=== PATIENT | female | born 1955 | race Caucasian/White ===

== ENCOUNTER 2020-02-22 10:28 | Outpatient (REF) | payer MEDICARE, SELFPAY ==
[2020-02-22 11:30] LABS: MANUAL DIFF FLAG NO
[2020-02-22 11:42] LABS: Basophils Absolute Auto 0.1 X10*3/uL (0.0-0.2); Basophils Percent Auto 1.4 % (0-2); Eosinophils Absolute Auto 0.2 X10*3/uL (0.0-0.4); Eosinophils Percent Auto 2.7 % (0-4); Hematocrit 40.8 % (37-47); Imm Gran Abs Auto 0.02 X10*3/uL (0.00-0.03); Imm Gran Pct Auto 0.3 % (0.0-0.4); Lymphocytes Absolute Auto 1.8 X10*3/uL (1.2-4.9); Lymphocytes Percent Auto 27.4 % (20-40); Mean Corpuscular HGB Conc 31.9 g/dl (31.0-35.0); Mean Corpuscular Volume 84.8 fL (80-98); Mean Platelet Volume 10.8 fL (9.4-12.3); Monocytes Absolute Auto 0.5 X10*3/uL (0.1-1.2); Monocytes Percent Auto 7.2 % (2-11); Neutrophils Absolute Auto 3.9 X10*3/uL (2.0-8.3); Platelet Count 275 X10*3/uL (160-400); Red Blood Count 4.81 X10*6/uL (4.20-5.50); Red Cell Distribution Width 15.2 % (11.0-16.0); Reticulocytes Absolute 0.047 X10*6/uL (0.026-0.095); White Blood Count 6.4 X10*3/uL (4.8-10.8)
[2020-02-22 14:46] LABS: Iron 73 mcg/dL (30-160); Percent Iron Saturation 25 % (15-50); Total Iron Binding Capacity 292 mcg/dL (228-428); Unsaturated Iron Binding 219 ug/dL
[2020-02-22 14:57] LABS: Ferritin 27 ng/mL (10-250)
[2020-02-22 16:17] LABS: Folate 16.3 ng/mL (> or = 4.0); Vitamin B12 773 pg/mL (200-900)
== END 2020-02-22 10:29 | disposition home or self-care (01) ==
LOC: HO.HMGCLDS 10:28
PROVIDERS: PCP Internal Medicine; Visit Provider Internal Medicine
DX: D64.9 Anemia, unspecified (principal); Z85.3 Personal history of malignant neoplasm of breast; F41.9 Anxiety disorder, unspecified; Z98.84 Bariatric surgery status; M85.80 Other specified disorders of bone density and structure, unspecified site
CPT/HCPCS: 36415; 82607; 82728; 82746; 83540; 85025; 85045

== ENCOUNTER → 2020-05-15 09:52 | Outpatient (BNVA) | payer MEDICARE, SELFPAY | PROVIDERS: PCP Internal Medicine; Visit Provider Surgery | DX: Z85.3 Personal history of malignant neoplasm of breast (principal) | CPT/HCPCS: 99212 ==

== ENCOUNTER → 2020-05-19 08:19 | Outpatient (BNVA) | payer MEDICARE, SELFPAY | PROVIDERS: PCP Internal Medicine; Visit Provider Physician Assistant | DX: E66.3 Overweight (principal); K91.2 Postsurgical malabsorption, not elsewhere classified; Z90.3 Acquired absence of stomach [part of]; Z98.84 Bariatric surgery status | CPT/HCPCS: Q3014 ==

== ENCOUNTER 2020-06-02 08:44 | Day surgery (SDC) | payer MEDICARE, SELFPAY ==
[2020-05-26 16:48] VITALS: BMI 27.3
--- NOTE | 2020-05-30 08:36 | P.CONAN_ITS ---
Documented by User: Rochelle Kelley 05/30/20 08:37 HPI - Anesthesia Eval Consult details Narrative: 64yo F for Colonoscopy PMFSH Past Medical History Medical History (Updated 05/19/20 @ 14:31 by Chula Alejandra PA-C) History of right breast cancer Intestinal malabsorption following gastrectomy Morbid obesity Overweight (BMI 25.0-29.9) Spinal stenosis Family History Family History Mother History of colon cancer Surgical History Surgical History (Updated 05/19/20 @ 14:31 by Chula Alejandra PA-C) History of back surgery History of lumpectomy of right breast (~06/2010) Hx laparoscopic cholecystectomy (~09/10/15) Hx of bilateral cataract extraction Hx of section Hx of dilation and curettage Hx of gastric bypass (~11/19/15) Social History Social History (Updated 05/26/20 @ 16:48 by Marylu Hall) Alcohol intake: never Smoking Status: Never smoker Use of substances other than those prescribed or required for medical reasons: No Advance Directives: No Advance Directives Information Provided: No Advance Directives on File: No Meds Allergies Allergy/AdvReac Type Severity Reaction Status Date / Time Lisinopril, SAÚL inhibitors Allergy Unknown cough Uncoded 06/02/20 08:58 Home Medications Medication Instructions Recorded Confirmed Type cholecalciferol (vitamin D3) 25 25 mcg PO DAILY 05/15/20 05/26/20 History mcg (1,000 unit) capsule cyanocobalamin (vitamin B-12) 1,000 mcg IM QMONTH 05/15/20 05/26/20 History 1,000 mcg/mL injection solution multivitamin 1 tab PO DAILY 05/15/20 05/26/20 History tamoxifen 20 mg tablet 20 mg PO DAILY 05/15/20 05/26/20 History vitamin A 10,000 unit capsule 1 cap PO DAILY 05/15/20 05/26/20 History Exam Exam Date and Time: May 30, 2020 0836 Height,Weight and Vital Signs: Height 5 ft 3 in Weight 69.853 kg Assessment and Plan Assessment Anesthesia Assessment: Chart Reviewed Documented by User: Alena Yang 06/02/20 09:42 [facility] Past Medical History Medical History (Updated 05/19/20 @ 14:31 by Chula Alejandra PA-C) History of right breast cancer Intestinal malabsorption following gastrectomy Morbid obesity Overweight (BMI 25.0-29.9) Spinal stenosis Family History Family History Mother History of colon cancer Surgical History Surgical History (Updated 05/19/20 @ 14:31 by Chula Alejandra PA-C) History of back surgery History of lumpectomy of right breast (~06/2010) Hx laparoscopic cholecystectomy (~09/10/15) Hx of bilateral cataract extraction Hx of section Hx of dilation and curettage Hx of gastric bypass (~11/19/15) Social History Social History (Updated 05/26/20 @ 16:48 by Marylu Hall) Alcohol intake: never Smoking Status: Never smoker Use of substances other than those prescribed or required for medical reasons: No Advance Directives: No Advance Directives Information Provided: No Advance Directives on File: No Meds Allergies Allergy/AdvReac Type Severity Reaction Status Date / Time Lisinopril, SAÚL inhibitors Allergy Unknown cough Uncoded 06/02/20 08:58 Home Medications Medication Instructions Recorded Confirmed Type cholecalciferol (vitamin D3) 25 25 mcg PO DAILY 05/15/20 05/26/20 History mcg (1,000 unit) capsule cyanocobalamin (vitamin B-12) 1,000 mcg IM QMONTH 05/15/20 05/26/20 History 1,000 mcg/mL injection solution multivitamin 1 tab PO DAILY 05/15/20 05/26/20 History tamoxifen 20 mg tablet 20 mg PO DAILY 05/15/20 05/26/20 History vitamin A 10,000 unit capsule 1 cap PO DAILY 05/15/20 05/26/20 History Exam Airway Mallampati Class: II TM Dist: >3cm Neck ROM: Full Heart: RRR Lungs: CtA BL Assessment and Plan Assessment Anesthesia Assessment: Anesthesia Plan Discussed and Chart Reviewed Final Anesthetic Review NPO: Yes ASA Class: II Final Preanesthetic Review: Meds/Chuckgs Chart Reviewed and Consent Obtained/Reviewed Patient Risk: Intermediate Procedure Risk: Intermediate Anesthetic Plan Anesthetic Plan: MAC: Disposition: Standard PACU
[2020-06-02 09:06] VITALS: BP 155/65; PULSE 72; RESP 18; TEMP 36.9; O2SAT 97
[2020-06-02] MEDS: Lactated Ringers 1,000 ML 100 ML IVCONT (09:21)
[2020-06-02 10:44] VITALS: BP 118/57; PULSE 61; RESP 16; TEMP 36.6; O2SAT 98
--- NOTE | 2020-06-02 10:47 | PM.OP ---
Brief Operative Note Date of Service: 06/02/20 Pre-op diagnosis: Screening Post-op diagnosis: other (Diverticulosis, Internal hemorrhoids) Procedure: Colonoscopy to the cecum and TI Surgeon: Joseph Jaquez Anesthesia: MAC Estimated blood loss (mL): 0 Pathology: none sent Condition: stable Disposition: PACU
[2020-06-02 11:00] VITALS: BP 141/61; PULSE 62; RESP 16; TEMP 36.6; O2SAT 99
--- NOTE | 2020-06-02 11:24 | OP_ITS ---
SURGEON: Joseph Jaquez MD INDICATIONS: The patient presents for evaluation of colorectal cancer screening and personal history of tubular adenoma of the colon. Full consent has been obtained from her for this, including risks of bleeding and perforation. PREOPERATIVE DIAGNOSIS: Colorectal cancer screening and personal history of tubular adenoma of the colon. POSTOPERATIVE DIAGNOSIS: Colorectal cancer screening and personal history of tubular adenoma of the colon, diverticulosis and internal hemorrhoids. PROCEDURE PERFORMED: Colonoscopy to cecum and terminal ileum. ESTIMATED BLOOD LOSS: COMPLICATIONS: ANESTHESIA: Monitored anesthesia care. ASSISTANTS: SPECIMENS: DESCRIPTION OF PROCEDURE: The patient was placed in the left lateral decubitus position. The digital rectal exam revealed no abnormalities. The Olympus video pediatric colonoscope was entered into the rectum and advanced easily to the cecum. Once in the cecum, I did identify normal-appearing cecal pouch with appendiceal orifice and a normal-appearing ileocecal valve. The terminal ileum was cannulated and appeared normal. The scope was withdrawn back in the colon. The entire cecum and ileocecal valve appeared normal. Scope was then slowly withdrawn assessing all mucosal surfaces carefully. Preparation was excellent. I did not visualize any sign of polyps, colitis, nor angiodysplasia. There was a mild amount of sigmoid diverticulosis. In the rectum, scope was retroflexed visualizing internal hemorrhoids, but no other pathology. The rectal mucosa appeared normal. The scope was straightened out and withdrawn from the patient. She tolerated the procedure well and was returned to recovery area in stable condition. IMPRESSION: 1. Sigmoid diverticulosis. 2. Internal hemorrhoids. PLAN: Given her previous history of a tubular adenoma, I would recommend a followup colonoscopy in 5 years for further screening. She will otherwise see me on a p.r.n. basis. MD JERED Johnson/XIOMARA / [id number]
--- NOTE | 2020-06-02 11:34 | HO.POSTANES ---
Post Anesthesia Evaluation Post Anesthesia Evaluation Vital Signs: Vital Signs Temp Pulse Resp BP Pulse Ox 06/02/20 11:00 97.8 F 62 16 141/61 H 99 06/02/20 10:44 97.8 F 61 16 118/57 L 98 06/02/20 09:06 98.5 F 72 18 155/65 H 97 Anesthesia: Monitored Mental Status: Awake Pain Control: Satisfactory Nausea/Vomiting: None Hydration: Adequate Anesthesia-Related Issues: No Anes. Related Issues
== END 2020-06-02 11:39 | disposition home or self-care (01) ==
PROVIDERS: PCP Internal Medicine; Visit Provider Internal Medicine
PROC: 0DJD8ZZ Inspection of Lower Intestinal Tract, Via Natural or Artificial Opening Endoscopic (ICD-10-PCS; CPT 45378; principal; 2020-06-02 10:00)
DX: Z12.11 Encounter for screening for malignant neoplasm of colon (principal); Z80.0 Family history of malignant neoplasm of digestive organs; Z86.010 Personal history of colon polyps; K57.30 Diverticulosis of large intestine without perforation or abscess without bleeding; K64.8 Other hemorrhoids; C50.911 Malignant neoplasm of unspecified site of right female breast; Z79.810 Long term (current) use of selective estrogen receptor modulators (SERMs); Z92.3 Personal history of irradiation; I10 Essential (primary) hypertension; Z79.899 Other long term (current) drug therapy; E66.3 Overweight; Z68.28 Body mass index [BMI] 28.0-28.9, adult; Z98.84 Bariatric surgery status
CPT/HCPCS: G0105

== ENCOUNTER 2020-07-21 08:10 | Outpatient (REF) | payer MEDICARE, OTHER, SELFPAY ==
--- NOTE | ~2020-07-21 | MM_ITS ---
EXAMINATION: MM SCREENING DIGITAL BREAST TOMOSYNTHESIS, BILATERAL CLINICAL INFORMATION: Screening. Asymptomatic. Right lumpectomy for breast cancer 2010. Due for yearly. COMPARISON: Mammography: 07/19/2019, 07/13/2018, 07/11/2017 TECHNIQUE: Digital breast tomosynthesis is performed in both the craniocaudal and mediolateral oblique views along with computer-aided detection (CAD). Synthesized 2D images are generated from the tomosynthesis. FINDINGS: There are scattered areas of fibroglandular density (ACR BI-RADS breast composition Category b). There are no significant masses, abnormal calcifications, or other abnormalities. There is old scarring upper right breast similar to prior studies. There is benign dystrophic calcification in region of the scar. Other scattered benign coarse calcifications are present in the bilateral medial breasts. Neither breast shows interval mass or architectural abnormality. No developing density. No significant changes. MM/MM tomosynthesis screening BI IMPRESSION: No mammographic evidence of malignancy. ASSESSMENT: BI-RADS 2: Benign RECOMMENDATION: Routine annual mammography screening. This patient's information was entered into a reminder system with a target due date for their next mammogram.
== END 2020-07-21 08:11 | disposition home or self-care (01) ==
LOC: HO.MAMMO 08:10
PROVIDERS: Visit Provider Internal Medicine
DX: Z12.31 Encounter for screening mammogram for malignant neoplasm of breast (principal)
CPT/HCPCS: 77063; 77067

== ENCOUNTER 2020-09-24 10:09 | Outpatient (REF) | payer MEDICARE, OTHER, SELFPAY ==
--- NOTE | ~2020-09-24 | XR_ITS ---
EXAMINATION: BILATERAL HAND X-RAY CLINICAL INFORMATION: Pain COMPARISON: None TECHNIQUE: 3 views each hand FINDINGS: Right: The bones may be osteopenic. Bone alignment is normal. No fracture or dislocation is seen. There is mild arthritis at the DIP joint with small osteophytes. Joint spaces are otherwise normal. Soft tissues are normal. Left: The bones may be osteopenic. Bone alignment is normal. No fracture or dislocation is seen. There is arthritis at the first LONG TERM joint with joint space narrowing and osteophyte formation. Joint spaces are otherwise normal. Soft tissues are normal. XR/XR hand RT min 3V IMPRESSION: Right hand: Mild osteoarthritis at the DIP joints. Left hand: Mild osteoarthritis at the first LONG TERM joint.
--- NOTE | ~2020-09-24 | XR_ITS ---
EXAMINATION: BILATERAL HAND X-RAY CLINICAL INFORMATION: Pain COMPARISON: None TECHNIQUE: 3 views each hand FINDINGS: Right: The bones may be osteopenic. Bone alignment is normal. No fracture or dislocation is seen. There is mild arthritis at the DIP joint with small osteophytes. Joint spaces are otherwise normal. Soft tissues are normal. Left: The bones may be osteopenic. Bone alignment is normal. No fracture or dislocation is seen. There is arthritis at the first RETIREMENT joint with joint space narrowing and osteophyte formation. Joint spaces are otherwise normal. Soft tissues are normal. XR/XR hand LT min 3V IMPRESSION: Right hand: Mild osteoarthritis at the DIP joints. Left hand: Mild osteoarthritis at the first RETIREMENT joint.
[2020-09-24 11:40] LABS: MANUAL DIFF FLAG NO
[2020-09-24 11:45] LABS: Basophils Absolute Auto 0.1 X10*3/uL (0.0-0.2); Basophils Percent Auto 1.6 % (0-2); Eosinophils Absolute Auto 0.1 X10*3/uL (0.0-0.4); Eosinophils Percent Auto 2.5 % (0-4); Hematocrit 39.9 % (37-47); Hemoglobin 12.9 g/dl (12.0-16.0); Imm Gran Abs Auto 0.01 X10*3/uL (0.00-0.03); Imm Gran Pct Auto 0.2 % (0.0-0.4); Lymphocytes Absolute Auto 1.2 X10*3/uL (1.2-4.9); Lymphocytes Percent Auto 27.6 % (20-40); Mean Corpuscular HGB Conc 32.3 g/dl (31.0-35.0); Mean Corpuscular Hemoglobin 28.5 pg (27.0-33.0); Mean Corpuscular Volume 88.3 fL (80-98); Mean Platelet Volume 10.7 fL (9.4-12.3); Monocytes Absolute Auto 0.4 X10*3/uL (0.1-1.2); Monocytes Percent Auto 8.4 % (2-11); Neutrophils Absolute Auto 2.6 X10*3/uL (2.0-8.3); Neutrophils Percent Auto 59.7 % (45-73); Platelet Count 250 X10*3/uL (160-400); Red Blood Count 4.52 X10*6/uL (4.20-5.50); Red Cell Distribution Width 13.9 % (11.0-16.0); White Blood Count 4.4 X10*3/uL (4.8-10.8)
[2020-09-24 12:13] LABS: Alanine Aminotransferase 9 U/L (0-31); Alkaline Phosphatase 43 U/L (39-117); Anion Gap 10 (12-20); Aspartate Amino Transferase 27 U/L (5-31); Bilirubin Total 0.3 mg/dL (0.0-1.0); Blood Urea Nitrogen 14 mg/dL (9-16); C Reactive Protein 0.14 mg/dL (< or = 0.50); Calcium 9.1 mg/dL (8.4-10.2); Carbon Dioxide 29 mmol/L (22-29); Chloride 109 mmol/L (96-108); Estimated Glomerular Filt Rate > 60; Glucose Random 98 mg/dL (60-115); Potassium 4.2 mmol/L (3.3-5.1); Rheumatoid Factor < 15.0 IU/mL (<15.0); Sodium 144 mmol/L (135-145); Total Protein 6.2 g/dL (6.5-8.0)
[2020-09-24 12:54] LABS: Erythrocyte Sedimentation Rate 7 MM/HR (0-20)
[2020-09-25 05:42] LABS: Lyme Abs Screen <0.90 index
[2020-09-25 17:26] LABS: Cyclic Citrullinated Peptide <16 UNITS
== END 2020-09-24 10:10 | disposition home or self-care (01) ==
LOC: HO.XRAY 10:09
PROVIDERS: PCP Internal Medicine; Visit Provider Student in an Organized Health Care Education/Training Program
DX: M25.50 Pain in unspecified joint (principal); Z79.899 Other long term (current) drug therapy
CPT/HCPCS: 36415; 73130; 80053; 85025; 85652; 86140; 86200; 86431; 86617; 86618; 99202

== ENCOUNTER 2020-10-14 06:53 | Outpatient (REF) | payer MEDICARE, OTHER, SELFPAY ==
[2020-10-14 07:32] LABS: MANUAL DIFF FLAG NO
[2020-10-14 07:40] LABS: Basophils Absolute Auto 0.1 X10*3/uL (0.0-0.2); Basophils Percent Auto 1.2 % (0-2); Eosinophils Absolute Auto 0.1 X10*3/uL (0.0-0.4); Eosinophils Percent Auto 2.4 % (0-4); Hemoglobin 13.3 g/dl (12.0-16.0); Imm Gran Abs Auto 0.01 X10*3/uL (0.00-0.03); Imm Gran Pct Auto 0.2 % (0.0-0.4); Lymphocytes Absolute Auto 1.6 X10*3/uL (1.2-4.9); Lymphocytes Percent Auto 27.1 % (20-40); Mean Corpuscular HGB Conc 32.4 g/dl (31.0-35.0); Mean Corpuscular Hemoglobin 28.5 pg (27.0-33.0); Mean Corpuscular Volume 87.8 fL (80-98); Mean Platelet Volume 10.3 fL (9.4-12.3); Monocytes Absolute Auto 0.5 X10*3/uL (0.1-1.2); Monocytes Percent Auto 7.7 % (2-11); Neutrophils Absolute Auto 3.6 X10*3/uL (2.0-8.3); Neutrophils Percent Auto 61.4 % (45-73); Platelet Count 264 X10*3/uL (160-400); Red Blood Count 4.67 X10*6/uL (4.20-5.50); Red Cell Distribution Width 13.8 % (11.0-16.0); White Blood Count 5.8 X10*3/uL (4.8-10.8)
[2020-10-14 07:54] LABS: Estimated Average Glucose 105 mg/dL; Hemoglobin A1c % 5.3 %
[2020-10-14 08:27] LABS: Alanine Aminotransferase 10 U/L (0-31); Albumin Level 4.1 g/dL (3.5-5.0); Alkaline Phosphatase 52 U/L (39-117); Anion Gap 11 (12-20); Aspartate Amino Transferase 28 U/L (5-31); Bilirubin Total 0.7 mg/dL (0.0-1.0); Blood Urea Nitrogen 16 mg/dL (9-16); C Reactive Protein 0.11 mg/dL (< or = 0.50); Calcium 9.1 mg/dL (8.4-10.2); Carbon Dioxide 28 mmol/L (22-29); Chloride 108 mmol/L (96-108); Cholesterol 179 mg/dL; Estimated Glomerular Filt Rate > 60; Glucose Fasting 99 mg/dL (60-99); HDL Cholesterol 46 mg/dL; Iron 92 mcg/dL (30-160); LDL Cholesterol Calculated 107 mg/dl; Percent Iron Saturation 35 % (15-50); Potassium 4.2 mmol/L (3.3-5.1); Sodium 143 mmol/L (135-145); Total Iron Binding Capacity 264 mcg/dL (228-428); Total Protein 6.3 g/dL (6.5-8.0); Triglycerides 134 mg/dL; Unsaturated Iron Binding 172 ug/dL
[2020-10-14 08:32] LABS: Ferritin 46 ng/mL (10-250); Vitamin D 25-OH Total 31.3 ng/mL (>30)
[2020-10-14 09:24] LABS: Folate 14.4 ng/mL (> or = 4.0); Vitamin B12 1568 pg/mL (200-900)
[2020-10-15 22:26] LABS: Insulin Level Total 7.4 uIU/mL
[2020-10-16 17:31] LABS: Calcium (PTHI) 9.3 mg/dL (8.6-10.4); PTHI 118 pg/mL (14-64)
[2020-10-17 00:22] LABS: Zinc 71 mcg/dL (60-130)
[2020-10-18 01:31] LABS: Vitamin A 32 mcg/dL (38-98)
[2020-10-19 12:36] LABS: Vitamin B1 16 nmol/L (8-30)
== END 2020-10-14 06:54 | disposition home or self-care (01) ==
LOC: HO.LAB 06:53
PROVIDERS: Absent Provider Internal Medicine Medical Oncology; PCP Internal Medicine; Visit Provider Physician Assistant
DX: E66.01 Morbid (severe) obesity due to excess calories (principal); K91.2 Postsurgical malabsorption, not elsewhere classified; Z90.3 Acquired absence of stomach [part of]
CPT/HCPCS: 36415; 80053; 80061; 82306; 82607; 82728; 82746; 83036; 83525; 83540; 83970; 84425; 84443; 84590; 84630; 85025; 86140

== ENCOUNTER 2020-12-06 01:59 | Emergency (ER) | payer MEDICARE, OTHER, SELFPAY ==
[2020-12-06 02:24] VITALS: BP 134/80; BP 147/51; PULSE 66; PULSE 70; RESP 17; TEMP 36.7; O2SAT 94; O2SAT 96; BMI 28.3
--- NOTE | 2020-12-06 02:39 | ECG_ITS ---
Test Reason : CHEST PAIN Blood Pressure : / mmHG Vent. Rate : 066 BPM Atrial Rate : 066 BPM P-R Int : 152 ms QRS Dur : 078 ms QT Int : 460 ms P-R-T Axes : 058 010 032 degrees QTc Int : 482 ms Normal sinus rhythm Normal ECG When compared to the previous EKG of No significant changes seen Referred By: Jazzy Urban Electronically Signed By:Chris Min
--- NOTE | 2020-12-06 02:46 | ED_ITS ---
HPI - Chest Pain General Chief Complaint: Chest Pain Stated Complaint: shoulder pain Time Seen by Provider: 12/06/20 02:38 Source: patient Mode of arrival: EMS Limitations: no limitations History of Present Illness HPI narrative: Patient comes to the emergency room complaining of left-sided chest pain. Patient states she started having left-sided chest pain radiating down towards her left arm while she was sleeping. Patient states she has no cardiac history, EMS gave the patient a full-dose aspirin prior to arrival, no nitroglycerin. At this time, patient states that she feels normal, very minimal left arm pain, no chest pain, no shortness of breath. Denies abdominal pain Related Data Home Medications Medication Instructions Recorded Confirmed cholecalciferol (vitamin D3) 25 25 mcg PO DAILY 05/15/20 10/15/20 mcg (1,000 unit) capsule multivitamin 1 tab PO DAILY 05/15/20 10/15/20 vitamin A 10,000 unit capsule 1 cap PO DAILY 05/15/20 10/15/20 acetaminophen 500 mg tablet 500 mg PO QID PRN 09/24/20 10/15/20 (Tylenol Extra Strength) diclofenac sodium 1 % topical gel 2 g TOPICAL QID PRN 09/24/20 10/15/20 (Voltaren) Previous Rx's Medication Instructions Recorded citalopram 20 mg tablet 20 mg PO DAILY #90 tab 04/02/20 iron,carbonyl 65 mg-vitamin C 125 1 tab PO DAILY #30 tab 05/19/20 mg tablet,delayed release gabapentin 300 mg capsule 300 mg PO DAILY #90 cap 05/27/20 calcium carbonate 600 mg calcium 600 mg PO DAILY #90 tab 07/15/20 (1,500 mg) tablet (Calcium) cyanocobalamin (vitamin B-12) 1,000 mcg IM .monthly #3 ml 07/21/20 1,000 mcg/mL injection solution vitamin A palmitate 10,000 unit See Rx Instructions PO DAILY #14 11/24/20 tablet tab Allergies Allergy/AdvReac Type Severity Reaction Status Date / Time Lisinopril, SAÚL inhibitors Allergy Intermediate cough Uncoded 09/24/20 10:15 Review of Systems Review of Systems: Constitutional : No Weight loss, No Fever, No Chills, No Night Sweats, No Fatigue, No Malaise ENT/Mouth : No Hearing loss, No Ear Pain, No Nasal Congestion, No Sinus Pain, No Hoarseness, No sore throat, No Rhinorrhea, No Swallowing Difficulty Eyes: No Eye Pain, No Swelling, No Redness, No Foreign Body, No Discharge, No Vision Changes Cardiovascular : Left-sided chest pain radiating towards the left arm,No SOB, No Dyspnea on Exertion, No Orthopnea, No Edema, No Palpitations Respiratory : No Cough, No Sputum, No Wheezing, No Smoke Exposure, No Dyspnea Gastrointestinal : No Nausea, No Vomiting, No Diarrhea, No Constipation, No abdominal Pain, No Hematochezia, No Melena Genitourinary : no irregular bleeding, No Dysuria, No Urinary Frequency, No Hematuria, No Urinary Incontinence, No Urgency, No Flank Pain, No Urinary Flow Changes, No Hesitancy Musculoskeletal : No joint pain, No Myalgias, No Joint Swelling Skin : No Skin Lesions, No rash Neuro : No Weakness, No Numbness, No Paresthesias, No Loss of Consciousness, No Dizziness, No Headache Psych : No Anxiety/Panic, No Depression, No SI/HI/AH/VH, No Social Issues, Heme/Lymph: No Bruising, No Bleeding,No Lymphadenopathy Endocrine : No Polyuria, No Polydipsia, No Temperature Intolerance PMFSH Past Medical History Medical History Anxiety and depression Closed fibular fracture History of right breast cancer Hyperparathyroidism Hypertension Intestinal malabsorption following gastrectomy Metatarsal stress fracture of right foot with routine healing Morbid obesity Obstructive sleep apnea Osteoarthritis Overweight (BMI 25.0-29.9) Spinal stenosis Vitamin A deficiency Surgical History History of back surgery History of lumpectomy of right breast (~06/2010) Hx laparoscopic cholecystectomy (~09/10/15) Hx of bilateral cataract extraction Hx of section Hx of dilation and curettage Hx of gastric bypass (~11/19/15) Family History Family History Mother History of colon cancer Social History Social History Housing: House Alcohol intake: never Patient Tobacco Use Status: Never used Tobacco e-Cigarette/Vaping Use: Never Used Second Hand Smoke Exposure: No Use of substances other than those prescribed or required for medical reasons: No Advance Directives: No Current occupational status: disabled Physical Exam Vital Signs: Vital Signs: Last Vital Signs Temp 98.1 F 12/06/20 02:24 Pulse 66 12/06/20 04:00 Resp 14 12/06/20 04:00 BP 147/51 H 12/06/20 04:00 Pulse Ox 94 12/06/20 04:00 Body Mass Index 28.3 Const: Other: Appearance: Alert. Oriented X3. No acute distress. Eyes: Pupils equal, round and reactive to light. ENT: Pharynx normal. Neck: Normal inspection. Neck supple. No lymph nodes noted. No crepitus CVS: Normal heart rate and rhythm. Pulses normal. Normal S1 and S2, reproducible chest pain on palpation on the left side of the chest Respiratory: No respiratory distress. Breath sounds normal. No Wheezing. No rales Abdomen: Soft and nontender. No rigidity. No distention. good BS x4 Skin: Skin warm and dry. Normal skin color. Normal skin turgor. Extremities: No lower extremity edema. No lower extremity edema. No Lacerations. No Rash Neuro: Oriented X 3. No motor deficit. No sensory deficit. Moving all extermities. No slurred speech. Course Course Course Narrative: Patient's troponin x2 is negative, patient is symptomatic. Patient's pain likely musculoskeletal. EKG within normal limits MDM - Chest Pain Lab Data Result diagrams: 12/06/20 02:56 12/06/20 02:57 Labs: Lab Results 12/06/20 12/06/20 12/06/20 Range/Units 02:56 02:56 02:57 WBC 9.0 (4.8-10.8) X10*3/uL RBC 4.40 (4.20-5.50) X10*6/uL Hgb 12.7 (12.0-16.0) g/dl Hct 37.9 (37-47) % MCV 86.1 (80-98) fL MCH 28.9 (27.0-33.0) pg MCHC 33.5 (31.0-35.0) g/dl RDW 13.4 (11.0-16.0) % Plt Count 254 (160-400) X10*3/uL MPV 9.9 (9.4-12.3) fL Immature Gran % (Auto) 0.3 (0.0-0.4) % Neut % (Auto) 65.9 (45-73) % Lymph % (Auto) 21.0 (20-40) % Owsley % (Auto) 9.6 (2-11) % Eos % (Auto) 2.4 (0-4) % Baso % (Auto) 0.8 (0-2) % Lymph # (Auto) 1.9 (1.2-4.9) X10*3/uL Owsley # (Auto) 0.9 (0.1-1.2) X10*3/uL Eos # (Auto) 0.2 (0.0-0.4) X10*3/uL Baso # (Auto) 0.1 (0.0-0.2) X10*3/uL Abs Immat Gran (auto) 0.03 (0.00-0.03) X10*3/uL Absolute Neuts (auto) 5.9 (2.0-8.3) X10*3/uL Absolute Nucleated RBC 0.000 (0.0-0.012) X10*3/uL Nucleated RBC % (auto) 0.0 (0.0-0.2) /100WBC Sodium 142 (135-145) mmol/L Potassium 4.1 (3.3-5.1) mmol/L Chloride 107 (96-108) mmol/L Carbon Dioxide 27 (22-29) mmol/L Anion Gap 12 (12-20) BUN 16 (9-16) mg/dL Creatinine 0.67 (0.5-1.4) mg/dL Estim Creat Clear Calc 78.8 Estimated GFR > 60 Random Glucose 104 (60-115) mg/dL Calcium 8.8 (8.4-10.2) mg/dL Troponin I High Sens < 3.5 (<3.5-17.0) ng/L 12/06/20 Range/Units 05:06 WBC (4.8-10.8) X10*3/uL RBC (4.20-5.50) X10*6/uL Hgb (12.0-16.0) g/dl Hct (37-47) % MCV (80-98) fL MCH (27.0-33.0) pg MCHC (31.0-35.0) g/dl RDW (11.0-16.0) % Plt Count (160-400) X10*3/uL MPV (9.4-12.3) fL Immature Gran % (Auto) (0.0-0.4) % Neut % (Auto) (45-73) % Lymph % (Auto) (20-40) % Owsley % (Auto) (2-11) % Eos % (Auto) (0-4) % Baso % (Auto) (0-2) % Lymph # (Auto) (1.2-4.9) X10*3/uL Owsley # (Auto) (0.1-1.2) X10*3/uL Eos # (Auto) (0.0-0.4) X10*3/uL Baso # (Auto) (0.0-0.2) X10*3/uL Abs Immat Gran (auto) (0.00-0.03) X10*3/uL Absolute Neuts (auto) (2.0-8.3) X10*3/uL Absolute Nucleated RBC (0.0-0.012) X10*3/uL Nucleated RBC % (auto) (0.0-0.2) /100WBC Sodium (135-145) mmol/L Potassium (3.3-5.1) mmol/L Chloride (96-108) mmol/L Carbon Dioxide (22-29) mmol/L Anion Gap (12-20) BUN (9-16) mg/dL Creatinine (0.5-1.4) mg/dL Estim Creat Clear Calc Estimated GFR Random Glucose (60-115) mg/dL Calcium (8.4-10.2) mg/dL Troponin I High Sens < 3.5 (<3.5-17.0) ng/L ECG Data ECG #1: Attestation: I personally reviewed and interpreted this ECG as follows: (Normal sinus rhythm, heart rate 66, no ST segment depression or elevation, no T-wave inversion, QTC 482) Discharge Plan Discharge Clinical Impression: Atypical chest pain Patient Disposition: Home, Self-Care Instructions: Chest Pain (ED) Additional Instructions: Please follow-up with your primary care physician tomorrow. If you have any wo rsening or new symptoms, please return to the emergency room or call 911 Prescriptions: No Action citalopram 20 mg tablet 20 mg PO DAILY Qty: 90 RF: 2 iron,carbonyl-vitamin C 65 mg iron- 125 mg tablet,delayed release (DR/EC) 1 tab PO DAILY Qty: 30 RF: 11 gabapentin 300 mg capsule 300 mg PO DAILY Qty: 90 RF: 1 cyanocobalamin (vitamin B-12) 1,000 mcg/mL solution 1,000 mcg IM .monthly Qty: 3 RF: 6 vitamin A palmitate 10,000 unit tablet See Rx Instructions PO DAILY Qty: 14 RF: 0 calcium carbonate [Calcium 600] 600 mg calcium (1,500 mg) tablet 600 mg PO DAILY Qty: 90 RF: 2 vitamin A 10,000 unit capsule 1 cap PO DAILY RF: 0 cholecalciferol (vitamin D3) 25 mcg (1,000 unit) capsule 25 mcg PO DAILY RF: 0 multivitamin Tablet 1 tab PO DAILY RF: 0 acetaminophen [Tylenol Extra Strength] 500 mg tablet 500 mg PO QID PRNRF: 0 diclofenac sodium [Voltaren] 1 % gel 2 g topical QID PRNRF: 0 Interventions: ED Discharge Assessment Last Done: 12/06/20 06:03
[2020-12-06 03:01] LABS: MANUAL DIFF FLAG NO
[2020-12-06 03:02] LABS: Basophils Absolute Auto 0.1 X10*3/uL (0.0-0.2); Basophils Percent Auto 0.8 % (0-2); Eosinophils Absolute Auto 0.2 X10*3/uL (0.0-0.4); Eosinophils Percent Auto 2.4 % (0-4); Hematocrit 37.9 % (37-47); Hemoglobin 12.7 g/dl (12.0-16.0); Imm Gran Abs Auto 0.03 X10*3/uL (0.00-0.03); Imm Gran Pct Auto 0.3 % (0.0-0.4); Lymphocytes Absolute Auto 1.9 X10*3/uL (1.2-4.9); Mean Corpuscular HGB Conc 33.5 g/dl (31.0-35.0); Mean Corpuscular Hemoglobin 28.9 pg (27.0-33.0); Mean Corpuscular Volume 86.1 fL (80-98); Mean Platelet Volume 9.9 fL (9.4-12.3); Monocytes Absolute Auto 0.9 X10*3/uL (0.1-1.2); Monocytes Percent Auto 9.6 % (2-11); Neutrophils Absolute Auto 5.9 X10*3/uL (2.0-8.3); Neutrophils Percent Auto 65.9 % (45-73); Platelet Count 254 X10*3/uL (160-400); Red Cell Distribution Width 13.4 % (11.0-16.0)
[2020-12-06 03:25] LABS: Troponin-I High Sensitivity < 3.5 ng/L (<3.5-17.0)
[2020-12-06 03:27] LABS: Anion Gap 12 (12-20); Blood Urea Nitrogen 16 mg/dL (9-16); Calcium 8.8 mg/dL (8.4-10.2); Carbon Dioxide 27 mmol/L (22-29); Chloride 107 mmol/L (96-108); Creatinine Clr Calc Pharmacy 78.8; Estimated Glomerular Filt Rate > 60; Glucose Random 104 mg/dL (60-115); Potassium 4.1 mmol/L (3.3-5.1); Sodium 142 mmol/L (135-145)
[2020-12-06 04:00] VITALS: BP 147/51; PULSE 66; RESP 14; O2SAT 94
[2020-12-06 05:35] LABS: Troponin-I High Sensitivity < 3.5 ng/L (<3.5-17.0)
[2020-12-06 06:00] VITALS: BP 119/57; PULSE 64; RESP 15; O2SAT 94
== END 2020-12-06 06:56 | disposition home or self-care (01) ==
PROVIDERS: Emergency Provider Emergency Medicine; PCP Internal Medicine
DX: R07.89 Other chest pain (principal); I10 Essential (primary) hypertension; F41.9 Anxiety disorder, unspecified; Z79.899 Other long term (current) drug therapy
CPT/HCPCS: 36415; 80048; 84484; 85025; 93005; 99284; 99285

== ENCOUNTER 2020-12-29 07:31 | Outpatient (REF) | payer MEDICARE, OTHER, SELFPAY ==
[2021-01-02 00:36] LABS: Vitamin A 33 mcg/dL (38-98)
== END 2020-12-29 07:32 | disposition home or self-care (01) ==
LOC: HO.LAB 07:31
PROVIDERS: PCP Internal Medicine; Visit Provider Physician Assistant
DX: E50.9 Vitamin A deficiency, unspecified (principal); K91.2 Postsurgical malabsorption, not elsewhere classified; Z90.3 Acquired absence of stomach [part of]
CPT/HCPCS: 36415; 84590

== ENCOUNTER → 2021-02-17 08:14 | Outpatient (BNVA) | payer MEDICARE, OTHER, SELFPAY | PROVIDERS: PCP Internal Medicine; Referring Provider Internal Medicine; Visit Provider Physician Assistant Surgical | DX: E66.3 Overweight (principal); E50.9 Vitamin A deficiency, unspecified; Z98.84 Bariatric surgery status; Z68.29 Body mass index [BMI] 29.0-29.9, adult | CPT/HCPCS: 99212 ==

== ENCOUNTER 2021-03-09 07:25 | Outpatient (REF) | payer MEDICARE, OTHER, SELFPAY ==
[2021-03-09 08:15] LABS: Iron 71 mcg/dL (30-160); Percent Iron Saturation 26 % (15-50); Total Iron Binding Capacity 272 mcg/dL (228-428); Unsaturated Iron Binding 201 ug/dL
[2021-03-09 08:35] LABS: Ferritin 56 ng/mL (10-250); Vitamin D 25-OH Total 45.1 ng/mL (>30)
[2021-03-09 10:17] LABS: Folate 17.8 ng/mL (> or = 4.0); Vitamin B12 980 pg/mL (200-900)
[2021-03-10 16:21] LABS: Calcium (PTHI) 9.6 mg/dL (8.6-10.4); PTHI 108 pg/mL (14-64)
[2021-03-11 21:21] LABS: Zinc 88 mcg/dL (60-130)
[2021-03-13 01:27] LABS: Vitamin A 30 mcg/dL (38-98)
[2021-03-14 13:01] LABS: Vitamin B1 16 nmol/L (8-30)
== END 2021-03-09 07:26 | disposition home or self-care (01) ==
LOC: HO.LAB 07:25
PROVIDERS: PCP Internal Medicine; Visit Provider Physician Assistant Surgical
DX: E66.3 Overweight (principal); Z98.84 Bariatric surgery status
CPT/HCPCS: 36415; 82306; 82607; 82728; 82746; 83540; 83970; 84425; 84590; 84630

== ENCOUNTER 2021-03-17 08:54 | Outpatient (REF) | payer MEDICARE, OTHER, SELFPAY ==
--- NOTE | ~2021-03-17 | XR_ITS ---
EXAMINATION: XR HAND, RIGHT CLINICAL INFORMATION: M79.641 - Pain in right hand COMPARISON: Radiographs right hand 09/24/2020, bone densitometry 07/19/2019. TECHNIQUE: Right hand is imaged in 4 views. FINDINGS: There is generalized mild osteopenia similar to prior exam. No fracture or dislocation or destructive process. The ulnar variance is neutral. The carpus shows no focal joint narrowing or erosive change or chondrocalcinosis. The MCP joints are normal. The PIP joints show no significant narrowing and no erosive change. There are mild osteoarthritic changes involving the DIP joints, greatest fifth finger. No erosive changes. XR/XR hand RT min 3V IMPRESSION: Degenerative changes DIP joints. Generalized osteopenia.
== END 2021-03-17 08:55 | disposition home or self-care (01) ==
LOC: HO.HOSX 08:54
PROVIDERS: Visit Provider Orthopaedic Surgery
DX: S63.632A Sprain of interphalangeal joint of right middle finger, initial encounter (principal); S63.634A Sprain of interphalangeal joint of right ring finger, initial encounter
CPT/HCPCS: 73130; 99202

== ENCOUNTER → 2021-03-30 08:23 | Outpatient (BNVA) | payer MEDICARE, OTHER, SELFPAY | PROVIDERS: PCP Internal Medicine; Visit Provider Physician Assistant Surgical | DX: Z98.84 Bariatric surgery status (principal); E66.3 Overweight | CPT/HCPCS: Q3014 ==

== ENCOUNTER 2021-05-11 09:09 | Outpatient (REF) | payer MEDICARE, SELFPAY ==
[2021-05-14 01:45] LABS: HPV mRNA E6/E7 Not Detected (Not Detected)
== END 2021-05-11 09:10 | disposition home or self-care (01) ==
LOC: HO.LAB 09:09
PROVIDERS: Visit Provider Obstetrics & Gynecology
DX: Z01.419 Encounter for gynecological examination (general) (routine) without abnormal findings (principal); Z78.0 Asymptomatic menopausal state
CPT/HCPCS: 87624; 88142

== ENCOUNTER → 2021-07-06 09:39 | Outpatient (BNVA) | payer MEDICARE, SELFPAY | PROVIDERS: PCP Internal Medicine; Visit Provider Internal Medicine | DX: E21.3 Hyperparathyroidism, unspecified (principal); E55.9 Vitamin D deficiency, unspecified | CPT/HCPCS: 99202 ==

== ENCOUNTER 2021-07-23 09:05 | Outpatient (REF) | payer MEDICARE, SELFPAY ==
--- NOTE | ~2021-07-23 | MM_ITS ---
EXAMINATION: BONE DENSITOMETRY CLINICAL INDICATION: Hyperparathyroidism. COMPARISON: Previous BD dated 07/19/2019 and baseline BD dated 03/11/2009. TECHNIQUE: Using a [employer] DXA System (software version: 13.1) manufactured by [employer], dual-energy x-ray absorptiometry was performed of the lumbar spine, left hip, and left forearm radius 33%. The images are of good technical quality. Summary results are attached. FINDINGS: AP SPINE L1-L4: Current: BMD 1.229 g/cm2, Z-score 1.6, T-score 0.4, normal, 4.1% decrease from previous, 4.0% decrease from baseline (<5% change is not significant). Prior: BMD 1.281 g/cm2. Baseline: BMD 1.280 g/cm2. LEFT FEMUR, NECK: Current: BMD 0.569 g/cm2, Z-score -2.1, T-score -3.4, osteoporosis. Prior: BMD 0.703 g/cm2. Baseline: BMD 1.031 g/cm2. LEFT FEMUR, TOTAL: Current: BMD 0.617 g/cm2, Z-score -2.1, T-score -3.1, osteoporosis, 18.1% decrease from previous, 46.2% decrease from baseline (<5% change is not significant). Prior: BMD 0.753 g/cm2. Baseline: BMD 1.146 g/cm2. LEFT FOREARM RADIUS 33%: BMD 0.684 g/cm2, Z-score -0.7, T-score -2.2, osteopenia. Prior: Not previously measured. IDENTIFIED RISK FACTORS: Menopause, history of fracture (adult), hyperparathyroid, low calcium intake, anticonvulsant, secondary osteoporosis. HISTORY OF FRACTURE: Spine, ankle. MEDICATIONS: Multivitamin, vitamin D, ERT/SERMS. MM/XR DEXA appendicular skeleton IMPRESSION: 1. DIAGNOSIS: Osteoporosis based on the lowest T-score value of -3.4 in the femoral neck applying World Health Organization criteria. 2. 10-YEAR FRACTURE RISK PREDICTION, FRAX: According to the guidelines, FRAX calculation should only be performed on patients in the osteopenia bone density category. Therefore, FRAX was not performed on this patient. 3. Treatment Recommendations: NOF guidelines recommend consideration for treatment in postmenopausal women and men age 50 and older presenting with the following: -A hip or vertebral (clinical or morphometric) fracture. -T-score less than or equal to -2.5 at the femoral neck or spine after appropriate evaluation to exclude secondary causes. -Low bone mass at the hip or spine and a 10-year fracture probability by FRAX of greater than or equal to 3% for hip fracture or greater than or equal to 20% for major osteoporotic fracture based on the [place] adapted WHO algorithm. 4. Other Recommendations: All treatment decisions require clinical judgment and consideration of individual patient factors, including patient preferences, comorbidities, previous drug use, risk factors not captured in the FRAX model (e.g. frailty, falls, vitamin D deficiency, increased bone turnover, interval significant decline in bone density) and possible under or overestimation of fracture risk by FRAX. Additional medical evaluation for secondary cause of low bone mineral density may be appropriate. FUTURE SCAN RECOMMENDATION: People with diagnosed cases of osteoporosis or at high risk for fracture should have regular bone mineral density tests. For patients eligible for Medicare, routine testing is allowed once every 2 years. The testing frequency can be increased to one year for patients who have rapidly progressing disease, those who are receiving or discontinuing medical therapy to restore bone mass, or have additional risk factors.
--- NOTE | ~2021-07-23 | MM_ITS ---
EXAMINATION: MM SCREENING DIGITAL BREAST TOMOSYNTHESIS, BILATERAL CLINICAL INFORMATION: Screening. Asymptomatic. History right lumpectomy. COMPARISON: Mammography: 07/21/2020 and studies dating back to 06/26/2013. TECHNIQUE: Digital breast tomosynthesis is performed in both the craniocaudal and mediolateral oblique views along with computer-aided detection (CAD). Synthesized 2D images are generated from the tomosynthesis. FINDINGS: There are scattered areas of fibroglandular density (ACR BI-RADS breast composition Category b). Postsurgical changes seen within the right breast from previous lumpectomy. There is noted to be a new grouping of microcalcifications in a linear pattern about the deep lateral aspect with the tissue not being included on prior studies. Spot magnification view is recommended. I only see the calcifications on craniocaudal view. There is a stable parenchymal pattern of the left breast. MM/MM tomosynthesis screening BI IMPRESSION: Grouping of calcifications about the deep lateral aspect of the right breast for which spot magnification view in craniocaudal and exaggerated craniocaudal views are recommended. ASSESSMENT: BI-RADS 0: Incomplete - Need Additional Imaging Evaluation RECOMMENDATION: Additional views of the right breast. Radiology department staff will contact the patient for additional imaging. This patient's information was entered into a reminder system with a target due date for their next mammogram.
== END 2021-07-23 09:06 | disposition home or self-care (01) ==
LOC: HO.MAMMO 09:05
PROVIDERS: PCP Internal Medicine; Visit Provider Obstetrics & Gynecology
DX: Z12.31 Encounter for screening mammogram for malignant neoplasm of breast (principal); Z13.820 Encounter for screening for osteoporosis; Z78.0 Asymptomatic menopausal state; M81.0 Age-related osteoporosis without current pathological fracture; E21.3 Hyperparathyroidism, unspecified; E55.9 Vitamin D deficiency, unspecified; Z79.899 Other long term (current) drug therapy
CPT/HCPCS: 77063; 77067; 77081

== ENCOUNTER 2021-07-27 06:52 | Outpatient (REF) | payer MEDICARE, SELFPAY ==
[2021-07-27 08:01] LABS: Alanine Aminotransferase 14 U/L (0-31); Albumin Level 4.2 g/dL (3.5-5.0); Alkaline Phosphatase 64 U/L (39-117); Anion Gap 11 (12-20); Aspartate Amino Transferase 31 U/L (5-31); Bilirubin Total 0.7 mg/dL (0.0-1.0); Blood Urea Nitrogen 23 mg/dL (9-16); Calcium 9.5 mg/dL (8.4-10.2); Carbon Dioxide 28 mmol/L (22-29); Chloride 107 mmol/L (96-108); Estimated Glomerular Filt Rate > 60; Glucose Random 103 mg/dL (60-115); Potassium 3.9 mmol/L (3.3-5.1); Sodium 142 mmol/L (135-145); Total Protein 6.7 g/dL (6.5-8.0)
[2021-07-27 08:14] LABS: Thyroid Stimulating Hormone 1.27 uIU/mL (0.32-4.0); Vitamin D 25-OH Total 39.2 ng/mL (>30)
[2021-07-28 11:56] LABS: Calcium (PTHI) 9.3 mg/dL (8.6-10.4); PTHI 126 pg/mL (16-77)
[2021-07-30 00:16] LABS: Prot Elec - Albumin 4.2 g/dL (3.8-4.8); Prot Elec - Alpha1 0.2 g/dL (0.2-0.3); Prot Elec - Alpha2 0.8 g/dL (0.5-0.9); Prot Elec - Beta 1 0.4 g/dL (0.4-0.6); Prot Elec - Beta 2 0.3 g/dL (0.2-0.5); Prot Elec - Gamma 0.7 g/dL (0.8-1.7); Prot Elec - Total Protein 6.6 g/dL (6.1-8.1)
[2021-07-30 14:16] LABS: Alkaline Phosphatase Bone 10.7 mcg/L (5.6-29.0)
[2021-07-30 18:22] LABS: N-Telopeptide 81 (see note); NTXCreaRU 94 mg/dL (20-275)
== END 2021-07-27 06:53 | disposition home or self-care (01) ==
LOC: HO.LAB 06:52
PROVIDERS: Absent Provider Internal Medicine; PCP Internal Medicine; Visit Provider Nurse Practitioner Acute Care
DX: E21.3 Hyperparathyroidism, unspecified (principal); E55.9 Vitamin D deficiency, unspecified
CPT/HCPCS: 36415; 80053; 82306; 82523; 83970; 84075; 84100; 84165; 84439; 84443

== ENCOUNTER 2021-07-29 09:56 | Outpatient (REF) | payer MEDICARE, SELFPAY ==
[2021-07-29 10:43] LABS: Total Volume 24 Hour Urine 2650 mL
[2021-07-29 11:23] LABS: Creatinine, 24Hr Urine 1.1 G/Day (1.0-2.0); Creatinine, mg/dL 40.07
[2021-07-31 15:40] LABS: Calcium, 24 Hr Urine 133 mg/24 h; Calcium/Creatinine Ratio 122 mg/g creat (30-275); Creatinine 24Hr Urine 1.09 g/24 h (0.50-2.15)
== END 2021-07-29 09:57 | disposition home or self-care (01) ==
LOC: HO.LNP 09:56
PROVIDERS: Visit Provider Internal Medicine
DX: E21.3 Hyperparathyroidism, unspecified (principal)
CPT/HCPCS: 82340; 82570

== ENCOUNTER 2021-07-31 10:14 | Outpatient (REF) | payer MEDICARE, SELFPAY ==
--- NOTE | ~2021-07-31 | US_ITS ---
EXAMINATION: US THYROID CLINICAL INFORMATION: Hyperparathyroidism, unspecified. COMPARISON: None TECHNIQUE: Linear transducer grayscale and color Doppler examination with attention to the region of the thyroid. FINDINGS: SIZE: Measurements of the thyroid lobes and nodules are given in sagittal, anteroposterior and transverse dimensions respectively. Right Thyroid Lobe: 5.30 x 1.37 x 1.60 cm, volume 6.08 mL. Parenchyma: The gland echotexture is homogeneous. Thyroid vascularity is increased. Left Thyroid Lobe: 5.69 x 1.44 x 1.85 cm, volume 7.96 mL. Parenchyma: The gland echotexture is homogeneous. Thyroid vascularity is increased. Isthmus: 0.58 cm in maximum AP dimension. Estimated total number of nodules greater than or equal to 1 cm: 0. Content Writer nodules are described as follows: 1. Location: Left mid. Size: 0.74 x 0.70 x 0.73 cm, volume 0.20 mL. Nodule characteristics: Composition: Solid (2). Echogenicity: Isoechoic (1). Shape: Not taller than wide (0). Margins: Smooth (0). Echogenic Foci: None (0). ACR TI-RADS total points: 3 ACR TI-RADS category: 3 2. Location: Left inferior. Size: 0.34 x 0.23 x 0.40 cm, volume 0.02 mL. Nodule characteristics: Composition: Spongiform (0). Echogenicity: Anechoic (0). Shape: Not taller than wide (0). Margins: Smooth (0). Echogenic Foci: None (0). ACR TI-RADS total points: 0 ACR TI-RADS category: 1 3.: Small 1 mm calcification in the upper pole. NODES: No lymphadenopathy is seen in the tissue surrounding the thyroid gland. US/US thyroid IMPRESSION: Small left thyroid nodules that do not meet TI RADS ultrasound criteria for ultrasound follow-up or FNA. No parathyroid adenoma seen. ACR TI-RADS RECOMMENDATION REFERENCE: Ultrasound-guided fine-needle aspiration, followup ultrasound, no further follow up. * TR1 (0 point) and TR 2 (2 points): No FNA or follow up * TR3 (3 points): FNA if more than or equal to 2.5 cm in maximum dimension, followup ultrasound in 1, 3 and 5 years if 1.5 to 2.4 cm in maximum dimension. * TR4 (4-6 points): FNA if more than or equal to 1.5 cm in maximum dimension, followup ultrasound in 1, 2, 3 and 5 years if 1 to 1.4 cm in maximum dimension. * TR5 (more than or equal to 7 points): FNA if more than or equal to 1 cm in maximum dimension, followup ultrasound every year for 5 years if 0.5 to 0.9 cm in maximum dimension. * TR3, TR4 or TR5 nodules that are below the size threshold for follow up receive no follow up.
== END 2021-07-31 10:15 | disposition home or self-care (01) ==
LOC: HO.HMGCX 10:14
PROVIDERS: Visit Provider Internal Medicine
DX: E21.3 Hyperparathyroidism, unspecified (principal)
CPT/HCPCS: 76536

== ENCOUNTER 2021-08-04 08:49 | Outpatient (REF) | payer MEDICARE, SELFPAY ==
--- NOTE | ~2021-08-04 | MM_ITS ---
EXAMINATION: MM DIAGNOSTIC DIGITAL MAMMOGRAPHY, RIGHT CLINICAL INFORMATION: Recall from screening for tightly grouped round calcifications posterior outer right breast only visible on CC projection. Prior history right breast cancer with lumpectomy, 2010. COMPARISON: Mammography: 07/23/2021, 07/21/2020, 07/19/2019, 07/13/2018 TECHNIQUE: Digital mammography is performed in the following views: Magnification CC x2, magnification exaggerated CC, magnification ML; CC with fenestrated paddle and change and ML view. FINDINGS: There are scattered areas of fibroglandular density (ACR BI-RADS breast composition Category b). The punctate round calcifications posterior outer left breast are again demonstrated on CC views. There are some fine dermal versus vascular calcifications superior right breast on magnification ML view. Additional change in projection with BB confirmed benign dermal versus vascular etiology. Results are discussed with the patient at time of visit. MM/MM added views RT IMPRESSION: The calcifications posterior outer right breast seen on recent screening corresponding to benign dermal versus benign dermal vascular calcification. ASSESSMENT: BI-RADS 2: Benign RECOMMENDATION: Routine annual mammography screening. This patient's information was entered into a reminder system with a target due date for their next mammogram.
== END 2021-08-04 08:50 | disposition home or self-care (01) ==
LOC: HO.MAMMO 08:49
PROVIDERS: Visit Provider Obstetrics & Gynecology
DX: R92.1 Mammographic calcification found on diagnostic imaging of breast (principal)
CPT/HCPCS: 77065

== ENCOUNTER → 2021-10-14 10:23 | Outpatient (BNVA) | payer MEDICARE, SELFPAY | PROVIDERS: PCP Internal Medicine; Visit Provider Internal Medicine | DX: E21.3 Hyperparathyroidism, unspecified (principal); M81.0 Age-related osteoporosis without current pathological fracture; E55.9 Vitamin D deficiency, unspecified | CPT/HCPCS: Q3014 ==

== ENCOUNTER 2021-10-14 13:04 | Outpatient (REF) | payer MEDICARE, SELFPAY ==
[2021-10-14 14:26] LABS: Alanine Aminotransferase 10 U/L (0-31); Albumin Level 4.2 g/dL (3.5-5.0); Alkaline Phosphatase 57 U/L (39-117); Anion Gap 12 (12-20); Aspartate Amino Transferase 32 U/L (5-31); Bilirubin Total 0.5 mg/dL (0.0-1.0); Blood Urea Nitrogen 19 mg/dL (9-16); Calcium 9.6 mg/dL (8.4-10.2); Carbon Dioxide 29 mmol/L (22-29); Chloride 105 mmol/L (96-108); Estimated Glomerular Filt Rate > 60; Glucose Random 93 mg/dL (60-115); Phosphorus 4.1 mg/dL (2.7-4.5); Sodium 142 mmol/L (135-145); Total Protein 6.7 g/dL (6.5-8.0)
[2021-10-14 14:54] LABS: Vitamin D 25-OH Total 32.1 ng/mL (>30)
[2021-10-15 15:36] LABS: Calcium (PTHI) 9.8 mg/dL (8.6-10.4); PTHI 131 pg/mL (16-77)
[2021-10-16 18:07] LABS: Prot Elec - Alpha1 0.3 g/dL (0.2-0.3); Prot Elec - Alpha2 0.7 g/dL (0.5-0.9); Prot Elec - Beta 1 0.4 g/dL (0.4-0.6); Prot Elec - Beta 2 0.3 g/dL (0.2-0.5); Prot Elec - Gamma 0.8 g/dL (0.8-1.7); Prot Elec - Total Protein 6.6 g/dL (6.1-8.1)
[2021-10-19 15:01] LABS: Alkaline Phosphatase Bone 11.2 mcg/L (5.6-29.0)
== END 2021-10-14 13:05 | disposition home or self-care (01) ==
LOC: HO.HMGCLDS 13:04
PROVIDERS: Visit Provider Internal Medicine
DX: M81.0 Age-related osteoporosis without current pathological fracture (principal); E66.01 Morbid (severe) obesity due to excess calories; E55.9 Vitamin D deficiency, unspecified; K91.2 Postsurgical malabsorption, not elsewhere classified; Z90.3 Acquired absence of stomach [part of]
CPT/HCPCS: 36415; 80053; 82306; 83970; 84075; 84100; 84165

== ENCOUNTER 2021-10-16 09:37 | Outpatient (REF) | payer MEDICARE, SELFPAY ==
[2021-10-16 12:37] LABS: Total Volume 24 Hour Urine 1975 mL
[2021-10-16 12:55] LABS: Creatinine, 24Hr Urine 0.9 G/Day (1.0-2.0); Creatinine, mg/dL 44.42
[2021-10-17 17:57] LABS: Calcium, 24 Hr Urine 150 mg/24 h; Calcium/Creatinine Ratio 169 mg/g creat (30-275); Creatinine 24Hr Urine 0.89 g/24 h (0.50-2.15)
[2021-10-20 21:02] LABS: N-Telopeptide 69 (see note); NTXCreaRU 56 mg/dL (20-275)
== END 2021-10-16 09:38 | disposition home or self-care (01) ==
LOC: HO.HMGCLNP 09:37
PROVIDERS: Visit Provider Internal Medicine
DX: M81.0 Age-related osteoporosis without current pathological fracture (principal)
CPT/HCPCS: 82340; 82523; 82570

== ENCOUNTER 2021-11-20 06:41 | Outpatient (REF) | payer MEDICARE, SELFPAY ==
[2021-11-20 06:56] LABS: MANUAL DIFF FLAG NO
[2021-11-20 07:52] LABS: Basophils Absolute Auto 0.1 X10*3/uL (0.0-0.2); Basophils Percent Auto 1.2 % (0-2); Eosinophils Absolute Auto 0.3 X10*3/uL (0.0-0.4); Eosinophils Percent Auto 4.2 % (0-4); Hematocrit 38.3 % (37.0-47.0); Hemoglobin 12.4 g/dl (12.0-16.0); Imm Gran Abs Auto 0.02 X10*3/uL (0.00-0.03); Imm Gran Pct Auto 0.3 % (0.0-0.4); Lymphocytes Absolute Auto 1.9 X10*3/uL (1.2-4.9); Lymphocytes Percent Auto 28.5 % (20-40); Mean Corpuscular HGB Conc 32.4 g/dl (31.0-35.0); Mean Corpuscular Hemoglobin 27.4 pg (27.0-33.0); Mean Corpuscular Volume 84.5 fL (80.0-98.0); Mean Platelet Volume 10.3 fL (9.4-12.3); Monocytes Absolute Auto 0.5 X10*3/uL (0.1-1.2); Monocytes Percent Auto 7.7 % (2-11); Neutrophils Absolute Auto 3.8 x10*3/uL (2.0-8.3); Neutrophils Percent Auto 58.1 % (45-73); Platelet Count 277 X10*3/uL (160-400); Red Blood Count 4.53 X10*6/uL (4.20-5.50); Red Cell Distribution Width 13.8 % (11.0-16.0); White Blood Count 6.6 X10*3/uL (4.8-10.8)
[2021-11-20 08:25] LABS: Alanine Aminotransferase 7 U/L (0-31); Alkaline Phosphatase 68 U/L (39-117); Anion Gap 11 (12-20); Aspartate Amino Transferase 29 U/L (5-31); Bilirubin Total 0.5 mg/dL (0.0-1.0); Blood Urea Nitrogen 18 mg/dL (9-16); Calcium 8.9 mg/dL (8.4-10.2); Carbon Dioxide 27 mmol/L (22-29); Chloride 107 mmol/L (96-108); Cholesterol 190 mg/dL; Estimated Glomerular Filt Rate > 60; Glucose Fasting 92 mg/dL (60-99); HDL Cholesterol 42 mg/dL; LDL Cholesterol Calculated 132 mg/dl; Potassium 4.1 mmol/L (3.3-5.1); Sodium 141 mmol/L (135-145); Total Protein 6.5 g/dL (6.5-8.0); Triglycerides 81 mg/dL
[2021-11-20 08:43] LABS: Estimated Average Glucose 105 mg/dL; Hemoglobin A1C 113.7304 umol/L; Hemoglobin A1c % 5.3 %
[2021-11-20 11:04] LABS: Folate 9.2 ng/mL (> or = 4.0); Vitamin B12 461 pg/mL (200-900)
[2021-11-26 09:02] LABS: Vitamin D 25-OH, D2 <4 ng/mL; Vitamin D 25-OH, D3 33 ng/mL; Vitamin D 25-OH, Total 33 ng/mL (30-100)
== END 2021-11-20 06:42 | disposition home or self-care (01) ==
LOC: HO.LAB 06:41
PROVIDERS: PCP Internal Medicine; Visit Provider Nurse Practitioner Acute Care
DX: Z00.00 Encounter for general adult medical examination without abnormal findings (principal); I10 Essential (primary) hypertension
CPT/HCPCS: 36415; 80053; 80061; 82306; 82607; 82746; 83036; 85025

== ENCOUNTER 2021-11-27 08:11 | Outpatient (REF) | payer MEDICARE, SELFPAY ==
[2021-11-27 09:18] LABS: Estimated Average Glucose 103 mg/dL; Hemoglobin A1c % 5.2 %
[2021-11-27 09:27] LABS: C Reactive Protein 1.29 mg/dL (< or = 0.50); Iron 47 mcg/dL (30-160); Percent Iron Saturation 18 % (15-50); Total Iron Binding Capacity 266 mcg/dL (228-428); Unsaturated Iron Binding 219 ug/dL
[2021-11-27 09:53] LABS: Ferritin 57 ng/mL (10-250); TSH reflex Free T4 0.97 uIU/mL (0.32-4.0)
[2021-11-27 10:06] LABS: Folate 11.7 ng/mL (> or = 4.0); Vitamin B12 687 pg/mL (200-900)
[2021-11-27 10:30] LABS: Insulin 6 uU/mL (2-29)
[2021-11-29 13:06] LABS: PTHI 119 pg/mL (16-77)
[2021-12-01 18:41] LABS: Vitamin A 24 mcg/dL (38-98)
[2021-12-02 13:36] LABS: Zinc 66 mcg/dL (60-130)
[2021-12-03 17:16] LABS: Vitamin B1 13 nmol/L (8-30)
== END 2021-11-27 08:12 | disposition home or self-care (01) ==
LOC: HO.LAB 08:11
PROVIDERS: PCP Internal Medicine; Visit Provider Physician Assistant Surgical
DX: K91.2 Postsurgical malabsorption, not elsewhere classified (principal); Z98.84 Bariatric surgery status
CPT/HCPCS: 36415; 82607; 82728; 82746; 83036; 83525; 83540; 83970; 84425; 84443; 84590; 84630; 86140

== ENCOUNTER → 2021-11-30 09:52 | Outpatient (BNVA) | payer MEDICARE, SELFPAY | PROVIDERS: PCP Internal Medicine; Visit Provider Internal Medicine | DX: M81.0 Age-related osteoporosis without current pathological fracture (principal); E21.3 Hyperparathyroidism, unspecified; E55.9 Vitamin D deficiency, unspecified | CPT/HCPCS: Q3014 ==

== ENCOUNTER 2022-07-26 09:15 | Outpatient (REF) | payer MEDICARE, SELFPAY ==
--- NOTE | ~2022-07-26 | MM_ITS ---
EXAMINATION: MM SCREENING DIGITAL BREAST TOMOSYNTHESIS, BILATERAL CLINICAL INFORMATION: Due for yearly. History right breast cancer status post lumpectomy, 2010. COMPARISON: Mammography: 08/04/2021, 07/23/2021, 07/21/2020, 07/19/2019, 07/13/2018 TECHNIQUE: Digital breast tomosynthesis is performed in both the craniocaudal and mediolateral oblique views along with computer-aided detection (CAD). Synthesized 2D images are generated from the tomosynthesis. FINDINGS: There are scattered areas of fibroglandular density (ACR BI-RADS breast composition Category b). Breast tissue composition borders on predominantly fatty. Background stromal and fibroglandular densities are similar to prior studies and there is no significant mass or architectural abnormality or developing density. No abnormal calcifications. Post therapy changes right breast are similar to prior studies. There is mild reduced breast size and stable scarring with benign coarse calcification within the scar. The axilla are unremarkable. No significant changes from prior exams. MM/MM tomosynthesis screening BI IMPRESSION: -No mammographic evidence of malignancy. -Post therapy changes right breast, stable. ASSESSMENT: BI-RADS 2: Benign RECOMMENDATION: Routine annual mammography screening. This patient's information was entered into a reminder system with a target due date for their next mammogram.
== END 2022-07-26 09:16 | disposition home or self-care (01) ==
LOC: HO.MAMMO 09:15
PROVIDERS: PCP Internal Medicine; Visit Provider Internal Medicine
DX: Z12.31 Encounter for screening mammogram for malignant neoplasm of breast (principal)
CPT/HCPCS: 77063; 77067

== ENCOUNTER 2022-08-09 09:00 | Outpatient (REF) | payer MEDICARE, SELFPAY ==
[2022-08-09 12:01] LABS: Alanine Aminotransferase 8 U/L (0-31); Albumin Level 4.1 g/dL (3.5-5.0); Alkaline Phosphatase 73 U/L (39-117); Anion Gap 13 (12-20); Aspartate Amino Transferase 34 U/L (5-31); Bilirubin Total 0.9 mg/dL (0.0-1.0); Blood Urea Nitrogen 14 mg/dL (9-16); Calcium 9.2 mg/dL (8.4-10.2); Carbon Dioxide 26 mmol/L (22-29); Chloride 108 mmol/L (96-108); Estimated Glomerular Filt Rate > 60; Glucose Random 99 mg/dL (60-115); Phosphorus 3.7 mg/dL (2.7-4.5); Potassium 4.2 mmol/L (3.3-5.1); Sodium 143 mmol/L (135-145); Total Protein 6.3 g/dL (6.5-8.0); Vitamin D 25-OH Total 41.3 ng/mL (>30)
[2022-08-11 13:49] LABS: Calcium (PTHI) 9.2 mg/dL (8.6-10.4); PTHI 152 pg/mL (16-77)
== END 2022-08-09 09:01 | disposition home or self-care (01) ==
LOC: HO.HMGCLDS 09:00
PROVIDERS: PCP Internal Medicine; Visit Provider Internal Medicine
DX: M81.0 Age-related osteoporosis without current pathological fracture (principal); E55.9 Vitamin D deficiency, unspecified
CPT/HCPCS: 36415; 80053; 82306; 83970; 84100

== ENCOUNTER 2022-08-11 10:10 | Outpatient (REF) | payer MEDICARE, SELFPAY ==
[2022-08-17 07:09] LABS: N-Telopeptide 70 (see note); NTXCreaRU 40 mg/dL (20-275)
== END 2022-08-11 10:11 | disposition home or self-care (01) ==
LOC: HO.HMGCLNP 10:10
PROVIDERS: PCP Internal Medicine; Visit Provider Internal Medicine
DX: M81.0 Age-related osteoporosis without current pathological fracture (principal)
CPT/HCPCS: 82523

== ENCOUNTER 2022-08-13 09:17 | Outpatient (REF) | payer MEDICARE, SELFPAY ==
[2022-08-13 13:35] LABS: Creatinine, mg/dL 85.17
[2022-08-13 15:15] LABS: Creatinine, 24Hr Urine 1.3 G/Day (1.0-2.0); Total Volume 24 Hour Urine 1525 mL
[2022-08-16 18:34] LABS: Calcium, 24 Hr Urine 172 mg/24 h; Calcium/Creatinine Ratio 145 mg/g creat (30-275); Creatinine 24Hr Urine 1.19 g/24 h (0.50-2.15)
== END 2022-08-13 09:18 | disposition home or self-care (01) ==
LOC: HO.HMGCLNP 09:17
PROVIDERS: PCP Internal Medicine; Visit Provider Internal Medicine
DX: M81.0 Age-related osteoporosis without current pathological fracture (principal)
CPT/HCPCS: 82340; 82570

== ENCOUNTER → 2022-08-24 13:17 | Outpatient (REF) | payer MEDICARE, SELFPAY ==
--- NOTE | 2022-08-24 13:19 | HM_ITS ---
* Total monitoring time about 3 days. * Underlying rhythm is sinus. Average ventricular rate 73/Min. Range 52 to 129/Min. * Occasional supraventricular ectopy. Estell[place] of 0.9%. Brief runs noted. * Occasional ventricular ectopy. Estell[place] of 1.1%. Rare couplets. * No significant pauses or AV blocks. * No patient markers or events in diary. MTDD
== END ==
LOC: HO.CARD 13:17
PROVIDERS: Visit Provider Internal Medicine
DX: R00.2 Palpitations (principal)
CPT/HCPCS: 93242

== ENCOUNTER 2022-09-09 12:38 | Outpatient (REF) | payer MEDICARE, SELFPAY ==
[2022-09-09 14:20] LABS: Albumin Level 4.2 g/dL (3.5-5.0)
== END 2022-09-09 12:39 | disposition home or self-care (01) ==
LOC: HO.HMGCLDS 12:38
PROVIDERS: PCP Internal Medicine; Visit Provider Internal Medicine
DX: M81.0 Age-related osteoporosis without current pathological fracture (principal)
CPT/HCPCS: 36415; 82040

== ENCOUNTER 2022-09-21 07:24 | Outpatient (REF) | payer MEDICARE, SELFPAY ==
[2022-09-21 07:39] LABS: MANUAL DIFF FLAG NO
[2022-09-21 08:29] LABS: Basophils Absolute Auto 0.1 X10*3/uL (0.0-0.2); Basophils Percent Auto 1.5 % (0-2); Eosinophils Absolute Auto 0.2 X10*3/uL (0.0-0.4); Eosinophils Percent Auto 3.3 % (0-4); Hematocrit 39.5 % (37.0-47.0); Hemoglobin 12.6 g/dl (12.0-16.0); Imm Gran Abs Auto 0.01 X10*3/uL (0.00-0.03); Imm Gran Pct Auto 0.2 % (0.0-0.4); Lymphocytes Absolute Auto 1.3 X10*3/uL (1.2-4.9); Lymphocytes Percent Auto 23.8 % (20-40); Mean Corpuscular HGB Conc 31.9 g/dl (31.0-35.0); Mean Corpuscular Hemoglobin 26.6 pg (27.0-33.0); Mean Corpuscular Volume 83.3 fL (80.0-98.0); Mean Platelet Volume 10.4 fL (9.4-12.3); Monocytes Absolute Auto 0.5 X10*3/uL (0.1-1.2); Monocytes Percent Auto 8.5 % (2-11); Neutrophils Absolute Auto 3.5 x10*3/uL (2.0-8.3); Neutrophils Percent Auto 62.7 % (45-73); Platelet Count 301 X10*3/uL (160-400); Red Blood Count 4.74 X10*6/uL (4.20-5.50); Red Cell Distribution Width 14.4 % (11.0-16.0); White Blood Count 5.5 X10*3/uL (4.8-10.8)
[2022-09-21 09:04] LABS: Alanine Aminotransferase 9 U/L (0-31); Alkaline Phosphatase 69 U/L (39-117); Anion Gap 10 (12-20); Aspartate Amino Transferase 32 U/L (5-31); Bilirubin Total 0.6 mg/dL (0.0-1.0); Blood Urea Nitrogen 12 mg/dL (9-16); Calcium 9.2 mg/dL (8.4-10.2); Carbon Dioxide 29 mmol/L (22-29); Chloride 108 mmol/L (96-108); Cholesterol 198 mg/dL; Estimated Glomerular Filt Rate > 60; Glucose Random 74 mg/dL (60-115); HDL Cholesterol 37 mg/dL; LDL Cholesterol Calculated 134 mg/dl; Magnesium 2.2 mg/dL (1.6-2.6); Phosphorus 2.2 mg/dL (2.7-4.5); Potassium 3.8 mmol/L (3.3-5.1); Sodium 143 mmol/L (135-145); Total Protein 6.5 g/dL (6.5-8.0); Triglycerides 135 mg/dL
[2022-09-21 09:37] LABS: Folate 11.7 ng/mL (> or = 4.0); Free T4 (Free Thyroxine) 1.14 ng/dL (0.71-1.85); Vitamin B12 1686 pg/mL (200-900); Vitamin D 25-OH Total 42.2 ng/mL (>30)
[2022-09-22 14:08] LABS: Calcium (PTHI) 9.3 mg/dL (8.6-10.4); PTHI 131 pg/mL (16-77)
== END 2022-09-21 07:25 | disposition home or self-care (01) ==
LOC: HO.LAB 07:24
PROVIDERS: PCP Internal Medicine; Visit Provider Internal Medicine
DX: R00.2 Palpitations (principal); E78.00 Pure hypercholesterolemia, unspecified; M81.0 Age-related osteoporosis without current pathological fracture; Z98.84 Bariatric surgery status
CPT/HCPCS: 36415; 80053; 80061; 82306; 82607; 82746; 83735; 83970; 84100; 84439; 84443; 85025

== ENCOUNTER → 2022-10-04 09:50 | Outpatient (BNVA) | payer MEDICARE, SELFPAY | PROVIDERS: PCP Internal Medicine; Visit Provider Internal Medicine | DX: M81.0 Age-related osteoporosis without current pathological fracture (principal); E21.3 Hyperparathyroidism, unspecified; E55.9 Vitamin D deficiency, unspecified | CPT/HCPCS: 99212 ==

== ENCOUNTER → 2022-10-13 11:04 | Outpatient (BNVA) | payer MEDICARE, SELFPAY | PROVIDERS: PCP Internal Medicine; Visit Provider Obstetrics & Gynecology ==

== ENCOUNTER 2022-11-16 08:34 | Outpatient (AMB) | payer MEDICARE, SELFPAY ==
--- NOTE | 2022-11-16 08:44 | MHC.PC.OV ---
Vital Signs 11/16/22 08:45 Height 5 ft 3 in Weight 173 lb BMI 30.6 BP 140/82 H Blood Pressure Location Lt brachial Position Sitting Pulse 76 Pulse Source Pulse Oximeter Pulse Oximetry (%) 97 Oxygen Delivery Method Room Air Intake Visit Reasons: Palpitations Allergies Lisinopril, SAÚL inhibitors Allergy (Intermediate, Uncoded 11/16/22 08:46) cough Medication List - Last Reconciled 11/16/22 by Henrry Madden MD calcium citrate-vitamin D3 315 mg-6.25 mcg (250 unit) 2 tabs PO BID 30 days [CBD 1 ea PO] citalopram 20 mg PO BID diclofenac sodium 1% 2 grams topical QID PRN gabapentin 300 mg PO BEDTIME 90 days multivitamin 1 tab PO DAILY vitamin A 1 cap PO DAILY vitamin B complex (B Complex-Vitamin B12 tablet) 1 tab PO DAILY Tobacco use date assessed: 08/17/22 Fall risk assessment: No Falls in past year Last assessed Fall Risk: 11/16/22 Dental Screening Dental Screen Date: 11/16/22 Did you have a dental visit in the last 12 months?: No Did you have a dental problem in the last 6 months where you did not have access to dental care?: No Was dental information given to patient?: No HPI Palpitations HPI Details 86-year-old obese female with a history of gastric bypass 2016 history of breast cancer right lumpectomy and radiation 2010 hyperparathyroidism palpitations last seen in July 2022 patient was advised blood work as well as Holter monitor. Patient is here for follow-up. Colonoscopy is up-to-date mammograms up-to-date bone density is up-to-date. For the hyperparathyroidism has seen endocrinology secondary hyperparathyroidism elevated PTH, low calcium and normal vitamin-D patient has been advised to increase calcium supplement to 2 tablets twice a day. bilateral feet numbness - deny fall or trauma patient also patient does not complain of any low back pain. Will do some nerve test. As for the palpitations still occurs but seldom. [facility] Medical History Anxiety and depression Closed fibular fracture Fall Finger pain, right History of right breast cancer Hyperparathyroidism Intestinal malabsorption following gastrectomy Joint pain Menopause Metatarsal stress fracture of right foot with routine healing Morbid obesity Obstructive sleep apnea Osteoarthritis Osteopenia Overweight (BMI 25.0-29.9) Spinal stenosis Sprain of interphalangeal joint of right middle finger Sprain of interphalangeal joint of right ring finger Stiffness of finger joint of right hand Vitamin A deficiency Vitamin D deficiency Well woman exam Surgical History History of back surgery History of colonoscopy History of lumpectomy of right breast (~06/2010) Hx laparoscopic cholecystectomy (~09/10/15) Hx of bilateral cataract extraction Hx of section Hx of dilation and curettage Hx of gastric bypass (~11/19/15) Hx of tubal ligation Family History Mother History of colon cancer Other Mental health disorder Social History Housing: House Alcohol intake: never Patient Tobacco Use Status: Never used Tobacco e-Cigarette/Vaping Use: Never Used Second Hand Smoke Exposure: No Current occupational status: disabled Cognitive needs: No Hearing needs: No Vision needs: No Female Reproductive History Menstrual Age of Menarche: 12 Questionnaire PHQ-9 Over the last 2 weeks, how often have you been bothered by any of the following problems? 1. Little interest or pleasure in doing things: several days 2. Feeling down, depressed, or hopeless: not at all 3. Trouble falling or staying asleep, or sleeping too much: not at all 4. Feeling tired or having little energy: more than half the days 5. Poor appetite or overeating: several days 6. Feeling bad about yourself - or that you are a failure or have let yourself or your family down: not at all 7. Trouble concentrating on things, such as reading the newspaper or watching television: several days 8. Moving or speaking so slowly that other people could have noticed. Or the opposite - being so fidgety or restless that you have been moving around a lot more than usual: not at all 9. Thoughts that you would be better off or of hurting yourself in some way: not at all Total score: 5 Depression Screening Interpretation: Negative 34436 - PHQ-9 Billing: Yes Source: Developed by Drs. Joseph Arana, Марина Roper, Torrey Celeste and colleagues, with an educational zoey from [employer]. Thrive Questionnaire Date Thrive assessed: 08/17/22 AUDIT C Alcohol Use Questionnaire (AUDIT-C) 1. How often do you have a drink containing alcohol?: Never Total Score: 0 ROMINA-7 AMB Questionnaire ROMINA-7 Date ROMINA - 7 assessed: 08/17/22 Source: Developed by Drs. Joseph Arana, Марина Roper, Torrey Celeste and colleagues, with an educational zoey from [employer]. Physical exam (Primary Care) Vital Signs: Last Vital Signs Pulse 76 11/16/22 08:45 BP 140/82 H 11/16/22 08:45 Pulse Ox 97 11/16/22 08:45 Oxygen Delivery Method Room Air 11/16/22 08:45 BMI result Body Mass Index 30.6 Tobacco/Smoking Status: Tobacco use Status Tobacco use date assessed 08/17/22 11/16/22 08:50 Patient Tobacco Use Status Never used Tobacco 11/16/22 08:50 e-Cigarette/Vaping Use Never Used 11/16/22 08:50 PHQ-9: PHQ-9 Score PHQ-9: Total score 5 11/16/22 08:50 Depression Screening Interpretation: Negative Thrive Assessment: Date of Thrive Assessment Date Thrive assessed 08/17/22 11/16/22 08:50 Const General: alert; No acute distress Eyes Conjunctivae: conjunctivae normal Resp Auscultation: clear to auscultation bilaterally Cardio Rate: regular rate Rhythm: regular rhythm GI Inspection: Yes normal to inspection Extrem General: Yes normal to inspection and No edema Assessment and Plan Assessment & Plan (1) Hx of gastric bypass: Onset Date: ~11/19/15 Comment: Dr. Lai and diaphragmatic hernia repair Code(s): Z98.84 - Bariatric surgery status Plan: Continue to follow-up with bariatric surgeon (2) History of right breast cancer: Comment: June 2010 lumpectomy negative lymph nodes, right side lymphedema status post radiation Code(s): Z85.3 - Personal history of malignant neoplasm of breast Plan: Mammogram is up-to-date (3) Hyperparathyroidism: Comment: Secondary hyperparathyroidism, endocrinology Code(s): E21.3 - Hyperparathyroidism, unspecified Plan: Continue to follow-up with Endocrinology. Secondary hyperparathyroidism secondary to low calcium intake. This has been increased and will continue to monitor (4) Obesity (BMI 30.0-34.9): Code(s): E66.9 - Obesity, unspecified Plan: Continue with diet and exercise (5) Palpitations: Code(s): R00.2 - Palpitations Plan: Holter done revealed negative results PATIENT WILL CALL IF IT IS GETTING WORSE (6) Generalized anxiety disorder: Comment: Decline any counseling referral Code(s): F41.1 - Generalized anxiety disorder Plan: Continue with present medication (7) Numbness and tingling of both feet: Code(s): R20.0 - Anesthesia of skin; R20.2 - Paresthesia of skin Plan: NERVE CONDUCTION TEST REQUESTED Orders: Orders NE electromyogram (EMG) Today R20.0 - Anesthesia of skin, R20.2 - Paresthesia of skin NE nerve conduction velocity Today R20.0 - Anesthesia of skin, R20.2 - Paresthesia of skin Coding Level of Care Code Est Pt Level 4 (66561) Diagnoses Hx of gastric bypass Z98.84 History of right breast cancer Z85.3 Hyperparathyroidism E21.3 Obesity (BMI 30.0-34.9) E66.9 Palpitations R00.2 Generalized anxiety disorder F41.1 Numbness and tingling of both feet R20.0; R20.2
[2022-11-16 08:45] VITALS: BP 140/82; PULSE 76; O2SAT 97; BMI 30.6
== END 2022-11-16 09:25 | disposition home or self-care (01) ==
PROVIDERS: Visit Provider Internal Medicine
DX: E21.3 Hyperparathyroidism, unspecified (principal); Z98.84 Bariatric surgery status; Z85.3 Personal history of malignant neoplasm of breast; Z68.30 Body mass index [BMI] 30.0-30.9, adult; E66.9 Obesity, unspecified; R00.2 Palpitations; F41.1 Generalized anxiety disorder; R20.0 Anesthesia of skin; R20.2 Paresthesia of skin
CPT/HCPCS: 99214

== ENCOUNTER 2022-12-29 13:35 | Outpatient (REF) | payer MEDICARE, SELFPAY ==
[2023-01-02 11:32] LABS: Vitamin A 37 mcg/dL (38-98)
[2023-01-03 15:23] LABS: Vitamin B1 17 nmol/L (8-30)
== END 2022-12-29 13:36 | disposition home or self-care (01) ==
LOC: HO.LAB 13:35
PROVIDERS: PCP Internal Medicine; Visit Provider Physician Assistant Surgical
DX: E66.3 Overweight (principal); E50.9 Vitamin A deficiency, unspecified; K91.2 Postsurgical malabsorption, not elsewhere classified; Z90.3 Acquired absence of stomach [part of]
CPT/HCPCS: 36415; 84425; 84590; 99212

== ENCOUNTER 2022-12-29 13:35 | Outpatient (AMB) | payer MEDICARE, SELFPAY ==
--- NOTE | 2022-12-29 13:41 | A.OFFVIS_ITS ---
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 Allergies Lisinopril, SAÚL inhibitors Allergy (Intermediate, Uncoded 12/29/22 13:46) cough Medication List - Last Reconciled 12/29/22 by ROZINA Villarreal calcium citrate-vitamin D3 315 mg-6.25 mcg (250 unit) 2 tabs PO DAILY [CBD 1 ea PO] citalopram 20 mg PO BID diclofenac sodium 1% 2 grams topical QID PRN gabapentin 300 mg PO BEDTIME 90 days melatonin 3 mg PO BEDTIME PRN multivitamin 1 tab PO DAILY vitamin A 1 cap PO DAILY vitamin B complex (B Complex-Vitamin B12 tablet) 1 tab PO .qod HPI HPI Comments History of Present Illness Details This?a?67?yo female who is s/p GBP on?11/26/[address] Lai. Presents for 7 year 1 month post op visit. Weight today is 168 pounds, with a BMI of 29.8.? No complaints of nausea, emesis, abdominal pain or reflux with normal daily bowel movements.? She has had weight gain and is frustrated by that. No meal plan States her goal is to return to a comfortable weight of 130-140 pounds. Is willing to start [employer] elevation shakes and celebrate bars for the moment until f/u with RD Present meal plan includes: BF:? 2 eggs, toast,? or cereal L:? sandwich or salad w tuna D:? chicken and vegetables, baked potatoe, or air fried turkmen fries, or pasta 80 oz water daily ? Exercise routine includes: none, has rowing machine at home. Could join [employer] for free. Any post op complications: none SUNIL: resolved DM: never HTN: resolved Hyperlipidemia: never GERD:?0-5 scale ??0 = no symptoms ??1 = symptoms noticeable but not bothersome 2 =symptoms bothersome but not daily ? 3 = symptoms bothersome and daily 4 = symptoms affect daily activities 5 = symptoms are incapacitating, unable to do daily activities ? How bad is the heartburn: 0 ? Heartburn while lying down: 0 ? Heartburn when standing up: 0 ? Heartburn after meals: 0 ? Does heartburn change your diet: 0 ? Does heartburn wake you up from sleep: 0 ? Do you have difficulty swallowin ? Do you have pain with swallowin ? If you take medicine for your reflux, does this affect your daily life: 0 Satisfaction with present condition - satisfied or not satisfied: dissatisfied [facility] Medical History Anxiety and depression Closed fibular fracture Fall Finger pain, right History of right breast cancer Hyperparathyroidism Intestinal malabsorption following gastrectomy Joint pain Menopause Metatarsal stress fracture of right foot with routine healing Morbid obesity Obstructive sleep apnea Osteoarthritis Osteopenia Overweight (BMI 25.0-29.9) Spinal stenosis Sprain of interphalangeal joint of right middle finger Sprain of interphalangeal joint of right ring finger Stiffness of finger joint of right hand Vitamin A deficiency Vitamin D deficiency Well woman exam Surgical History History of back surgery History of colonoscopy History of lumpectomy of right breast (~06/2010) Hx laparoscopic cholecystectomy (~09/10/15) Hx of bilateral cataract extraction Hx of section Hx of dilation and curettage Hx of gastric bypass (~11/19/15) Hx of tubal ligation Family History Mother History of colon cancer Other Mental health disorder Social History Housing: House Alcohol intake: never Patient Tobacco Use Status: Never used Tobacco e-Cigarette/Vaping Use: Never Used Second Hand Smoke Exposure: No Current occupational status: disabled Cognitive needs: No Hearing needs: No Vision needs: No Female Reproductive History Menstrual Age of Menarche: 12 Physical Exam Vital Signs: Last Vital Signs Temp 96.0 F L 12/29/22 13:49 Pulse 86 12/29/22 13:49 BP 148/70 H 12/29/22 13:49 Pulse Ox 94 12/29/22 13:49 Oxygen Delivery Method Room Air 12/29/22 13:49 BMI result Body Mass Index 29.8 Assessment & Plan Assessment & Plan (1) Overweight (BMI 25.0-29.9): Code(s): E66.3 - Overweight Plan: Has [employer] Elevation shakes and celebrate bars 7-9 am shake 1 scoop 11-1 pm shake 1 scoop 2-4 pm bar 6 pm meal 3 oz meat, 3 oz veg 8 pm fruit berries Will join [employer], f/u rd 3-4 weeks Orders: Orders Vitamin A Today E50.9 - Vitamin A deficiency, unspecified, E66.3 - Overweight, K91.2 - Postsurgical malabsorption, not elsewhere classified, Z90.3 - Acquired absence of stomach [part of] Vitamin B1 Today E50.9 - Vitamin A deficiency, unspecified, E66.3 - Overweight, K91.2 - Postsurgical malabsorption, not elsewhere classified, Z90.3 - Acquired absence of stomach [part of] Coding Level of Care Code Est Pt Level 4 (34502) Diagnoses Overweight (BMI 25.0-29.9) E66.3 Time Spent (min) 40
[2022-12-29 13:49] VITALS: BP 148/70; PULSE 86; TEMP 35.6; O2SAT 94; BMI 29.8
== END 2022-12-29 14:25 | disposition home or self-care (01) ==
PROVIDERS: PCP Internal Medicine; Visit Provider Physician Assistant Surgical
DX: E66.3 Overweight (principal)
CPT/HCPCS: 99214

== ENCOUNTER 2023-01-24 08:14 | Outpatient (AMB) | payer MEDICARE, SELFPAY ==
--- NOTE | 2023-01-24 08:27 | MHC.AMNUTRGE ---
Intake Intake Visit Reasons: (OV) PO GBP 11/26/15 Allergies Lisinopril, SAÚL inhibitors Allergy (Intermediate, Uncoded 12/29/22 13:46) cough HPI Nutrition Presentation Details GBP on?11/26/[address] Lai Highest weight before surgery: 238 Lowest weight after surgery per patient: 130 Patient's goal weight 130 - but we discussed my concern this may be too low for her. I suggested a goal weight 150# Diet Assmnt Details pt is about 7 years post op GBP. She reports her lowest was 130 lb and her goal is to get back down to this number. She shares the reason she experienced weight regain was because she did not know how to transition bars/shakes to eating whole food again. Elevation powder almond unsweetened and - 1 scoop - 30 g another shake 1 bar - celebrate 3oz chicken or fish +3 oz vegetable usually salad or cooked vegetable Is taking celebrate bariatric multivitamin Exercise: Goes to the [facility], which is free, she does cardio machines and some strength training machines Dietary counseling reduction Diagnosis Nutrition problem #1 food nutri know defi As related to (etiology) #1 unsure how to apply info As evidenced by (sign/symptom) #1 prior fail - chg behavior Monitoring/Goals Nutrition problem monitoring total energy intake, level of knowledge/skill, total PRO intake, total CHO intake and weight Outcome progress progressing Learning/Education Readiness to learn excellent Stages of change action Educational materials provided Yes Most Recent Diabetes Results: Cholesterol 198 mg/dL 09/21/22 HDL Cholesterol 37 mg/dL 09/21/22 Triglycerides 135 mg/dL 09/21/22 Creatinine 0.69 mg/dL (0.5-1.4) 09/21/22 Blood Urea Nitrogen 12 mg/dL (9-16) 09/21/22 Sodium 143 mmol/L (135-145) 09/21/22 Potassium 3.8 mmol/L (3.3-5.1) 09/21/22 Chloride 108 mmol/L (96-108) 09/21/22 Carbon Dioxide 29 mmol/L (22-29) 09/21/22 Calcium 9.2 mg/dL (8.4-10.2) 09/21/22 AST 32 U/L (5-31) H 09/21/22 ALT 9 U/L (0-31) 09/21/22 Total Protein 6.5 g/dL (6.5-8.0) 09/21/22 Albumin 4.0 g/dL (3.5-5.0) 09/21/22 ON LICENSE OF [facility] Medical History Anxiety and depression Closed fibular fracture Fall Finger pain, right History of right breast cancer Hyperparathyroidism Intestinal malabsorption following gastrectomy Joint pain Menopause Metatarsal stress fracture of right foot with routine healing Morbid obesity Obstructive sleep apnea Osteoarthritis Osteopenia Overweight (BMI 25.0-29.9) Spinal stenosis Sprain of interphalangeal joint of right middle finger Sprain of interphalangeal joint of right ring finger Stiffness of finger joint of right hand Vitamin A deficiency Vitamin D deficiency Well woman exam Surgical History History of back surgery History of colonoscopy History of lumpectomy of right breast (~06/2010) Hx laparoscopic cholecystectomy (~09/10/15) Hx of bilateral cataract extraction Hx of section Hx of dilation and curettage Hx of gastric bypass (~11/19/15) Hx of tubal ligation Family History Mother History of colon cancer Other Mental health disorder Social History Housing: House Alcohol intake: never Patient Tobacco Use Status: Never used Tobacco e-Cigarette/Vaping Use: Never Used Second Hand Smoke Exposure: No Current occupational status: disabled Cognitive needs: No Hearing needs: No Vision needs: No Female Reproductive History Menstrual Age of Menarche: 12 Assessment & Plan Assessment & Plan (1) Hx of gastric bypass: Onset Date: ~11/19/15 Comment: Dr. Lai and diaphragmatic hernia repair Code(s): Z98.84 - Bariatric surgery status Patient Instructions: Patient continue with to shakes meal she is very happy with this at the. She verbalizes the need for more guidance when she is ready to transition to eating food. She is aware of all support services we provide. Will be seen again 05/20 at 08:30 in office and was encouraged to communicate as needed in the meantime Coding Level of Care Code Nutr Indiv Subseq (69403) Diagnoses Hx of gastric bypass Z98.84 Time Spent (min) 30
== END 2023-01-24 08:48 | disposition home or self-care (01) ==
PROVIDERS: PCP Internal Medicine; Visit Provider Dietitian, Registered
DX: Z98.84 Bariatric surgery status (principal)

== ENCOUNTER → 2023-01-24 08:14 | Outpatient (BNVA) | payer MEDICARE, SELFPAY | PROVIDERS: PCP Internal Medicine; Visit Provider Dietitian, Registered | DX: Z98.84 Bariatric surgery status (principal) | CPT/HCPCS: 97803 ==

== ENCOUNTER 2023-03-29 08:34 | Outpatient (REF) | payer MEDICARE, SELFPAY ==
[2023-03-29 12:04] LABS: Alanine Aminotransferase 8 U/L (0-31); Alkaline Phosphatase 50 U/L (39-117); Anion Gap 10 (12-20); Aspartate Amino Transferase 29 U/L (5-31); Bilirubin Total 0.6 mg/dL (0.0-1.0); Blood Urea Nitrogen 20 mg/dL (9-16); Calcium 9.4 mg/dL (8.4-10.2); Carbon Dioxide 31 mmol/L (22-29); Chloride 104 mmol/L (96-108); Estimated Glomerular Filt Rate > 60; Glucose Random 100 mg/dL (60-115); Phosphorus 3.5 mg/dL (2.7-4.5); Potassium 3.8 mmol/L (3.3-5.1); Sodium 141 mmol/L (135-145); Total Protein 6.8 g/dL (6.5-8.0); Vitamin D 25-OH Total 67.3 ng/mL (>30)
[2023-04-02 21:39] LABS: N-Telopeptide 48 (see note); NTXCreaRU 87 mg/dL (20-275)
== END 2023-03-29 08:35 | disposition home or self-care (01) ==
LOC: HO.HMGCLDS 08:34
PROVIDERS: PCP Internal Medicine; Visit Provider Internal Medicine
DX: M81.0 Age-related osteoporosis without current pathological fracture (principal); E55.9 Vitamin D deficiency, unspecified
CPT/HCPCS: 36415; 80053; 82306; 82523; 84100

== ENCOUNTER 2023-03-31 06:00 | Outpatient (REF) | payer MEDICARE, SELFPAY ==
[2023-03-31 11:23] LABS: Total Volume 24 Hour Urine 2000 mL
[2023-03-31 12:50] LABS: Creatinine, mg/dL 48.84
[2023-04-01 17:38] LABS: Calcium, 24 Hr Urine 188 mg/24 h; Calcium/Creatinine Ratio 181 mg/g creat (30-275); Creatinine 24Hr Urine 1.04 g/24 h (0.50-2.15)
== END 2023-03-31 06:01 | disposition home or self-care (01) ==
LOC: HO.HMGCLNP 06:00
PROVIDERS: PCP Internal Medicine; Visit Provider Internal Medicine
DX: M81.0 Age-related osteoporosis without current pathological fracture (principal)
CPT/HCPCS: 82340; 82570

== ENCOUNTER 2023-04-12 08:18 | Outpatient (REF) | payer MEDICARE, SELFPAY ==
[2023-04-12 12:14] LABS: Parathyroid Hormone Intact 108.1 pg/mL (8.7-77.1)
== END 2023-04-12 08:19 | disposition home or self-care (01) ==
LOC: HO.HMGCLDS 08:18
PROVIDERS: PCP Internal Medicine; Visit Provider Internal Medicine Endocrinology, Diabetes & Metabolism
DX: M81.0 Age-related osteoporosis without current pathological fracture (principal)
CPT/HCPCS: 36415; 83970

== ENCOUNTER 2023-04-14 08:40 | Outpatient (AMB) | payer MEDICARE, SELFPAY ==
--- NOTE | 2023-04-14 08:44 | A.OFFVIS_ITS ---
Intake Vital Signs 04/14/23 08:45 Height 5 ft 2.99 in Weight 150 lb 12.739 oz BMI 26.7 BP 132/72 Blood Pressure Location Lt brachial Position Sitting Pulse 72 Pulse Source Pulse Oximeter Intake Visit Reasons: F/U Osteoporosis-CONFIRMED Intake Note: Patient present today for Osteoporosis follow up visit. 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: No Accompanied by: Self / Same As Patient Allergies Lisinopril, SAÚL inhibitors Allergy (Intermediate, Uncoded 04/14/23 08:47) cough Medication List - Last Reconciled 04/14/23 by Joseph Mir MD calcium citrate-vitamin D3 315 mg-6.25 mcg (250 unit) 2 tabs PO DAILY [CBD 1 ea PO] citalopram 20 mg PO BID diclofenac sodium 1% 2 grams topical QID PRN gabapentin 300 mg PO BEDTIME 90 days melatonin 3 mg PO BEDTIME PRN multivitamin 1 tab PO DAILY vitamin A 1 cap PO DAILY vitamin B complex (B Complex-Vitamin B12 tablet) 1 tab PO .qod HPI HPI Comments History of Present Illness Details 67 YO Female with PMHx Obesity s/p Suhas En Y gastric bypass in 2015, a history of breast cancer of the R breast S/P lumpectomy and radiation therapy in 2010 as well as Osteopenia who is seen in F/U for hyperparathyroidism.. The patient last saw Dr. Porter on 10/05/2019 She had labs assessed 03/09/2021 with Calcium 9.6, PTH 108, Vitamin D 45.1, but no albumin was assessed. After her initial visit with me we completed a full biochemical evaluation which revealed evidence of suspected secondary hyperparathyroidism with elevated PTH, calcium low normal and Vitamin D WNL. She had a repeat DXA which revealed significant decline in her BMD in the hip into the osteoporotic range. This was thought to likely represent osteomalacia vs osteoporosis. She was asked to increase her dietary calcium, but instead decreased this of her own accord and is currently not having any dietary calcium at all. She has a history of breast cancer in 2010 and completed 10 years of tamoxifen therapy. She had routine labs completed by her bariatric team which revealed an elevated PTH level in the low 100's. She has never been treated for her Osteopenia. No history of pathologic fracture or ONJ. Currently not having any dietary calcium at all. Takes Calcium citrate 325 mg 2 tabs PO daily. Takes 1000 IU of Vitamin D daily. Has used a short course of PPI in the past, max of 2 months. Denies ever using anticoagulant, antiepileptic or glucocorticoid medication. Does no weight bearing exercise. Fracture history: Fracture of the R ankle twice, 2014 and 2016. 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 Menses were always regular. . She did not breastfeed. Menopause was age 49. She does not use HRT. Denies history of Kidney stones. Denies family history of Osteoporosis or hip fracture. Her Daughter does have recurrent nephrolithiasis. UTD on dental cleanings and sees dentist every 6 months. No planned upcoming dental work or extractions. DXA: 07/23/21 FINDINGS: AP SPINE L1-L4: Current: BMD 1.229 g/cm2, Z-score 1.6, T-score 0.4, normal, 4.1% decrease from previous, 4.0% decrease from baseline (<5% change is not significant). Prior: BMD 1.281 g/cm2. Baseline: BMD 1.280 g/cm2. LEFT FEMUR, NECK: Current: BMD 0.569 g/cm2, Z-score -2.1, T-score -3.4, osteoporosis. Prior: BMD 0.703 g/cm2. Baseline: BMD 1.031 g/cm2. LEFT FEMUR, TOTAL: Current: BMD 0.617 g/cm2, Z-score -2.1, T-score -3.1, osteoporosis, 18.1% decrease from previous, 46.2% decr ease from baseline (<5% change is not significant). Prior: BMD 0.753 g/cm2. Baseline: BMD 1.146 g/cm2. LEFT FOREARM RADIUS 33%: BMD 0.684 g/cm2, Z-score -0.7, T-score -2.2, osteopenia. Prior:? Not previously measured. Thyroid US: 07/31/2021 Right Thyroid Lobe: 5.30 x 1.37 x 1.60 cm, volume 6.08 mL. Parenchyma: The gland echotexture is homogeneous. Thyroid vascularity is increased. Left Thyroid Lobe: 5.69 x 1.44 x 1.85 cm, volume 7.96 mL. Parenchyma: The gland echotexture is homogeneous. Thyroid vascularity is increased. Isthmus: 0.58 cm in maximum AP dimension. Estimated total number of nodules greater than or equal to 1 cm: 0. Rough Rib Grader nodules are described as follows: 1. Location: Left mid. ?? ? Size: 0.74 x 0.70 x 0.73 cm, volume 0.20 mL. ?? ? Nodule characteristics: ?? ? Composition: Solid (2). ?? ? Echogenicity: Isoechoic (1). ?? ? Shape: Not taller than wide (0). ?? ? Margins: Smooth (0). ?? ? Echogenic Foci: None (0). ?? ? ACR TI-RADS total points: 3 ?? ? ACR TI-RADS category: 3 2. Location: Left inferior. ?? ? Size: 0.34 x 0.23 x 0.40 cm, volume 0.02 mL. ?? ? Nodule characteristics: ?? ? Composition: Spongiform (0). ?? ? Echogenicity: Anechoic (0). ?? ? Shape: Not taller than wide (0). ?? ? Margins: Smooth (0). ?? ? Echogenic Foci: None (0). ?? ? ACR TI-RADS total points: 0 ?? ? ACR TI-RADS category: 1 3.: Small 1 mm calcification in the uppe r pole. NODES: No lymphadenopathy is seen in the tissue surrounding the thyroid gland. Labs: Laboratory Tests 08/11/22 08/13/22 08/13/22 07:45 08:00 08:00 Creatinine Estimated GFR Albumin N-Telopeptide X-li nked 70 25-OH Vitamin D To marixa TSH Free T4 PTH Intact Calcium (PTH Intac t) Ur 24 Hour Volume 1525 Ur Creatinine 24 H our 1.19 Ur Calcium 24 Hr 172 09/21/22 09/21/22 07:36 07:36 Creatinine 0.69 Estimated GFR > 60 Albumin 4.0 N-Telopeptide X-li nked 25-OH Vitamin D To marixa 42.2 TSH 1.10 Free T4 1.14 PTH Intact 131 H Calcium (PTH Intac t) 9.3 Ur 24 Hour Volume Ur Creatinine 24 H our Ur Calcium 24 Hr PFS Medical History Anxiety and depression Closed fibular fracture Fall Finger pain, right History of right breast cancer Hyperparathyroidism Intestinal malabsorption following gastrectomy Joint pain Menopause Metatarsal stress fracture of right foot with routine healing Morbid obesity Obstructive sleep apnea Osteoarthritis Osteopenia Overweight (BMI 25.0-29.9) Spinal stenosis Sprain of interphalangeal joint of right middle finger Sprain of interphalangeal joint of right ring finger Stiffness of finger joint of right hand Vitamin A deficiency Vitamin D deficiency Well woman exam Surgical History Hx of tubal ligation History of colonoscopy Hx of bilateral cataract extraction Hx of dilation and curettage Hx of gastric bypass (~11/19/15) Hx laparoscopic cholecystectomy (~09/10/15) History of lumpectomy of right breast (~06/2010) History of back surgery Hx of section Family History Mother History of colon cancer Other Mental health disorder Social History Housing: House Alcohol intake: never Patient Tobacco Use Status: Never used Tobacco e-Cigarette/Vaping Use: Never Used Second Hand Smoke Exposure: No Current occupational status: disabled Cognitive needs: No Hearing needs: No Vision needs: No Female Reproductive History Menstrual Age of Menarche: 12 Physical Exam Vital Signs: Last Vital Signs Pulse 72 04/14/23 08:45 BP 132/72 04/14/23 08:45 BMI result Body Mass Index 26.7 Assessment & Plan Assessment & Plan (1) Hyperparathyroidism: Comment: Secondary hyperparathyroidism, endocrinology Code(s): E21.3 - Hyperparathyroidism, unspecified Plan: This is a 67-year-old white female status post gastric bypass surgery elevated PTH suggestive secondary hyperparathyroidism due to calcium malabsorption. Patient has increased calcium supplementation as vitamin-D replete with persistent PTH increase. Differential includes normocalcemic primary hyperparathyroidism. 24 hour urine for calcium is mid normal range. The plan is to repeat PTH, calcium, albumin, 25 hydroxy vitamin-D, 24 hour urine for calcium and creatinine at [facility] in about 3-4 months time. If patient remains vitamin-D replete as normal 24 hour urine for calcium with persistent PTH or PTH is trending in the wrong direction, could consider sending patient for parathyroid exploration. It is interesting looking back in the records that the PTH was persistently elevated even prior to the bariatric surgery suggesting the presence of longstanding normocalcemic primary hyperparathyroidism Orders: Orders Calcium 3 Months E21.3 - Hyperparathyroidism, unspecified Albumin Level 3 Months E21.3 - Hyperparathyroidism, unspecified Parathyroid Hormone Intact 3 Months E21.3 - Hyperparathyroidism, unspecified Vitamin D 25-OH Total Today E21.3 - Hyperparathyroidism, unspecified Creatinine, 24 Hr Group 3 Months E21.3 - Hyperparathyroidism, unspecified Calcium, 24 Hr Ur 3 Months E21.3 - Hyperparathyroidism, unspecified Coding Level of Care Code Est Pt Level 3 (62702) Diagnoses Hyperparathyroidism E21.3
[2023-04-14 08:45] VITALS: BP 132/72; PULSE 72; BMI 26.7
== END 2023-04-14 09:43 | disposition home or self-care (01) ==
PROVIDERS: PCP Internal Medicine; Visit Provider Internal Medicine Endocrinology, Diabetes & Metabolism
DX: E21.3 Hyperparathyroidism, unspecified (principal)
CPT/HCPCS: 99213

== ENCOUNTER → 2023-04-14 08:40 | Outpatient (BNVA) | payer MEDICARE, SELFPAY | PROVIDERS: PCP Internal Medicine; Visit Provider Internal Medicine Endocrinology, Diabetes & Metabolism | DX: E21.3 Hyperparathyroidism, unspecified (principal) | CPT/HCPCS: 99212 ==

== ENCOUNTER 2023-05-20 08:13 | Outpatient (AMB) | payer OTHER, SELFPAY ==
[2023-05-20 08:29] VITALS: BP 142/98; PULSE 74; O2SAT 98; BMI 26.9
--- NOTE | 2023-05-20 08:29 | A.OFFPC_ITS ---
Vital Signs 05/20/23 08:29 Height 5 ft 3 in Weight 152 lb BMI 26.9 BP 142/98 H Blood Pressure Location Lt brachial Position Sitting Pulse 74 Pulse Source Pulse Oximeter Pulse Oximetry (%) 98 Oxygen Delivery Method Room Air Intake Visit Reasons: peripheral neuropathy Allergies Lisinopril, SAÚL inhibitors Allergy (Intermediate, Uncoded 05/20/23 08:30) cough Tobacco use date assessed: 05/20/23 Fall risk assessment: No Falls in past year Last assessed Fall Risk: 05/20/23 Dental Screening Dental Screen Date: 05/20/23 Did you have a dental visit in the last 12 months?: Yes Did you have a dental problem in the last 6 months where you did not have access to dental care?: No Was dental information given to patient?: Patient has dentist HPI peripheral neuropathy HPI Details 67-year-old female with a history of gas tric bypass(October 2015) right breast cancer(right 2010 ) hyperparathyroidism generalized anxiety disorder last seen in October 2022. Patient's colonoscopy is up-to-date May 2020 5 years, Pap smear mammogram and bone density. Patient is here for follow-up. Review of the notes has met with endocrinology regarding osteoporosis and presently being investigated for primary hyperparathyroidism.neuropathy not a problem and decline testing. [facility] Medical History (Updated 05/20/23 @ 08:50 by Henrry Madden MD) Obesity (BMI 30.0-34.9) Vitamin D deficiency Menopause Well woman exam Stiffness of finger joint of right hand Sprain of interphalangeal joint of right middle finger Sprain of interphalangeal joint of right ring finger Finger pain, right Fall Vitamin A deficiency Joint pain Osteopenia Metatarsal stress fracture of right foot with routine healing Obstructive sleep apnea Osteoarthritis Hyperparathyroidism Anxiety and depression Closed fibular fracture Intestinal malabsorption following gastrectomy Overweight (BMI 25.0-29.9) Morbid obesity Spinal stenosis History of right breast cancer Surgical History Hx of tubal ligation History of colonoscopy Hx of bilateral cataract extraction Hx of dilation and curettage Hx of gastric bypass (~11/19/15) Hx laparoscopic cholecystectomy (~09/10/15) History of lumpectomy of right breast (~06/2010) History of back surgery Hx of section Family History Mother History of colon cancer Other Mental health disorder Social History Housing: House Alcohol intake: never Patient Tobacco Use Status: Never used Tobacco e-Cigarette/Vaping Use: Never Used Second Hand Smoke Exposure: No Current occupational status: disabled Cognitive needs: No Hearing needs: No Vision needs: Yes Female Reproductive History Menstrual Age of Menarche: 12 Questionnaire PHQ-9 Over the last 2 weeks, how often have you been bothered by any of the following problems? 1. Little interest or pleasure in doing things: several days 2. Feeling down, depressed, or hopeless: not at all 3. Trouble falling or staying asleep, or sleeping too much: not at all 4. Feeling tired or having little energy: more than half the days 5. Poor appetite or overeating: several days 6. Feeling bad about yourself - or that you are a failure or have let yourself or your family down: not at all 7. Trouble concentrating on things, such as reading the newspaper or watching television: several days 8. Moving or speaking so slowly that other people could have noticed. Or the opposite - being so fidgety or restless that you have been moving around a lot more than usual: not at all 9. Thoughts that you would be better off or of hurting yourself in some way: not at all Total score: 5 Depression Screening Interpretation: Negative Depression Screening Done: Yes 85901 - PHQ-9 Billing: Yes Source: Developed by Drs. Joseph Arana, Марина Roper, Torrey Celeste and colleagues, with an educational zoey from [employer]. Thrive Questionnaire Date Thrive assessed: 05/20/23 I am a: Patient What is your living situation today?: I have a steady place to live Within the past 12 months, did the food you bought not last and you didn't have the money to get more?: Never true Within the past 12 months, did you worry whether your food would run out before you got money to buy more?: Never true Do you have trouble paying for medicines?: No Do you have trouble getting transportation to medical appointments?: No Do you have trouble paying your heating and electricity bill?: No Do you have trouble taking care of your child, family member or friend?: No Do you have trouble with day-to-day activities such as bathing, preparing meals, shopping, managing finances, etc.?: No Are you currently unemployed and looking for a job?: No Are you interested in more education?: No Currently or been in a relationship where the following occur: no concerns reported THRIVE Score: 0 AUDIT C Alcohol Use Questionnaire (AUDIT-C) 1. How often do you have a drink containing alcohol?: Never Total Score: 0 ROMINA-7 AMB Questionnaire ROMINA-7 Date ROMINA - 7 assessed: 05/20/23 Feeling nervous, anxious, or on edge: 0 = Not at all Not being able to stop or control worryin = Not at all Worrying too much about different things: 0 = Not at all Trouble relaxin = Not at all Being so restless that it is hard to sit still: 0 = Not at all Becoming easily annoyed or irritable: 0 = Not at all Feeling afraid as if something awful might happen: 0 = Not at all Total ROMINA-7 score (0-4 normal; 5-9 mild; 10-14 moderate; 15-21 severe): 0 Source: Developed by Drs. Joseph Arana, Марина Roper, Torrey Celeste and colleagues, with an educational zoey from [employer]. Physical exam (Primary Care) Vital Signs: Last Vital Signs Pulse 74 05/20/23 08:29 BP 142/98 H 05/20/23 08:29 Pulse Ox 98 05/20/23 08:29 Oxygen Delivery Method Room Air 05/20/23 08:29 BMI result Body Mass Index 26.9 Tobacco/Smoking Status: Tobacco use Status Tobacco use date assessed 05/20/23 05/20/23 08:36 Patient Tobacco Use Status Never used Tobacco 05/20/23 08:36 e-Cigarette/Vaping Use Never Used 05/20/23 08:36 PHQ-9: PHQ-9 Score PHQ-9: Total score 5 05/20/23 08:36 Depression Screening Interpretation: Negative Thrive Assessment: Date of Thrive Assessment Date Thrive assessed 05/20/23 05/20/23 08:36 Currently or been in a relationship where the following occur: no concerns reported Const General: alert; No acute distress Eyes Conjunctivae: conjunctivae normal Resp Auscultation: clear to auscultation bilaterally Cardio Rate: regular rate Rhythm: regular rhythm GI Inspection: Yes normal to inspection Extrem General: Yes normal to inspection and No edema Assessment and Plan Assessment & Plan (1) Osteoporosis: Comment: June 2021 Code(s): M81.0 - Age-related osteoporosis without current pathological fracture Plan: Patient presently is following up with endocrinology and being worked up for hyperparathyroidism (2) Hx of gastric bypass: Onset Date: ~11/19/15 Comment: Dr. Lai and diaphragmatic hernia repair Code(s): Z98.84 - Bariatric surgery status Plan: Continue to follow-up with weight management (3) History of right breast cancer: Comment: Right, June 2010 lumpectomy negative lymph nodes, right side lymphedema status post radiation June 2022 Code(s): Z85.3 - Personal history of malignant neoplasm of breast Plan: Up-to-date with mammogram (4) Hyperparathyroidism: Comment: Secondary hyperparathyroidism, endocrinology Code(s): E21.3 - Hyperparathyroidism, unspecified Plan: Patient is being evaluated by Endocrinology (5) Generalized anxiety disorder: Comment: Decline any counseling referral Code(s): F41.1 - Generalized anxiety disorder Plan: Continue with present medication (6) Hypercholesterolemia: Code(s): E78.00 - Pure hypercholesterolemia, unspecified Plan: Avoid fried foods, chicken skin, eggs, butter margarine, pastries and meat. Be it pork or beef they have a lot of cholesterol LDL goal of less than 130 and triglyceride of less than 150 requested retesting (7) Blood pressure elevated without history of HTN: Code(s): R03.0 - Elevated blood-pressure reading, without diagnosis of hypertension Plan: monitor blood pressure at home and record. Discussed concerns about the blood pressure Orders: Orders Thyroid Stimulating Hormone 5 Months E78.00 - Pure hypercholesterolemia, unspec ified Vitamin D 25-OH Total 5 Months E78.00 - Pure hypercholesterolemia, unspecified Lipid Panel 5 Months E78.00 - Pure hypercholesterolemia, unspecified Complete Blood Count Auto Diff 5 Months E78.00 - Pure hypercholesterolemia, unspecified Comprehensive Met. Panel 5 Months E78.00 - Pure hypercholesterolemia, unspecified Free T4 (Free Thyroxine) 5 Months E78.00 - Pure hypercholesterolemia, unspecified Vitamin B12 and Folate 5 Months E78.00 - Pure hypercholesterolemia, unspecified Coding Level of Care Code Est Pt Level 4 (09357) Diagnoses Osteoporosis M81.0 Hx of gastric bypass Z98.84 History of right breast cancer Z85.3 Hyperparathyroidism E21.3 Generalized anxiety disorder F41.1 Hypercholesterolemia E78.00 Blood pressure elevated without history of HTN R03.0
== END 2023-05-20 09:01 | disposition home or self-care (01) ==
PROVIDERS: PCP Internal Medicine; Visit Provider Internal Medicine
DX: M81.0 Age-related osteoporosis without current pathological fracture (principal); Z98.84 Bariatric surgery status; Z85.3 Personal history of malignant neoplasm of breast; E21.3 Hyperparathyroidism, unspecified; F41.1 Generalized anxiety disorder; E78.00 Pure hypercholesterolemia, unspecified; R03.0 Elevated blood-pressure reading, without diagnosis of hypertension
CPT/HCPCS: 99214

== ENCOUNTER 2023-08-01 08:54 | Outpatient (REF) | payer OTHER, SELFPAY ==
--- NOTE | ~2023-08-01 | MM_ITS ---
EXAMINATION: MM SCREENING DIGITAL BREAST TOMOSYNTHESIS, BILATERAL CLINICAL INFORMATION: Screening. Asymptomatic. The patient has a history of right breast cancer status breast conservation surgery. COMPARISON: Mammography: This study is compared with prior exams dating back to 2018. TECHNIQUE: Digital breast tomosynthesis is performed in both the craniocaudal and mediolateral oblique views along with computer-aided detection (CAD). Synthesized 2D images are generated from the tomosynthesis. FINDINGS: There are scattered areas of fibroglandular density (ACR BI-RADS breast composition Category b). There are no significant masses, abnormal calcifications, or other abnormalities. There are bilateral, coarse benign. There are postsurgical changes in the upper outer quadrant of the right breast. MM/MM tomosynthesis screening BI IMPRESSION: No mammographic evidence of malignancy. ASSESSMENT: BI-RADS BI-RADS 2 - Benign Findings RECOMMENDATION: Routine annual mammography screening. 1 year F/U This examination should not preclude the clinical evaluation of a suspicious palpable abnormality. This patient's information was entered into a reminder system with a target due date for their next mammogram.
== END 2023-08-01 08:55 | disposition home or self-care (01) ==
LOC: HO.MAMMO 08:54
PROVIDERS: PCP Internal Medicine; Visit Provider Internal Medicine
DX: Z12.31 Encounter for screening mammogram for malignant neoplasm of breast (principal)
CPT/HCPCS: 77063; 77067

== ENCOUNTER → 2023-08-01 09:15 | Outpatient (BNV) | payer OTHER, SELFPAY | PROVIDERS: PCP Internal Medicine; Visit Provider Radiology Diagnostic Radiology | DX: Z12.31 Encounter for screening mammogram for malignant neoplasm of breast (principal) | CPT/HCPCS: 77063; 77067 ==

== ENCOUNTER 2023-08-10 08:53 | Outpatient (REF) | payer OTHER, SELFPAY ==
[2023-08-10 10:52] LABS: Albumin Level 4.1 g/dL (3.5-5.0); Calcium 9.3 mg/dL (8.4-10.2)
[2023-08-10 11:19] LABS: Parathyroid Hormone Intact 108.9 pg/mL (8.7-77.1)
== END 2023-08-10 08:54 | disposition home or self-care (01) ==
LOC: HO.HMGCLDS 08:53
PROVIDERS: PCP Internal Medicine; Visit Provider Internal Medicine Endocrinology, Diabetes & Metabolism
DX: E21.3 Hyperparathyroidism, unspecified (principal)
CPT/HCPCS: 36415; 82040; 82310; 83970

== ENCOUNTER 2023-08-23 08:44 | Outpatient (AMB) | payer OTHER, SELFPAY ==
[2023-08-23 09:03] VITALS: BP 142/88; PULSE 73; O2SAT 96; BMI 28.5
--- NOTE | 2023-08-23 09:03 | MHC.PC.OV ---
Vital Signs 08/23/23 09:03 Height 5 ft 3 in Weight 161 lb BMI 28.5 BP 142/88 H Blood Pressure Location Lt brachial Position Sitting Pulse 73 Pulse Source Pulse Oximeter Pulse Oximetry (%) 96 Oxygen Delivery Method Room Air Intake Visit Reasons: Annual Exam Allergies Lisinopril, SAÚL inhibitors Allergy (Intermediate, Uncoded 08/23/23 09:04) cough Medication List - Last Reconciled 08/23/23 by Henrry Madden MD calcium citrate-vitamin D3 315 mg-6.25 mcg (250 unit) 2 tabs PO DAILY cholecalciferol (vitamin D3) 50 mcg PO DAILY citalopram 20 mg PO BID diclofenac sodium 1% 2 grams topical QID PRN gabapentin 300 mg PO BEDTIME 90 days garlic 5 mg PO DAILY melatonin 3 mg PO BEDTIME PRN multivitamin 1 tab PO DAILY vitamin A 1 cap PO DAILY vitamin B complex (B Complex-Vitamin B12 tablet) 1 tab PO .qod Tobacco use date assessed: 08/23/23 Fall risk assessment: No Falls in past year Last assessed Fall Risk: 08/23/23 Dental Screening Dental Screen Date: 08/23/23 Did you have a dental visit in the last 12 months?: Yes Did you have a dental problem in the last 6 months where you did not have access to dental care?: No Was dental information given to patient?: Patient has dentist HPI Annual Exam HPI Details 67-year-old overweight female with a history of osteoporosis(last bone density June 2021) history of gastric bypass history of right breast cancer hyperparathyroidism generalized anxiety disorder hypercholesterolemia last seen in May 2023. Noted to have an elevated blood pressure at that time. Patient is here for physical exam. BP list most normal , a few high - will continue to monitor. feeling dizzy, PFSH Medical History (Updated 08/23/23 @ 09:37 by Henrry Madden MD) Obesity (BMI 30.0-34.9) Vitamin D deficiency Menopause Well woman exam Stiffness of finger joint of right hand Sprain of interphalangeal joint of right middle finger Sprain of interphalangeal joint of right ring finger Finger pain, right Fall Vitamin A deficiency Joint pain Osteopenia Metatarsal stress fracture of right foot with routine healing Obstructive sleep apnea Osteoarthritis Hyperparathyroidism Anxiety and depression Closed fibular fracture Intestinal malabsorption following gastrectomy Overweight (BMI 25.0-29.9) Morbid obesity Spinal stenosis History of right breast cancer Surgical History Hx of tubal ligation History of colonoscopy Hx of bilateral cataract extraction Hx of dilation and curettage Hx of gastric bypass (~11/19/15) Hx laparoscopic cholecystectomy (~09/10/15) History of lumpectomy of right breast (~06/2010) History of back surgery Hx of section Family History Mother History of colon cancer Other Mental health disorder Social History Housing: House Alcohol intake: never Patient Tobacco Use Status: Never used Tobacco e-Cigarette/Vaping Use: Never Used Second Hand Smoke Exposure: No Current occupational status: disabled Cognitive needs: No Hearing needs: No Vision needs: Yes Female Reproductive History Menstrual Age of Menarche: 12 Questionnaire PHQ-9 Over the last 2 weeks, how often have you been bothered by any of the following problems? 1. Little interest or pleasure in doing things: several days 2. Feeling down, depressed, or hopeless: not at all 3. Trouble falling or staying asleep, or sleeping too much: not at all 4. Feeling tired or having little energy: more than half the days 5. Poor appetite or overeating: several days 6. Feeling bad about yourself - or that you are a failure or have let yourself or your family down: not at all 7. Trouble concentrating on things, such as reading the newspaper or watching television: several days 8. Moving or speaking so slowly that other people could have noticed. Or the opposite - being so fidgety or restless that you have been moving around a lot more than usual: not at all 9. Thoughts that you would be better off or of hurting yourself in some way: not at all Total score: 5 Depression Screening Interpretation: Negative Depression Screening Done: Yes 01008 - PHQ-9 Billing: Yes Source: Developed by Drs. Joseph Arana, Марина Roper, Torrey Celeste and colleagues, with an educational zoey from [employer]. Thrive Questionnaire Date Thrive assessed: 08/23/23 I am a: Patient What is your living situation today?: I have a steady place to live Within the past 12 months, did the food you bought not last and you didn't have the money to get more?: Never true Within the past 12 months, did you worry whether your food would run out before you got money to buy more?: Never true Do you have trouble paying for medicines?: No Do you have trouble getting transportation to medical appointments?: No Do you have trouble paying your heating and electricity bill?: No Do you have trouble taking care of your child, family member or friend?: No Do you have trouble with day-to-day activities such as bathing, preparing meals, shopping, managing finances, etc.?: No Are you currently unemployed and looking for a job?: No Are you interested in more education?: No Currently or been in a relationship where the following occur: no concerns reported THRIVE Score: 0 AUDIT C Alcohol Use Questionnaire (AUDIT-C) 1. How often do you have a drink containing alcohol?: Never Total Score: 0 ROMINA-7 AMB Questionnaire ROMINA-7 Date ROMINA - 7 assessed: 08/23/23 Feeling nervous, anxious, or on edge: 0 = Not at all Not being able to stop or control worryin = Not at all Worrying too much about different things: 0 = Not at all Trouble relaxin = Not at all Being so restless that it is hard to sit still: 0 = Not at all Becoming easily annoyed or irritable: 0 = Not at all Feeling afraid as if something awful might happen: 0 = Not at all Total ROMINA-7 score (0-4 normal; 5-9 mild; 10-14 moderate; 15-21 severe): 0 Source: Developed by Drs. Joseph Arana, Марина Roper, Torrey Celeste and colleagues, with an educational zoey from [employer]. Review of Systems Const Denies poor appetite and Denies weakness Eyes Denies no additional complaints ENT Reports Normal hearing present, Denies dizziness, Denies nasal congestion, Denies tinnitus and Denies sore throat Card Denies chest pain, Denies syncope, Denies rapid heart rate and Denies dyspnea Resp Denies cough and Denies dyspnea GI Denies change in stool character, Reports constipation, Denies diarrhea, Denies nausea and Denies vomiting Denies urinary frequency, Denies difficulty voiding and Denies dysuria Neuro Reports Normal hearing present, Denies confusion, Denies dizziness, Denies syncope and Denies weakness Psych Denies confusion Physical exam (Primary Care) Vital Signs: Last Vital Signs Pulse 73 08/23/23 09:03 BP 142/88 H 08/23/23 09:03 Pulse Ox 96 08/23/23 09:03 Oxygen Delivery Method Room Air 08/23/23 09:03 BMI result Body Mass Index 28.5 Tobacco/Smoking Status: Tobacco use Status Tobacco use date assessed 08/23/23 08/23/23 09:09 Patient Tobacco Use Status Never used Tobacco 08/23/23 09:09 e-Cigarette/Vaping Use Never Used 08/23/23 09:09 PHQ-9: PHQ-9 Score PHQ-9: Total score 5 08/23/23 09:09 Depression Screening Interpretation: Negative Thrive Assessment: Date of Thrive Assessment Date Thrive assessed 08/23/23 08/23/23 09:09 Currently or been in a relationship where the following occur: no concerns reported Const General: No confusion Orientation/consciousness: No confusion HENMT Head: Yes normocephalic Ears: external ears normal and TM's normal bilaterally Face and sinus: Yes normal facial exam Mouth: moist mucous membranes Throat: Yes tonsils normal Eyes Conjunctivae: conjunctivae normal Pupils: Equal, round and reactive pupils present and Pupil accommodation reflex normal Direct Ophthalmoscopy: normal light reflex Neck Neck: No lymphadenopathy Thyroid: Thyroid normal Chest Chest palpation & inspection: normal inspection of the chest Resp Effort & Inspection: normal respiratory effort and no audible wheezes Auscultation: clear to auscultation bilaterally, no crackles, no wheezes and lung sounds not diminished Cardio Rate: regular rate Rhythm: regular rhythm Peripheral pulses: radial pulses present and dorsalis pedis present GI Palpation (GI): no masses Auscultation: normal bowel sounds and normoactive bowel sounds Rectal Exam - Female: deferred Skin General skin exam: no rashes or lesions noted Rashes: no rashes Neuro General: No confusion Cranial nerves: Yes Equal, round and reactive pupils present and Yes Normal hearing present Cognition (Neuro): normal cognition Gait exam (Neuro): Normal gait present Motor exam (neuro): 5/5 motor strength present throughout Deep tendon reflexes (DTR's): Right brachioradialis reflex intensity grade: 2+, Left brachioradialis reflex intensity grade: 2+, Right patellar reflex intensity grade: 2+ and Left patellar reflex intensity grade: 2+ Extrem General: No edema Assessment and Plan Assessment & Plan (1) Annual physical exam: Code(s): Z00.00 - Encounter for general adult medical examination without abnormal findings (2) Hx of gastric bypass: Onset Date: ~11/19/15 Comment: Dr. Lai and diaphragmatic hernia repair Code(s): Z98.84 - Bariatric surgery status Plan: Continue to follow-up with bariatric (3) Overweight (BMI 25.0-29.9): Code(s): E66.3 - Overweight Plan: Continue with diet and exercise (4) History of right breast cancer: Comment: Right, June 2010 lumpectomy negative lymph nodes, right side lymphedema status post radiation June 2022 Code(s): Z85.3 - Personal history of malignant neoplasm of breast Plan: Patient is up-to-date with mammogram (5) Hyperparathyroidism: Comment: Secondary hyperparathyroidism, endocrinology Code(s): E21.3 - Hyperparathyroidism, unspecified Plan: Continue to follow-up with endocrinology (6) Generalized anxiety disorder: Comment: Decline any counseling referral Code(s): F41.1 - Generalized anxiety disorder Plan: Presently on citalopram gabapentin (7) Osteoporosis: Comment: June 2021 Code(s): M81.0 - Age-related osteoporosis without current pathological fracture Plan: Discussed about calcium vitamin-D and repeat bone density. (8) Hypercholesterolemia: Code(s): E78.00 - Pure hypercholesterolemia, unspecified Plan: Avoid fried foods, chicken skin, eggs, butter margarine, pastries and meat. Be it pork or beef they have a lot of cholesterol LDL goal of less than 130 and triglyceride of less than 150. August 2022 last blood work (9) Blood pressure elevated without history of HTN: Code(s): R03.0 - Elevated blood-pressure reading, without diagnosis of hypertension Plan: Monitor blood pressure and record. Low-salt diet (10) Chest pain: Code(s): R07.9 - Chest pain, unspecified Orders: Orders CA stress test Today R07.9 - Chest pain, unspecified ECG 12 lead EKG Today R07.9 - Chest pain, unspecified XR DEXA axial skeleton Today M81.0 - Age-related osteoporosis without current pathological fracture Medications: Changed From citalopram 20 mg PO BID 180 tabs 2RF F41.1 - Generalized anxiety disorder To citalopram 40 mg PO .QD 90 tabs 2RF F41.1 - Generalized anxiety disorder Coding Level of Care Code Est Pt Prev Care >65y(31353) Diagnoses Annual physical exam Z00.00 Hx of gastric bypass Z98.84 Overweight (BMI 25.0-29.9) E66.3 History of right breast cancer Z85.3 Hyperparathyroidism E21.3 Generalized anxiety disorder F41.1 Osteoporosis M81.0 Hypercholesterolemia E78.00 Blood pressure elevated without history of HTN R03.0 Chest pain R07.9
== END 2023-08-23 09:48 | disposition home or self-care (01) ==
PROVIDERS: PCP Internal Medicine; Visit Provider Internal Medicine
DX: Z00.00 Encounter for general adult medical examination without abnormal findings (principal); Z85.3 Personal history of malignant neoplasm of breast; M81.0 Age-related osteoporosis without current pathological fracture; E21.3 Hyperparathyroidism, unspecified; F41.1 Generalized anxiety disorder; E78.00 Pure hypercholesterolemia, unspecified; R03.0 Elevated blood-pressure reading, without diagnosis of hypertension; R07.9 Chest pain, unspecified
CPT/HCPCS: 99397

== ENCOUNTER → 2023-09-01 08:43 | Outpatient (REF) | payer OTHER, SELFPAY ==
--- NOTE | 2023-09-01 08:48 | CA_ITS ---
Acquisition Time: 2023-09-01 08:51:20 Total Exercise Time: 00:06:30 Test Indications: Chest Pain Medications: SEE H Protocol: MAYRA Max HR: 131 BPM 86% of Pred: 152 BPM Max BP: 158/068 mmHG Max Work Load: 7.6 METS Exercise stress test exrcise 6 min 30 sec of Mayra protocol achieving 86% MPHR, with mild to moderate SOB, no chest discomfort, with isolated PACs, with resting HTN, with normotenisve response to exercise, without EKG changes. Breathing returned to normal with rest. Equivcol - shortness of breath, no chest pain. Test reviewed with Dr. Ellis. Referred By: Henrry Madden Overread By: Farzana Hopper
--- NOTE | 2023-09-01 08:48 | ECG_ITS ---
Test Reason : R07.9 Blood Pressure : / mmHG Vent. Rate : 074 BPM Atrial Rate : 074 BPM P-R Int : 130 ms QRS Dur : 076 ms QT Int : 438 ms P-R-T Axes : 032 016 028 degrees QTc Int : 486 ms Sinus rhythm with Premature atrial complexes Otherwise normal ECG When compared with ECG of 06-DEC-2020 02:39, Premature atrial complexes are now Present Referred By: Henrry Madden Electronically Signed By:QUEENIE CASTILLO
== END ==
LOC: HO.CARD 08:43
PROVIDERS: PCP Internal Medicine; Visit Provider Internal Medicine
DX: R07.9 Chest pain, unspecified (principal)
CPT/HCPCS: 93005; 93017

== ENCOUNTER → 2023-09-01 08:48 | Outpatient (BNV) | payer OTHER, SELFPAY | PROVIDERS: PCP Internal Medicine; Visit Provider Internal Medicine | DX: R07.9 Chest pain, unspecified (principal); R06.02 Shortness of breath; I10 Essential (primary) hypertension; I49.1 Atrial premature depolarization | CPT/HCPCS: 93010; 93016; 93018 ==

== ENCOUNTER 2023-09-08 08:31 | Outpatient (REF) | payer OTHER, SELFPAY ==
--- NOTE | ~2023-09-08 | MM_ITS ---
EXAMINATION: BONE DENSITOMETRY CLINICAL INDICATION: Age-related osteoporosis without pathological fracture. Hyperparathyroidism. COMPARISON: Previous BD dated 07/23/2021 and baseline BD dated 03/11/2009. TECHNIQUE: Using a [employer] DXA System (software version: 13.1) manufactured by [employer], dual-energy x-ray absorptiometry was performed of the lumbar spine, left hip, left forearm radius 33%. The images are of good technical quality. Summary results are attached. FINDINGS: LEFT FEMUR, NECK: Current: BMD 0.417 g/cm2, Z-score -3.0, T-score -4.5, osteoporosis. Prior: BMD 0.569 g/cm2. Baseline: BMD 1.031 g/cm2. LEFT FEMUR, TOTAL: Current: BMD 0.497 g/cm2, Z-score -2.9, T-score -4.0, osteoporosis, 19.4% decrease from previous, 56.6% decrease from baseline (<5% change is not significant). Prior: BMD 0.617 g/cm2. Baseline: BMD 1.146 g/cm2. AP SPINE L1-L4: Current: BMD 1.228 g/cm2, Z-score 1.7, T-score 0.4, normal, 0.1% decrease from previous, 4.1% decrease from baseline (<5% change is not significant). Prior: BMD 1.229 g/cm2. Baseline: BMD 1.280 g/cm2. LEFT FOREARM RADIUS 33%: BMD 0.648 g/cm2, Z-score -0.9, T-score -2.6, osteoporosis, 5.3% decrease from baseline (<5% change is not significant). Baseline: BMD 0.684 g/cm2. IDENTIFIED RISK FACTORS: Menopause, hyperparathyroidism, history of fracture (adult), osteoporosis, secondary osteoporosis (partial gastrectomy). HISTORY OF FRACTURE: Other. MEDICATIONS: Calcium, vitamin D. MM/XR DEXA appendicular skeleton IMPRESSION: 1. DIAGNOSIS: Osteoporosis based on the lowest T-score value of -4.5 in the femoral neck applying World Health Organization criteria. 2. 10-YEAR FRACTURE RISK PREDICTION, FRAX: According to the guidelines, FRAX calculation should only be performed on patients in the osteopenia bone density category. Therefore, FRAX was not performed on this patient. 3. Treatment Recommendations: NOF guidelines recommend consideration for treatment in postmenopausal women and men age 50 and older presenting with the following: -A hip or vertebral (clinical or morphometric) fracture. -T-score less than or equal to -2.5 at the femoral neck or spine after appropriate evaluation to exclude secondary causes. -Low bone mass at the hip or spine and a 10-year fracture probability by FRAX of greater than or equal to 3% for hip fracture or greater than or equal to 20% for major osteoporotic fracture based on the [place] adapted WHO algorithm. 4. Other Recommendations: All treatment decisions require clinical judgment and consideration of individual patient factors, including patient preferences, comorbidities, previous drug use, risk factors not captured in the FRAX model (e.g. frailty, falls, vitamin D deficiency, increased bone turnover, interval significant decline in bone density) and possible under or overestimation of fracture risk by FRAX. Additional medical evaluation for secondary cause of low bone mineral density may be appropriate. FUTURE SCAN RECOMMENDATION: People with diagnosed cases of osteoporosis or at high risk for fracture should have regular bone mineral density tests. For patients eligible for Medicare, routine testing is allowed once every 2 years. The testing frequency can be increased to one year for patients who have rapidly progressing disease, those who are receiving or discontinuing medical therapy to restore bone mass, or have additional risk factors.
== END 2023-09-08 08:32 | disposition home or self-care (01) ==
LOC: HO.MAMMO 08:31
PROVIDERS: PCP Internal Medicine; Visit Provider Internal Medicine
DX: M81.0 Age-related osteoporosis without current pathological fracture (principal)
CPT/HCPCS: 77081

== ENCOUNTER 2023-10-31 09:10 | Outpatient (REF) | payer OTHER, SELFPAY ==
[2023-10-31 09:31] LABS: MANUAL DIFF FLAG NO
[2023-10-31 10:31] LABS: Basophils Absolute Auto 0.1 X10*3/uL (0.0-0.2); Basophils Percent Auto 1.5 % (0-2); Eosinophils Absolute Auto 0.1 X10*3/uL (0.0-0.4); Eosinophils Percent Auto 2.1 % (0-4); Hematocrit 39.1 % (37.0-47.0); Hemoglobin 12.6 g/dl (12.0-16.0); Imm Gran Abs Auto 0.02 X10*3/uL (0.00-0.03); Imm Gran Pct Auto 0.3 % (0.0-0.4); Lymphocytes Absolute Auto 1.7 X10*3/uL (1.2-4.9); Lymphocytes Percent Auto 27.9 % (20-40); Mean Corpuscular HGB Conc 32.2 g/dl (31.0-35.0); Mean Corpuscular Hemoglobin 26.6 pg (27.0-33.0); Mean Corpuscular Volume 82.5 fL (80.0-98.0); Mean Platelet Volume 10.5 fL (9.4-12.3); Monocytes Absolute Auto 0.6 X10*3/uL (0.1-1.2); Monocytes Percent Auto 9.1 % (2-11); Neutrophils Absolute Auto 3.6 x10*3/uL (2.0-8.3); Neutrophils Percent Auto 59.1 % (45-73); Platelet Count 292 X10*3/uL (160-400); Red Blood Count 4.74 X10*6/uL (4.20-5.50); White Blood Count 6.1 X10*3/uL (4.8-10.8)
[2023-10-31 11:00] LABS: Alanine Aminotransferase 8 U/L (0-31); Albumin Level 4.2 g/dL (3.5-5.0); Alkaline Phosphatase 64 U/L (39-117); Anion Gap 12 (12-20); Aspartate Amino Transferase 31 U/L (5-31); Bilirubin Total 0.6 mg/dL (0.0-1.0); Blood Urea Nitrogen 14 mg/dL (9-16); Calcium 9.8 mg/dL (8.4-10.2); Carbon Dioxide 32 mmol/L (22-29); Chloride 104 mmol/L (96-108); Cholesterol 195 mg/dL (<200); Estimated Glomerular Filt Rate > 60; Glucose Random 91 mg/dL (60-115); HDL Cholesterol 41 mg/dL (>40); LDL Cholesterol Calculated 130 mg/dL (<100); Potassium 3.9 mmol/L (3.3-5.1); Sodium 144 mmol/L (135-145); Total Protein 7.1 g/dL (6.5-8.0); Triglycerides 120 mg/dL (<150)
[2023-10-31 11:20] LABS: Free T4 (Free Thyroxine) 0.99 ng/dL (0.71-1.85); Thyroid Stimulating Hormone 1.21 uIU/mL (0.32-4.0)
[2023-10-31 11:59] LABS: Folate 10.6 ng/mL (> or = 4.0); Vitamin B12 1066 pg/mL (200-900)
== END 2023-10-31 09:11 | disposition home or self-care (01) ==
LOC: HO.LAB 09:10
PROVIDERS: Absent Provider Internal Medicine Endocrinology, Diabetes & Metabolism; PCP Internal Medicine; Visit Provider Internal Medicine
DX: E78.00 Pure hypercholesterolemia, unspecified (principal)
CPT/HCPCS: 36415; 80053; 80061; 82607; 82746; 84439; 84443; 85025

== ENCOUNTER 2023-11-07 07:43 | Outpatient (REF) | payer OTHER, SELFPAY ==
[2023-11-07 10:25] LABS: Total Volume 24 Hour Urine 2025 mL
[2023-11-07 12:24] LABS: Creatinine, 24Hr Urine 0.9 G/Day (1.0-2.0); Creatinine, mg/dL 43.21
[2023-11-08 16:04] LABS: Calcium, 24 Hr Urine 209 mg/24 h; Calcium/Creatinine Ratio 229 mg/g creat (30-275); Creatinine 24Hr Urine 0.91 g/24 h (0.50-2.15)
== END 2023-11-07 07:44 | disposition home or self-care (01) ==
LOC: HO.HMGCLNP 07:43
PROVIDERS: PCP Internal Medicine; Visit Provider Internal Medicine Endocrinology, Diabetes & Metabolism
DX: E21.3 Hyperparathyroidism, unspecified (principal)
CPT/HCPCS: 82340; 82570

== ENCOUNTER 2023-11-15 08:43 | Outpatient (AMB) | payer OTHER, SELFPAY ==
[2023-11-15 08:45] VITALS: BP 150/88; PULSE 70; BMI 29.7
--- NOTE | 2023-11-15 08:45 | MHC.OFFVIS ---
Vital Signs 11/15/23 08:45 Height 5 ft 3 in Weight 167 lb 8.821 oz BMI 29.7 BP 150/88 H Blood Pressure Location Lt brachial Position Sitting Pulse 70 Pulse Source Pulse Oximeter Intake Visit Reasons: f/u osteoporosis Intake Note: Patient present today for Osteoporosis follow up visit. Pin Inserter Required: No Accompanied by: Self / Same As Patient Allergies Lisinopril, SAÚL inhibitors Allergy (Intermediate, Uncoded 11/15/23 08:49) cough Medication List - Last Reconciled 11/15/23 by Joseph Mir MD calcium citrate-vitamin D3 315 mg-6.25 mcg (250 unit) 2 tabs PO DAILY cholecalciferol (vitamin D3) 50 mcg PO DAILY citalopram 40 mg PO .QD diclofenac sodium 1% 2 grams topical QID PRN gabapentin 300 mg PO BEDTIME 90 days garlic 5 mg PO DAILY melatonin 3 mg PO BEDTIME PRN multivitamin 1 tab PO DAILY vitamin A 1 cap PO DAILY vitamin B complex (B Complex-Vitamin B12 tablet) 1 tab PO .qod HPI Comments Details: 67 YO Female with PMHx Obesity s/p Suhas En Y gastric bypass in 2015, a history of breast cancer of the R breast S/P lumpectomy and radiation therapy in 2010 as well as Osteopenia who is seen in F/U for hyperparathyroidism.. The patient last saw Dr. Porter on 10/05/2019 She had labs assessed 03/09/2021 with Calcium 9.6, PTH 108, Vitamin D 45.1, but no albumin was assessed. After her initial visit with me we completed a full biochemical evaluation which revealed evidence of suspected secondary hyperparathyroidism with elevated PTH, calcium low normal and Vitamin D WNL. She had a repeat DXA which revealed significant decline in her BMD in the hip into the osteoporotic range. This was thought to likely represent osteomalacia vs osteoporosis. She was asked to increase her dietary calcium, but instead decreased this of her own accord and is currently not having any dietary calcium at all. She has a history of breast cancer in 2010 and completed 10 years of tamoxifen therapy. She had routine labs completed by her bariatric team which revealed an elevated PTH level in the low 100's. She has never been treated for her Osteopenia. No history of pathologic fracture or ONJ. Currently not having any dietary calcium at all. Takes Calcium citrate 325 mg 2 tabs PO daily. Takes 1000 IU of Vitamin D daily. Has used a short course of PPI in the past, max of 2 months. Denies ever using anticoagulant, antiepileptic or glucocorticoid medication. Does no weight bearing exercise. Fracture history: Fracture of the R ankle twice, 2014 and 2017. 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 Menses were always regular. . She did not breastfeed. Menopause was age 49. She does not use HRT. Denies history of Kidney stones. Denies family history of Osteoporosis or hip fracture. Her Daughter does have recurrent nephrolithiasis. UTD on dental cleanings and sees dentist every 6 months. No planned upcoming dental work or extractions. DXA: 07/23/21 FINDINGS: AP SPINE L1-L4: Current: BMD 1.229 g/cm2, Z-score 1.6, T-score 0.4, normal, 4.1% decrease from previous, 4.0% decrease from baseline (<5% change is not significant). Prior: BMD 1.281 g/cm2. Baseline: BMD 1.280 g/cm2. LEFT FEMUR, NECK: Current: BMD 0.569 g/cm2, Z-score -2.1, T-score -3.4, osteoporosis. Prior: BMD 0.703 g/cm2. Baseline: BMD 1.031 g/cm2. LEFT FEMUR, TOTAL: Current: BMD 0.617 g/cm2, Z-score -2.1, T-score -3.1, osteoporosis, 18.1% decrease from previous, 46.2% decrease from baseline (<5% change is not significant). Prior: BMD 0.753 g/cm2. Baseline: BMD 1.146 g/cm2. LEFT FOREARM RADIUS 33%: BMD 0.684 g/cm2, Z-score -0.7, T-score -2.2, osteopenia. Prior:? Not previously measured. Thyroid US: 07/31/2021 Right Thyroid Lobe: 5.30 x 1.37 x 1.60 cm, volume 6.08 mL. Parenchyma: The gland echotexture is homogeneous. Thyroid vascularity is increased. Left Thyroid Lobe: 5.69 x 1.44 x 1.85 cm, volume 7.96 mL. Parenchyma: The gland echotexture is homogeneous. Thyroid vascularity is increased. Isthmus: 0.58 cm in maximum AP dimension. Estimated total number of nodules greater than or equal to 1 cm: 0. Gear Nicker nodules are described as follows: 1. Location: Left mid. ?? ? Size: 0.74 x 0.70 x 0.73 cm, volume 0.20 mL. ?? ? Nodule characteristics: ?? ? Composition: Solid (2). ?? ? Echogenicity: Isoechoic (1). ?? ? Shape: Not taller than wide (0). ?? ? Margins: Smooth (0). ?? ? Echogenic Foci: None (0). ?? ? ACR TI-RADS total points: 3 ?? ? ACR TI-RADS category: 3 2. Location: Left inferior. ?? ? Size: 0.34 x 0.23 x 0.40 cm, volume 0.02 mL. ?? ? Nodule characteristics: ?? ? Composition: Spongiform (0). ?? ? Echogenicity: Anechoic (0). ?? ? Shape: Not taller than wide (0). ?? ? Margins: Smooth (0). ?? ? Echogenic Foci: None (0). ?? ? ACR TI-RADS total points: 0 ?? ? ACR TI-RADS category: 1 3.: Small 1 mm calcification in the upper pole. NODES: No lymphadenopathy is seen in the tissue surrounding the thyroid gland. Labs: Laboratory Tests 08/11/22 08/13/22 08/13/22 07:45 08:00 08:00 Creatinine Estimated GFR Albumin N-Telopeptide X-linked 70 25-OH Vitamin D Total TSH Free T4 PTH Intact Calcium (PTH Intact) Ur 24 Hour Volume 1525 Ur Creatinine 24 Hour 1.19 Ur Calcium 24 Hr 172 09/21/22 09/21/22 07:36 07:36 Creatinine 0.69 Estimated GFR > 60 Albumin 4.0 N-Telopeptide X-linked 25-OH Vitamin D Total 42.2 TSH 1.10 Free T4 1.14 PTH Intact 131 H Calcium (PTH Intact) 9.3 Ur 24 Hour Volume Ur Creatinine 24 Hour Ur Calcium 24 Hr [facility] Medical History (Updated 08/23/23 @ 09:37 by Henrry Madden MD) Obesity (BMI 30.0-34.9) Vitamin D deficiency Menopause Well woman exam Stiffness of finger joint of right hand Sprain of interphalangeal joint of right middle finger Sprain of interphalangeal joint of right ring finger Finger pain, right Fall Vitamin A deficiency Joint pain Osteopenia Metatarsal stress fracture of right foot with routine healing Obstructive sleep apnea Osteoarthritis Hyperparathyroidism Anxiety and depression Closed fibular fracture Intestinal malabsorption following gastrectomy Overweight (BMI 25.0-29.9) Morbid obesity Spinal stenosis History of right breast cancer Surgical History Hx of tubal ligation History of colonoscopy Hx of bilateral cataract extraction Hx of dilation and curettage Hx of gastric bypass (~11/19/15) Hx laparoscopic cholecystectomy (~09/10/15) History of lumpectomy of right breast (~06/2010) History of back surgery Hx of section Family History Mother History of colon cancer Other Mental health disorder Social History Housing: House Alcohol intake: never Patient Tobacco Use Status: Never used Tobacco e-Cigarette/Vaping Use: Never Used Second Hand Smoke Exposure: No Current occupational status: disabled Cognitive needs: No Hearing needs: No Vision needs: Yes Female Reproductive History Menstrual Age of Menarche: 12 Assessment & Plan Assessment & Plan (1) Hyperparathyroidism: Comment: Secondary hyperparathyroidism, endocrinology Code(s): E21.3 - Hyperparathyroidism, unspecified Category: Medical Plan: This is a 67-year-old white female status post gastric bypass surgery elevated PTH suggestive secondary hyperparathyroidism due to calcium malabsorption. Patient has increased calcium supplementation as vitamin-D replete with persistent PTH increase. Differential includes normocalcemic primary hyperparathyroidism. 24 hour urine for calcium is mid normal range. The plan is to repeat calcium, albumin, PTH, 25 hydroxy vitamin-D at lab [facility] ([facility]). If PTH is trending in the wrong direction, might consider sending for parathyroid exploration. If PTH is normalizing or is normalized, could consider treatment with Prolia in the setting of very low bone density in the cortical regions Coding Level of Care Code Est Pt Level 3 (51639) Diagnoses Hyperparathyroidism E21.3
== END 2023-11-15 09:07 | disposition home or self-care (01) ==
PROVIDERS: PCP Internal Medicine; Visit Provider Internal Medicine Endocrinology, Diabetes & Metabolism
DX: E21.3 Hyperparathyroidism, unspecified (principal)
CPT/HCPCS: 99213

== ENCOUNTER → 2023-11-15 08:43 | Outpatient (BNVA) | payer OTHER, SELFPAY | PROVIDERS: PCP Internal Medicine; Visit Provider Internal Medicine Endocrinology, Diabetes & Metabolism | DX: E21.3 Hyperparathyroidism, unspecified (principal) | CPT/HCPCS: 99212 ==

== ENCOUNTER 2023-11-16 10:05 | Outpatient (AMB) | payer OTHER, SELFPAY ==
--- OUTSIDE RECORDS SUMMARY | 2023-11-16 10:06 | XMS_ITS | Patient Health Record ---
Author Organization [facility] Juan Daniel darby [place] Address [address] [place] [address] Care Team Providers Care Cardiology Technician Name Role Phone Henrry Madden Primary Care Provider Unavailvinnie e Yesi Ortega Unavailable [phone] ALLERGIES Allergen (clinical drug ingredient) Drug/Non Drug Allergy documented on EMR Reaction Allergy Type Onset Date Status lisinopril Lisinopril Unknown Drug Allergy Activ e REASON FOR REFERRAL No Information MEDICATIONS Medication SIG (Take, Route, Frequency, Duration) Notes Start Date End Date Status Calcium Citrate + D3 315-5 MG-MCG 1 tablet Orally Once a day Active Vitamin A 3 MG (16742 UT) 1 capsule Orally Once a day Active Gabapentin 300mg three times a day orally daily Active CBD [place] Active Citalopram & Diet Manage Prod 20mg 2x daily Active Multivitamin Active Vitamin B12 Active SOCIAL HISTORY Tobacco Use: Social History Observation Description Date Details (start date - stop date) Never Smoker NA - NA Sex Assigned At : Social History Observation Description Sex Assigned At Unknown Tobacco Use/Smoking Question Answer Notes Are you a: nonsmoker Additional Findings: Tobacco Non-User Current no n-smoker Alcohol Screen Question Answer Notes Did you have a drink containing alcohol in the p ast year? No Points 0 Interpretation Negative Tobacco use other than smoking: Question Answer Notes Are you an other tobacco user? No PROBLEMS Problem Type ICD Code Onset Dates Problem Status W/U Status Risk SNOMED Code Notes Problem Plantar wart (B07.0) Active confirmed Plantar wart (86081208) Encounters Encounter Location Date Provider [facility] [address] [place] [address] 12/28/2022 Yesi Ortega [facility] [place] [address] [place] [address] 01/31/2023 Yesi Jordan PLAN OF TREATMENT Pending Test Test Name Order Date , 05-1510/25/2022 Insurance Providers Payer Name Payer Address Payer Phone Subscriber Number Group Number Insured Name Patient Relationship to Insured Coverage Start Date Coverage End Date AARP Medicare Complete [address] [address] [place] [address] [phone] [id number] Jenn Hidalgo Self - patient is the insured MEDICAL (GENERAL) HISTORY Medical History History ICD Code Anxiety Back,Hip,and Knee pain Broken bones Cancer Cataracts covid-19 Depression High blood pressure Osteoporosis Reflux thyroid Measles Chicken pox Surgical History Surgery Date(Month/Year) back surgery 11/1990 gastric bypass 2016 09/07/83 12/07/85
--- OUTSIDE RECORDS SUMMARY | 2023-11-16 10:06 | XMS_ITS | Patient Health Record ---
Author Organization [facility] Address [address] [place] [address] Care Team Providers Care Assistant Food Service Manager Name Role Phone Po Henrry BOONE Primary Care Provider Joseph Plummer [phone] ALLERGIES Allergen (clinical drug ingredient) Drug/Non Drug Allergy documented on EMR Reaction Allergy Type Onset Date Status angiotensin-converting enzyme inhibitor (FN) Russ Inhibitors (uncoded) Unknown Allergy Active REASON FOR REFERRAL No Information MEDICATIONS Medication SIG (Take, Route, Frequency, Duration) Notes Start Date End Date Status Cyanocobalamin 1000 MCG/ML INJECT 1 ML O NCE A MONTH DIRECTED Injection for 90 Active Vitron-C 65-125 MG TK 1 T PO QD Oral for 90 Active Vitamin D3 25 MCG (1000 UT) TAKE 1 CAPSU LE BY MOUTH EVERY DAY Oral for 30 Active Vitamin A 3 MG (19916 UT) TK 1 C PO QD Oral for 30 Active Gabapentin 300 MG TK 1 C PO QD Oral for 90 Active Tamoxifen Citrate 20 MG TK 1 T PO QD Oral for 90 Active Citalopram Hydrobromide 20 MG 1 tablet Orally Once a day Active VESIcare 5 MG 1 tablet Orally Once a day Active IMMUNIZATIONS Vaccine Route Administration Date Status Comme nts Influenza Unknown 01/31/2020 Administered SOCIAL HISTORY Sex Assigned At : Social History Observation Description Sex Assigned At Unknown PROBLEMS Problem Type ICD Code Onset Dates Problem Status W/U Status Risk SNOMED Code Notes Problem Encounter for screening for malignant neoplasm of colon (Z12.11) Active confirmed Screening for malignant neoplasm of colon (947555763) Problem History of adenomatous polyp of colon (Z86.010) Active confirmed History of adenomatous polyp of colon (819132109) Problem Preprocedural examination (Z01.818) Active confirmed Preprocedural examination (402770760375102 ) Problem Family history of colon cancer (Z80.0) Active confirmed Family History of Cancer of Colon (Situation) (173163873) PLAN OF TREATMENT Future Test Test Name Order Date COLONOSCOPY 10/24/2014 COLONOSCOPY 05/08/2020 Insurance Providers Payer Name Payer Address Payer Phone Subscriber Number Group Number Insured Name Patient Relationship to Insured Coverage Start Date Coverage End Date A[employer] Medicare Advantage Plan [address] [address] [place] [address] [phone] [id number] GUY SINGH Self - patient is the insured MEDICAL (GENERAL) HISTORY Medical History History ICD Code Screening Colonoscopies 1996 and 2003 were negative; in 2009 a small tubular adenoma was removed--also noted to have moderate sigmoid diverticulosis and internal hemorrhoids; neg. colonoscopy in 01/2015 Right breast cancer 06/2010--lumpectomy a nd XRT-sees Dr. Lilly HTN Depression Denies NH,DM,CVA,Lung disease,renal dise ase Spinal stenosis Surgical History Surgery Date(Month/Year) Back surgery-lower back C-sections x 2 Right breast surgery for cancer as above ---neg. lymph node 2010 Cholecystectomy 08/2015 Gastric bypass lost > 100#--Dr. Coleman los 10/2015
[2023-11-16 10:45] VITALS: BP 122/70; BMI 29.7
--- NOTE | 2023-11-16 10:45 | MHC.OFFVIS ---
Vital Signs 11/16/23 10:45 Height 5 ft 3 in Weight 167 lb 8.821 oz BMI 29.7 BP 122/70 Intake Visit Reasons: annual exam/DO NOT RS Intake Note: no concerns Aircraft Electrical Systems Specialist Required: No Information Interpreted: non-clinical & clinical Educational Assistant: Educational Assistant Present (Pretty VALDIVIA) Accompanied by: Self / Same As Patient Allergies Lisinopril, SAÚL inhibitors Allergy (Intermediate, Uncoded 11/16/23 10:49) cough Post menopausal: Yes HPI Comments Details: Presenting for annual exam. No complaints. Last Pap/HPV was negative in 2021 Last Mammogram was BI-RADS 2 in 08/23 Last Colonoscopy was negative in 06/22, the recommendation was to repeat in 5 years Last DEXA scan was recently done T-score at the femur level was minus 4.5 and a decrease in 56.6% from baseline , the patient has hyperparathyroidism and is under the care of endocrinology and she was started on bisphosphonates recently [facility] Medical History Obesity (BMI 30.0-34.9) Vitamin D deficiency Menopause Well woman exam Stiffness of finger joint of right hand Sprain of interphalangeal joint of right middle finger Sprain of interphalangeal joint of right ring finger Finger pain, right Fall Vitamin A deficiency Joint pain Osteopenia Metatarsal stress fracture of right foot with routine healing Obstructive sleep apnea Osteoarthritis Hyperparathyroidism Anxiety and depression Closed fibular fracture Intestinal malabsorption following gastrectomy Overweight (BMI 25.0-29.9) Morbid obesity Spinal stenosis History of right breast cancer Surgical History Hx of tubal ligation History of colonoscopy Hx of bilateral cataract extraction Hx of dilation and curettage Hx of gastric bypass (~11/19/15) Hx laparoscopic cholecystectomy (~09/10/15) History of lumpectomy of right breast (~06/2010) History of back surgery Hx of section Family History Mother History of colon cancer Other Mental health disorder Social History Housing: House Alcohol intake: never Patient Tobacco Use Status: Never used Tobacco e-Cigarette/Vaping Use: Never Used Second Hand Smoke Exposure: No Current occupational status: disabled Cognitive needs: No Hearing needs: No Vision needs: Yes Female Reproductive History Menstrual Age of Menarche: 12 control method: permanent sterilization Menopause type: natural Date of Mammogram: 08/01/23 Date of last Bone Density Screenin09/08/23 Review of Systems Const All systems reviewed & are unremarkable except as noted in HPI and below Card Reports as per HPI Resp Reports as per HPI GI Reports as per HPI and Reports no additional complaints Reports as per HPI Physical Exam Vital Signs: Last Vital Signs BP 122/70 11/16/23 10:45 BMI result Body Mass Index 29.7 Const General: cooperative, healthy appearing and comfortable Chest Chest palpation & inspection: normal inspection of the chest and normal palpation of entire chest wall Breast/axilla inspection: normal inspection of the breasts and normal inspection of the axillae Breast/axilla palpation: normal palpation of the breasts, normal palpation of the axillae and no axillary lymphadenopathy Resp Effort & Inspection: normal respiratory effort Auscultation: clear to auscultation bilaterally Percussion: percussion normal Cardio Palpation: normal PMI Rate: regular rate Rhythm: regular rhythm Heart sounds: no murmurs and no rubs Peripheral pulses: Peripheral pulses 2+ throughout GI Inspection: Yes normal to inspection Palpation (GI): Soft to palpation, nontender, no guarding, not rigid and No hepatosplenomegaly present Percussion: Yes normal to percussion Auscultation: normal bowel sounds Rectal Exam - Female: deferred General: Yes bladder normal to palpation External Female Exam: No lesion Speculum Exam - Vagina: normal appearance of the vagina, normal palpation, normal vaginal discharge and not erythematous Speculum Exam - Cervix: normal appearance of the cervix and normal palpation Bimanual exam- vagina & uterus: normal bimanual exam, normal palpation, uterine size normal, bladder normal to palpation, consistency normal and normal palpation Bimanual Exam- Adnexa, other: normal adnexae, no masses and no tenderness Assessment & Plan Assessment & Plan (1) Well woman exam: Code(s): Z01.419 - Encounter for gynecological examination (general) (routine) without abnormal findings Category: Medical Plan: Co testing not indicated since the patient 's age is above 65 with no history of abnormal Pap smears last 25 years. Counseled the patient about the recommended dietary allowance of 1200 mg of Calcium & 800 IU of vitamin D. Instructions given the patient to schedule next screening Mammogram in 08/24. The patient was instructed to perform monthly self-breast exams and to schedule an appointment and an annual exam in a year; All questions answered and the patient verbalized understanding. Coding Level of Care Code Est Pt Prev Care >65y(17983) Diagnoses Well woman exam Z01.419
== END 2023-11-16 11:12 | disposition home or self-care (01) ==
LOC: HO.HWS 10:05
PROVIDERS: PCP Internal Medicine; Visit Provider Obstetrics & Gynecology
DX: Z01.419 Encounter for gynecological examination (general) (routine) without abnormal findings (principal)
CPT/HCPCS: 99397

== ENCOUNTER → 2023-11-16 10:05 | Outpatient (BNVA) | payer OTHER, SELFPAY | PROVIDERS: PCP Internal Medicine; Visit Provider Obstetrics & Gynecology ==

== ENCOUNTER 2023-11-24 08:47 | Outpatient (AMB) | payer OTHER, SELFPAY ==
--- NOTE | 2023-11-24 08:50 | MHC.OFFVIS ---
Intake Visit Reasons: Prolia #1 Allergies Lisinopril, SAÚL inhibitors Allergy (Intermediate, Uncoded 11/16/23 10:49) cough PFSH Medical History Obesity (BMI 30.0-34.9) Vitamin D deficiency Menopause Well woman exam Stiffness of finger joint of right hand Sprain of interphalangeal joint of right middle finger Sprain of interphalangeal joint of right ring finger Finger pain, right Fall Vitamin A deficiency Joint pain Osteopenia Metatarsal stress fracture of right foot with routine healing Obstructive sleep apnea Osteoarthritis Hyperparathyroidism Anxiety and depression Closed fibular fracture Intestinal malabsorption following gastrectomy Overweight (BMI 25.0-29.9) Morbid obesity Spinal stenosis History of right breast cancer Surgical History Hx of tubal ligation History of colonoscopy Hx of bilateral cataract extraction Hx of dilation and curettage Hx of gastric bypass (~11/19/15) Hx laparoscopic cholecystectomy (~09/10/15) History of lumpectomy of right breast (~06/2010) History of back surgery Hx of section Family History Mother History of colon cancer Other Mental health disorder Social History Housing: House Alcohol intake: never Patient Tobacco Use Status: Never used Tobacco e-Cigarette/Vaping Use: Never Used Second Hand Smoke Exposure: No Current occupational status: disabled Cognitive needs: No Hearing needs: No Vision needs: Yes Female Reproductive History Menstrual Age of Menarche: 12 Office Meds Prolia 60 mg/mL subcutaneous syringe Performing Provider: Joseph Mir MD Performing Location: [facility] [place] [place] Endocrinology Administered by: Jovita Chirinos LPN on 11/24/23 09:16 Dose Route Admin Location Dispensed Lot Number Expiration Date ND Wagon Drill Operator 60 mg subcut Left upper arm 1 mL [id number] 10/29/25 [facility] Assessment & Plan Assessment & Plan Orders: Orders AMB Denosumab Injection Practice Supplied Today M81.0 - Age-related osteoporosis without current pathological fracture Coding
== END 2023-11-24 09:19 | disposition home or self-care (01) ==
PROVIDERS: PCP Internal Medicine; Visit Provider Internal Medicine Endocrinology, Diabetes & Metabolism
DX: M81.0 Age-related osteoporosis without current pathological fracture (principal)

== ENCOUNTER → 2023-11-24 08:47 | Outpatient (BNVA) | payer OTHER, SELFPAY | PROVIDERS: PCP Internal Medicine; Visit Provider Internal Medicine Endocrinology, Diabetes & Metabolism | DX: M81.0 Age-related osteoporosis without current pathological fracture (principal) | CPT/HCPCS: 96372; J0897 ==

== ENCOUNTER → 2023-11-25 10:14 | Outpatient (BNV) | payer OTHER, SELFPAY ==
--- NOTE | 2023-11-25 10:14 | AM.OFFVISNUR ---
Intake Visit Reasons: Amb Documentation Allergies Lisinopril, SAÚL inhibitors Allergy (Intermediate, Uncoded 11/16/23 10:49) cough Office Meds Prolia 60 mg/mL subcutaneous syringe Performing Provider: Joseph Mir MD Performing Location: [facility] [place]ocr[place]ology Administered by: Jovita Chirinos LPN on 11/24/23 09:00 Dose Route Admin Location Dispensed Lot Number Expiration Date NDC Draw Bench Operator Helper 60 mg subcut left upper arm 1 mL [id number] 12/30/25 [facility] Assessment & Plan Assessment & Plan Orders: Orders AMB Denosumab Injection Patient Supplied Today M81.0 - Age-related osteoporosis without current pathological fracture Medications: New Prolia (denosumab) 60 mg subcut ONCE 1 mL 0RF NS M81.0 - Age-related osteoporosis without current pathological fracture
== END ==
PROVIDERS: PCP Internal Medicine
DX: M81.0 Age-related osteoporosis without current pathological fracture (principal)
CPT/HCPCS: J0897

== ENCOUNTER → 2024-01-05 13:48 | Outpatient (RCR) | payer MEDICARE, OTHER, SELFPAY ==
[2020-09-18 08:08] VITALS: BP 146/65; PULSE 70; RESP 12; TEMP 37; O2SAT 94; BMI 28.3
[2020-09-18 08:23] LABS: MANUAL DIFF FLAG NO
--- NOTE | 2020-09-18 08:28 | P.PNHO_ITS ---
Medical Summary - Medical Summary Date of Service: 09/18/20 Chief complaint: Follow-up for: Right breast cancer. Medical Summary: DIAGNOSIS: Carcinoma of the right breast, 0.6 cm well-differentiated infiltrating ductal carcinoma, focus of atypical hyperplasia. ER positive 90%, AR positive 90%, HER-2/greg negative. Five sentinel nodes negative, stage [id number] negative. CURRENT THERAPY: Tamoxifen started July 13, 2010, completed 5 years in July 2015. Completed 9 years of therapy. To continue for a total of 10 Years. Interval History Interval history: This is a pleasant 64 year-old lady, here for a follow-up visit. She has been doing very well. She tells me she has completed the vaccine course back in June. She denies easy fatigability. She denies any headache nor dizziness. Energy level is good. She denies any breast related complaints. No chest pain nor shortness of breath. Denies abdominal pain nausea or making heartburn indigestion. Her bowels are working without any gross blood in it. She enjoys a good appetite. She has gained weight. She has had gastric bypass. However lately it has been tough to resist. She does have a follow-up appointment with Dr. Lai in September. She does not exercise however she walks with her dog daily. She is in good spirits. Rest of the review of systems is unremarkable. She had a colonoscopy in June which was negative. She goes back every 5 years on account of her family history of colon cancer. Previous history: She tells me she goes out for grocery but other than that she is pretty much home. Her is ill. He has CHF, so she is the one caring for him. Her son in law works at the [employer]. He and his both had COVID infection. They are well now. Luckily she did not get exposed. Review of Systems - Constitutional Reports no additional constitutional complaints - Eyes Reports no additional eye complaints - ENT Reports no additional ear, nose, mouth, and throat complaints - Cardiovascular Reports no additional cardiovascular complaints - Respiratory Reports no additional respiratory complaints - Gastrointestinal Reports no additional gastrointestinal complaints - Genitourinary Reports no additional female genitourinary complaints - Musculoskeletal Reports no additional musculoskeletal complaints - Integumentary/Breasts Skin/Breast: Reports no additional skin complaints - Neurologic Reports no additional neurologic complaints - Psychiatric Reports no additional psychiatric complaints - Endocrine Reports no additional endocrine complaints - Hematologic/Lymphatic Reports no additional hematologic/lymphatic complaints - Allergic/Immunologic Reports no additional allergic/immunologic complaints [facility] Medical History: Medical History (Last Reviewed 09/18/20 @ 08:12 by Anisa Zuniga) Anxiety and depression Closed fibular fracture History of right breast cancer Hyperparathyroidism Hypertension Intestinal malabsorption following gastrectomy Metatarsal stress fracture of right foot with routine healing Morbid obesity Obstructive sleep apnea Osteoarthritis Overweight (BMI 25.0-29.9) Spinal stenosis Functional capacity: independent ambulation Patient : No Family History: Family History (Last Reviewed 09/18/20 @ 08:12 by Anisa Zuniga) Mother History of colon cancer Surgical History: Surgical History (Last Reviewed 09/18/20 @ 08:12 by Anisa Zuniga) History of back surgery History of lumpectomy of right breast Onset Date: ~06/2010 Hx laparoscopic cholecystectomy Onset Date: ~09/10/15 Hx of bilateral cataract extraction Hx of section Hx of dilation and curettage Hx of gastric bypass Onset Date: ~11/19/15 Social History: Social History (Last Reviewed 09/18/20 @ 08:12 by Anisa Zuniga) Alcohol History: Alcohol intake: never Tobacco History: Smoking Status: Never smoker Nutrition Assessment: Patient : No Smoking status: Never smoker Oncology Screenings - ECOG Performance Status ECOG Performance Status: 0 Home Medications and Allergies Home Medications Medication Instructions Recorded Confirmed Type cholecalciferol (vitamin D3) 25 25 mcg PO DAILY 05/15/20 09/18/20 History mcg (1,000 unit) capsule multivitamin 1 tab PO DAILY 05/15/20 09/18/20 History tamoxifen 20 mg tablet 20 mg PO DAILY 05/15/20 09/18/20 History vitamin A 10,000 unit capsule 1 cap PO DAILY 05/15/20 09/18/20 History Allergies Allergy/AdvReac Type Severity Reaction Status Date / Time Lisinopril, SAÚL inhibitors Allergy Unknown cough Uncoded 06/02/20 08:58 Exam Vital signs: Vital Signs Temp 98.6 F 09/18/20 08:08 Pulse 70 09/18/20 08:08 Resp 12 09/18/20 08:08 BP 146/65 H 09/18/20 08:08 Pulse Ox 94 09/18/20 08:08 Intake & Output 05/09/18/20 09/18/20 18:59 06:59 18:59 Other: Weight 72.4 kg Weight in Grams 31689 Weight 72.4 kg Body Mass Index 28.3 - Constitutional Present: no acute distress - Routine HEENT Exam Head: Present: normal inspection Eye: Present: normal appearance ENT: Present: mucous membranes moist - Routine Neck Exam Present: full ROM - Routine Respiratory Exam Present: CTAB - Routine Cardiovascular Exam Cardiovascular: Present: RRR, S1, S2 - Routine Abdominal Exam Present: soft, nontender - Routine Rectal Exam Patient deferred: digital exam - Routine Extremities Exam Present: nontender - Routine Back/Spine/Pelvis Exam Back/Spine: Present: full ROM - Routine Skin Exam Present: intact - Routine Neurological Exam Present: alert, oriented X3 - Routine Psychiatric Exam Present: normal affect Data - Labs CBC & Chem 7: 09/18/20 08:20 09/18/20 08:20 Progress Note: A/P (1) History of right breast cancer Problem details: Right, June 2010 lumpectomy negative lymph nodes, right side lymphedema status post radiation Status: Acute Assessment and plan: 64 year-old lady, with history of Breast Carcinoma. She is clinically doing well. She has completed 10 years on Tamoxifen. Her mom of colon cancer. She had breast cancer in her 60s and a maternal cousin had bilateral breast cancer at 41. Her BRCA1 and BRCA2 test. It came back negative. Recent mammogram from June was negative. He just had a colonoscopy in June by Dr. Jaquez. Her last colonoscopy was back in January 2015, and was negative. PLAN: She will discontinue the tamoxifen since she has completed a total of 10 years. She was encouraged to exercise, take calcium and vitamin D supplements. She will return in a year for a followup. She will be following up at [facility] [employer]. Martin Lilly MD cc: MD Dr. Luis Eduardo Medina - Time Spent With Patient Total time spent is greater than 50% in coordination of care (as documented) at patient's floor/unit and/or counseling patient: 25 - 35 minutes
[2020-09-18 08:31] LABS: Basophils Absolute Auto 0.1 X10*3/uL (0.0-0.2); Basophils Percent Auto 1.3 % (0-2); Eosinophils Absolute Auto 0.1 X10*3/uL (0.0-0.4); Eosinophils Percent Auto 2.8 % (0-4); Hematocrit 39.4 % (37-47); Hemoglobin 12.9 g/dl (12.0-16.0); Imm Gran Abs Auto 0.01 X10*3/uL (0.00-0.03); Imm Gran Pct Auto 0.2 % (0.0-0.4); Lymphocytes Absolute Auto 1.3 X10*3/uL (1.2-4.9); Lymphocytes Percent Auto 28.2 % (20-40); Mean Corpuscular HGB Conc 32.7 g/dl (31.0-35.0); Mean Corpuscular Hemoglobin 28.4 pg (27.0-33.0); Mean Corpuscular Volume 86.6 fL (80-98); Mean Platelet Volume 10.2 fL (9.4-12.3); Monocytes Absolute Auto 0.5 X10*3/uL (0.1-1.2); Monocytes Percent Auto 9.8 % (2-11); Neutrophils Absolute Auto 2.7 X10*3/uL (2.0-8.3); Neutrophils Percent Auto 57.7 % (45-73); Platelet Count 239 X10*3/uL (160-400); Red Blood Count 4.55 X10*6/uL (4.20-5.50); Red Cell Distribution Width 13.4 % (11.0-16.0); White Blood Count 4.7 X10*3/uL (4.8-10.8)
[2020-09-18 09:03] LABS: Alanine Aminotransferase 12 U/L (0-31); Alkaline Phosphatase 45 U/L (39-117); Anion Gap 11 (12-20); Aspartate Amino Transferase 30 U/L (5-31); Bilirubin Total 0.6 mg/dL (0.0-1.0); Blood Urea Nitrogen 17 mg/dL (9-16); Calcium 8.8 mg/dL (8.4-10.2); Carbon Dioxide 27 mmol/L (22-29); Chloride 107 mmol/L (96-108); Creatinine Clr Calc Pharmacy 86.2; Estimated Glomerular Filt Rate > 60; Glucose Random 93 mg/dL (60-115); Potassium 4.1 mmol/L (3.3-5.1); Sodium 141 mmol/L (135-145); Total Protein 6.2 g/dL (6.5-8.0)
[2020-09-18 09:25] LABS: Vitamin D 25-OH Total 35.3 ng/mL (>30)
--- NOTE | 2020-09-18 11:38 | MHC.HEMONCMA ---
Pt presents to f/u on breast cancer. History reviewed, labs drawn and pt to return in a yr.
[2020-09-20 11:36] LABS: CA 27.29 <8 U/mL (<38)
== END | disposition home or self-care (01) ==
LOC: HO.ONC 09-18 07:50
PROVIDERS: PCP Internal Medicine; Visit Provider Internal Medicine Medical Oncology
DX: Z85.3 Personal history of malignant neoplasm of breast (principal); Z92.3 Personal history of irradiation; Z80.0 Family history of malignant neoplasm of digestive organs
CPT/HCPCS: 36415; 80053; 82306; 85025; 86300; 99214

== ENCOUNTER 2024-01-10 08:11 | Outpatient (AMB) | payer OTHER, SELFPAY ==
[2024-01-10 08:12] VITALS: BP 152/92; PULSE 75; O2SAT 98; BMI 29.9
--- NOTE | 2024-01-10 08:12 | A.OFFPC_ITS ---
Vital Signs 01/10/24 08:12 01/10/24 08:51 Height 5 ft 3 in Weight 169 lb BMI 29.9 BP 152/92 H 160/92 H Blood Pressure Location Lt brachial Lt brachial Position Sitting Sitting Pulse 75 Pulse Source Pulse Oximeter Pulse Oximetry (%) 98 Oxygen Delivery Method Room Air Intake Visit Reasons: chest pain Allergies Lisinopril, SAÚL inhibitors Allergy (Intermediate, Uncoded 01/10/24 08:13) cough Tobacco use date assessed: 08/23/23 Fall risk assessment: No Falls in past year Last assessed Fall Risk: 01/10/24 Dental Screening Dental Screen Date: 08/23/23 HPI chest pain HPI Details 68-year-old overweight female with a his tory of gastric bypass right breast cancer hyperparathyroidism generalized anxiety disorder osteoporosis and hypercholesterolemia last seen in July patient had some blood pressure elevation and advised to follow-up this time. Patient's colonoscopy is up-to-date 05/21/2020 mammogram is 07/20/2023. Bone density was just done this year patient is on Prolia and was just given in November 25 2023.. 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 Concerns about parathyroid exploration. Patient also had a stress test done in August without EKG changes. R shoulder pain 2 months [facility] Medical History Obesity (BMI 30.0-34.9) Vitamin D deficiency Menopause Well woman exam Stiffness of finger joint of right hand Sprain of interphalangeal joint of right middle finger Sprain of interphalangeal joint of right ring finger Finger pain, right Fall Vitamin A deficiency Joint pain Osteopenia Metatarsal stress fracture of right foot with routine healing Obstructive sleep apnea Osteoarthritis Hyperparathyroidism Anxiety and depression Closed fibular fracture Intestinal malabsorption following gastrectomy Overweight (BMI 25.0-29.9) Morbid obesity Spinal stenosis History of right breast cancer Surgical History Hx of tubal ligation History of colonoscopy Hx of bilateral cataract extraction Hx of dilation and curettage Hx of gastric bypass (~11/19/15) Hx laparoscopic cholecystectomy (~09/10/15) History of lumpectomy of right breast (~06/2010) History of back surgery Hx of section Family History Mother History of colon cancer Other Mental health disorder Social History Housing: House Alcohol intake: never Patient Tobacco Use Status: Never used Tobacco Tobacco use type: Cigarette e-Cigarette/Vaping Use: Never Used Second Hand Smoke Exposure: No Current occupational status: disabled Cognitive needs: No Hearing needs: No Vision needs: Yes Female Reproductive History Menstrual Age of Menarche: 12 Questionnaire PHQ-9 Over the last 2 weeks, how often have you been bothered by any of the following problems? 1. Little interest or pleasure in doing things: several days 2. Feeling down, depressed, or hopeless: not at all 3. Trouble falling or staying asleep, or sleeping too much: not at all 4. Feeling tired or having little energy: more than half the days 5. Poor appetite or overeating: several days 6. Feeling bad about yourself - or that you are a failure or have let yourself or your family down: not at all 7. Trouble concentrating on things, such as reading the newspaper or watching television: several days 8. Moving or speaking so slowly that other people could have noticed. Or the opposite - being so fidgety or restless that you have been moving around a lot more than usual: not at all 9. Thoughts that you would be better off or of hurting yourself in some way: not at all Total score: 5 Depression Screening Interpretation: Negative Depression Screening Done: Yes [id number] - PHQ-9 Billing: Yes Source: Developed by Drs. Joseph Arana, Марина Roper, Torrey Celeste and colleagues, with an educational zoey from [employer]. Thrive Questionnaire Date Thrive assessed: 08/23/23 AUDIT C Alcohol Use Questionnaire (AUDIT-C) 1. How often do you have a drink containing alcohol?: Never Total Score: 0 ROMINA-7 AMB Questionnaire ROMINA-7 Date ROMINA - 7 assessed: 08/23/23 Source: Developed by Drs. Joseph Arana, Torrey Grady and colleagues, with an educational zoey from [employer]. Physical exam (Primary Care) Vital Signs: Last Vital Signs Pulse 75 01/10/24 08:12 BP 152/92 H 01/10/24 08:12 Pulse Ox 98 01/10/24 08:12 Oxygen Delivery Method Room Air 01/10/24 08:12 BMI result Body Mass Index 29.9 Tobacco/Smoking Status: Tobacco use Status Tobacco use date assessed 08/23/23 01/10/24 08:19 Patient Tobacco Use Status Never used Tobacco 01/10/24 08:19 Tobacco use type Cigarette 01/10/24 08:19 e-Cigarette/Vaping Use Never Used 01/10/24 08:19 PHQ-9: PHQ-9 Score PHQ-9: Total score 5 01/10/24 08:19 Depression Screening Interpretation: Negative Thrive Assessment: Date of Thrive Assessment Date Thrive assessed 08/23/23 01/10/24 08:19 Const General: alert; No acute distress Eyes Conjunctivae: conjunctivae normal Resp Auscultation: clear to auscultation bilaterally Cardio Rate: regular rate Rhythm: regular rhythm GI Inspection: Yes normal to inspection Extrem General: Yes normal to inspection and No edema Assessment and Plan Assessment & Plan (1) History of right breast cancer: Comment: Right, June 2010 lumpectomy negative lymph nodes, right side lymphedema status post radiation June 2022 Code(s): Z85.3 - Personal history of malignant neoplasm of breast Plan: Patient is up-to-date with mammogram (2) Overweight (BMI 25.0-29.9): Code(s): E66.3 - Overweight Plan: Continue with diet and exercise, continue follow-up with bariatric surgeon (3) Hx of gastric bypass: Onset Date: ~11/19/15 Comment: Dr. Lai and diaphragmatic hernia repair Code(s): Z98.84 - Bariatric surgery status Plan: Continue follow-up with bariatric surgeon (4) Hyperparathyroidism: Comment: Secondary hyperparathyroidism, endocrinology Code(s): E21.3 - Hyperparathyroidism, unspecified Plan: Concern about calcium malabsorption patient is being followed up by Endocrinology (5) Generalized anxiety disorder: Comment: Decline any counseling referral Code(s): F41.1 - Generalized anxiety disorder Plan: Continue with present medication on citalopram (6) Osteoporosis: Comment: June 2021 Code(s): M81.0 - Age-related osteoporosis without current pathological fracture Plan: Patient is being followed up by Endocrinology on Prolia (7) Hypercholesterolemia: Code(s): E78.00 - Pure hypercholesterolemia, unspecified Plan: Avoid fried foods, chicken skin, eggs, butter margarine, pastries and meat. Be it pork or beef they have a lot of cholesterol LDL goal of less than 130 and triglyceride of less than 150 (8) Hypertension: Code(s): I10 - Essential (primary) hypertension (9) Bicipital tendinitis of right shoulder: Code(s): M75.21 - Bicipital tendinitis, right shoulder Plan: decline referral , heat, exercises, NSAID Medications: New losartan 25 mg PO DAILY 30 tabs 3RF I10 - Essential (primary) hypertension Coding Level of Care Code Est Pt Level 4 (97696) Diagnoses History of right breast cancer Z85.3 Overweight (BMI 25.0-29.9) E66.3 Hx of gastric bypass Z98.84 Hyperparathyroidism E21.3 Generalized anxiety disorder F41.1 Osteoporosis M81.0 Hypercholesterolemia E78.00 Hypertension I10 Bicipital tendinitis of right shoulder M75.21
[2024-01-10 08:51] VITALS: BP 160/92
== END 2024-01-10 08:55 | disposition home or self-care (01) ==
PROVIDERS: PCP Internal Medicine; Visit Provider Internal Medicine
DX: Z85.3 Personal history of malignant neoplasm of breast (principal); E66.3 Overweight; Z98.84 Bariatric surgery status; E21.3 Hyperparathyroidism, unspecified; F41.1 Generalized anxiety disorder; M81.0 Age-related osteoporosis without current pathological fracture; E78.00 Pure hypercholesterolemia, unspecified; I10 Essential (primary) hypertension; M75.21 Bicipital tendinitis, right shoulder
CPT/HCPCS: 99214

== ENCOUNTER 2024-01-16 10:40 | Outpatient (AMB) | payer OTHER, SELFPAY ==
--- NOTE | 2024-01-16 10:42 | MHC.OFFVIS ---
Vital Signs 01/16/24 10:49 Height 5 ft 3.11 in Weight 174 lb 6.17 oz BMI 30.8 BP 116/58 L Blood Pressure Location Lt brachial Position Sitting Pulse 78 Pulse Source Pulse Oximeter Intake Visit Reasons: f/u osteoporosis-confirmed Intake Note: Patient present today to follow up on Osteoporosis follow up. Rail Loader Required: No Accompanied by: Self / Same As Patient Allergies Lisinopril, SAÚL inhibitors Allergy (Intermediate, Uncoded 01/16/24 10:49) cough HPI Comments Details: 68 YO Female with PMHx Obesity s/p Suhas En Y gastric bypass in 2015, a history of breast cancer of the R breast S/P lumpectomy and radiation therapy in 2010 as well as Osteopenia who is seen in F/U for hyperparathyroidism.. She had labs assessed 03/09/2021 with Calcium 9.6, PTH 108, Vitamin D 45.1, but no albumin was assessed. After her initial visit with me we completed a full biochemical evaluation which revealed evidence of suspected secondary hyperparathyroidism with elevated PTH, calcium low normal and Vitamin D WNL. She had a repeat DXA which revealed significant decline in her BMD in the hip into the osteoporotic range. This was thought to likely represent osteomalacia vs osteoporosis. She was asked to increase her dietary calcium, but instead decreased this of her own accord and is currently not having any dietary calcium at all. She has a history of breast cancer in 2010 and completed 10 years of tamoxifen therapy. She had routine labs completed by her bariatric team which revealed an elevated PTH level in the low 100's. She has never been treated for her Osteopenia. No history of pathologic fracture or ONJ. Currently not having any dietary calcium at all. Takes Calcium citrate 325 mg 2 tabs PO daily. Takes 1000 IU of Vitamin D daily. Has used a short course of PPI in the past, max of 2 months. Denies ever using anticoagulant, antiepileptic or glucocorticoid medication. Does no weight bearing exercise. Fracture history: Fracture of the R ankle twice, 2014 and 2017. 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 Menses were always regular. . She did not breastfeed. Menopause was age 49. She does not use HRT. Denies history of Kidney stones. Denies family history of Osteoporosis or hip fracture. Her Daughter does have recurrent nephrolithiasis. UTD on dental cleanings and sees dentist every 6 months. No planned upcoming dental work or extractions. DXA: 07/23/21 FINDINGS: AP SPINE L1-L4: Current: BMD 1.229 g/cm2, Z-score 1.6, T-score 0.4, normal, 4.1% decrease from previous, 4.0% decrease from baseline (<5% change is not significant). Prior: BMD 1.281 g/cm2. Baseline: BMD 1.280 g/cm2. LEFT FEMUR, NECK: Current: BMD 0.569 g/cm2, Z-score -2.1, T-score -3.4, osteoporosis. Prior: BMD 0.703 g/cm2. Baseline: BMD 1.031 g/cm2. LEFT FEMUR, TOTAL: Current: BMD 0.617 g/cm2, Z-score -2.1, T-score -3.1, osteoporosis, 18.1% decrease from previous, 46.2% decrease from baseline (<5% change is not significant). Prior: BMD 0.753 g/cm2. Baseline: BMD 1.146 g/cm2. LEFT FOREARM RADIUS 33%: BMD 0.684 g/cm2, Z-score -0.7, T-score -2.2, osteopenia. Prior:? Not previously measured. Thyroid US: 07/31/2021 Right Thyroid Lobe: 5.30 x 1.37 x 1.60 cm, volume 6.08 mL. Parenchyma: The gland echotexture is homogeneous. Thyroid vascularity is increased. Left Thyroid Lobe: 5.69 x 1.44 x 1.85 cm, volume 7.96 mL. Parenchyma: The gland echotexture is homogeneous. Thyroid vascularity is increased. Isthmus: 0.58 cm in maximum AP dimension. Estimated total number of nodules greater than or equal to 1 cm: 0. Information Services Assistant nodules are described as follows: 1. Location: Left mid. ?? ? Size: 0.74 x 0.70 x 0.73 cm, volume 0.20 mL. ?? ? Nodule characteristics: ?? ? Composition: Solid (2). ?? ? Echogenicity: Isoechoic (1). ?? ? Shape: Not taller than wide (0). ?? ? Margins: Smooth (0). ?? ? Echogenic Foci: None (0). ?? ? ACR TI-RADS total points: 3 ?? ? ACR TI-RADS category: 3 2. Location: Left inferior. ?? ? Size: 0.34 x 0.23 x 0.40 cm, volume 0.02 mL. ?? ? Nodule characteristics: ?? ? Composition: Spongiform (0). ?? ? Echogenicity: Anechoic (0). ?? ? Shape: Not taller than wide (0). ?? ? Margins: Smooth (0). ?? ? Echogenic Foci: None (0). ?? ? ACR TI-RADS total points: 0 ?? ? ACR TI-RADS category: 1 3.: Small 1 mm calcification in the upper pole. NODES: No lymphadenopathy is seen in the tissue surrounding the thyroid gland. Labs: Laboratory Tests 08/11/22 08/13/22 08/13/22 07:45 08:00 08:00 Creatinine Estimated GFR Albumin N-Telopeptide X-linked 70 25-OH Vitamin D Total TSH Free T4 PTH Intact Calcium (PTH Intact) Ur 24 Hour Volume 1525 Ur Creatinine 24 Hour 1.19 Ur Calcium 24 Hr 172 09/21/22 09/21/22 07:36 07:36 Creatinine 0.69 Estimated GFR > 60 Albumin 4.0 N-Telopeptide X-linked 25-OH Vitamin D Total 42.2 TSH 1.10 Free T4 1.14 PTH Intact 131 H Calcium (PTH Intact) 9.3 Ur 24 Hour Volume Ur Creatinine 24 Hour Ur Calcium 24 Hr Currently on Prolia 60 mg q.6 months . No fx since last visit . [facility] Medical History Obesity (BMI 30.0-34.9) Vitamin D deficiency Menopause Well woman exam Stiffness of finger joint of right hand Sprain of interphalangeal joint of right middle finger Sprain of interphalangeal joint of right ring finger Finger pain, right Fall Vitamin A deficiency Joint pain Osteopenia Metatarsal stress fracture of right foot with routine healing Obstructive sleep apnea Osteoarthritis Hyperparathyroidism Anxiety and depression Closed fibular fracture Intestinal malabsorption following gastrectomy Overweight (BMI 25.0-29.9) Morbid obesity Spinal stenosis History of right breast cancer Surgical History Hx of tubal ligation History of colonoscopy Hx of bilateral cataract extraction Hx of dilation and curettage Hx of gastric bypass (~07/20/16) Hx laparoscopic cholecystectomy (~09/10/15) History of lumpectomy of right breast (~06/2010) History of back surgery Hx of section Family History Mother History of colon cancer Other Mental health disorder Social History Housing: House Alcohol intake: never Patient Tobacco Use Status: Never used Tobacco Tobacco use type: Cigarette e-Cigarette/Vaping Use: Never Used Second Hand Smoke Exposure: No Current occupational status: disabled Cognitive needs: No Hearing needs: No Vision needs: Yes Female Reproductive History Menstrual Age of Menarche: 12 Assessment & Plan Assessment & Plan (1) Hyperparathyroidism: Comment: Secondary hyperparathyroidism, endocrinology Code(s): E21.3 - Hyperparathyroidism, unspecified Category: Medical Plan: This is a 67-year-old white female status post gastric bypass surgery elevated PTH suggestive secondary hyperparathyroidism due to calcium malabsorption. [facility] labs [facility] at [facility] were normal The plan is to continue the Prolia injection Coding Level of Care Code Est Pt Level 3 (40951) Diagnoses Hyperparathyroidism E21.3
[2024-01-16 10:49] VITALS: BP 116/58; PULSE 78; BMI 30.8
== END 2024-01-16 10:58 | disposition home or self-care (01) ==
PROVIDERS: PCP Internal Medicine; Visit Provider Internal Medicine Endocrinology, Diabetes & Metabolism
DX: E21.3 Hyperparathyroidism, unspecified (principal)
CPT/HCPCS: 99213

== ENCOUNTER → 2024-01-16 10:40 | Outpatient (BNVA) | payer OTHER, SELFPAY | PROVIDERS: PCP Internal Medicine; Visit Provider Internal Medicine Endocrinology, Diabetes & Metabolism | DX: E21.3 Hyperparathyroidism, unspecified (principal) | CPT/HCPCS: 99212 ==

== ENCOUNTER 2024-04-24 08:29 | Outpatient (AMB) | payer OTHER, SELFPAY ==
--- OUTSIDE RECORDS SUMMARY | 2024-04-24 08:31 | XMS_ITS ---
Author Organization [facility] Address [address] [place] [address] Care Team Providers Care Electrician Machine Shop Name Role Phone Henrry Madden Primary Care Provider Unavailabl e Yesi Ortega Unavailable [phone] REASON FOR VISIT Buy OTS Encounters Encounter Location Date Provider Diagnosis [facility] [address] [place] [address] 10/25/2022 Yesi Ortega Plan Of Treatment No Information Progress Notes * Randa HIDALGOJenniferOB: (66 yo F)Acc No.[id number]:10/25/2022 Patient:?Jenn Hidalgo :1955???Age:66 Y???Sex:Female Address:[facility] [place] [address] * true * Date:? Generated for Printi ng/Falarag/eTransmitting on:?04/24/2024 08:31 AM EST
--- OUTSIDE RECORDS SUMMARY | 2024-04-24 08:31 | XMS_ITS ---
Author Organization [facility] Address [address] [place] [address] Care Team Providers Care Litigation Assistant Name Role Phone Henrry Madden Primary Care Provider Unavailabl e Black, Yesi Unavailable [phone] REASON FOR VISIT cx 01/31 Encounters Encounter Location Date Provider Diagnosis [facility] [address] [place] [address] 12/28/2022 Yesi Ortega Plan Of Treatment No Information Progress Notes * Randa HIDALGOeDOB: 5 (67 yo F)Acc No.[id number]:12/28/2022 Patient:?Jenn Hidalgo :1955???Age:67 Y???Sex:Female Address:[address] [place], [place] [address] [address] * true * Date:? Generated for Printi flo/Lilo/eTransmitting on:?04/24/2024 08:31 AM EST
--- OUTSIDE RECORDS SUMMARY | 2024-04-24 08:31 | XMS_ITS | Patient Health Record ---
Author Organization [facility] mehnaz Mccomb Address [address] [facility] [place] [address] Care Team Providers Care Mold Capper Helper Name Role Phone Henrry Madden Primary Care Provider Unavailabl e Yesi Ortega Unavailable [phone] Allergies Allergen (clinical drug ingredient) Drug/Non Drug Allergy documented on EMR Reaction Allergy Type Onset Date Status lisinopril Lisinopril Unknown Drug Allergy Activ e Reason For Referral No Information Medications Medication SIG (Take, Route, Frequency, Duration) Notes Start Date End Date Status Calcium Citrate + D3 315-5 MG-MCG 1 tablet Orally Once a day Active Vitamin A 3 MG (82816 UT) 1 capsule Orally Once a day Active Gabapentin 300mg three times a day orally daily Active CBD [place] Active Citalopram & Diet Manage Prod 20mg 2x daily Active Multivitamin Active Vitamin B12 Active Social History Tobacco Use: Social History Observation Description Date Details (start date - stop date) Never Smoker NA - NA Tobacco Use/Smoking Question Answer Notes Are you a: nonsmoker Additional Findings: Tobacco Non-User Current no n-smoker Alcohol Screen Question Answer Notes Did you have a drink containing alcohol in the p ast year? No Points 0 Interpretation Negative Tobacco use other than smoking: Question Answer Notes Are you an other tobacco user? No Problems Problem Type SNOMED Code ICD Code Onset Dates Problem Status W/U Status Risk Notes Problem Plantar wart (74670943) Plantar wart (B07.0) Active confirmed Plan Of Treatment Pending Test Test Name Order Date 75600-Wgjt Destruction, 1-14 10/25/2022 Insurance Providers Payer Name Payer Address Payer Phone Subscriber Number Group Number Insured Name Patient Relationship to Insured Coverage Start Date Coverage End Date AARP Medicare Complete [address] [address] [place] [address] [id number] Jenn Hidalgo Self - patient is the insured Medical (General) History Medical History History ICD Code Anxiety Back,Hip,and Knee pain Broken bones Cancer Cataracts covid-19 Depression High blood pressure Osteoporosis Reflux thyroid Measles Chicken pox Surgical History Surgery Date(Month/Year) back surgery 11/1990 gastric bypass 2016 09/07/83 12/07/85
--- OUTSIDE RECORDS SUMMARY | 2024-04-24 08:32 | XMS_ITS | Patient Health Record ---
Author Organization [facility] Address [address] [place] [address] Care Team Providers Care Child Care Counselor Name Role Phone Po Henrry BOONE Primary Care Provider Joseph Plummer [phone] ALLERGIES Allergen (clinical drug ingredient) Drug/Non Drug [...] for 30 Active Vitamin A 3 MG (57183 UT) TK 1 C PO QD Oral [...] confirmed Screening for malignant neoplasm of colon (053375470) Problem History of adenomatous polyp of colon (Z86.010) Active confirmed History of adenomatous polyp of colon (539735326) Problem Preprocedural examination (Z01.818) Active confirmed Preprocedural examination (607344652722203 ) Problem Family history of colon cancer (Z80.0) Active confirmed Family History of Cancer of Colon (Situation) (010770987) PLAN OF TREATMENT Future Test Test Name Order Date COLONOSCOPY 10/24/2014 COLONOSCOPY 05/08/2020 Insurance Providers Payer Name Payer Address Payer Phone Subscriber Number Group Number Insured Name Patient Relationship to Insured Coverage Start Date Coverage End Date AARP Medicare Advantage Plan [address] [address] [place] [address] [phone] [id number] GUY SINGH Self - patient is the insured MEDICAL (GENERAL) HISTORY Medical History History ICD Code Screening Colonoscopies 1996 and 2003 were negative; in 2009 a small tubular adenoma was removed--also noted to have moderate sigmoid diverticulosis and internal hemorrhoids; neg. colonoscopy in 01/2015 Right breast cancer 06/2010--lumpectomy a nd XRT-sees Dr. Lilly HTN Depression Denies IN,DM,CVA,Lung disease,renal dise ase Spinal stenosis Surgical History Surgery Date(Month/Year) Back surgery-lower back C-sections x 2 Right breast surgery for cancer as above ---neg. lymph node 2010 Cholecystectomy 08/2015 Gastric bypass lost > 100#--Dr. Coleman los 10/2015
--- NOTE | 2024-04-24 08:34 | A.OFFPC_ITS ---
Vital Signs 04/24/24 08:35 Height 5 ft 3 in BMI Reason not done Patient refused/unable BP 140/88 H Blood Pressure Location Lt brachial Position Sitting Pulse 74 Pulse Source Pulse Oximeter Pulse Oximetry (%) 95 Oxygen Delivery Method Room Air Intake Visit Reasons: Hypertension Allergies Lisinopril, SAÚL inhibitors Allergy (Intermediate, Uncoded 04/24/24 08:37) cough Medication List - Last Reconciled 04/24/24 by Henrry Madden MD alendronate 70 mg PO QWEEK calcium citrate-vitamin D3 315 mg-6.25 mcg (250 unit) 2 tabs PO DAILY cholecalciferol (vitamin D3) 50 mcg PO DAILY citalopram 40 mg PO .QD diclofenac sodium 1% 2 grams topical QID PRN gabapentin 300 mg PO BEDTIME 90 days garlic 5 mg PO DAILY losartan 25 mg PO DAILY melatonin 3 mg PO BEDTIME PRN multivitamin 1 tab PO DAILY ry-vm-jy2-nmg-xro-arrg-lut-kathy 250 mg (90 mg-160 mg) (Ocuvite Adult 50 Plus) 1 cap PO DAILY nystatin 1 appl topical BID vitamin A 1 cap PO DAILY vitamin B complex (B Complex-Vitamin B12 tablet) 1 tab PO .qod Tobacco use date assessed: 04/24/24 Dental Screening Dental Screen Date: 04/24/24 Did you have a dental visit in the last 12 months?: Yes Did you have a dental problem in the last 6 months where you did not have access to dental care?: No Was dental information given to patient?: Patient has dentist HPI Hypertension HPI Details The patient is a 68-year-old female presenting with follow-up for chronic medical conditions management. Hyperparathyroidism was previously noted with elevated parathyroid hormone levels, likely due to calcium malabsorption. On repeat bloodwork, calcium levels normalized. In October, lipid panel results revealed hypercholesterolemia with LDL levels rising to 144 from a prior level of 130. The patient has not been regularly monitoring blood pressure at home; however, noted values have been somewhat elevated. Last checked blood pressure at the clinic was elevated. The patient received a Prolia injection in November but discontinued due to insurance issues, transitioning to alendronate therapy, which is pending initiation. She reported anticipated dental evaluation due to potential alendronate therapy affecting bone healing. The patient's prior bone density assessment was conducted in August 2023. She has been informed of the high co-pay amounts impacting medication adherence. Additionally, she reported the onset of macular degeneration confirmed during an eye examination but is uncertain about the specific ocular treatment regimen. The patient also mentioned personal stressors, including family health issues, but denied current engagement with counseling services. She is current on vaccinations, including influenza, COVID-19, tetanus, pneumonia, and shingles. She also mentioned having multiple dermatological issues attributed to moisture, causing rashes and itching. [facility] Medical History (Updated 04/24/24 @ 09:11 by Henrry Madden MD) Chest pain Blood pressure elevated without history of HTN Obesity (BMI 30.0-34.9) Vitamin D deficiency Menopause Well woman exam Stiffness of finger joint of right hand Sprain of interphalangeal joint of right middle finger Sprain of interphalangeal joint of right ring finger Finger pain, right Fall Vitamin A deficiency Joint pain Osteopenia Metatarsal stress fracture of right foot with routine healing Obstructive sleep apnea Osteoarthritis Hyperparathyroidism Anxiety and depression Closed fibular fracture Intestinal malabsorption following gastrectomy Overweight (BMI 25.0-29.9) Morbid obesity Spinal stenosis History of right breast cancer Surgical History Hx of tubal ligation History of colonoscopy Hx of bilateral cataract extraction Hx of dilation and curettage Hx of gastric bypass (~11/19/15) Hx laparoscopic cholecystectomy (~09/10/15) History of lumpectomy of right breast (~06/2010) History of back surgery Hx of section Family History Mother History of colon cancer Other Mental health disorder Social History Housing: House Alcohol intake: never Patient Tobacco Use Status: Never used Tobacco Tobacco use type: Cigarette e-Cigarette/Vaping Use: Never Used Second Hand Smoke Exposure: No Current occupational status: disabled Cognitive needs: No Hearing needs: No Vision needs: Yes Female Reproductive History Menstrual Age of Menarche: 12 Questionnaire PHQ-9 Over the last 2 weeks, how often have you been bothered by any of the following problems? 1. Little interest or pleasure in doing things: several days 2. Feeling down, depressed, or hopeless: not at all 3. Trouble falling or staying asleep, or sleeping too much: not at all 4. Feeling tired or having little energy: more than half the days 5. Poor appetite or overeating: several days 6. Feeling bad about yourself - or that you are a failure or have let yourself or your family down: not at all 7. Trouble concentrating on things, such as reading the newspaper or watching television: several days 8. Moving or speaking so slowly that other people could have noticed. Or the opposite - being so fidgety or restless that you have been moving around a lot more than usual: not at all 9. Thoughts that you would be better off or of hurting yourself in some way: not at all Total score: 5 Depression Screening Interpretation: Negative Depression Screening Done: Yes 78487 - PHQ-9 Billing: Yes Source: Developed by Drs. Joseph Arana, Марина Roper, Torrey Celeste and colleagues, with an educational zoey from [employer]. Thrive Questionnaire Date Thrive assessed: 04/24/24 I am a: Patient What is your living situation today?: I have a steady place to live Within the past 12 months, did the food you bought not last and you didn't have the money to get more?: Never true Within the past 12 months, did you worry whether your food would run out before you got money to buy more?: Never true Do you have trouble paying for medicines?: No Do you have trouble getting transportation to medical appointments?: No Do you have trouble paying your heating and electricity bill?: No Do you have trouble taking care of your child, family member or friend?: No Do you have trouble with day-to-day activities such as bathing, preparing meals, shopping, managing finances, etc.?: No Are you currently unemployed and looking for a job?: No Are you interested in more education?: No THRIVE Score: 0 AUDIT C Alcohol Use Questionnaire (AUDIT-C) 1. How often do you have a drink containing alcohol?: Never 3. How often do you have six or more drinks on one occasion?: Never Total Score: 0 ROMINA-7 AMB Questionnaire ROMINA-7 Date ROMINA - 7 assessed: 08/23/23 Feeling nervous, anxious, or on edge: 0 = Not at all Not being able to stop or control worryin = Not at all Worrying too much about different things: 0 = Not at all Trouble relaxin = Not at all Being so restless that it is hard to sit still: 0 = Not at all Becoming easily annoyed or irritable: 0 = Not at all Feeling afraid as if something awful might happen: 0 = Not at all Total ROMINA-7 score (0-4 normal; 5-9 mild; 10-14 moderate; 15-21 severe): 0 Source: Developed by Drs. Joseph Arana, Марина Roper, Torrey Celeste and colleagues, with an educational zoey from [employer]. Physical exam (Primary Care) Vital Signs: Last Vital Signs Pulse 74 04/24/24 08:35 BP 140/88 H 04/24/24 08:35 Pulse Ox 95 04/24/24 08:35 Oxygen Delivery Method Room Air 04/24/24 08:35 Tobacco/Smoking Status: Tobacco use Status Tobacco use date assessed 04/24/24 04/24/24 08:39 Patient Tobacco Use Status Never used Tobacco 04/24/24 08:39 Tobacco use type Cigarette 04/24/24 08:39 e-Cigarette/Vaping Use Never Used 04/24/24 08:39 PHQ-9: PHQ-9 Score PHQ-9: Total score 5 04/24/24 08:39 Depression Screening Interpretation: Negative Thrive Assessment: Date of Thrive Assessment Date Thrive assessed 04/24/24 04/24/24 08:39 Const General: alert; No acute distress Eyes Conjunctivae: conjunctivae normal Resp Auscultation: clear to auscultation bilaterally Cardio Rate: regular rate Rhythm: regular rhythm GI Inspection: Yes normal to inspection Extrem General: Yes normal to inspection and No edema Coding Level of Care Code Est Pt Level 4 (35497) Diagnoses Hypertension I10 Hypercholesterolemia E78.00 Osteoporosis M81.0 Hx of gastric bypass Z98.84 Overweight (BMI 25.0-29.9) E66.3 History of right breast cancer Z85.3 Hyperparathyroidism E21.3 Tinea corporis B35.4 Additional Codes PHQ-9 - 77464 - PHQ-9 Billing: Yes ([id number]) Assessment & Plan Assessment & Plan (1) Hypertension: Code(s): I10 - Essential (primary) hypertension Category: Medical (2) Hypercholesterolemia: Code(s): E78.00 - Pure hypercholesterolemia, unspecified Category: Medical (3) Osteoporosis: Comment: June 2021, August 2023 Code(s): M81.0 - Age-related osteoporosis without current pathological fracture Category: Medical Plan: cannot get prolia due to financial reasons. placed on alendronate (4) Hx of gastric bypass: Onset Date: ~11/19/15 Comment: Dr. Lai and diaphragmatic hernia repair Code(s): Z98.84 - Bariatric surgery status Category: Surgical (5) Overweight (BMI 25.0-29.9): Code(s): E66.3 - Overweight Category: Medical (6) History of right breast cancer: Comment: Right, June 2010 lumpectomy negative lymph nodes, right side lymphedema status post radiation June 2022 Code(s): Z85.3 - Personal history of malignant neoplasm of breast Category: Medical (7) Hyperparathyroidism: Comment: Secondary hyperparathyroidism, endocrinology Code(s): E21.3 - Hyperparathyroidism, unspecified Category: Medical (8) Tinea corporis: Code(s): B35.4 - Tinea corporis Category: Medical Plan - Re-evaluate hyperparathyroidism with appropriate lab tests if indicated in future visits. - Continue to monitor lipid profile and consider lipid-lowering therapies for hypercholesterolemia. - Advise regular home blood pressure monitoring to ensure control of hypertension and adjust antihypertensive medications accordingly. - Initiate alendronate therapy for osteopenia after dental evaluation is completed. - Follow ocular health and plan appropriate interventions for macular degeneration upon confirmation of specific treatment regimen. - Recommend stress management techniques due to personal/family stressors and encourage consideration of counseling sessions if needed. - Ensure ongoing compliance with vaccination schedule as discussed. - Manage dermatologic issues with topical therapies aimed at moisture control. Medications: New nystatin 1 appl topical BID 60 grams 0RF B35.4 - Tinea corporis
[2024-04-24 08:35] VITALS: BP 140/88; PULSE 74; O2SAT 95
== END 2024-04-24 09:16 | disposition home or self-care (01) ==
PROVIDERS: PCP Internal Medicine; Visit Provider Internal Medicine
DX: I10 Essential (primary) hypertension (principal); E21.3 Hyperparathyroidism, unspecified; E78.00 Pure hypercholesterolemia, unspecified; M81.0 Age-related osteoporosis without current pathological fracture; Z98.84 Bariatric surgery status; E66.3 Overweight; Z85.3 Personal history of malignant neoplasm of breast; B35.4 Tinea corporis

== ENCOUNTER → 2024-04-24 08:29 | Outpatient (BNVA) | payer OTHER, SELFPAY | PROVIDERS: PCP Internal Medicine; Visit Provider Internal Medicine | DX: I10 Essential (primary) hypertension (principal); E21.3 Hyperparathyroidism, unspecified; E78.00 Pure hypercholesterolemia, unspecified; M81.0 Age-related osteoporosis without current pathological fracture; E66.3 Overweight; B35.4 Tinea corporis; Z85.3 Personal history of malignant neoplasm of breast; Z98.84 Bariatric surgery status | CPT/HCPCS: 96127; 99212 ==

== ENCOUNTER 2024-08-02 08:28 | Outpatient (AMB) | payer MEDICARE, SELFPAY ==
[2024-08-02 08:31] VITALS: BP 128/80; PULSE 117; O2SAT 97; BMI 31.7
--- NOTE | 2024-08-02 08:31 | A.OFFPC_ITS ---
Vital Signs 08/02/24 08:31 Height 5 ft 3 in Weight 179 lb BMI 31.7 BP 128/80 Blood Pressure Location Lt brachial Position Sitting Pulse 117 H Pulse Source Pulse Oximeter Pulse Oximetry (%) 97 Oxygen Delivery Method Room Air Intake Visit Reasons: BP Allergies Lisinopril, SAÚL inhibitors Allergy (Intermediate, Uncoded 08/02/24 10:08) cough Medication List - Last Reconciled 08/02/24 by Henrry Madden MD alendronate 70 mg PO QWEEK calcium citrate-vitamin D3 315 mg-6.25 mcg (250 unit) 2 tabs PO DAILY cholecalciferol (vitamin D3) 50 mcg PO DAILY citalopram 40 mg PO .QD diclofenac sodium 1% 2 grams topical QID PRN gabapentin 300 mg PO BEDTIME 90 days garlic 5 mg PO DAILY losartan 25 mg PO DAILY melatonin 3 mg PO BEDTIME PRN multivitamin 1 tab PO DAILY sx-wt-cn7-grj-tzf-sthf-lut-kathy 250 mg (90 mg-160 mg) (Ocuvite Adult 50 Plus) 1 cap PO DAILY nystatin 1 appl topical BID vitamin A 1 cap PO DAILY vitamin B complex (B Complex-Vitamin B12 tablet) 1 tab PO .qod Tobacco use date assessed: 08/02/24 Fall risk assessment: No Falls in past year Last assessed Fall Risk: 08/02/24 Dental Screening Dental Screen Date: 08/02/24 Did you have a dental visit in the last 12 months?: Yes Did you have a dental problem in the last 6 months where you did not have access to dental care?: No Was dental information given to patient?: Patient has dentist HPI BP HPI Details BP at home is good. noted arrythmia and will do EKG [facility] Medical History Obesity (BMI 30.0-34.9) Cervical cancer screening Numbness and tingling of both feet Chest pain Blood pressure elevated without history of HTN Vitamin D deficiency Menopause Well woman exam Stiffness of finger joint of right hand Sprain of interphalangeal joint of right middle finger Sprain of interphalangeal joint of right ring finger Finger pain, right Fall Vitamin A deficiency Joint pain Osteopenia Metatarsal stress fracture of right foot with routine healing Obstructive sleep apnea Osteoarthritis Hyperparathyroidism Anxiety and depression Closed fibular fracture Intestinal malabsorption following gastrectomy Overweight (BMI 25.0-29.9) Morbid obesity Spinal stenosis History of right breast cancer Surgical History Hx of tubal ligation History of colonoscopy Hx of bilateral cataract extraction Hx of dilation and curettage Hx of gastric bypass (~11/19/15) Hx laparoscopic cholecystectomy (~09/10/15) History of lumpectomy of right breast (~06/2010) History of back surgery Hx of section Family History Mother History of colon cancer Other Mental health disorder Social History Housing: House Alcohol intake: never Patient Tobacco Use Status: Never used Tobacco Tobacco use type: Cigarette e-Cigarette/Vaping Use: Never Used Second Hand Smoke Exposure: No Advance Directives: Yes Advance Directives on File: Yes Advance Directives Date on File: 02/15/22 Do you have a plan to hurt others: No Plan Current occupational status: disabled Cognitive needs: No Hearing needs: No Vision needs: Yes Female Reproductive History Menstrual Age of Menarche: 12 Questionnaire PHQ-9 Over the last 2 weeks, how often have you been bothered by any of the following problems? 1. Little interest or pleasure in doing things: several days 2. Feeling down, depressed, or hopeless: not at all 3. Trouble falling or staying asleep, or sleeping too much: not at all 4. Feeling tired or having little energy: more than half the days 5. Poor appetite or overeating: several days 6. Feeling bad about yourself - or that you are a failure or have let yourself or your family down: not at all 7. Trouble concentrating on things, such as reading the newspaper or watching television: several days 8. Moving or speaking so slowly that other people could have noticed. Or the opposite - being so fidgety or restless that you have been moving around a lot more than usual: not at all 9. Thoughts that you would be better off or of hurting yourself in some way: not at all Total score: 5 Depression Screening Interpretation: Negative Depression Screening Done: Yes 89609 - PHQ-9 Billing: Yes Source: Developed by Drs. Joseph Arnaa, Марина Roper, Torrey Celeste and colleagues, with an educational zoey from [employer]. Thrive Questionnaire Date Thrive assessed: 08/02/24 I am a: Patient What is your living situation today?: I have a steady place to live Within the past 12 months, did the food you bought not last and you didn't have the money to get more?: Never true Within the past 12 months, did you worry whether your food would run out before you got money to buy more?: Never true Do you have trouble paying for medicines?: No Do you have trouble getting transportation to medical appointments?: No Do you have trouble paying your heating and electricity bill?: No Do you have trouble taking care of your child, family member or friend?: No Do you have trouble with day-to-day activities such as bathing, preparing meals, shopping, managing finances, etc.?: No Are you currently unemployed and looking for a job?: No Are you interested in more education?: No Currently or been in a relationship where the following occur: No concerns reported THRIVE Score: 0 AUDIT C Alcohol Use Questionnaire (AUDIT-C) 1. How often do you have a drink containing alcohol?: Never 3. How often do you have six or more drinks on one occasion?: Never Total Score: 0 ROMINA-7 AMB Questionnaire ROMINA-7 Date ROMINA - 7 assessed: 08/02/24 Feeling nervous, anxious, or on edge: 0 = Not at all Not being able to stop or control worryin = Not at all Worrying too much about different things: 0 = Not at all Trouble relaxin = Not at all Being so restless that it is hard to sit still: 0 = Not at all Becoming easily annoyed or irritable: 0 = Not at all Feeling afraid as if something awful might happen: 0 = Not at all Total ROMINA-7 score (0-4 normal; 5-9 mild; 10-14 moderate; 15-21 severe): 0 Source: Developed by Drs. Joseph Arana, Марина Roper, Torrey Celeste and colleagues, with an educational zoey from [employer]. ROMINA-7 Assessment Billing ROMINA-7 Assessment Tool: ROMINA-7 Assessment 58029 Physical exam (Primary Care) Vital Signs: Last Vital Signs Pulse 117 H 08/02/24 08:31 BP 128/80 08/02/24 08:31 Pulse Ox 97 08/02/24 08:31 Oxygen Delivery Method Room Air 08/02/24 08:31 BMI result Body Mass Index 31.7 Tobacco/Smoking Status: Tobacco use Status Tobacco use date assessed 08/02/24 08/02/24 08:38 Patient Tobacco Use Status Never used Tobacco 08/02/24 08:38 Tobacco use type Cigarette 08/02/24 08:38 e-Cigarette/Vaping Use Never Used 08/02/24 08:38 PHQ-9: PHQ-9 Score PHQ-9: Total score 5 08/02/24 08:47 Depression Screening Interpretation: Negative Thrive Assessment: Date of Thrive Assessment Date Thrive assessed 08/02/24 08/02/24 08:38 Currently or been in a relationship where the following occur: No concerns reported Const General: alert; No acute distress Eyes Conjunctivae: conjunctivae normal Resp Auscultation: clear to auscultation bilaterally Cardio Other: Irregularly irregular rhythm GI Inspection: Yes normal to inspection Extrem General: Yes normal to inspection and No edema Coding Level of Care Code Est Pt Level 4 (46221) Complex EM visit Add On G2211 Diagnoses Osteoporosis M81.0 Hypertension I10 Hypercholesterolemia E78.00 Hx of gastric bypass Z98.84 History of right breast cancer Z85.3 Obesity (BMI 30.0-34.9) E66.9 Arrhythmia I49.9 Atrial fibrillation with rapid ventricular response I48.91 Additional Codes ROMINA-7 Assessment Billing - ROMINA-7 Assessment Tool: ROMINA-7 Assessment 34376 ([id number]) PHQ-9 - 18122 - PHQ-9 Billing: Yes ([id number]) Assessment & Plan Assessment & Plan (1) Osteoporosis: Comment: June 2021, August 2023 Code(s): M81.0 - Age-related osteoporosis without current pathological fracture Category: Medical Plan: Patient is seeing Endocrinology presently on alendronate and considering Prolia (2) Hypertension: Code(s): I10 - Essential (primary) hypertension Category: Medical Plan: Continue with blood pressure medication. Decrease salt intake and exercise on losartan 25 mg once a day (3) Hypercholesterolemia: Code(s): E78.00 - Pure hypercholesterolemia, unspecified Category: Medical Plan: Avoid fried foods, chicken skin, eggs, butter margarine, pastries and meat. Be it pork or beef they have a lot of cholesterol LDL goal of less than 130 and triglyceride of less than 150 (4) Hx of gastric bypass: Onset Date: ~11/19/15 Comment: Dr. Lai and diaphragmatic hernia repair Code(s): Z98.84 - Bariatric surgery status Category: Surgical Plan: Continue to follow-up with bariatric ox (5) History of right breast cancer: Comment: Right, June 2010 lumpectomy negative lymph nodes, right side lymphedema s tatus post radiation June 2022 Code(s): Z85.3 - Personal history of malignant neoplasm of breast Category: Medical Plan: Mammogram is due and has a schedule on the 08 of August (6) Obesity (BMI 30.0-34.9): Code(s): E66.9 - Obesity, unspecified Category: Medical Plan: Diet and exercise (7) Arrhythmia: Code(s): I49.9 - Cardiac arrhythmia, unspecified Category: Medical (8) Atrial fibrillation with rapid ventricular response: Code(s): I48.91 - Unspecified atrial fibrillation Category: Medical Plan: Discussed with the patient regarding atrial fibrillation with a rapid ventricular rate and advised to go to the ER now. Patient is getting family member to bring her to the ER. Patient is asymptomatic. ER has been notified and expecting her. Plan History of Present Illness The patient is a 68-year-old female presenting with atrial fibrillation. She exhibited an elevated heart rate of approximately 130 beats per minute, a notable concern indicating her heart rhythm irregularity. She has been experiencing fatigue, although she has not noticed new or worsening symptoms directly related to the fatigue. Her medical background includes hypertension, hypercholesterolemia, a history of breast cancer from 2010, and a coronary artery bypass graft performed in 2016. A past diagnosis of sleep apnea was noted; however, she indicated that weight loss had previously resolved the symptoms temporarily, but weight gain might be influencing her condition again. Her oxygen saturation levels had decreased slightly, recorded between 91% and 94%. An EKG demonstrated the absence of a particular atrial wave, confirming atrial fibrillation. Health Maintenance - Mammogram scheduled for August 09, 2023 - Colonoscopy performed in May 2020, due next year - Bone density last updated in August 2023 - Hypertension managed with losartan 25 mg daily - Patient follows up with endocrinology for osteoporosis management with potential transition from alendronate to Prolia Social History - Consumes two and a half cups of coffee daily, usually prepared weakly by her - Active lifestyle noted with engagement in family activities such as cleaning Review of Systems - Cardiovascular: Reports palpitations with heart racing; denies chest pain. - General: Reports fatigue. Physical Exam - Cardiovascular- Heart rate noted at approximately 130 beats per minute during the visit. Results - EKG: Absence of atrial wave confirming atrial fibrillation. Plan The plan involves addressing the atrial fibrillation by transferring the patient to the emergency room for comprehensive evaluation and treatment. Discussions included the need for blood thinners to mitigate stroke risks linked to atrial fibrillation. The patient's will provide transportation to the emergency room. In the emergency setting, anticipated evaluations include cardiac ultrasounds to determine underlying causes. Subsequent management will focus on controlling hypertension, hypercholesterolemia, and monitoring for atrial fibrillation recurrence. Patient was informed and verbally consented to the use of an ambient scribe for clinic note documentation during this visit. Discussion Notes I discussed the patient's current condition, specifically atrial fibrillation, and highlighted its associated risks and need for treatment with a blood thinner to reduce stroke risk. We reviewed the cause of atrial fibrillation and the importance of monitoring and EKG findings. I enlisted the patient's to transport her to the emergency room to ensure safe admission. Future treatment steps would include the assessment to prevent recurrence and manage her background conditions of hypertension and hypercholesterolemia. I emphasized the significance of her history, including breast cancer in strategizing her overall management. Patient Instructions EKG Reading atrial fibrillation 128 Orders: Orders AMB EKG-In Office Today I49.9 - Cardiac arrhythmia, unspecified Comprehensive Met. Panel Today E78.00 - Pure hypercholesterolemia, unspecified Free T4 (Free Thyroxine) Today E78.00 - Pure hypercholesterolemia, unspecified Thyroid Stimulating Hormone Today E78.00 - Pure hypercholesterolemia, unspecified D Dimer High Sensitivity Today E78.00 - Pure hypercholesterolemia, unspecified UA w Microscopic Today E78.00 - Pure hypercholesterolemia, unspecified B Type Natriuretic Peptide Today E78.00 - Pure hypercholesterolemia, unspecified Complete Blood Count Auto Diff Today E78.00 - Pure hypercholesterolemia, unspecified Lipid Panel Today E78.00 - Pure hypercholesterolemia, unspecified Vitamin B12 and Folate Today E78.00 - Pure hypercholesterolemia, unspecified
--- OUTSIDE RECORDS SUMMARY | 2024-08-02 08:36 | XMS_ITS ---
Author Name [facility] Organization Unknown Assessment and Plan ID Update Date Source Alert Text [facility] - [id number] 02/25/2021 [facility] - [id number] COVID Vaccination: This patient has received the MOD, vaccination on 02/25/2021 with lot number [id number] at [facility].
--- OUTSIDE RECORDS SUMMARY | 2024-08-02 08:37 | XMS_ITS | Clinical Summary ---
Author Organization [employer] Address [address] [place] [address] [address] [place] [address] Care Team Providers Care Process Stripper Name Role Phone Unavailable Primary Care Provider Unavailabl e Social History Tobacco Use Types Packs/Day Years Used Date Smoking Tobacco: Never Assessed Comments Unknown Sex and Gender Information Value Date Recorded Sex Assigned at Female 03/01/2022 10:38 AM EDT Legal Sex Female 10:38 AM EDT Gender Identity Female 03/01/2022 10:38 AM EDT Sexual Orientation Don't know 03/01/2022 10 :38 AM EDT Plan of Treatment Health Maintenance Due Date Last Done Comments CT Colonography 1954 Colonoscopy 1954 Colorectal Cancer Screening 1954 Depression Screening 1954 FIT DNA/Cologuard 1954 FIT 1954 FOBT 1954 Sigmoidoscopy 1954 Alcohol/Substance Use Screening 1966 Tobacco Screening 1966 DTaP/Tdap/Td Vaccines (1 - Tdap) 1973 Mammogram 1994 Pneumococcal Vaccine: 50+ Ye ars (1 of 1 - PCV) 2004 Zoster Vaccines (1 of 2) 2004 COVID-19 Vaccine ( - 2023-2 5 season) 2024 Influenza Vaccine (#1) 2024 RSV Patients and Pa tients Aged 60 years or older (1 - 1-dose 75+ series) 2029 HIB Vaccines Aged Out No longer eligi ble based on patient's age to complete this topic HPV Vaccines Aged Out No longer eligi ble based on patient's age to complete this topic Hepatitis A Vaccines Aged Out No long er eligible based on patient's age to complete this topic Hepatitis B Vaccines Aged Out No long er eligible based on patient's age to complete this topic IPV Vaccines Aged Out No longer eligi ble based on patient's age to complete this topic Meningococcal Vaccine Aged Out No monico fidelina eligible based on patient's age to complete this topic RSV under 20 months Aged Out No longe r eligible based on patient's age to complete this topic Rotavirus Vaccines Aged Out No longer eligible based on patient's age to complete this topic
--- OUTSIDE RECORDS SUMMARY | 2024-08-02 08:37 | XMS_ITS | Patient Health Record ---
Author Organization [facility] Address [address] [place] [address] Care Team Providers Care Cylinder Tester Name Role Phone Po Henrry BOONE Primary Care Provider Joseph Plummer [phone] Allergies Allergen (clinical drug ingredient) Drug/Non Drug Allergy documented on EMR Reaction Allergy Type Onset Date Status angiotensin-converting enzyme inhibitor (FN) Russ Inhibitors (uncoded) Unknown Allergy Active Reason For Referral No Information Medications Medication [...] for 30 Active Vitamin A 3 MG (11409 UT) TK 1 C PO QD Oral for 30 Active Gabapentin 300 MG TK 1 C PO QD Oral for 90 Active Tamoxifen Citrate 20 MG TK 1 T PO QD Oral for 90 Active Citalopram Hydrobromide 20 MG 1 tablet Orally Once a day Active VESIcare 5 MG 1 tablet Orally Once a day Active Immunizations Vaccine Route Administration Date Status Comme nts Influenza Unknown 01/31/2020 Administered Problems Problem Type SNOMED Code ICD Code Onset Dates Problem Status W/U Status Risk Notes Problem Screening for malignant neoplasm of colon (492718182) Encounter for screening for malignant neoplasm of colon (Z12.11) Active confirmed Problem History of adenomatous polyp of colon (928993576) History of adenomatous polyp of colon (Z86.010) Active confirmed Problem Preprocedural examination ([id number]) Preprocedural examination (Z01.818) Active confirmed Problem Family History of Cancer of Colon (Situation) (082948838) Family history of colon cancer (Z80.0) Active confirmed Plan Of Treatment Future Test Test Name Order Date COLONOSCOPY 10/24/2014 COLONOSCOPY 05/08/2020 Insurance Providers Payer Name Payer Address Payer Phone Subscriber Number Group Number Insured Name Patient Relationship to Insured Coverage Start Date Coverage End Date A[employer] Medicare Advantage Plan [address] [address] [place] [address] [id number] Self - patient is the insured Medical (General) History Medical History History ICD Code Screening Colonoscopies 1996 and 2003 were negative; in 2009 a small tubular adenoma was removed--also noted to have moderate sigmoid diverticulosis and internal hemorrhoids; neg. colonoscopy in 01/2015 Right breast cancer 06/2010--lumpectomy a nd XRT-sees Dr. Lilly HTN Depression Denies SC,DM,CVA,Lung disease,renal dise ase Spinal stenosis Surgical History Surgery Date(Month/Year) Back surgery-lower back C-sections x 2 Right breast surgery for cancer as above ---neg. lymph node 2010 Cholecystectomy 08/2015 Gastric bypass lost > 100#--Dr. Coleman los 10/2015
--- OUTSIDE RECORDS SUMMARY | 2024-08-02 08:37 | XMS_ITS | Encounter Summary ---
Author Organization [employer] Address [address] [facility] [address] [place] [address] Care Team Providers Care Veterinary Surgery Technologist Name Role Phone Unavailable Primary Care Provider Unavailabl e Encounter Details Date Type Department Care Team (Latest Contact Info) Description 09/22/2020 Abstract [facility]HC CONVERSIONS Dental, Provider, DDS Social History Tobacco Use Types Packs/Day Years Used Date Smoking Tobacco: Never Assessed Comments Unknown Sex and Gender Information Value Date Recorded Sex Assigned at Female 03/01/2022 10:38 AM EDT Legal Sex Female 10:38 AM EDT Gender Identity Female 03/01/2022 10:38 AM EDT Sexual Orientation Don't know 03/01/2022 10 :38 AM EDT documented as of this encounter Plan of Treatment Not on file documented as of this encounter Visit Diagnoses Not on filedocumented in this encounter
--- OUTSIDE RECORDS SUMMARY | 2024-08-02 08:37 | XMS_ITS | Patient Health Record ---
Author Organization [facility] [place] Address [address] [place] [address] Care Team Providers Care Supervisor Forming And Tempering Name Role Phone Henrry Madden Primary Care Provider Unavailabl e Yesi Ortega Unavailable [phone] Allergies Allergen (clinical drug ingredient) Drug/Non Drug Allergy documented on EMR Reaction Allergy Type Onset Date Status lisinopril Lisinopril Unknown Drug Allergy Activ e Reason For Referral No Information Medications Medication SIG (Take, Route, Frequency, Duration) Notes Start Date End Date Status Calcium Citrate + D3 315-5 MG-MCG 1 tablet Orally Once a day Active Vitamin A 3 MG (90727 UT) 1 capsule Orally Once a day Active Gabapentin 300mg three times a day orally daily Active CBD [place] Active Citalopram & Diet Manage Prod 20mg [...] W/U Status Risk Notes Problem Plantar wart (95586173) Plantar wart (B07.0) Active confirmed Plan Of Treatment Pending Test Test Name Order Date [id number]-[id number] Destruction, 1-14 10/25/2022 Insurance Providers Payer Name Payer Address Payer Phone Subscriber Number Group Number Insured Name Patient Relationship to Insured Coverage Start Date Coverage End Date AARP Medicare Complete [address] [address] [place] [address] [id number] Jenn Hidalgo Self - patient is the insured Medical (General) History Medical History History ICD Code Anxiety Back,Hip,and Knee pain Broken bones Cancer Cataracts covid-19 Depression High blood pressure Osteoporosis Reflux thyroid Measles Chicken pox Surgical History Surgery Date(Month/Year) back surgery 11/1990 gastric bypass 2016 09/07/83 12/07/85
== END 2024-08-02 12:24 | disposition home or self-care (01) ==
LOC: HO.HMCH 08:28
PROVIDERS: PCP Internal Medicine; Visit Provider Internal Medicine
DX: M81.0 Age-related osteoporosis without current pathological fracture (principal); I10 Essential (primary) hypertension; E78.00 Pure hypercholesterolemia, unspecified; Z98.84 Bariatric surgery status; Z85.3 Personal history of malignant neoplasm of breast; E66.9 Obesity, unspecified; I49.9 Cardiac arrhythmia, unspecified; I48.91 Unspecified atrial fibrillation

== ENCOUNTER 2024-08-02 10:02 | Inpatient (IN) | payer MEDICARE, SELFPAY ==
[2024-08-02] VITALS (10 sets, daily range): BP systolic 91–116; BP diastolic 41–69; PULSE 95–139; RESP 16–20; TEMP 36.7–36.9; O2SAT 94–97; BMI 31.4
--- NOTE | ~2024-08-02 | XR_ITS ---
EXAMINATION: XR CHEST CLINICAL INFORMATION: New onset AFib COMPARISON: November 21, 2015 is not available on PACS. TECHNIQUE: Frontal view of the chest was obtained. FINDINGS: No consolidation, pleural effusion or pneumothorax. Elevated left hemidiaphragm. Cardiomediastinal silhouette size is mildly prominent. Multilevel thoracic spondylosis no fully evaluated. Vascular clips in the left upper hemiabdomen beneath the left hemidiaphragm. Vascular clips in the lateral aspect of the right breast shadow. XR/XR chest 1V IMPRESSION: No acute airspace disease. Electronically signed by: Santos Ching MD 08/02/2024 12:07 PM EDT
--- NOTE | 2024-08-02 10:05 | ED.GENADULT ---
HPI - General Adult General Chief complaint: Arrhythmia/Palpitations Stated complaint: afib sent in by PCP Related Data Home Medications ?Medication ?Instructions ?Recorded ?Confirmed multivitamin 1 tab PO DAILY 05/15/20 08/02/24 vitamin A 3,000 mcg (10,000 unit) 1 cap PO DAILY 05/15/20 08/02/24 capsule melatonin 3 mg capsule 3 mg PO BEDTIME PRN 12/29/22 08/02/24 vitamin B complex (B 1 tab PO .qod 12/29/22 08/02/24 Complex-Vitamin B12 tablet) garlic 5,000 mcg tablet 5 mg PO DAILY 08/23/23 08/02/24 oznrybba-yjb- 250 mg-dha 90 1 cap PO DAILY 04/24/24 08/02/24 mg-epa 160 jg-rpkt-kwbu-zeax capsule (Ocuvite Adult 50 Plus) Previous Rx's ?Medication ?Instructions ?Recorded diclofenac sodium 1 % topical gel 2 g topical QID PRN pain (scale 10/20/21 score 7-10) #100 grams calcium 315 mg (as 2 tab PO DAILY #60 tabs 12/06/22 citrate)-vitamin D3 6.25 mcg (250 unit) tablet cholecalciferol (vitamin D3) 50 50 mcg PO DAILY #30 caps 08/15/23 mcg (2,000 unit) capsule gabapentin 300 mg capsule 300 mg PO BEDTIME 90 days #90 caps 12/22/23 nystatin 100,000 unit/gram topical 1 appl topical BID #60 grams 04/24/24 powder alendronate 70 mg tablet 70 mg PO QWEEK #5 tabs 06/04/24 citalopram 40 mg tablet 40 mg PO .QD #90 tabs 06/04/24 losartan 25 mg tablet 25 mg PO DAILY #90 tabs 06/04/24 Allergies Allergy/AdvReac Type Severity Reaction Status Date / Time Lisinopril, SAÚL inhibitors Allergy Intermediate cough Uncoded 08/02/24 10:08 [facility] Past Medical History Medical History (Updated 08/02/24 @ 09:29 by Henrry Madden MD) Obesity (BMI 30.0-34.9) Cervical cancer screening Numbness and tingling of both feet Chest pain Blood pressure elevated without history of HTN Vitamin D deficiency Menopause Well woman exam Stiffness of finger joint of right hand Sprain of interphalangeal joint of right middle finger Sprain of interphalangeal joint of right ring finger Finger pain, right Fall Vitamin A deficiency Joint pain Osteopenia Metatarsal stress fracture of right foot with routine healing Obstructive sleep apnea Osteoarthritis Hyperparathyroidism Anxiety and depression Closed fibular fracture Intestinal malabsorption following gastrectomy Overweight (BMI 25.0-29.9) Morbid obesity Spinal stenosis History of right breast cancer Surgical History Hx of tubal ligation History of colonoscopy Hx of bilateral cataract extraction Hx of dilation and curettage Hx of gastric bypass (~11/19/15) Hx laparoscopic cholecystectomy (~09/10/15) History of lumpectomy of right breast (~06/2010) History of back surgery Hx of section Family History Family History Mother History of colon cancer Other Mental health disorder Social History Social History Housing: House Alcohol intake: never Patient Tobacco Use Status: Never used Tobacco Tobacco use type: Cigarette e-Cigarette/Vaping Use: Never Used Second Hand Smoke Exposure: No Current occupational status: disabled Cognitive needs: No Hearing needs: No Vision needs: Yes Course Course Course Narrative: This is a rapid medical exam performed by Kevin Collier NP: Additional HPI, ROS, PE not included below will be deferred to primary provider. 08/02/24 10:06 Patient is a 68-year-old female with history of SUNIL, hyperparathyroidism, osteoarthritis, anxiety and depression, history of R breast CA presenting from PCP office with report of rapid HR, low oxygen levels, states she was put on O2 at PCP office. States she has had generalized fatige for a few other weeks, denies chest pain, dyspnea, palpitations. Plan: EKG, labs, viral panel Discharge Plan Discharge Prescriptions: No Action diclofenac sodium 1 % gel 2 g topical QID PRN (Reason: pain (scale score 7-10)) Qty: 100 12RF Rx Instructions: apply to single elbow, wrist or hand; for hand includes palm/fingers/back of hand calcium citrate-vitamin D3 315 mg-6.25 mcg (250 unit) tablet 2 tab PO DAILY Qty: 60 0RF cholecalciferol (vitamin D3) 50 mcg (2,000 unit) capsule 50 mcg PO DAILY Qty: 30 5RF gabapentin 300 mg capsule 300 mg PO BEDTIME 90 Days Qty: 90 3RF citalopram 40 mg tablet 40 mg PO .QD Qty: 90 2RF alendronate 70 mg tablet 70 mg PO QWEEK Qty: 5 5RF losartan 25 mg tablet 25 mg PO DAILY Qty: 90 2RF garlic 5,000 mcg tablet 5 mg PO DAILY vitamin A 10,000 unit capsule 1 cap PO DAILY multivitamin Tablet 1 tab PO DAILY vitamin B complex [B Complex-Vitamin B12] Tablet 1 tab PO .qod melatonin 3 mg capsule 3 mg PO BEDTIME PRN Ocuvite Adult 50 Plus 250 mg (90 mg-160 mg) capsule 1 cap PO DAILY nystatin 100,000 unit/gram powder 1 appl topical BID Qty: 60 0RF Print Language: Zimbabwean
--- NOTE | 2024-08-02 10:08 | ECG_ITS ---
Test Reason : AFIB Blood Pressure : */* mmHG Vent. Rate : 122 BPM Atrial Rate : * BPM P-R Int : * ms QRS Dur : 72 ms QT Int : 346 ms P-R-T Axes : * 20 32 degrees QTcB Int : 493 ms Atrial fibrillation with rapid ventricular response Abnormal ECG When compared with ECG of 01-Sep-2023 08:57, Atrial fibrillation has replaced Sinus rhythm Vent. rate has increased by 48 bpm Referred By: Bonita Collier Electronically Signed By: QUEENIE CASTILLO
--- NOTE | 2024-08-02 10:31 | ED.ARRPALP ---
HPI - Arrhythmia/Palpitations General Chief Complaint: Arrhythmia/Palpitations Stated Complaint: afib sent in by PCP Time Seen by Provider: 08/02/24 10:15 Source: patient and family (Spouse) Mode of arrival: ambulatory Limitations: no limitations History of Present Illness ED Provider: DR. De La Cruz HPI narrative: 68-year-old female brought in from primary doctor office for evaluation of new onset of atrial fibrillation, patient was scheduled for her physical checkup at her primary doctor office found to be in rapid atrial fibrillation patient otherwise asymptomatic except feeling tired sometimes but no SOB, no CP, no dizziness, no syncopal episode. No history of atrial fibrillation. Related Data Home Medications ?Medication ?Instructions ?Recorded ?Confirmed multivitamin 1 tab PO DAILY 05/15/20 08/02/24 vitamin A 3,000 mcg (10,000 unit) 1 cap PO DAILY 05/15/20 08/02/24 capsule melatonin 3 mg capsule 3 mg PO BEDTIME PRN 12/29/22 08/02/24 vitamin B complex (B 1 tab PO .qod 12/29/22 08/02/24 Complex-Vitamin B12 tablet) garlic 5,000 mcg tablet 5 mg PO DAILY 08/23/23 08/02/24 [id number] 250 mg-dha 90 1 cap PO DAILY 04/24/24 08/02/24 mg-epa 160 uc-sdsl-oipy-zeax capsule (Ocuvite Adult 50 Plus) Previous Rx's ?Medication ?Instructions ?Recorded diclofenac sodium 1 % topical gel 2 g topical QID PRN pain (scale 10/20/21 score 7-10) #100 grams calcium 315 mg (as 2 tab PO DAILY #60 tabs 12/06/22 citrate)-vitamin D3 6.25 mcg (250 unit) tablet cholecalciferol (vitamin D3) 50 50 mcg PO DAILY #30 caps 08/15/23 mcg (2,000 unit) capsule gabapentin 300 mg capsule 300 mg PO BEDTIME 90 days #90 caps 12/22/23 nystatin 100,000 unit/gram topical 1 appl topical BID #60 grams 04/24/24 powder alendronate 70 mg tablet 70 mg PO QWEEK #5 tabs 06/04/24 citalopram 40 mg tablet 40 mg PO .QD #90 tabs 06/04/24 losartan 25 mg tablet 25 mg PO DAILY #90 tabs 06/04/24 Allergies Allergy/AdvReac Type Severity Reaction Status Date / Time Lisinopril, SAÚL inhibitors Allergy Intermediate cough Uncoded 08/02/24 10:08 Review of Systems Review of Systems: All other systems are reviewed and are negative Constitutional: Reports as per HPI and Reports no additional constitutional complaints Eyes: Reports as per HPI and Reports no additional eye complaints Reports system reviewed and no additional complaints, except as documented Cardiovascular: Reports as per HPI and Reports no additional cardiovascular complaints Respiratory: Reports as per HPI and Reports no additional respiratory complaints Gastrointestinal: Reports as per HPI and Reports no additional gastrointestinal complaints Genitourinary: Reports no additional female genitourinary complaints Musculoskeletal: Reports no additional musculoskeletal complaints Skin/Breast: Reports system reviewed and no additional complaints, except as docu Psychiatric: Reports no additional psychiatric complaints Endocrine: Reports no additional endocrine complaints Hematologic/Lymphatic: Reports no additional hematologic/lymphatic complaints Allergic/Immunologic: Reports no additional allergic/immunologic complaints Reports system reviewed and no additional complaints, except as documented and Reports Abnormal speech present [facility] Past Medical History Medical History Obesity (BMI 30.0-34.9) Cervical cancer screening Numbness and tingling of both feet Chest pain Blood pressure elevated without history of HTN Vitamin D deficiency Menopause Well woman exam Stiffness of finger joint of right hand Sprain of interphalangeal joint of right middle finger Sprain of interphalangeal joint of right ring finger Finger pain, right Fall Vitamin A deficiency Joint pain Osteopenia Metatarsal stress fracture of right foot with routine healing Obstructive sleep apnea Osteoarthritis Hyperparathyroidism Anxiety and depression Closed fibular fracture Intestinal malabsorption following gastrectomy Overweight (BMI 25.0-29.9) Morbid obesity Spinal stenosis History of right breast cancer Surgical History Hx of tubal ligation History of colonoscopy Hx of bilateral cataract extraction Hx of dilation and curettage Hx of gastric bypass (~11/19/15) Hx laparoscopic cholecystectomy (~09/10/15) History of lumpectomy of right breast (~06/2010) History of back surgery Hx of section Family History Family History Mother History of colon cancer Other Mental health disorder Social History Social History Housing: House Alcohol intake: never Patient Tobacco Use Status: Never used Tobacco Tobacco use type: Cigarette e-Cigarette/Vaping Use: Never Used Second Hand Smoke Exposure: No Advance Directives: Yes Advance Directives on File: Yes Advance Directives Date on File: 02/15/22 Do you have a plan to hurt others: No Plan Current occupational status: disabled Cognitive needs: No Hearing needs: No Vision needs: Yes Physical Exam Vital Signs: Vital Signs: Last Vital Signs Temp 98.1 F 08/02/24 10:04 Pulse 110 H 08/02/24 11:06 Resp 16 08/02/24 11:06 BP 116/61 08/02/24 11:06 Pulse Ox 94 08/02/24 10:37 O2 Del Method Room Air 08/02/24 10:37 BMI result Body Mass Index 31.4 Vital signs have been reviewed and appear to be correct. Blood pressure elevated. Heart rate normal. Respiratory rate normal. Temperature normal. Oxygen saturation normal. Appearance: Alert. Oriented X3. No acute distress. Head: Normal external exam. Normocephalic. Atraumatic. No Reed signs noted. No raccoon eyes noted Eyes: PERRLA. EOMI. Conjunctiva and sclera normal. Eyelids normal. ENT: TM's Normal. Pharynx normal. Uvula midline. Moist mucous membranes. No trismus noted. No drooling noted. No muffled voice noted. Neck: Normal inspection. Neck supple. FROM. No adenopathy. Thyroid Normal. No meningeal signs. No neck mass noted. CVS: Normal heart rate and rhythm. Heart sound normal. No murmurs noted. Pulses normal throughout. Respiratory: No respiratory distress. Painless inspiration. Breath sounds normal. No wheezes/rales/rhonchi noted. Chest nontender. No accessory muscle usage noted or decreased air movement noted. Abdomen: Soft and nontender. Bowel sounds normal in all 4 quadrants. No distention noted. No organomegaly noted. No visible injury noted. Back: No CVA tenderness. Full range of motion noted. Skin: Skin warm and dry. Normal skin color. Normal skin turgor. No rashes/lesions/lacerations noted. Extremities: No lower extremity edema. Extremities exhibit normal range of motion. Extremities nontender. Neuro: Oriented X 3. Cranial nerve exam: II-XII are grossly intact No motor deficit. No sensory deficit. Reflexes normal. Course Reevaluation(s) Reevaluation #1: New onset atrial fibrillation, heart rate initially was 140s patient was given metoprolol 5 mg IV followed by 50 mg p.o. heart rate is 90s to 110s, patient is still asymptomatic, blood workup is unremarkable. Time: 11:56 Medications Administered Discontinued Medications Generic Name Dose Route Start Last Admin Trade Name Freq PRN Reason Stop Dose Admin Metoprolol Tartrate 5 mg 08/02/24 10:28 08/02/24 10:41 Metoprolol Tartrate 5 Mg/5 Ml Vial IVPUSH 08/02/24 10:29 5 mg ONCE ONE Administration Protocol Metoprolol Tartrate 50 mg 08/02/24 11:24 08/02/24 11:30 Metoprolol Tartrate 50 Mg Tablet PO 08/02/24 11:25 50 mg ONCE ONE Administration Protocol Medical Decision Making Differential Diagnosis Differential Diagnoses: The differential diagnosis associated with the presentation includes (New onset atrial fibrillation, dysrhythmia, SVT, ACS, electrolyte derangement, severe anemia, CHF, pneumonia, pneumothorax, pleural effusion.) Admission/Observation Consideration of admission/observation: Escalation of care including admission/observation considered Consult Healthcare Provider Management of the patient was discussed with: Hospitalist (Dr. Trinidad) Lab Data MDM Lab Attestation statement: I reviewed the patient's lab results. 08/02/24 10:24 08/02/24 10:24 Labs: Lab Results 08/02/24 08/02/24 Range/Units 10:24 10:59 WBC 6.8 (4.8-10.8) X10*3/uL RBC 4.51 (4.20-5.50) X10*6/uL Hgb 12.0 (12.0-16.0) g/dl Hct 37.4 (37.0-47.0) % MCV 82.9 (80.0-98.0) fL MCH 26.6 L (27.0-33.0) pg MCHC 32.1 (31.0-35.0) g/dl RDW 14.1 (11.0-16.0) % Plt Count 340 (160-400) X10*3/uL MPV 9.7 (9.4-12.3) fL Immature Gran % (Auto) 0.3 (0.0-0.4) % Neut % (Auto) 64.6 (45-73) % Lymph % (Auto) 21.5 (20-40) % [place] % (Auto) 9.6 (2-11) % Eos % (Auto) 2.4 (0-4) % Baso % (Auto) 1.6 (0-2) % Lymph # (Auto) 1.5 (1.2-4.9) X10*3/uL [place] # (Auto) 0.7 (0.1-1.2) X10*3/uL Eos # (Auto) 0.2 (0.0-0.4) X10*3/uL Baso # (Auto) 0.1 (0.0-0.2) X10*3/uL Abs Immat Gran (auto) 0.02 (0.00-0.03) X10*3/uL Absolute Neuts (auto) 4.4 (2.0-8.3) x10*3/uL Absolute Nucleated RBC 0.000 (0.0-0.012) X10*3/uL Nucleated RBC % (auto) 0.0 (0.0-0.2) /100WBC PT 12.5 H (10.9-12.4) SEC INR 1.1 (0.9-1.1) Sodium 141 (135-145) mmol/L Potassium 4.1 (3.3-5.1) mmol/L Chloride 111 H (96-108) mmol/L Carbon Dioxide 23 (22-29) mmol/L Anion Gap 11 L (12-20) BUN 17 H (9-16) mg/dL Creatinine 0.67 (0.5-1.4) mg/dL Estim Creat Clear Calc 79.6 Estimated GFR > 60 Random Glucose 110 (60-115) mg/dL Calcium 8.8 D (8.4-10.2) mg/dL Magnesium 2.4 (1.6-2.6) mg/dL Total Bilirubin 0.7 (0.0-1.0) mg/dL AST 37 H (5-31) U/L ALT < 6 (0-31) U/L Alkaline Phosphatase 56 (39-117) U/L Troponin I High Sens 2.7 (<3.5-17.0) ng/L Total Protein 6.7 (6.5-8.0) g/dL Albumin 4.2 (3.5-5.0) g/dL TSH 0.82 (0.32-4.0) uIU/mL Influenza Type A (PCR) NEGATIVE (Negative) Influenza Type B (PCR) NEGATIVE (Negative) RSV RNA Qual (PCR) NEGATIVE (Negative) SARS-CoV-2 RNA (RT-PCR) NEGATIVE (Negative) Independent Interpretation I performed an independent interpretation of an: EKG (Atrial fibrillation at [address]., no ST-T changes.) and Plain X-Ray (Chest: No acute intra thoracic pathology.) Radiology Impression Discussion of test interpretation with radiology: I have reviewed the radiologist's reading. Discharge Plan Discharge Clinical Impression: Atrial fibrillation, new onset Patient Disposition: Admitted As Inpatient Print Language: Mongolian
[2024-08-02 10:33] LABS: MANUAL DIFF FLAG NO
[2024-08-02 10:34] LABS: Basophils Absolute Auto 0.1 X10*3/uL (0.0-0.2); Basophils Percent Auto 1.6 % (0-2); Eosinophils Absolute Auto 0.2 X10*3/uL (0.0-0.4); Eosinophils Percent Auto 2.4 % (0-4); Hematocrit 37.4 % (37.0-47.0); Imm Gran Abs Auto 0.02 X10*3/uL (0.00-0.03); Imm Gran Pct Auto 0.3 % (0.0-0.4); Lymphocytes Absolute Auto 1.5 X10*3/uL (1.2-4.9); Lymphocytes Percent Auto 21.5 % (20-40); Mean Corpuscular HGB Conc 32.1 g/dl (31.0-35.0); Mean Corpuscular Hemoglobin 26.6 pg (27.0-33.0); Mean Corpuscular Volume 82.9 fL (80.0-98.0); Mean Platelet Volume 9.7 fL (9.4-12.3); Monocytes Absolute Auto 0.7 X10*3/uL (0.1-1.2); Monocytes Percent Auto 9.6 % (2-11); Neutrophils Absolute Auto 4.4 x10*3/uL (2.0-8.3); Neutrophils Percent Auto 64.6 % (45-73); Platelet Count 340 X10*3/uL (160-400); Red Blood Count 4.51 X10*6/uL (4.20-5.50); Red Cell Distribution Width 14.1 % (11.0-16.0); White Blood Count 6.8 X10*3/uL (4.8-10.8)
[2024-08-02 10:40] LABS: INTERNATIONAL NORM RATIO 1.1 (0.9-1.1); Prothrombin Time 12.5 SEC (10.9-12.4)
[2024-08-02] MEDS: Metoprolol Tartrate 5 MG/5 ML VIAL IVPUSH (10:41)
[2024-08-02 10:50] LABS: Alanine Aminotransferase < 6 U/L (0-31); Albumin Level 4.2 g/dL (3.5-5.0); Alkaline Phosphatase 56 U/L (39-117); Anion Gap 11 (12-20); Aspartate Amino Transferase 37 U/L (5-31); Bilirubin Total 0.7 mg/dL (0.0-1.0); Blood Urea Nitrogen 17 mg/dL (9-16); Calcium 8.8 mg/dL (8.4-10.2); Carbon Dioxide 23 mmol/L (22-29); Chloride 111 mmol/L (96-108); Creatinine Clr Calc Pharmacy 79.6; Estimated Glomerular Filt Rate > 60; Glucose Random 110 mg/dL (60-115); Magnesium 2.4 mg/dL (1.6-2.6); Potassium 4.1 mmol/L (3.3-5.1); Sodium 141 mmol/L (135-145); Total Protein 6.7 g/dL (6.5-8.0)
[2024-08-02 10:58] LABS: Troponin-I High Sensitivity 2.7 ng/L (<3.5-17.0)
[2024-08-02 11:12] LABS: TSH reflex Free T4 0.82 uIU/mL (0.32-4.0)
[2024-08-02] MEDS: Metoprolol Tartrate 50 MG TABLET PO (11:30)
--- NOTE | 2024-08-02 11:34 | PC.NURSE ---
patient presented to Ed from pcp office, patient noted to be in afib at pcp office, no history not on blood thinners. patient states she has been feeling increasingly tired over the last month, endorses palpitations at times. patient is awake and alert, oriented x4 ambulatory. IV started in LAC #20, patient afib on the monitor rate initially 120-140. patient medicated per JUN, rate now 110s, bp stable.
--- OUTSIDE RECORDS SUMMARY | 2024-08-02 11:34 | XMS_ITS | Encounter Summary ---
Author Organization [employer] Address [address] [place] [address] Care Team Providers Care Adventure Education Teacher Name Role Phone Unavailable Primary Care Provider [...]
--- OUTSIDE RECORDS SUMMARY | 2024-08-02 11:34 | XMS_ITS | Clinical Summary ---
Author Organization [employer] Address [address] [place] [address] [address] [place] [address] Care Team Providers Care Data Solutions Architect Name Role Phone Unavailable Primary Care Provider [...]
[2024-08-02 12:11] LABS: Influenza A PCR NEGATIVE (Negative); Influenza B PCR NEGATIVE (Negative); Resp Syncy Virus RNA Qual PCR NEGATIVE (Negative); SARS COV2 PCR INHOUSE NEGATIVE (Negative)
--- NOTE | 2024-08-02 12:21 | PM.IMHP ---
History of Present Illness Date of Service: 08/02/24 Attending physician on admission: Doreen Jarrett Chief Complaint: Tachycardia Pt is a 68-year-old female with a PMH significant for?HTN, HLD, osteoporosis, hx of gastric bypass, and hx of right breast cancer s/p lumpectomy and radiation who presents to the ED from PCP office for evaluation of tachycardia and arrhythmia. Pt was at her PCP this morning for regular follow-up appointment when HR was noted to be in the 130s and EKG showed atrial fibrillation. Was then sent to the ED for further evaluation. Reports has been experiencing intermittent dizziness often associated with position changes the past few weeks and 1 episode of palpitations last week. Has been chronically more tired above baseline for the past 2 months. Pt denies previous AFib diagnosis or cardiac issues, though notes last year wore a heart monitor for palpitations and lightheadedness that was negative. No SOB or difficulty breathing. Denies chest pain/pressure, palpitations. No nausea, vomiting, abdominal pain. ? In the ED pt was tachycardic to 139 and slightly soft BP of 113/47. Labs were grossly unremarkable around baseline for pt. No leukocytosis. Stable H&H. No significant electrolyte abnormalities. Renal function WNL. Troponin WNL. Tested negative for flu, COVID, RSV. CXR showed no acute airway disease. EKG demonstrated atrial fibrillation with RVR of 122. Pt was treated with metoprolol 5 mg IV and metoprolol 50 mg p.o.. Pt will be admitted to the hospital for treatment and further evaluation of new onset symptomatic AFib with RVR. Review of Systems Review of Systems: Negative except for that which is stated in the [facility] Medical History Obesity (BMI 30.0-34.9) Cervical cancer screening Numbness and tingling of both feet Chest pain Blood pressure elevated without history of HTN Vitamin D deficiency Menopause Well woman exam Stiffness of finger joint of right hand Sprain of interphalangeal joint of right middle finger Sprain of interphalangeal joint of right ring finger Finger pain, right Fall Vitamin A deficiency Joint pain Osteopenia Metatarsal stress fracture of right foot with routine healing Obstructive sleep apnea Osteoarthritis Hyperparathyroidism Anxiety and depression Closed fibular fracture Intestinal malabsorption following gastrectomy Overweight (BMI 25.0-29.9) Morbid obesity Spinal stenosis History of right breast cancer Family History Mother History of colon cancer Other Mental health disorder Surgical History Hx of tubal ligation History of colonoscopy Hx of bilateral cataract extraction Hx of dilation and curettage Hx of gastric bypass (~11/19/15) Hx laparoscopic cholecystectomy (~09/10/15) History of lumpectomy of right breast (~06/2010) History of back surgery Hx of section Social History Housing: House Alcohol intake: never Patient Tobacco Use Status: Never used Tobacco Tobacco use type: Cigarette e-Cigarette/Vaping Use: Never Used Second Hand Smoke Exposure: No Advance Directives Date on File: 02/15/22 Current occupational status: disabled Cognitive needs: No Hearing needs: No Vision needs: Yes Meds Allergies Allergy/AdvReac Type Severity Reaction Status Date / Time Lisinopril, SAÚL inhibitors Allergy Intermediate cough Uncoded 08/02/24 10:08 Home Medications ?Medication ?Instructions ?Recorded ?Confirmed ?Last Taken ?Type multivitamin 1 tab PO DAILY 05/15/20 08/02/24 Unknown History vitamin A 3,000 mcg (10,000 unit) 1 cap PO DAILY 05/15/20 08/02/24 Unknown History capsule melatonin 3 mg capsule 3 mg PO BEDTIME PRN 12/29/22 08/02/24 Unknown History vitamin B complex (B 1 tab PO .qod 12/29/22 08/02/24 Unknown History Complex-Vitamin B12 tablet) garlic 5,000 mcg tablet 5 mg PO DAILY 08/23/23 08/02/24 Unknown History iwvgbwei-sef-[id number] 250 mg-dha 90 1 cap PO DAILY 04/24/24 08/02/24 Unknown History mg-epa 160 ad-imfz-gouk-zeax capsule (Ocuvite Adult 50 Plus) Physical Exam Vital Signs and Narrative: Vital Signs: Last Vital Signs Temp 98.1 F 08/02/24 10:04 Pulse 110 H 08/02/24 11:06 Resp 16 08/02/24 11:06 BP 116/61 08/02/24 11:06 Pulse Ox 94 08/02/24 10:37 O2 Del Method Room Air 08/02/24 10:37 BMI result Body Mass Index 31.4 General: AOx3, no acute distress Resp: CTA bilaterally CVS: Irregular irregular rhythm, tachycardic GI: +BS, NT, no distention Skin: Warm, dry Neuro: Cranial nerves II-XII grossly intact bilaterally. Motor grossly intact bilaterally Extremities: No edema Psych: Appropriate affect Results Labs 08/02/24 10:24 08/02/24 10:24 Labs: Laboratory Results - last 24 hr 08/02/24 08/02/24 10:24 10:59 MCV 82.9 MCH 26.6 L MCHC 32.1 RDW 14.1 Plt Count 340 MPV 9.7 Immature Gran % (Auto) 0.3 Neut % (Auto) 64.6 Lymph % (Auto) 21.5 [place] % (Auto) 9.6 Eos % (Auto) 2.4 Baso % (Auto) 1.6 Lymph # (Auto) 1.5 [place] # (Auto) 0.7 Eos # (Auto) 0.2 Baso # (Auto) 0.1 Abs Immat Gran (auto) 0.02 Absolute Neuts (auto) 4.4 Absolute Nucleated RBC 0.000 Nucleated RBC % (auto) 0.0 PT 12.5 H INR 1.1 Anion Gap 11 L Estim Creat Clear Calc 79.6 Estimated GFR > 60 Random Glucose 110 Calcium 8.8 D Magnesium 2.4 Total Bilirubin 0.7 AST 37 H ALT < 6 Alkaline Phosphatase 56 Total Protein 6.7 Albumin 4.2 TSH 0.82 Influenza Type A (PCR) NEGATIVE Influenza Type B (PCR) NEGATIVE RSV RNA Qual (PCR) NEGATIVE SARS-CoV-2 RNA (RT-PCR) NEGATIVE Imaging Radiologist's Impressions: Impressions Chest X-Ray 08/02/24 11:30 IMPRESSION: No acute airspace disease. Electronically signed by: Santos Ching MD 08/02/2024 12:07 PM EDT Assessment and Plan (1) Atrial fibrillation, new onset: Status: Acute Plan Pt is a 68-year-old female with a PMH significant for?HTN, HLD, osteoporosis, hx of gastric bypass, and hx of right breast cancer s/p lumpectomy and radiation who presents to the ED from PCP office for evaluation of tachycardia and arrhythmia. Pt will be admitted to the hospital for treatment and further evaluation of new onset symptomatic AFib with RVR. New onset AFib with RVR Pt tachycardic into the 130s, currently in the 110s Episode of palpitations last week, increased fatigue x2 months Pt given metoprolol 5 mg IV and 50 mg p.o. in the ED Will treat with metoprolol 25 mg p.o. q.6, start Eliquis 5 mg b.i.d. Echocardiogram Cardiology consult Monitor on telemetry HTN Pt reports PCP was considering stopping losartan BP has been slightly soft Will hold losartan as now on metoprolol Peripheral neuropathy Continue gabapentin Mood disorder Continue citalopram Full Code Attending:?Dr. Jarrett DVT Prophylaxis: On Eliquis Pt will require a hospitalization of at least two nights for treatment and further evaluation of new onset AFib with RVR that will require close cardiac monitoring and specialist consultation with Cardiology. Quality Stroke Does the patient have a stroke diagnosis?: No VTE Prior VTE?: No VTE Risk Level:: Medical - moderate - high VTE Device Contraindication: Treatment Not Indicated VTE Drug Contraindication: N/A - Med Ordered
[2024-08-02] MEDS: Metoprolol Tartrate 25 MG TABLET PO ×3 (13:35→22:03)
[2024-08-02] MEDS: Apixaban 5 MG TABLET PO (13:35)
--- NOTE | 2024-08-02 13:35 | PHA.MEDREC ---
Pharmacy Consult ? Medication Reconciliation Pharmacy has completed the medication reconciliation. Spoke to patient at bedside to confirm
--- NOTE | 2024-08-02 15:00 | CA_ITS ---
Transthoracic Echocardiogram Patient (Last, First, Middle): Jenn Hidalgo C Gender: Female Date of : 1955 Age: 68 Procedure Date: 08/02/2024 Procedure Type: Transthoracic Echocardiogram Location: ER Height: 160.02 cm Weight: 80.29 kg BSA: 1.84 m2 Heart Rate: bpm BP: 115 / 58 mmHg Divorce Mediator: OSEI Referring MD: Cynthia HANDY Symptoms: New onset AFib w/RVR Study Quality: Fair ECG Rhythm: Atrial Fibrillation Conclusions: - The left ventricular systolic function is normal. The visually estimated ejection fraction is between 55-60%. - The left atrium is severely dilated. - There is moderate mitral annular calcification. There is mild to moderate mitral valve regurgitation. Findings Left Ventricle Normal left ventricular cavity size. The left ventricular systolic function is normal. The visually estimated ejection fraction is between 55-60%. There is no evidence of regional wall motion abnormalities. Diastolic function is indeterminate on the basis of available data. There is mild septal asymmetric hypertrophy. Right Ventricle Normal right ventricular cavity size. There is mildly decreased right ventricular systolic function. Atria The left atrium is severely dilated. The right atrium is normal in size. Aortic Valve There is a normal trileaflet aortic valve. There is mild calcification of the aortic valve. There is no aortic valve stenosis. There is no aortic valve regurgitation. Mitral Valve There is moderate mitral annular calcification. There is mild to moderate mitral valve regurgitation. There is no mitral valve stenosis. Pulmonic Valve The pulmonic valve is likely normal. Tricuspid Valve There is mild tricuspid valve regurgitation. There is no evidence of pulmonary hypertension. Great Vessels The asc aorta is normal in size. Small plaque is seen in the sino tubular ridge. Venous The inferior vena cava is normal in size and collapses greater than 50% with inspiration. Pericardium/Pleural There is no evidence of pericardial effusion. Prior Study Comparison No prior study available for comparison. Measurements 2D Linear Measurements IVSd: 1.07 0.6-0.9/0.6-1.0 cm LVIDd: 2.88 3.9-5.3/4.2-5.9 cm LVIDd Index: 1.57 2.4-3.2/2.2-3.1 cm/m2 LVIDs: 2.09 2.0-3.6 cm LVPWd: 0.98 0.7-1.1 cm LA Diam: 4.30 2.7-3.8/3.0-4.0 cm LAIDs Index: 2.34 1.5-2.3 cm/m2 LV Mass: 99.70 67-162/88-224 g LV Mass Index: 54.18 43-95/49-115 g/m2 LVOT Diam: 2.00 3.0+(-)1.3 cm 2D Systolic Function EF 4C: 53.60 >55% EF 2C: 54.10 >55% EF BiP: 51.80 >55% Mitral Valve MV Pk E: 1.23 MV Decel Time: 191.00 E'Lateral: 7.25 E'Medial: 7.68 E/E' Med: 16.00 E/E' Lat: 17.00 PHT: 56.00 MVA PHT: 3.93 Decel [place]: 6.99 Aortic Valve AoV Pk [place]: 1.30 AoV Mn [place]: 0.98 AoV VTI: 0.30 AoV Pk Grad: 7.00 Aov Mn Grad: 4.00 DELBERT Cont.VTI: 1.72 LVOT LVOT Pk [place]: 0.76 LVOT Mn [place]: 0.56 LVOT VTI: 0.16 LVOT Pk Grad: 2.00 LVOT Mn Grad: 1.00 LVOT Diam: 2.00 LVOT Area: 3.14 Diastolic Function MV Pk E: 1.23 E'Medial: 7.68 E/E' Med: 16.00 E' Laterial: 7.25 E/E' Lat: 17.00 Right Ventricle TAPSE (mm): 15.10 TVS' Clement[place]: 7.26 Tricuspid Valve TR Pk [place]: 2.16 TR Pk Grad: 19.00 RA Press: 3.00 RVSP: 22.00 Great Vessels Aorta Sinus of Valsalva: 3.14 2.0-3.[address] [place]: 2.46 1.7-3.4 cm Ao Asc: 3.50 2.1-3.4 cm Updated in Other Vendor System with Status of Final Danny Garcia MD electronically signed on 08/02/2024 4:15:27 PM with status of Final
[2024-08-02] MEDS: 0.9 % Sodium Chloride Flush 3 ML SYRINGE IVFLUSH (16:33)
--- NOTE | 2024-08-02 20:19 | MHC.EDTECH ---
This pct assumed care of Patient at 1900 ,vitals taken ,Patient awake a&o ,watching television ,Call garcia within Patient reach .
--- NOTE | 2024-08-02 21:55 | MHC.EDTECH ---
Patient was moved into a hospital bed for comfort .
--- NOTE | 2024-08-02 23:37 | MHC.EDTECH ---
mid night rounding done ,vitals taken ,Patient awake ,warm blanket given ,no apparent distress noted ,Plan of care continue .
[2024-08-03 04:31] VITALS: BP 108/69; PULSE 96; RESP 16; TEMP 36.5; O2SAT 97
[2024-08-03 06:23] VITALS: BP 103/76; PULSE 105; RESP 15; TEMP 36.5; O2SAT 95
[2024-08-03] MEDS: Apixaban 5 MG TABLET PO (08:04)
[2024-08-03] MEDS: Escitalopram Oxalate 20 MG TABLET PO (08:04)
[2024-08-03 08:05] VITALS: BP 110/80; PULSE 126
[2024-08-03] MEDS: Metoprolol Tartrate 25 MG TABLET PO ×2 (08:05→14:35)
[2024-08-03] MEDS: Digoxin 0.5 MG/2 ML AMPUL 0.4 MG IVPUSH (09:35)
[2024-08-03] MEDS: 0.9 % Sodium Chloride Flush 3 ML SYRINGE IVFLUSH (09:35)
--- NOTE | 2024-08-03 09:57 | PM.CNCAR ---
History of Present Illness History of Present Illness Date of Service: 08/03/24 Chief complaint: AFIB W/RVR Narrative: This is a cardiology consultation regarding atrial fibrillation. Patient without any known cardiac history. Apparently, she was at primary care physician's office and she was told to have rapid heart rate and sent here. She was found to be in atrial fibrillation with rapid rate. In the past, she did have some palpitations and a Holter monitor which was then unremarkable. However, EKG in this admission shows atrial fibrillation with rapid rate. She does not have any complaints including palpitations, chest pains, shortness of breath or in fact anything cardiac sounding. She states she feels well. Review of Systems Review of Systems: Yes all other systems are reviewed and are negative Constitutional: Constitutional: Reports as per HPI and Reports no additional constitutional complaints Eyes: Eyes: Reports as per HPI and Denies no additional eye complaints ENT: Denies system reviewed and no additional complaints, except as documented and Reports as per HPI Cardiovascular: Cardiovascular: Reports as per HPI, Reports no additional cardiovascular complaints, Denies acrocyanosis, Denies cool extremities, Denies chest pain, Denies leg edema, Denies lightheadedness, Denies palpitations and Denies dyspnea Respiratory: Respiratory: Reports as per HPI, Denies no additional respiratory complaints and Denies dyspnea Gastrointestinal: Gastrointestinal: Reports as per HPI and Denies no additional gastrointestinal complaints Genitourinary: Genitourinary: Reports as per HPI Musculoskeletal: Musculoskeletal: Reports no additional musculoskeletal complaints and Reports as per HPI Integumentary/Breasts: Skin/Breast: Reports system reviewed and no additional complaints, except as docu Neurologic: Reports system reviewed and no additional complaints, except as documented and Reports as per HPI Psychiatric: Psychiatric: Reports no additional psychiatric complaints and Reports as per HPI Endocrine: Endocrine: Reports no additional endocrine complaints, Reports as per HPI and Denies palpitations Hematologic/Lymphatic: Hematologic/Lymphatic: Reports no additional hematologic/lymphatic complaints and Reports as per HPI Allergic/Immunologic: Allergic/Immunologic: Reports no additional allergic/immunologic complaints and Reports as per HPI [facility] Past Medical History Medical History Obesity (BMI 30.0-34.9) Cervical cancer screening Numbness and tingling of both feet Chest pain Blood pressure elevated without history of HTN Vitamin D deficiency Menopause Well woman exam Stiffness of finger joint of right hand Sprain of interphalangeal joint of right middle finger Sprain of interphalangeal joint of right ring finger Finger pain, right Fall Vitamin A deficiency Joint pain Osteopenia Metatarsal stress fracture of right foot with routine healing Obstructive sleep apnea Osteoarthritis Hyperparathyroidism Anxiety and depression Closed fibular fracture Intestinal malabsorption following gastrectomy Overweight (BMI 25.0-29.9) Morbid obesity Spinal stenosis History of right breast cancer Family History Family History Mother History of colon cancer Other Mental health disorder Surgical History Surgical History Hx of tubal ligation History of colonoscopy Hx of bilateral cataract extraction Hx of dilation and curettage Hx of gastric bypass (~11/19/15) Hx laparoscopic cholecystectomy (~09/10/15) History of lumpectomy of right breast (~06/2010) History of back surgery Hx of section Social History Social History Housing: House Alcohol intake: never Patient Tobacco Use Status: Never used Tobacco Tobacco use type: Cigarette e-Cigarette/Vaping Use: Never Used Second Hand Smoke Exposure: No Advance Directives: Yes Advance Directives on File: Yes Advance Directives Date on File: 02/15/22 Do you have a plan to hurt others: No Plan Nutrition Risks: No Nutritional Risk Current occupational status: disabled Cognitive needs: No Hearing needs: No Vision needs: Yes Meds Allergies Allergy/AdvReac Type Severity Reaction Status Date / Time Lisinopril, SAÚL inhibitors Allergy Intermediate cough Uncoded 08/02/24 10:08 Active Medications: Current Medications Acetaminophen (Acetaminophen 325 Mg Tablet) 650 mg PO Q6H PRN PRN Reason: Pain, Mild 1-3,fever,headache Apixaban (Apixaban 5 Mg Tablet) 5 mg PO BID [facility] Last Admin: 08/03/24 08:04 Dose: 5 mg Calcium Carbonate (Calcium Carbonate 750 Mg Tab.Chew) 750 mg PO Q4H PRN PRN Reason: Heartburn Digoxin (Digoxin 0.25 Mg Tablet) 0.25 mg PO Q6H [facility]; Protocol Stop: 08/03/24 21:31 Escitalopram Oxalate (Escitalopram Oxalate 20 Mg Tablet) 20 mg PO DAILY [facility] Last Admin: 08/03/24 08:04 Dose: 20 mg Gabapentin (Gabapentin 300 Mg Capsule) 300 mg PO BEDTIME [facility] Magnesium Hydroxide (Milk Of Magnesia 30 Ml Oral.Susp) 30 ml PO DAILY PRN PRN Reason: Constipation Melatonin (Melatonin 3 Mg Tablet) 6 mg PO BEDTIME PRN PRN Reason: Insomnia Metoprolol Tartrate (Metoprolol Tartrate 25 Mg Tablet) 25 mg PO QID [facility]; Protocol Last Admin: 08/03/24 08:05 Dose: 25 mg Sodium Chloride (0.9 % Sodium Chloride Flush 3 Ml Syringe) 3 ml IVFLUSH QSIDFT [facility] Last Admin: 08/03/24 09:35 Dose: 3 ml Home Medications ?Medication ?Instructions ?Recorded ?Confirmed ?Last Taken ?Type multivitamin 1 tab PO DAILY 05/15/20 08/02/24 08/01/24 History vitamin A 3,000 mcg (10,000 unit) 1 cap PO DAILY 05/15/20 08/02/24 08/01/24 History capsule melatonin 3 mg capsule 3 mg PO BEDTIME PRN Insomnia 12/29/22 08/02/24 08/01/24 History vitamin B complex (B 1 tab PO DAILY 12/29/22 08/02/24 08/01/24 History Complex-Vitamin B12 tablet) [id number] 250 mg-dha 90 1 cap PO DAILY 04/24/24 08/02/24 08/01/24 History mg-epa 160 [id number] capsule (Ocuvite Adult 50 Plus) alendronate 70 mg tablet 70 mg PO SA 08/02/24 08/02/24 08/01/24 History citalopram 40 mg tablet 40 mg PO DAILY 08/02/24 08/02/24 08/01/24 History nystatin 100,000 unit/gram topical 1 appl topical BID PRN Rash 08/02/24 08/02/24 08/01/24 History powder Physical Exam Vital Signs: Vital Signs: Last Vital Signs Temp 97.7 F 08/03/24 06:23 Pulse 126 H 08/03/24 08:05 Resp 15 08/03/24 06:23 BP 110/80 08/03/24 08:05 Pulse Ox 95 08/03/24 06:23 O2 Del Method Room Air 08/03/24 06:23 BMI result Body Mass Index 31.4 Const: General: comfortable and no acute distress Orientation/consciousness: patient oriented x3 HEENT: Other: Unremarkable Head: Yes normal to inspection Neck: Neck: Yes normal visual inspection Chest: Chest palpation & inspection: normal inspection of the chest Resp: Auscultation: clear to auscultation bilaterally Cardio: Palpation: normal PMI Heart sounds: S1 normal heart sound present, S2 normal heart sound present, no gallops, no murmurs and no rubs GI: Palpation (GI): Soft to palpation Back/Spine/Pelvis: Other: unremarkable Skin: General skin exam: no rashes or lesions noted Neuro: General: patient oriented x3 Extrem: General: Yes normal to inspection Psych: Mental Status: mental status grossly normal Objective Labs and Meds 08/02/24 10:24 08/02/24 10:24 Lab results: Laboratory Results - last 24 hr 08/02/24 08/02/24 10:24 10:59 WBC 6.8 RBC 4.51 Hgb 12.0 Hct 37.4 MCV 82.9 MCH 26.6 L MCHC 32.1 RDW 14.1 Plt Count 340 MPV 9.7 Immature Gran % (Auto) 0.3 Neut % (Auto) 64.6 Lymph % (Auto) 21.5 [place] % (Auto) 9.6 Eos % (Auto) 2.4 Baso % (Auto) 1.6 Lymph # (Auto) 1.5 [place] # (Auto) 0.7 Eos # (Auto) 0.2 Baso # (Auto) 0.1 Abs Immat Gran (auto) 0.02 Absolute Neuts (auto) 4.4 Absolute Nucleated RBC 0.000 Nucleated RBC % (auto) 0.0 PT 12.5 H INR 1.1 Sodium 141 Potassium 4.1 Chloride 111 H Carbon Dioxide 23 Anion Gap 11 L BUN 17 H Creatinine 0.67 Estim Creat Clear Calc 79.6 Estimated GFR > 60 Random Glucose 110 Calcium 8.8 D Magnesium 2.4 Total Bilirubin 0.7 AST 37 H ALT < 6 Alkaline Phosphatase 56 Troponin I High Sens 2.7 Total Protein 6.7 Albumin 4.2 TSH 0.82 Influenza Type A (PCR) NEGATIVE Influenza Type B (PCR) NEGATIVE RSV RNA Qual (PCR) NEGATIVE SARS-CoV-2 RNA (RT-PCR) NEGATIVE ECG Interpretation: EKG with atrial fibrillation versus flutter at 122/Min. Imaging Radiologist's impression: Impressions Chest X-Ray 08/02/24 11:30 IMPRESSION: No acute airspace disease. Electronically signed by: Santos Ching MD 08/02/2024 12:07 PM EDT RP Assessment and Plan (1) Atrial fibrillation with rapid ventricular response: Status: Acute Plan Unremarkable high sensitivity troponins. Echocardiogram with LVEF of 55-60%. Severely dilated left atrium. Moderate mitral annular calcification with [id number] mitral regurgitation. Atrial fibrillation with slightly rapid rate but asymptomatic. She is currently on beta-blockers. Start digoxin load. Then maintenance. Anticoagulation. Once the heart rate improves on digoxin, discharge planning. We can set up Holter as an outpatient and then plan cardioversion after adequate anticoagulation. Discussed with Dr. Jarrett. Procedures Date of Service Date of Service: 08/03/24
--- NOTE | 2024-08-03 10:20 | PC.NURSE ---
Pt given initial dose of Digoxin; AFIB 90-110's with occ. PAC's
--- NOTE | 2024-08-03 11:30 | MHC.CM.PN ---
IMM 08/03/24, Pt lives with her , she does not have home health services or DME. HCP is on file and confirmed: her and dtr. PCP confirmed: Dr. Madden. Transport home at DC, by family. DCP: home, self care. CM to follow for DC needs.
[2024-08-03 13:08] VITALS: BP 135/78; PULSE 111; RESP 20; TEMP 36.2; O2SAT 99
[2024-08-03 14:35] VITALS: BP 104/56; PULSE 80
--- NOTE | 2024-08-03 15:17 | P.DS_ITS ---
DS: Providers Provider Date of Service: 08/03/24 Date of admission: 08/02/24 13:15 Date of discharge: 08/03/24 Primary care physician: Henrry Madden MD Consults: 08/02/24 13:02 Consult to Cardiology Routine Consulting Provider: [facility] Reason for consultation: New onset AFib w/RVR DS: Diagnosis Discharge Diagnosis (1) Atrial fibrillation with rapid ventricular response: Status: Acute (2) Atrial fibrillation, new onset: Status: Acute DS: Summary Hospital Course Hospital Course: Admission note HPI Pt is a 68-year-old female with a PMH significant for?HTN, HLD, osteoporosis, hx of gastric bypass, and hx of right breast cancer s/p lumpectomy and radiation who presents to the ED from PCP office for evaluation of tachycardia and arrhythmia. Pt was at her PCP this morning for regular follow-up appointment when HR was noted to be in the 130s and EKG showed atrial fibrillation. Was then sent to the ED for further evaluation. Reports has been experiencing intermittent dizziness often associated with position changes the past few weeks and 1 episode of palpitations last week. Has been chronically more tired above baseline for the past 2 months. Pt denies previous AFib diagnosis or cardiac issues, though notes last year wore a heart monitor for palpitations and lightheadedness that was negative. No SOB or difficulty breathing. Denies chest pain/pressure, palpitations. No nausea, vomiting, abdominal pain. ? In the ED pt was tachycardic to 139 and slightly soft BP of 113/47. Labs were g rossly unremarkable around baseline for pt. No leukocytosis. Stable H&H. No significant electrolyte abnormalities. Renal function WNL. Troponin WNL. Tested negative for flu, COVID, RSV. CXR showed no acute airway disease. EKG demonstrated atrial fibrillation with RVR of 122. Pt was treated with metoprolol 5 mg IV and metoprolol 50 mg p.o.. Pt will be admitted to the hospital for treatment and further evaluation of new onset symptomatic AFib with RVR. Hospital course The patient was treated for Newly onset AFib with RVR as patient was tachycardic into the 130s upon presentation, improved to 110s after metoprolol 5 mg IV and 50 mg p.o. in the ED. Kept on Metoprolol 25 mg Q6H with fair response as heart rate improved to 90s. started Eliquis 5 mg b.i.d and explained benefits and risks which she understood. Echocardiogram was done and reported ejection fraction is between 55-60%. Cardiology consulted and recommended loading Digoxin which was done prior to discharge her home. she will take the last 0.25 mg at home before continuing with 0.125 mg daily. She will also be on Metoprolol 100 mg XL. Plan to follow with cardiology as outpatient for holter monitoring and possible cardioversion. Losartan was held during admission and will continue to hold at time of discharge. to monitor BP at home and discuss if Losartan is needed or can be discontinued. Discharge plan Hold Losartan Monitor blood pressure readings for next week and discuss with cardiology before restarting. Start Eliquis 5 mg twice a day for stroke prevention Start Metoprolol 100 mg Take 2 tablets of Digoxin tonight at 9 PM then start 1 tablet daily tomorrow morning Follow with Cardiology as outpatient to set up Holter as an outpatient and then plan cardioversion after adequate anticoagulation. The patient made quicker than expected recovery and will not need 2 overnight hospital stay. Time Attestation Discharge Coordination Time (in mins): 38 Quality: Safe Use of Opioids Does Pt have an Active Cancer Diagnosis on the Problem List?: No Quality: Stroke Does the patient have a stroke diagnosis?: No Physical Exam Vital Signs: Vital Signs: Last Vital Signs Temp 97.2 F 08/03/24 13:08 Pulse 80 08/03/24 14:35 Resp 20 08/03/24 13:08 BP 104/56 L 08/03/24 14:35 Pulse Ox 99 08/03/24 13:08 O2 Del Method Room Air 08/03/24 13:08 BMI result Body Mass Index 31.4 Const: Other: Constitutional : Awake, interactive, not in distress Neck : Normal inspection, Supple Cardiovascular : irregular irregular, no JVP, no lower extremity edema Respiratory : good bilateral air entry, no crackles, wheezes or rhonchi Gastrointestinal: soft, lax, Normal bowel sounds, Non tender Skin : Warm, Dry Neurological : Alert & oriented x3, No focal deficit , CN 2-12 within normal DS: Data Imaging Chest x-ray: Radiologist's impression: ITS Impressions Chest X-Ray 08/02/24 11:30 IMPRESSION: No acute airspace disease. Electronically signed by: Santos Ching MD 08/02/2024 12:07 PM EDT RP ECHO - The left ventricular systolic function is normal. The visually estimated ejection fraction is between 55-60%. - The left atrium is severely dilated. - There is moderate mitral annular calcification. There is mild to moderate mitral valve regurgitation. Discharge Plan Discharge Anticipated Discharge Date/Time: 08/03/24 10:59 Patient Disposition: Home, Self-Care Discharge Diagnosis: New onset atrial fibrillation Referrals: Chano,Henrry Palacios MD [Primary Care Provider] - 1 Week Discharge Medications: New Eliquis 5 mg Tablet 5 mg PO BID Qty: 180 0RF metoprolol succinate 100 mg tablet extended release 24 hr 100 mg PO DAILY Qty: 90 0RF digoxin 125 mcg (0.125 mg) tablet 125 mcg PO DAILY Qty: 92 0RF Continued calcium citrate-vitamin D3 315 mg-6.25 mcg (250 unit) tablet 2 tab PO DAILY Qty: 60 0RF cholecalciferol (vitamin D3) 50 mcg (2,000 unit) capsule 50 mcg PO DAILY Qty: 30 5RF gabapentin 300 mg capsule 300 mg PO BEDTIME 90 Days Qty: 90 3RF citalopram 40 mg tablet 40 mg PO DAILY alendronate 70 mg tablet 70 mg PO SA nystatin 100,000 unit/gram powder 1 appl topical BID PRN (Reason: Rash) vitamin A 10,000 unit capsule 1 cap PO DAILY multivitamin Tablet 1 tab PO DAILY vitamin B complex [B Complex-Vitamin B12] Tablet 1 tab PO DAILY melatonin 3 mg capsule 3 mg PO BEDTIME PRN (Reason: Insomnia) Ocuvite Adult 50 Plus 250 mg (90 mg-160 mg) capsule 1 cap PO DAILY Held losartan 25 mg tablet 25 mg PO DAILY Qty: 90 2RF Hold Instructions: Monitor blood pressure readings for next week and discuss with cardiology before restarting. Stand Alone Forms: Patient Portal Discharge page Print Language: Malaysian Care Plan Goals: Hold Losartan Monitor blood pressure readings for next week and discuss with cardiology before restarting. Start Eliquis 5 mg twice a day for stroke prevention Start Metoprolol 100 mg Take 2 tablets of Digoxin tonight at 9 PM then start 1 tablet daily tomorrow morning Follow with Cardiology as outpatient to set up Holter as an outpatient and then plan cardioversion after adequate anticoagulation. Health Concerns: New onset atrial fibrillation Plan of Treatment: Metoprolol Eliquis Digoxin Assessment: as above
[2024-08-03] MEDS: Digoxin 0.25 MG TABLET PO (15:25)
== END 2024-08-03 17:12 | disposition home or self-care (01) | DRG 310 ==
LOC: HO.ED 11:59 → HO.EDOVER 13:15
PROVIDERS: Registered Nurse Emergency; Admitting Provider Student in an Organized Health Care Education/Training Program; Emergency Provider Emergency Medicine; PCP Internal Medicine; Visit Provider Student in an Organized Health Care Education/Training Program
DX: I48.91 Unspecified atrial fibrillation (principal); G62.9 Polyneuropathy, unspecified; I10 Essential (primary) hypertension; Z98.84 Bariatric surgery status; Z20.822 Contact with and (suspected) exposure to COVID-19; Z79.899 Other long term (current) drug therapy
CPT/HCPCS: 0241U; 36415; 71045; 80053; 83735; 84443; 84484; 85025; 85610; 93005; 93306; 96127; 99212; 99285; J1160; Q9957

== ENCOUNTER → 2024-08-02 11:23 | Outpatient (BNV) | payer MEDICARE, SELFPAY | PROVIDERS: Emergency Provider Emergency Medicine; PCP Internal Medicine; Visit Provider Radiology Diagnostic Radiology | DX: I48.91 Unspecified atrial fibrillation (principal) | CPT/HCPCS: 71045 ==

== ENCOUNTER 2024-08-02 13:15 | Outpatient (BNV) | payer MEDICARE, SELFPAY | END 2024-08-02 15:00 | PROVIDERS: Admitting Provider Student in an Organized Health Care Education/Training Program; Emergency Provider Emergency Medicine; PCP Internal Medicine; Visit Provider Internal Medicine | DX: I42.2 Other hypertrophic cardiomyopathy (principal); I51.7 Cardiomegaly; I34.0 Nonrheumatic mitral (valve) insufficiency; I36.1 Nonrheumatic tricuspid (valve) insufficiency; I48.91 Unspecified atrial fibrillation | CPT/HCPCS: 93010; 93306 ==

== ENCOUNTER → 2024-08-02 13:15 | Outpatient (BNV) | payer MEDICARE, SELFPAY | PROVIDERS: Admitting Provider Student in an Organized Health Care Education/Training Program; Emergency Provider Emergency Medicine; PCP Internal Medicine; Visit Provider Student in an Organized Health Care Education/Training Program | DX: I48.91 Unspecified atrial fibrillation (principal) | CPT/HCPCS: 99239 ==

== ENCOUNTER → 2024-08-02 13:15 | Outpatient (BNV) | payer MEDICARE, SELFPAY | PROVIDERS: Admitting Provider Student in an Organized Health Care Education/Training Program; Emergency Provider Emergency Medicine; PCP Internal Medicine; Visit Provider Internal Medicine | DX: I48.91 Unspecified atrial fibrillation (principal) | CPT/HCPCS: 99223 ==

== ENCOUNTER 2024-08-08 08:36 | Outpatient (REF) | payer MEDICARE, SELFPAY ==
--- NOTE | ~2024-08-08 | MM_ITS ---
EXAMINATION: MM SCREENING DIGITAL BREAST TOMOSYNTHESIS, BILATERAL CLINICAL INFORMATION: Screening. Asymptomatic. COMPARISON: Mammography: Comparison is made with available priors TECHNIQUE: Digital breast mammography with tomosynthesis is performed in both the craniocaudal and mediolateral oblique views along with computer-aided detection (CAD). FINDINGS: There are scattered areas of fibroglandular density (ACR BI-RADS breast composition Category b). Right postsurgical changes are stable. There are no significant masses, abnormal calcifications, or other abnormalities. MM/MM tomosynthesis screening BI IMPRESSION: No mammographic evidence of malignancy. ASSESSMENT: BI-RADS BI-RADS 2 - Benign Findings RECOMMENDATION: Routine annual mammography screening. 1 year F/U This examination should not preclude the clinical evaluation of a suspicious palpable abnormality. This patient's information was entered into a reminder system with a target due date for their next mammogram. Electronically signed by: Daysi Gavin DO 08/10/2024 04:49 PM EDT
--- OUTSIDE RECORDS SUMMARY | 2024-08-08 08:51 | XMS_ITS | Patient Health Record ---
Author Organization [facility] [place] Address [address] [place] [address] Care Team Providers Care Check Writer Name Role Phone Henrry Madden Primary Care Provider Unavailabl e Yesi Ortega Unavailable [phone] Allergies Allergen (clinical drug ingredient) Drug/Non Drug Allergy documented on EMR Reaction Allergy Type Onset Date Status lisinopril Lisinopril Unknown Drug Allergy Activ e Reason For Referral No Information Medications Medication SIG (Take, Route, Frequency, Duration) Notes Start Date End Date Status Calcium Citrate + D3 315-5 MG-MCG 1 tablet Orally Once a day Active Vitamin A 3 MG (98958 UT) 1 capsule Orally Once a day Active Gabapentin 300mg three times a day orally daily Active CBD [place] Active Citalopram & Diet Manage Prod 20mg [...] W/U Status Risk Notes Problem Plantar wart (09544116) Plantar wart (B07.0) Active confirmed Plan Of Treatment Pending Test Test Name Order Date [id number] Destruction, 1-14 10/25/2022 Insurance Providers Payer Name Payer Address Payer Phone Subscriber Number Group Number Insured Name Patient Relationship to Insured Coverage Start Date Coverage End Date [employer] Medicare Complete [address] [address] [place] [address] [phone] [id number] Jenn Hidalgo Self - patient is the insured Medical (General) History Medical History History ICD Code Anxiety Back,Hip,and Knee pain Broken bones Cancer Cataracts covid-19 Depression High blood pressure Osteoporosis Reflux thyroid Measles Chicken pox Surgical History Surgery Date(Month/Year) back surgery 11/1990 gastric bypass 2016 09/07/83 12/07/85
--- OUTSIDE RECORDS SUMMARY | 2024-08-08 08:51 | XMS_ITS | Clinical Summary ---
Author Organization [employer] Address [address] [place] [address] [address] [place] [address] Care Team Providers Care Astrophysics Professor Name Role Phone Unavailable Primary Care Provider [...]
--- OUTSIDE RECORDS SUMMARY | 2024-08-08 08:51 | XMS_ITS | Patient Health Record ---
Author Organization [facility] Address [address] [place] [address] Care Team Providers Care Sports Management Internship Name Role Phone Po Henrry BOONE Primary Care Provider Joseph Plummer [phone] Allergies Allergen (clinical drug ingredient) Drug/Non Drug [...] for 30 Active Vitamin A 3 MG (41811 UT) TK 1 C PO QD Oral [...] Problem Screening for malignant neoplasm of colon (246080775) Encounter for screening for malignant neoplasm of colon (Z12.11) Active confirmed Problem History of adenomatous polyp of colon (727617280) History of adenomatous polyp of colon (Z86.010) Active confirmed Problem Preprocedural examination (189028017401258) Preprocedural examination (Z01.818) Active confirmed Problem Family History of Cancer of Colon (Situation) (214167182) Family history of colon cancer (Z80.0) Active confirmed Plan Of Treatment Future Test Test Name Order Date COLONOSCOPY 10/24/2014 COLONOSCOPY 05/08/2020 Insurance Providers Payer Name Payer Address Payer Phone Subscriber Number Group Number Insured Name Patient Relationship to Insured Coverage Start Date Coverage End Date AARP Medicare Advantage Plan [address] [address] [place] [address] [id number] GUY SINGH Self - patient is the insured Medical (General) History Medical History History ICD Code Screening Colonoscopies 1996 and 2003 were negative; in 2009 a small tubular adenoma was removed--also noted to have moderate sigmoid diverticulosis and internal hemorrhoids; neg. colonoscopy in 01/2015 Right breast cancer 06/2010--lumpectomy a nd XRT-sees Dr. Lilly HTN Depression Denies [place],DM,CVA,Lung disease,renal dise ase Spinal stenosis Surgical History Surgery Date(Month/Year) Back surgery-lower back C-sections x 2 Right breast surgery for cancer as above ---neg. lymph node 2010 Cholecystectomy 08/2015 Gastric bypass lost > 100#--Dr. Coleman los 10/2015
--- OUTSIDE RECORDS SUMMARY | 2024-08-08 08:51 | XMS_ITS | Encounter Summary ---
Author Organization [employer] Address [address] [facility] 7 [place] [address] Care Team Providers Care Coating Machine Helper Name Role Phone Unavailable Primary Care Provider [...]
--- NOTE | 2024-08-08 09:23 | HM_ITS ---
* Total monitoring time 3 days. * Underlying rhythm is atrial fibrillation. Average ventricular rate 82/Min. About 9% of the time, rate > 100/Min. * Rare ventricular ectopy. Rare couplets. Short 8 beat run could also be supraventricular. * No significant pauses or high-grade AV blocks. * No patient markers or diary events. MTDD
== END 2024-08-08 08:37 | disposition home or self-care (01) ==
LOC: HO.MAMMO 08:36
PROVIDERS: PCP Internal Medicine; Visit Provider Internal Medicine
DX: Z12.31 Encounter for screening mammogram for malignant neoplasm of breast (principal); I48.91 Unspecified atrial fibrillation
CPT/HCPCS: 77063; 77067; 93242

== ENCOUNTER → 2024-08-08 09:00 | Outpatient (BNV) | payer MEDICARE, SELFPAY | PROVIDERS: PCP Internal Medicine; Visit Provider Internal Medicine | DX: Z12.31 Encounter for screening mammogram for malignant neoplasm of breast (principal) | CPT/HCPCS: 77063; 77067 ==

== ENCOUNTER → 2024-08-08 09:23 | Outpatient (BNV) | payer MEDICARE, SELFPAY | PROVIDERS: PCP Internal Medicine; Visit Provider Internal Medicine | DX: I48.91 Unspecified atrial fibrillation (principal) | CPT/HCPCS: 93244 ==

== ENCOUNTER 2024-08-16 08:42 | Outpatient (AMB) | payer MEDICARE, SELFPAY ==
--- NOTE | 2024-08-16 08:51 | MHC.OFFVIS ---
Vital Signs 08/16/24 08:56 Height 5 ft 4.84 in Weight 180 lb 5.41 oz BMI 30.2 BP 122/82 Blood Pressure Location Lt brachial Position Sitting Pulse 66 Pulse Oximetry (%) 96 Oxygen Delivery Method Room Air Intake Visit Reasons: osteoporosis Intake Note: Patient present today for Osteoporosis follow up. Sustainable Landscape Architect Required: No Allergies Lisinopril, SAÚL inhibitors Allergy (Intermediate, Uncoded 08/16/24 08:55) cough Medication List - Last Reconciled 08/16/24 by Nadya Chambers RN alendronate 70 mg PO SA apixaban (Eliquis) 5 mg PO BID apixaban (Eliquis) 5 mg PO BID calcium citrate-vitamin D3 315 mg-6.25 mcg (250 unit) 2 tabs PO DAILY cholecalciferol (vitamin D3) 50 mcg PO DAILY citalopram 40 mg PO DAILY digoxin 125 mcg PO DAILY gabapentin 300 mg PO BEDTIME 90 days losartan 25 mg PO DAILY melatonin 3 mg PO BEDTIME PRN metoprolol succinate ER 100 mg PO DAILY multivitamin 1 tab PO DAILY od-vb-xp1-xwz-ywx-miss-lut-kathy 250 mg (90 mg-160 mg) (Ocuvite Adult 50 Plus) 1 cap PO DAILY nystatin 1 appl topical BID PRN vitamin A 1 cap PO DAILY vitamin B complex (B Complex-Vitamin B12 tablet) 1 tab PO DAILY HPI Comments Details: 68 YO Female with PMHx Obesity s/p Suhas En Y gastric bypass in 2015, a history of breast cancer of the R breast S/P lumpectomy and radiation therapy in 2010 as well as Osteopenia who is seen in F/U for hyperparathyroidism.. She had labs assessed 03/09/2021 with Calcium 9.6, PTH 108, Vitamin D 45.1, but no albumin was assessed. After her initial visit with me we completed a full biochemical evaluation which revealed evidence of suspected secondary hyperparathyroidism with elevated PTH, calcium low normal and Vitamin D WNL. She had a repeat DXA which revealed significant decline in her BMD in the hip into the osteoporotic range. This was thought to likely represent osteomalacia vs osteoporosis. She was asked to increase her dietary calcium, but instead decreased this of her own accord and is currently not having any dietary calcium at all. She has a history of breast cancer in 2010 and completed 10 years of tamoxifen therapy. She had routine labs completed by her bariatric team which revealed an elevated PTH level in the low 100's. She has never been treated for her Osteopenia. No history of pathologic fracture or ONJ. Currently not having any dietary calcium at all. Takes Calcium citrate 325 mg 2 tabs PO daily. Takes 1000 IU of Vitamin D daily. Has used a short course of PPI in the past, max of 2 months. Denies ever using anticoagulant, antiepileptic or glucocorticoid medication. Does no weight bearing exercise. Fracture history: Fracture of the R ankle twice, 2014 and 2017. 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 Menses were always regular. . She did not breastfeed. Menopause was age 49. She does not use HRT. Denies history of Kidney stones. Denies family history of Osteoporosis or hip fracture. Her Daughter does have recurrent nephrolithiasis. UTD on dental cleanings and sees dentist every 6 months. No planned upcoming dental work or extractions. DXA: 07/23/21 FINDINGS: AP SPINE L1-L4: Current: BMD 1.229 g/cm2, Z-score 1.6, T-score 0.4, normal, 4.1% decrease from previous, 4.0% decrease from baseline (<5% change is not significant). Prior: BMD 1.281 g/cm2. Baseline: BMD 1.280 g/cm2. LEFT FEMUR, NECK: Current: BMD 0.569 g/cm2, Z-score -2.1, T-score -3.4, osteoporosis. Prior: BMD 0.703 g/cm2. Baseline: BMD 1.031 g/cm2. LEFT FEMUR, TOTAL: Current: BMD 0.617 g/cm2, Z-score -2.1, T-score -3.1, osteoporosis, 18.1% decrease from previous, 46.2% decrease from baseline (<5% change is not significant). Prior: BMD 0.753 g/cm2. Baseline: BMD 1.146 g/cm2. LEFT FOREARM RADIUS 33%: BMD 0.684 g/cm2, Z-score -0.7, T-score -2.2, osteopenia. Prior:? Not previously measured. Thyroid US: 07/31/2021 Right Thyroid Lobe: 5.30 x 1.37 x 1.60 cm, volume 6.08 mL. Parenchyma: The gland echotexture is homogeneous. Thyroid vascularity is increased. Left Thyroid Lobe: 5.69 x 1.44 x 1.85 cm, volume 7.96 mL. Parenchyma: The gland echotexture is homogeneous. Thyroid vascularity is increased. Isthmus: 0.58 cm in maximum AP dimension. Estimated total number of nodules greater than or equal to 1 cm: 0. Linux Network Engineer nodules are described as follows: 1. Location: Left mid. ?? ? Size: 0.74 x 0.70 x 0.73 cm, volume 0.20 mL. ?? ? Nodule characteristics: ?? ? Composition: Solid (2). ?? ? Echogenicity: Isoechoic (1). ?? ? Shape: Not taller than wide (0). ?? ? Margins: Smooth (0). ?? ? Echogenic Foci: None (0). ?? ? ACR TI-RADS total points: 3 ?? ? ACR TI-RADS category: 3 2. Location: Left inferior. ?? ? Size: 0.34 x 0.23 x 0.40 cm, volume 0.02 mL. ?? ? Nodule characteristics: ?? ? Composition: Spongiform (0). ?? ? Echogenicity: Anechoic (0). ?? ? Shape: Not taller than wide (0). ?? ? Margins: Smooth (0). ?? ? Echogenic Foci: None (0). ?? ? ACR TI-RADS total points: 0 ?? ? ACR TI-RADS category: 1 3.: Small 1 mm calcification in the upper pole. NODES: No lymphadenopathy is seen in the tissue surrounding the thyroid gland. Labs: Laboratory Tests 08/11/22 08/13/22 08/13/22 07:45 08:00 08:00 Creatinine Estimated GFR Albumin N-Telopeptide X-linked 70 25-OH Vitamin D Total TSH Free T4 PTH Intact Calcium (PTH Intact) Ur 24 Hour Volume 1525 Ur Creatinine 24 Hour 1.19 Ur Calcium 24 Hr 172 09/21/22 09/21/22 07:36 07:36 Creatinine 0.69 Estimated GFR > 60 Albumin 4.0 N-Telopeptide X-linked 25-OH Vitamin D Total 42.2 TSH 1.10 Free T4 1.14 PTH Intact 131 H Calcium (PTH Intact) 9.3 Ur 24 Hour Volume Ur Creatinine 24 Hour Ur Calcium 24 Hr Currently off Prolia 60 mg q.6 months . No fx since last visit . Transitioned off the Prolia onto alendronate because of cost concerns . On alendronate 70 mg Q weekly since 05/2024 The patient is a 68-year-old female presenting with concerns related to ongoing osteoporosis management and new atrial fibrillation diagnosis. Her osteoporosis treatment history includes an initial regimen of Prolia which was switched to alendronate in May due to accessibility and cost considerations. The patient has been compliant with weekly alendronate dosing without experiencing adverse effects, although she remains aware of her persistently low bone density and the ongoing risk of fracture. [facility] Medical History Obesity (BMI 30.0-34.9) Cervical cancer screening Numbness and tingling of both feet Chest pain Blood pressure elevated without history of HTN Vitamin D deficiency Menopause Well woman exam Stiffness of finger joint of right hand Sprain of interphalangeal joint of right middle finger Sprain of interphalangeal joint of right ring finger Finger pain, right Fall Vitamin A deficiency Joint pain Osteopenia Metatarsal stress fracture of right foot with routine healing Obstructive sleep apnea Osteoarthritis Hyperparathyroidism Anxiety and depression Closed fibular fracture Intestinal malabsorption following gastrectomy Overweight (BMI 25.0-29.9) Morbid obesity Spinal stenosis History of right breast cancer Surgical History Hx of tubal ligation History of colonoscopy Hx of bilateral cataract extraction Hx of dilation and curettage Hx of gastric bypass (~11/19/15) Hx laparoscopic cholecystectomy (~09/10/15) History of lumpectomy of right breast (~06/2010) History of back surgery Hx of section Family History Mother History of colon cancer Other Mental health disorder Social History Housing: House Alcohol intake: never Patient Tobacco Use Status: Never used Tobacco Tobacco use type: Cigarette e-Cigarette/Vaping Use: Never Used Second Hand Smoke Exposure: No Advance Directives Date on File: 02/15/22 service: No Current occupational status: disabled Cognitive needs: No Hearing needs: No Vision needs: Yes Female Reproductive History Menstrual Age of Menarche: 12 Physical Exam Vital Signs: Last Vital Signs Pulse 66 08/16/24 08:56 BP 122/82 08/16/24 08:56 Pulse Ox 96 08/16/24 08:56 Oxygen Delivery Method Room Air 08/16/24 08:56 BMI result Body Mass Index 30.2 Assessment & Plan Assessment & Plan (1) Hyperparathyroidism: Comment: Secondary hyperparathyroidism, endocrinology Code(s): E21.3 - Hyperparathyroidism, unspecified Category: Medical Plan: This is a 67-year-old white female status post gastric bypass surgery elevated PTH suggestive secondary hyperparathyroidism due to calcium malabsorption. Repeat labs done at [facility] were normal. Patient transition to alendronate 70 mg Q weekly recently The plan is to continue the alendronate . We will check urine NTX. Considering very low bone density might talk to patient about transitioning in the future to anabolic. However, patient is not interested in this transition 1. Osteoporosis The patient should maintain alendronate therapy and undergo a bone turnover marker test to monitor treatment efficacy. A follow-up visit should be planned around these results to adjust the care plan as necessary. During our consultation, I reviewed the patient's current medication regimen for osteoporosis and discussed the limitations and benefits of her current treatment with alendronate. I clarified that while Prolia and alendronate serve to maintain bone density, they do not increase it. Additionally, I suggested measuring bone turnover markers to assess the effectiveness of the current therapy. - Continue taking alendronate once weekly as prescribed. - Schedule and complete a fasting bone turnover marker test one month prior to the next appointment. - The patient had an opportunity to ask questions regarding treatment plan. The patient expressed understanding and agreement with the above treatment plan. Patient was informed and verbally consented to the use of an ambient scribe for clinic note documentation during this visit. Orders: Orders Collagen Crosslinks NTX Today E21.3 - Hyperparathyroidism, unspecified Coding Level of Care Code Est Pt Level 3 (68036) Diagnoses Hyperparathyroidism E21.3
[2024-08-16 08:56] VITALS: BP 122/82; PULSE 66; O2SAT 96; BMI 30.2
--- OUTSIDE RECORDS SUMMARY | 2024-08-16 09:21 | XMS_ITS | Patient Health Record ---
Author Organization [facility] [place] Address [address] [facility] [place] [address] Care Team Providers Care Industrial Staff Nurse Name Role Phone Henrry Madden Primary Care Provider Alok OrtegaYesi Unavailable [phone] Allergies Allergen (clinical drug ingredient) Drug/Non Drug Allergy documented on EMR Reaction Allergy Type Onset Date Status Lisinopril Unknown Drug Allergy Active Reason For Referral No Information Medications Medication SIG (Take, Route, Frequency, Duration) Notes Start Date End Date Status Calcium Citrate + D3 315-5 MG-MCG 1 tablet Orally Once a day Active Vitamin A 3 MG (66783 UT) 1 capsule Orally Once a day Active Gabapentin 300mg three times a day orally daily Active CBD [place] Active Citalopram & Diet Manage Prod 20mg [...] W/U Status Risk Notes Problem Plantar wart (77961465) Plantar wart (B07.0) Active confirmed Plan Of Treatment Pending Test Test Name Order Date [id number] Destruction, 1-14 10/25/2022 Insurance Providers Payer Name Payer Address Payer Phone Subscriber Number Group Number Insured Name Patient Relationship to Insured Coverage Start Date Coverage End Date AARP Medicare Complete [address] [address] [place] [address] [id number] Jenn Hidalgo Self - patient is the insured Medical (General) History Medical History History ICD Code Anxiety Back,Hip,and Knee pain Broken bones Cancer Cataracts covid-19 Depression High blood pressure Osteoporosis Reflux thyroid Measles Chicken pox Surgical History Surgery Date(Month/Year) back surgery 11/1990 gastric bypass 2016 09/07/83 12/07/85
--- OUTSIDE RECORDS SUMMARY | 2024-08-16 09:21 | XMS_ITS | Patient Health Record ---
Author Organization [facility] Address [address] [place] [address] Care Team Providers Care Fastener Sewing Machine Operator Name Role Phone Po Henrry BOONE Primary Care Provider Joseph Plummer [phone] Allergies Allergen (clinical drug ingredient) Drug/Non Drug [...] for 30 Active Vitamin A 3 MG (76089 UT) TK 1 C PO QD Oral [...] Problem Screening for malignant neoplasm of colon (112482012) Encounter for screening for malignant neoplasm of colon (Z12.11) Active confirmed Problem History of adenomatous polyp of colon (471960765) History of adenomatous polyp of colon (Z86.010) Active confirmed Problem Preprocedural examination (438406090347808) Preprocedural examination (Z01.818) Active confirmed Problem Family History of Cancer of Colon (Situation) (907019156) Family history of colon cancer (Z80.0) Active confirmed Plan Of Treatment Future Test Test Name Order Date COLONOSCOPY 10/24/2014 COLONOSCOPY 05/08/2020 Insurance Providers Payer Name Payer Address Payer Phone Subscriber Number Group Number Insured Name Patient Relationship to Insured Coverage Start Date Coverage End Date AARP Medicare Advantage Plan [address] [address] [place] [address] [id number] GUY SINGH Self - patient is the insured Medical (General) History Medical History History ICD Code Screening Colonoscopies 1996 and 2003 were negative; in 2009 a small tubular adenoma was removed--also noted to have moderate sigmoid diverticulosis and internal hemorrhoids; neg. colonoscopy in 01/2015 Right breast cancer 06/2010--lumpectomy a nd XRT-sees Dr. Lilly HTN Depression Denies [place],DM,CVA,Lung disease,renal dise ase Spinal stenosis Surgical History Surgery Date(Month/Year) Back surgery-lower back C-sections x 2 Right breast surgery for cancer as above ---neg. lymph node 2010 Cholecystectomy 08/2015 Gastric bypass lost > 100#--Dr. Coleman los 10/2015
--- OUTSIDE RECORDS SUMMARY | 2024-08-16 09:21 | XMS_ITS | Clinical Summary ---
Author Organization [employer] Address [address] [place] [address] [address] [place] [address] Care Team Providers Care Building Wrecker Name Role Phone Unavailable Primary Care Provider [...]
--- OUTSIDE RECORDS SUMMARY | 2024-08-16 09:21 | XMS_ITS | Encounter Summary ---
Author Organization [employer] Address [address] [facility] 7 [place] [address] Care Team Providers Care Cargoman Name Role Phone Unavailable Primary Care Provider [...]
== END 2024-08-16 09:14 | disposition home or self-care (01) ==
PROVIDERS: PCP Internal Medicine; Visit Provider Internal Medicine Endocrinology, Diabetes & Metabolism
DX: E21.3 Hyperparathyroidism, unspecified (principal)
CPT/HCPCS: 99213

== ENCOUNTER → 2024-08-16 08:42 | Outpatient (BNVA) | payer MEDICARE, SELFPAY | PROVIDERS: PCP Internal Medicine; Visit Provider Internal Medicine Endocrinology, Diabetes & Metabolism | DX: E21.3 Hyperparathyroidism, unspecified (principal) | CPT/HCPCS: 99212 ==

== ENCOUNTER 2024-08-28 08:24 | Outpatient (REF) | payer MEDICARE, SELFPAY ==
--- OUTSIDE RECORDS SUMMARY | 2024-08-28 08:39 | XMS_ITS | Clinical Summary ---
Author Organization [employer] Address [address] [place] [address] 7[address] [place] [address] Care Team Providers Care Warehouse Assistant Name Role Phone Unavailable Primary Care Provider [...]
--- OUTSIDE RECORDS SUMMARY | 2024-08-28 08:39 | XMS_ITS | Patient Health Record ---
Author Organization [facility] [place] Address [address] [place] [address] Care Team Providers Care Carburizer Name Role Phone Henrry Madden Primary Care Provider Alok OrtegaYesi Unavailable [phone] Allergies Allergen (clinical drug ingredient) Drug/Non Drug Allergy documented on EMR Reaction Allergy Type Onset Date Status Lisinopril Unknown Drug Allergy Active Reason For Referral No Information Medications Medication SIG (Take, Route, Frequency, Duration) Notes Start Date End Date Status Calcium Citrate + D3 315-5 MG-MCG 1 tablet Orally Once a day Active Vitamin A 3 MG (43657 UT) 1 capsule Orally Once a day Active Gabapentin 300mg three times a day orally daily Active CBD [place] Active Citalopram & Diet Manage Prod 20mg [...] W/U Status Risk Notes Problem Plantar wart (45695394) Plantar wart (B07.0) Active confirmed Plan Of Treatment Pending Test Test Name Order Date [id number] Destruction, 1-14 10/25/2022 Insurance Providers Payer Name Payer Address Payer Phone Subscriber Number Group Number Insured Name Patient Relationship to Insured Coverage Start Date Coverage End Date AARP Medicare Complete [address] [address] [place] [address] [id number] Jenn Hidalgo Self - patient is the insured Medical (General) History Medical History History ICD Code Anxiety Back,Hip,and Knee pain Broken bones Cancer Cataracts covid-19 Depression High blood pressure Osteoporosis Reflux thyroid Measles Chicken pox Surgical History Surgery Date(Month/Year) back surgery 11/1990 gastric bypass 2016 09/07/83 12/07/85
--- OUTSIDE RECORDS SUMMARY | 2024-08-28 08:39 | XMS_ITS | Encounter Summary ---
Author Organization [employer] Address [address] [facility] 7 [place] [address] Care Team Providers Care Biological Photographer Name Role Phone Unavailable Primary Care Provider [...]
[2024-08-28 09:59] LABS: MANUAL DIFF FLAG NO
[2024-08-28 10:10] LABS: Basophils Absolute Auto 0.1 X10*3/uL (0.0-0.2); Basophils Percent Auto 1.6 % (0-2); Eosinophils Absolute Auto 0.2 X10*3/uL (0.0-0.4); Eosinophils Percent Auto 2.8 % (0-4); Hematocrit 39.6 % (37.0-47.0); Hemoglobin 12.7 g/dl (12.0-16.0); Imm Gran Abs Auto 0.02 X10*3/uL (0.00-0.03); Imm Gran Pct Auto 0.3 % (0.0-0.4); Lymphocytes Absolute Auto 1.6 X10*3/uL (1.2-4.9); Lymphocytes Percent Auto 24.3 % (20-40); Mean Corpuscular HGB Conc 32.1 g/dl (31.0-35.0); Mean Corpuscular Hemoglobin 26.2 pg (27.0-33.0); Mean Corpuscular Volume 81.8 fL (80.0-98.0); Mean Platelet Volume 10.3 fL (9.4-12.3); Monocytes Absolute Auto 0.6 X10*3/uL (0.1-1.2); Platelet Count 313 X10*3/uL (160-400); Red Blood Count 4.84 X10*6/uL (4.20-5.50); Red Cell Distribution Width 14.2 % (11.0-16.0); White Blood Count 6.4 X10*3/uL (4.8-10.8)
[2024-08-28 10:23] LABS: B Type Natriuretic Peptide 365 pg/mL (<100)
[2024-08-28 10:25] LABS: D Dimer High Sensitivity < 150 NG/ML
[2024-08-28 10:48] LABS: Alanine Aminotransferase 16 U/L (0-31); Albumin Level 4.1 g/dL (3.5-5.0); Alkaline Phosphatase 48 U/L (39-117); Anion Gap 10 (12-20); Aspartate Amino Transferase 41 U/L (5-31); Bilirubin Total 0.5 mg/dL (0.0-1.0); Blood Urea Nitrogen 18 mg/dL (9-16); Carbon Dioxide 27 mmol/L (22-29); Chloride 109 mmol/L (96-108); Cholesterol 158 mg/dL (<200); Estimated Glomerular Filt Rate > 60; Glucose Random 91 mg/dL (60-115); HDL Cholesterol 31 mg/dL (>40); LDL Cholesterol Calculated 99 mg/dL (<100); Potassium 4.5 mmol/L (3.3-5.1); Sodium 141 mmol/L (135-145); Total Protein 6.8 g/dL (6.5-8.0); Triglycerides 143 mg/dL (<150)
[2024-08-28 10:55] LABS: Free T4 (Free Thyroxine) 1.12 ng/dL (0.71-1.85); Thyroid Stimulating Hormone 0.95 uIU/mL (0.32-4.0)
[2024-08-28 11:08] LABS: Appearance Urine Clear; Color Urine Yellow; Glucose Urine UA Negative (Negative); Leukocyte Esterase Urine Large (3+) (Negative); Nitrite Urine Negative (Negative); Specific Gravity - Urine 1.015 (1.005-1.025); UMIC TRIGGER UA YES; Urine Blood Moderate (2+) (Negative); Urine Ketones Negative (Negative); Urine Protein Negative (Neg-Trace)
[2024-08-28 11:11] LABS: Bacteria Urine None Seen (None Seen); Hyaline Casts Urine 0-2 /LPF (0-2); Squamous Epithelial Cell Urine 0-2 /HPF (0-2)
[2024-08-28 11:19] LABS: Folate 12.3 ng/mL (> or = 4.0); Vitamin B12 607 pg/mL (200-900)
[2024-08-28 11:31] LABS: Digoxin 0.5 ng/mL (0.8-2.0)
== END 2024-08-28 08:25 | disposition home or self-care (01) ==
LOC: HO.HMGCLDS 08:24
PROVIDERS: Internal Medicine; PCP Internal Medicine; Referring Provider Internal Medicine Endocrinology, Diabetes & Metabolism; Visit Provider Internal Medicine
DX: E78.00 Pure hypercholesterolemia, unspecified (principal); I48.19 Other persistent atrial fibrillation; I49.9 Cardiac arrhythmia, unspecified
CPT/HCPCS: 36415; 80053; 80061; 80162; 81001; 82607; 82746; 83880; 84439; 84443; 85025; 85379

== ENCOUNTER 2024-08-29 08:20 | Outpatient (REF) | payer MEDICARE, SELFPAY ==
--- OUTSIDE RECORDS SUMMARY | 2024-08-29 09:35 | XMS_ITS | Patient Health Record ---
Author Organization [facility] [place] Address [address] [facility] [place] [address] Care Team Providers Care Green Jobs Trainer Name Role Phone Henrry Madden Primary Care Provider Alok OrtegaYesi Unavailable [phone] Allergies Allergen (clinical drug ingredient) Drug/Non Drug Allergy documented on EMR Reaction Allergy Type Onset Date Status Lisinopril Unknown Drug Allergy Active Reason For Referral No Information Medications Medication SIG (Take, Route, Frequency, Duration) Notes Start Date End Date Status Calcium Citrate + D3 315-5 MG-MCG 1 tablet Orally Once a day Active Vitamin A 3 MG (31586 UT) 1 capsule Orally Once a day Active Gabapentin 300mg three times a day orally daily Active CBD [place] Active Citalopram & Diet Manage Prod 20mg [...] W/U Status Risk Notes Problem Plantar wart (52736496) Plantar wart (B07.0) Active confirmed Plan Of Treatment Pending Test Test Name Order Date [id number] Destruction, 1-14 10/25/2022 Insurance Providers Payer Name Payer Address Payer Phone Subscriber Number Group Number Insured Name Patient Relationship to Insured Coverage Start Date Coverage End Date AARP Medicare Complete [address] [address] [place] [address] [id number] Jenn Hidalgo Self - patient is the insured Medical (General) History Medical History History ICD Code Anxiety Back,Hip,and Knee pain Broken bones Cancer Cataracts covid-19 Depression High blood pressure Osteoporosis Reflux thyroid Measles Chicken pox Surgical History Surgery Date(Month/Year) back surgery 11/1990 gastric bypass 2016 09/07/83 12/07/85
[2024-09-03 12:58] LABS: N-Telopeptide 14 (see note); NTXCreaRU 51 mg/dL (20-275)
== END 2024-08-29 08:21 | disposition home or self-care (01) ==
LOC: HO.HMGCLNP 08:20
PROVIDERS: Visit Provider Internal Medicine Endocrinology, Diabetes & Metabolism
DX: E21.3 Hyperparathyroidism, unspecified (principal)
CPT/HCPCS: 82523

== ENCOUNTER 2024-09-11 08:13 | Outpatient (AMB) | payer MEDICARE, SELFPAY ==
--- OUTSIDE RECORDS SUMMARY | 2024-09-11 08:22 | XMS_ITS | Patient Health Record ---
Author Organization [facility] Address [address] [place] [address] Care Team Providers Care Ic Designer Custom Name Role Phone Po Henrry BOONE Primary Care Provider Joseph Plummer [phone] Allergies Allergen (clinical drug ingredient) Drug/Non Drug [...] for 30 Active Vitamin A 3 MG (97173 UT) TK 1 C PO QD Oral [...] Problem Screening for malignant neoplasm of colon (190033010) Encounter for screening for malignant neoplasm of colon (Z12.11) Active confirmed Problem History of adenomatous polyp of colon (496838338) History of adenomatous polyp of colon (Z86.010) Active confirmed Problem Preprocedural examination (031072879726403) Preprocedural examination (Z01.818) Active confirmed Problem Family History of Cancer of Colon (Situation) (595893035) Family history of colon cancer (Z80.0) Active confirmed Plan Of Treatment Future Test Test Name Order Date COLONOSCOPY 10/24/2014 COLONOSCOPY 05/08/2020 Insurance Providers Payer Name Payer Address Payer Phone Subscriber Number Group Number Insured Name Patient Relationship to Insured Coverage Start Date Coverage End Date AARP Medicare Advantage Plan [address] [address] [place] [address] [phone] [id number] GUY SINGH Self - patient is the insured Medical (General) History Medical History History ICD Code Screening Colonoscopies 1996 and 2003 were negative; in 2009 a small tubular adenoma was removed--also noted to have moderate sigmoid diverticulosis and internal hemorrhoids; neg. colonoscopy in 01/2015 Right breast cancer 06/2010--lumpectomy a nd XRT-sees Dr. Lilly HTN Depression Denies [place],DM,CVA,Lung disease,renal dise ase Spinal stenosis Surgical History Surgery Date(Month/Year) Back surgery-lower back C-sections x 2 Right breast surgery for cancer as above ---neg. lymph node 2010 Cholecystectomy 08/2015 Gastric bypass lost > 100#--Dr. Coleman los 10/2015
--- OUTSIDE RECORDS SUMMARY | 2024-09-11 08:23 | XMS_ITS | Patient Health Record ---
Author Organization [facility] mehnaz [place] Address [address] [place] [address] Care Team Providers Care Denture Processor Name Role Phone Henrry Madden Primary Care Provider Unavailabl e Yesi Ortega Unavailable [phone] Allergies Allergen (clinical drug ingredient) Drug/Non Drug Allergy documented on EMR Reaction Allergy Type Onset Date Status lisinopril Lisinopril Unknown Drug Allergy Activ e Reason For Referral No Information Medications Medication SIG (Take, Route, Frequency, Duration) Notes Start Date End Date Status Calcium Citrate + D3 315-5 MG-MCG 1 tablet Orally Once a day Active Vitamin A 3 MG (22928 UT) 1 capsule Orally Once a day Active Gabapentin 300mg three times a day orally daily Active CBD [place] Active Citalopram & Diet Manage Prod 20mg [...] W/U Status Risk Notes Problem Plantar wart (85597461) Plantar wart (B07.0) Active confirmed Plan Of Treatment Pending Test Test Name Order Date 19180-Yncg Destruction, 1-14 10/25/2022 Insurance Providers Payer Name Payer Address Payer Phone Subscriber Number Group Number Insured Name Patient Relationship to Insured Coverage Start Date Coverage End Date AARP Medicare Complete [address] [address] [place] [address] [id number] Jenn Hidalgo Self - patient is the insured Medical (General) History Medical History History ICD Code Anxiety Back,Hip,and Knee pain Broken bones Cancer Cataracts covid-19 Depression High blood pressure Osteoporosis Reflux thyroid Measles Chicken pox Surgical History Surgery Date(Month/Year) back surgery 11/1990 gastric bypass 2016 09/07/83 12/07/85
--- OUTSIDE RECORDS SUMMARY | 2024-09-11 08:23 | XMS_ITS | Encounter Summary ---
Author Organization [employer] Address [address] 7 [place] [address] Care Team Providers Care Appraiser Land Name Role Phone Unavailable Primary Care Provider [...]
--- OUTSIDE RECORDS SUMMARY | 2024-09-11 08:23 | XMS_ITS | Clinical Summary ---
Author Organization [employer] Address [address] [place] [address] [address] [place] [address] Care Team Providers Care Bulldozer/Loader/Compactor/Scraper Name Role Phone Unavailable Primary Care Provider [...]
[2024-09-11 08:25] VITALS: BP 130/80; PULSE 67
--- NOTE | 2024-09-11 08:25 | A.OFFVIS_ITS ---
Vital Signs 09/11/24 08:25 Height 5 ft 4.84 in BP 130/80 Blood Pressure Location Lt brachial Position Sitting Pulse 67 Pulse Source Monitor Intake Visit Reasons: Follow up from ER AFib Brick Loader Required: No Accompanied by: Significant Other Allergies Lisinopril, SAÚL inhibitors Allergy (Intermediate, Uncoded 08/16/24 08:55) cough Medication List - Last Reconciled 09/11/24 by Danny Garcia MD alendronate 70 mg PO SA apixaban (Eliquis) 5 mg PO BID calcium citrate-vitamin D3 315 mg-6.25 mcg (250 unit) 2 tabs PO DAILY cholecalciferol (vitamin D3) 50 mcg PO DAILY citalopram 40 mg PO DAILY digoxin 125 mcg PO DAILY gabapentin 300 mg PO BEDTIME 90 days losartan 25 mg PO DAILY melatonin 3 mg PO BEDTIME PRN metoprolol succinate ER 100 mg PO DAILY multivitamin 1 tab PO DAILY rn-ul-dn7-wzl-pcq-owjm-lut-kathy 250 mg (90 mg-160 mg) (Ocuvite Adult 50 Plus) 1 cap PO DAILY nystatin 1 appl topical BID PRN vitamin A 1 cap PO DAILY vitamin B complex (B Complex-Vitamin B12 tablet) 1 tab PO DAILY HPI Comments Details: The patient is a 68-year-old female presenting with Atrial Fibrillation. The Atrial Fibrillation was confirmed to be controlled during a hospital visit; however, she now reports symptoms of chest tightness, exertional dyspnea, and general exhaustion. The onset of these symptoms seems to have developed following her hospital discharge, without any significant changes in medication or lifestyle. She has difficulty with regular breathing and experiences increased tightness in the chest, which hinders her daily activities such as climbing stairs. Of note, she has no prior history of cardiac emergency symptoms such as palpitations. The patient's medical history includes surgery for breast cancer in 2010, which necessitated ongoing surveillance. [facility] Medical History (Updated 09/06/24 @ 18:02 by Henrry Madden MD) Atrial fibrillation, new onset Obesity (BMI 30.0-34.9) Cervical cancer screening Numbness and tingling of both feet Chest pain Blood pressure elevated without history of HTN Vitamin D deficiency Menopause Well woman exam Stiffness of finger joint of right hand Sprain of interphalangeal joint of right middle finger Sprain of interphalangeal joint of right ring finger Finger pain, right Fall Vitamin A deficiency Joint pain Osteopenia Metatarsal stress fracture of right foot with routine healing Obstructive sleep apnea Osteoarthritis Hyperparathyroidism Anxiety and depression Closed fibular fracture Intestinal malabsorption following gastrectomy Overweight (BMI 25.0-29.9) Morbid obesity Spinal stenosis History of right breast cancer Surgical History Hx of tubal ligation History of colonoscopy Hx of bilateral cataract extraction Hx of dilation and curettage Hx of gastric bypass (~11/19/15) Hx laparoscopic cholecystectomy (~09/10/15) History of lumpectomy of right breast (~06/2010) History of back surgery Hx of section Family History Mother History of colon cancer Other Mental health disorder Social History Housing: House Alcohol intake: never Patient Tobacco Use Status: Never used Tobacco Tobacco use type: Cigarette e-Cigarette/Vaping Use: Never Used Second Hand Smoke Exposure: No Advance Directives Date on File: 02/15/22 service: No Current occupational status: disabled Cognitive needs: No Hearing needs: No Vision needs: Yes Female Reproductive History Menstrual Age of Menarche: 12 Review of Systems Const Denies chills, Denies fatigue, Denies fever(s), Denies frequent falls, Denies weakness, Denies weight gain and Denies weight loss ENT Denies dizziness Card Reports chest pain, Reports chest pain at rest, Reports chest pain with activity, Denies leg edema, Denies lightheadedness, Denies palpitations, Reports dyspnea and Reports dyspnea on exertion Resp Denies cough, Reports dyspnea and Reports dyspnea on exertion GI Denies hematochezia Musc Denies abnormal gait, Denies muscle weakness, Denies numbness, Denies radiating pain into limb and Denies tingling Neuro Denies abnormal gait, Denies dizziness, Denies frequent falls, Denies numbness, Denies tingling and Denies weakness Endo Denies fatigue and Denies palpitations Physical Exam Vital Signs: Last Vital Signs Pulse 67 09/11/24 08:25 BP 130/80 09/11/24 08:25 Const General: comfortable and no acute distress Orientation/consciousness: patient oriented x3 HEENT Other: Unremarkable Head: Yes normal to inspection Neck Neck: Yes normal visual inspection Chest Chest palpation & inspection: normal inspection of the chest Resp Auscultation: clear to auscultation bilaterally Cardio Palpation: normal PMI Heart sounds: S1 normal heart sound present, S2 normal heart sound present, no gallops, no murmurs and no rubs GI Palpation (GI): Soft to palpation Back/Spine/Pelvis Other: unremarkable Skin General skin exam: no rashes or lesions noted Neuro General: patient oriented x3 Extrem General: Yes normal to inspection Psych Mental Status: mental status grossly normal Office Procedures EKG Details: EKG with atrial fibrillation at a rate of 67/Min; cannot exclude old septal infarct. 86307-Mxusnuhqgrsdgrwlw, Complete Assessment & Plan Assessment & Plan (1) Atrial fibrillation, new onset: Code(s): I48.91 - Unspecified atrial fibrillation Category: Medical Plan Echocardiogram with LVEF of 55-60%. Severely dilated left atrium. Moderate mi tral annular calcification with hgnn-do-grhdcpox mitral regurgitation. Holter monitor shows underlying atrial fibrillation with an average rate of 82/Min. About 9% of the time, rate > 100/Min. Exercise stress test was negative for angina or EKG changes of ischemia at 7.6 METS workload. As she has ongoing symptoms of atrial fibrillation, recommend cardioversion. We discussed about this in detail today and she is willing. Continue anticoagulation without any interruption. We can hold metoprolol/digoxin for the last 48 hours to avoid any postprocedure bradycardia. With regard to a chest tightness/shortness of breath symptoms, some possible heart failure component from the atrial fibrillation itself. She can take Lasix as needed but may not need long-term. She agrees with the overall plan. Discussion Notes I discussed with the patient the management plan focusing on the rastafari of sinus rhythm through cardioversion, detailing the procedure's rationale, associated risks, and expected benefits. The importance of continuing Eliquis prior to the procedure to prevent stroke risks was emphasized. I explained that metoprolol and digoxin should be stopped two days prior to cardioversion. We considered temporary diuretic therapy to manage her chest tightness symptoms. Consent for the procedure was obtained after explaining that the likelihood of success relies on the effectiveness of reverting her rhythm and mitigating future symptoms. Potential follow-ups were planned to monitor her response to treatment and reassess medication needs. Patient was informed and verbally consented to the use of an ambient scribe for clinic note documentation during this visit. Medications: New furosemide (Lasix) 20 mg PO DAILY 30 tabs 0RF Patient Instructions: - Continue taking Eliquis, including the day of the procedure. - Stop taking metoprolol and digoxin two days before the cardioversion. - Use the prescribed diuretic only as needed to relieve symptoms. - Attend the scheduled cardioversion appointment and bring a commercial truck driver. - Monitor symptoms and contact us immediately if symptoms worsen. - Follow up as instructed post-procedure to check progress and medication needs. - Stay informed about your medication and treatment options. Coding Level of Care Code Est Pt Level 4 (36198) Complex EM visit Add On G2211 Diagnoses Atrial fibrillation, new onset I48.91 CPT Codes EKG - CPT: 86979-Cfuahoimpyhjwqara, Complete ([id number])
== END 2024-09-11 08:59 | disposition home or self-care (01) ==
LOC: HO.HCS 08:14
PROVIDERS: PCP Internal Medicine; Visit Provider Internal Medicine
DX: I48.91 Unspecified atrial fibrillation (principal)
CPT/HCPCS: 93010; 99214; G2211

== ENCOUNTER → 2024-09-11 08:13 | Outpatient (BNVA) | payer MEDICARE, SELFPAY | PROVIDERS: PCP Internal Medicine; Visit Provider Internal Medicine | DX: I48.91 Unspecified atrial fibrillation (principal); R94.31 Abnormal electrocardiogram [ECG] [EKG] | CPT/HCPCS: 93005; 99212 ==

== ENCOUNTER 2024-10-04 06:46 | Day surgery (SDC) | payer MEDICARE, SELFPAY ==
--- OUTSIDE RECORDS SUMMARY | 2024-09-17 10:07 | XMS_ITS | Clinical Summary ---
Author Organization [employer] Address [address] [place] [address] 7[address] [place] [address] Care Team Providers Care Rough Planer Tender Name Role Phone Unavailable Primary Care Provider [...] patient's age to complete this topic Meningococcal B Vaccine Aged Out No l onger eligible based on patient's age to complete [...]
--- OUTSIDE RECORDS SUMMARY | 2024-09-17 10:07 | XMS_ITS | Patient Health Record ---
Author Organization [facility] [place] Address [address] [place] [address] Care Team Providers Care Rat Breeder Name Role Phone Henrry Madden Primary Care Provider Unavailabl e Yesi Ortega Unavailable [phone] Allergies Allergen (clinical drug ingredient) Drug/Non Drug Allergy documented on EMR Reaction Allergy Type Onset Date Status lisinopril Lisinopril Unknown Drug Allergy Activ e Reason For Referral No Information Medications Medication SIG (Take, Route, Frequency, Duration) Notes Start Date End Date Status Calcium Citrate + D3 315-5 MG-MCG 1 tablet Orally Once a day Active Vitamin A 3 MG (94380 UT) 1 capsule Orally Once a day Active Gabapentin 300mg three times a day orally daily Active CBD [place] Active Citalopram & Diet Manage Prod 20mg [...] W/U Status Risk Notes Problem Plantar wart (16886410) Plantar wart (B07.0) Active confirmed Plan Of Treatment Pending Test Test Name Order Date 36039-Prfr Destruction, 1-14 10/25/2022 Insurance Providers Payer Name Payer Address Payer Phone Subscriber Number Group Number Insured Name Patient Relationship to Insured Coverage Start Date Coverage End Date AARP Medicare Complete [address] [address] [place] [address] [id number] Jenn Hidalgo Self - patient is the insured Medical (General) History Medical History History ICD Code Anxiety Back,Hip,and Knee pain Broken bones Cancer Cataracts covid-19 Depression High blood pressure Osteoporosis Reflux thyroid Measles Chicken pox Surgical History Surgery Date(Month/Year) back surgery 11/1990 gastric bypass 2016 09/07/83 12/07/85
--- OUTSIDE RECORDS SUMMARY | 2024-09-17 10:07 | XMS_ITS | Encounter Summary ---
Author Organization [employer] Address [address] [facility] [address] [place] [address] Care Team Providers Care Pack Puller Name Role Phone Unavailable Primary Care Provider [...]
--- OUTSIDE RECORDS SUMMARY | 2024-09-17 10:07 | XMS_ITS | Patient Health Record ---
Author Organization [facility] Address [address] [place] [address] Care Team Providers Care Maintenance Planner Name Role Phone Po Henrry BOONE Primary Care Provider Joseph Plummer [phone] Allergies Allergen (clinical drug ingredient) Drug/Non Drug [...] for 30 Active Vitamin A 3 MG (52069 UT) TK 1 C PO QD Oral [...] Problem Screening for malignant neoplasm of colon (246047079) Encounter for screening for malignant neoplasm of colon (Z12.11) Active confirmed Problem History of adenomatous polyp of colon (691054398) History of adenomatous polyp of colon (Z86.010) Active confirmed Problem Preprocedural examination (556187415466564) Preprocedural examination (Z01.818) Active confirmed Problem Family History of Cancer of Colon (Situation) (118927692) Family history of colon cancer (Z80.0) Active confirmed Plan Of Treatment Future Test Test Name Order Date COLONOSCOPY 10/24/2014 COLONOSCOPY 05/08/2020 Insurance Providers Payer Name Payer Address Payer Phone Subscriber Number Group Number Insured Name Patient Relationship to Insured Coverage Start Date Coverage End Date AARP Medicare Advantage Plan [address] [address] [place] [address] [phone] [id number] GUY SINGH Self - patient is the insured Medical (General) History Medical History History ICD Code Screening Colonoscopies 1996 and 2003 were negative; in 2009 a small tubular adenoma was removed--also noted to have moderate sigmoid diverticulosis and internal hemorrhoids; neg. colonoscopy in 01/2015 Right breast cancer 06/2010--lumpectomy a nd XRT-sees Dr. Lilly HTN Depression Denies ND,DM,CVA,Lung disease,renal dise ase Spinal stenosis Surgical History Surgery Date(Month/Year) Back surgery-lower back C-sections x 2 Right breast surgery for cancer as above ---neg. lymph node 2010 Cholecystectomy 08/2015 Gastric bypass lost > 100#--Dr. Coleman los 10/2015
[2024-10-02 14:53] VITALS: BMI 30.2
--- NOTE | 2024-10-03 08:51 | HO.ANESPROP2 ---
HPI - Anesthesia Eval Consult details Narrative: 68yo F for Cardioversion Eliquis for afib PMFSH Active Problems Active Problems: All Active Problems Arrhythmia (Acute) Tinea corporis (Acute) Bicipital tendinitis of right shoulder (Acute) Hypertension (Acute) Hypercholesterolemia (Acute) Well woman exam (Acute) Adult general medical exam (Acute) Plantar wart of left foot (Acute) Palpitations (Acute) Osteoporosis (Acute) Generalized anxiety disorder (Acute) Annual physical exam (Acute) Knee osteoarthritis (Acute) Atrial fibrillation, new onset (Acute) Obesity (BMI 30.0-34.9) (Acute) Vitamin D deficiency (Acute) Hyperparathyroidism (Acute) Vitamin A deficiency (Acute) Hx of gastric bypass (Acute ~11/19/15) Spinal stenosis (Acute) Intestinal malabsorption following gastrectomy (Acute) Overweight (BMI 25.0-29.9) (Acute) History of right breast cancer (Acute) Past Medical History Medical History (Updated 10/02/24 @ 14:49 by Latasha Cedeno RN) Atrial fibrillation, new onset Cervical cancer screening Chest pain Blood pressure elevated without history of HTN Numbness and tingling of both feet Obesity (BMI 30.0-34.9) Vitamin D deficiency Menopause Stiffness of finger joint of right hand Sprain of interphalangeal joint of right middle finger Sprain of interphalangeal joint of right ring finger Finger pain, right Vitamin A deficiency Joint pain Osteopenia Metatarsal stress fracture of right foot with routine healing Obstructive sleep apnea Osteoarthritis Hyperparathyroidism Anxiety and depression Closed fibular fracture Intestinal malabsorption following gastrectomy Overweight (BMI 25.0-29.9) Morbid obesity Spinal stenosis History of right breast cancer Family History Family History Mother History of colon cancer Other Mental health disorder Surgical History Surgical History Hx of tubal ligation History of colonoscopy Hx of bilateral cataract extraction Hx of dilation and curettage Hx of gastric bypass (~11/19/15) Hx laparoscopic cholecystectomy (~09/10/15) History of lumpectomy of right breast (~06/2010) History of back surgery Hx of section Social History Social History Housing: House Alcohol intake: never Patient Tobacco Use Status: Never used Tobacco Tobacco use type: Cigarette e-Cigarette/Vaping Use: Never Used Second Hand Smoke Exposure: No Advance Directives Date on File: 02/15/22 service: No Current occupational status: disabled Cognitive needs: No Hearing needs: No Vision needs: Yes Meds Allergies Allergy/AdvReac Type Severity Reaction Status Date / Time SAÚL Inhibitors AdvReac Intermediate Cough Verified 10/02/24 14:50 Home Medications ?Medication ?Instructions ?Recorded ?Confirmed ?Last Taken ?Type multivitamin 1 tab PO DAILY 05/15/20 10/02/24 08/01/24 History vitamin A 3,000 mcg (10,000 unit) 1 cap PO DAILY 05/15/20 10/02/24 08/01/24 History capsule melatonin 3 mg capsule 3 mg PO BEDTIME PRN Insomnia 12/29/22 10/02/24 08/01/24 History vitamin B complex (B 1 tab PO DAILY 12/29/22 10/02/24 08/01/24 History Complex-Vitamin B12 tablet) fvrwfcxd-ldy-rdiwo5 250 mg-dha 90 1 cap PO DAILY 04/24/24 10/02/24 08/01/24 History mg-epa 160 ef-srnv-ffxt-zeax capsule (Ocuvite Adult 50 Plus) alendronate 70 mg tablet 70 mg PO SA 08/02/24 10/02/24 08/01/24 History citalopram 40 mg tablet 40 mg PO DAILY 08/02/24 10/02/24 08/01/24 History nystatin 100,000 unit/gram topical 1 appl topical BID PRN Rash 08/02/24 10/02/24 08/01/24 History powder Exam Height,Weight and Vital Signs: Height 5 ft 4.84 in Weight 81.788 kg Pertinent Lab Results Pertinent Lab Results: Laboratory Tests 08/28/24 08:35 WBC 6.4 Hgb 12.7 Hct 39.6 Plt Count 313 Sodium 141 Potassium 4.5 Chloride 109 H Carbon Dioxide 27 BUN 18 H Creatinine 0.71 Narrative Narrative: ECHO 2024 Conclusions: - The left ventricular systolic function is normal. The visually estimated ejection fraction is between 55-60%. - The left atrium is severely dilated. - There is moderate mitral annular calcification. There is mild to moderate mitral valve regurgitation. Assessment and Plan Assessment Anesthesia Assessment: Chart Reviewed
[2024-10-04] VITALS (9 sets, daily range): BP systolic 96–132; BP diastolic 40–68; PULSE 60–115; RESP 16–18; TEMP 36.1–36.8; O2SAT 94–98; BMI 28.8
[2024-10-04] MEDS: Lactated Ringers 1,000 ML 50 ML IVCONT (07:17)
--- NOTE | 2024-10-04 08:25 | HO.ANESPROP2 ---
HPI - Anesthesia Eval Consult details Narrative: AF ON LICENSE OF [facility] Active Problems Active Problems: All Active Problems Arrhythmia (Acute) Tinea corporis (Acute) Bicipital tendinitis of right shoulder (Acute) Hypertension (Acute) Hypercholesterolemia (Acute) Well woman exam (Acute) Adult general medical exam (Acute) Plantar wart of left foot (Acute) Palpitations (Acute) Osteoporosis (Acute) Generalized anxiety disorder (Acute) Annual physical exam (Acute) Knee osteoarthritis (Acute) Atrial fibrillation, new onset (Acute) Obesity (BMI 30.0-34.9) (Acute) Vitamin D deficiency (Acute) Hyperparathyroidism (Acute) Vitamin A deficiency (Acute) Hx of gastric bypass (Acute ~11/19/15) Spinal stenosis (Acute) Intestinal malabsorption following gastrectomy (Acute) Overweight (BMI 25.0-29.9) (Acute) History of right breast cancer (Acute) Past Medical History Medical History Atrial fibrillation, new onset Cervical cancer screening Chest pain Blood pressure elevated without history of HTN Numbness and tingling of both feet Obesity (BMI 30.0-34.9) Vitamin D deficiency Menopause Stiffness of finger joint of right hand Sprain of interphalangeal joint of right middle finger Sprain of interphalangeal joint of right ring finger Finger pain, right Vitamin A deficiency Joint pain Osteopenia Metatarsal stress fracture of right foot with routine healing Obstructive sleep apnea Osteoarthritis Hyperparathyroidism Anxiety and depression Closed fibular fracture Intestinal malabsorption following gastrectomy Overweight (BMI 25.0-29.9) Morbid obesity Spinal stenosis History of right breast cancer Family History Family History Mother History of colon cancer Other Mental health disorder Family history of problems with anesthesia: No Surgical History Surgical History Hx of tubal ligation History of colonoscopy Hx of bilateral cataract extraction Hx of dilation and curettage Hx of gastric bypass (~11/19/15) Hx laparoscopic cholecystectomy (~09/10/15) History of lumpectomy of right breast (~06/2010) History of back surgery Hx of section History of Problems with Anesthesia: No Social History Social History Household Members Other:: daughter Housing: House Are you a primary neurocritical care physician to a significant other at home: No Do you presently have visiting nurse or other home services: No Alcohol intake: never Patient Tobacco Use Status: Never used Tobacco Tobacco use type: Cigarette e-Cigarette/Vaping Use: Never Used Second Hand Smoke Exposure: No Have you been hit, kicked, punched, or otherwise hurt by someone within the past year? If so, by whom?: No Are you DNR?: No Advance Directives: No Advance Directives Information Provided: Yes Advance Directives Date on File: 02/15/22 Poor oral hygiene: No service: No Current occupational status: disabled Cognitive needs: No Hearing needs: No Vision needs: Yes Meds Allergies Allergy/AdvReac Type Severity Reaction Status Date / Time SAÚL Inhibitors AdvReac Intermediate Cough Verified 10/04/24 07:14 Active Medications: Current Medications Lactated Ringer's (Lr) 1,000 mls @ 50 mls/hr IVCONT .Q20H OUSMANE Last Admin: 10/04/24 07:17 Dose: 50 mls/hr Home Medications ?Medication ?Instructions ?Recorded ?Confirmed ?Last Taken ?Type multivitamin 1 tab PO DAILY 05/15/20 10/02/24 08/01/24 History vitamin A 3,000 mcg (10,000 unit) 1 cap PO DAILY 05/15/20 10/02/24 08/01/24 History capsule melatonin 3 mg capsule 3 mg PO BEDTIME PRN Insomnia 12/29/22 10/02/24 08/01/24 History vitamin B complex (B 1 tab PO DAILY 12/29/22 10/02/24 08/01/24 History Complex-Vitamin B12 tablet) iihrdxup-aeb-npnui1 250 mg-dha 90 1 cap PO DAILY 04/24/24 10/02/24 08/01/24 History mg-epa 160 yb-fyob-yvor-zeax capsule (Ocuvite Adult 50 Plus) alendronate 70 mg tablet 70 mg PO SA 08/02/24 10/02/24 08/01/24 History citalopram 40 mg tablet 40 mg PO DAILY 08/02/24 10/02/24 08/01/24 History nystatin 100,000 unit/gram topical 1 appl topical BID PRN Rash 08/02/24 10/02/24 08/01/24 History powder Exam Height,Weight and Vital Signs: Height 5 ft 4.84 in Weight 78.2 kg Last Vital Signs Temp 98.2 F 10/04/24 07:23 Pulse 115 H 10/04/24 07:23 Resp 18 10/04/24 07:23 BP 130/64 10/04/24 07:23 Pulse Ox 95 10/04/24 07:23 O2 Del Method Room Air 10/04/24 07:23 Airway Mallampati Class: II TM Dist: >3cm Neck ROM: Limited Heart: AF Lungs: cta Assessment and Plan Assessment Anesthesia Assessment: Anesthesia Plan Discussed and Chart Reviewed Final Anesthetic Review Family History of Problems with Anesthesia: No History of Problems with Anesthesia: No NPO: Yes ASA Class: III Final Preanesthetic Review: No Changes in Pt Med Stat, Meds/Allgs Chart Reviewed, Consent Obtained/Reviewed and Anes Risks/Benef Reviewed Patient Risk: Intermediate Anesthetic Plan Anesthetic Plan: GA Disposition: Standard PACU
--- NOTE | 2024-10-04 08:32 | MHC.SHP ---
Pre-Procedural Eval Section A - 24 Hr Update-Section A only Date of Service: 10/04/24 The patient is an INPATIENT: No Section B - Complete if H&P > 30 days Chief Complaint: Unspecified atrial fibrillation Allergies: Allergies Allergy/AdvReac Type Severity Reaction Status Date / Time SAÚL Inhibitors AdvReac Intermediate Cough Verified 10/04/24 07:14 Plan I have reviewed the history and physical and performed a pertinent physical examination on my patient. No changes have occurred unless specified. Time Spent With Patient Time: Total time managing care of this patient today ____ minutes.
--- NOTE | 2024-10-04 08:32 | HO.CARDIVERS ---
Cardioversion Procedure Note Cardioversion Date of Procedure: 10/04/2024 Pre-Op Diagnosis: Atrial fibrillation Post-Op Diagnosis: Sinus rhythm Consent: Informed consent obtained. Procedure: After informed consent was obtained, patient was taken to the PACU. The patient was then positioned appropriately. The cardioversion pads were placed in anteroposterior position. Once under anesthesia, 120 joules of synchronized shock was administered. The rhythm converted from atrial fibrillation to sinus rhythm. Patient remained in sinus rhythm after the end of procedure. Complications: None Impression: Successful cardioversion from atrial fibrillation to sinus. Recommendations: Start Flecainide. Patient will discuss with PCP regarding QT prolonging drugs like Citalopram if that can be stopped. EKG in one week.
--- NOTE | 2024-10-04 08:55 | ECG_ITS ---
Test Reason : POST CARDIOVERSION Blood Pressure : */* mmHG Vent. Rate : 70 BPM Atrial Rate : 70 BPM P-R Int : 168 ms QRS Dur : 76 ms QT Int : 444 ms P-R-T Axes : 57 15 20 degrees QTcB Int : 479 ms Sinus rhythm with marked sinus arrhythmia Otherwise normal ECG When compared with ECG of 02-Aug-2024 10:10, Sinus rhythm has replaced Atrial fibrillation Vent. rate has decreased by 52 bpm Referred By: Queenie Castillo Electronically Signed By: QUEENIE CASTILLO
[2024-10-04] MEDS: Flecainide Acetate 50 MG TABLET 100 MG PO (10:28)
== END 2024-10-04 11:01 | disposition home or self-care (01) ==
PROVIDERS: PCP Internal Medicine; Visit Provider Internal Medicine
PROC: 5A2204Z Restoration of Cardiac Rhythm, Single (ICD-10-PCS; principal; 2024-10-04 08:30)
DX: I48.91 Unspecified atrial fibrillation (principal); R03.0 Elevated blood-pressure reading, without diagnosis of hypertension; G47.33 Obstructive sleep apnea (adult) (pediatric); Z85.3 Personal history of malignant neoplasm of breast; Z79.01 Long term (current) use of anticoagulants; Z79.899 Other long term (current) drug therapy; Z88.8 Allergy status to other drugs, medicaments and biological substances; Z98.890 Other specified postprocedural states
CPT/HCPCS: 92960; 93005; J2003; J2704

== ENCOUNTER → 2024-10-04 06:46 | Outpatient (BNV) | payer MEDICARE, SELFPAY | PROVIDERS: PCP Internal Medicine; Visit Provider Internal Medicine | DX: I48.91 Unspecified atrial fibrillation (principal); I49.9 Cardiac arrhythmia, unspecified | CPT/HCPCS: 92960; 93010 ==

== ENCOUNTER 2024-10-18 10:43 | Outpatient (AMB) | payer MEDICARE, SELFPAY ==
[2024-10-18 11:01] VITALS: BP 118/68; PULSE 85; BMI 28.0
--- NOTE | 2024-10-18 11:01 | A.OFFVIS_ITS ---
Vital Signs 10/18/24 11:01 Height 5 ft 4 in Weight 163 lb 2.273 oz BMI 28.0 BP 118/68 Blood Pressure Location Lt brachial Position Sitting Pulse 85 Pulse Source Monitor Intake Visit Reasons: Follow up post cardioversion Allergies SAÚL Inhibitors Adverse Reaction (Intermediate, Verified 10/04/24 07:14) Cough Medication List - Last Reconciled 10/18/24 by Danny Garcia MD alendronate 70 mg PO SA apixaban (Eliquis) 5 mg PO BID calcium citrate-vitamin D3 315 mg-6.25 mcg (250 unit) 2 tabs PO DAILY cholecalciferol (vitamin D3) 50 mcg PO DAILY flecainide 100 mg PO Q12H 90 days furosemide 20 mg PO DAILY gabapentin 300 mg PO BEDTIME 90 days losartan 25 mg PO DAILY Held on 08/03/24. Instructions: Monitor blood pressure readings for next week and discuss with cardiology before restarting. melatonin 3 mg PO BEDTIME PRN metoprolol succinate ER 100 mg PO DAILY multivitamin 1 tab PO DAILY [id number]-[id number]-vkb-tdco-lut-kathy 250 mg (90 mg-160 mg) (Ocuvite Adult 50 Plus) 1 cap PO DAILY nystatin 1 appl topical BID PRN sertraline 25 mg PO DAILY vitamin A 1 cap PO DAILY vitamin B complex (B Complex-Vitamin B12 tablet) 1 tab PO DAILY HPI Comments Details: Jenn returns for follow-up. Recently seen in consultation regarding atrial fibrillation. She had various symptoms including chest tightness, shortness of breath and exertion. Subsequently, underwent cardioversion and put on flecainide. She actually states she is feeling much better. Her symptoms are improved significantly. Prior to this, no other cardiac history. No known coronary disease or myocardial infarction or cardiomyopathy. [facility] Medical History Atrial fibrillation, new onset Cervical cancer screening Chest pain Blood pressure elevated without history of HTN Numbness and tingling of both feet Obesity (BMI 30.0-34.9) Vitamin D deficiency Menopause Stiffness of finger joint of right hand Sprain of interphalangeal joint of right middle finger Sprain of interphalangeal joint of right ring finger Finger pain, right Vitamin A deficiency Joint pain Osteopenia Metatarsal stress fracture of right foot with routine healing Obstructive sleep apnea Osteoarthritis Hyperparathyroidism Anxiety and depression Closed fibular fracture Intestinal malabsorption following gastrectomy Overweight (BMI 25.0-29.9) Morbid obesity Spinal stenosis History of right breast cancer Surgical History Hx of tubal ligation History of colonoscopy Hx of bilateral cataract extraction Hx of dilation and curettage Hx of gastric bypass (~11/19/15) Hx laparoscopic cholecystectomy (~09/10/15) History of lumpectomy of right breast (~06/2010) History of back surgery Hx of section Family History Mother History of colon cancer Other Mental health disorder Social History Household Members Other:: daughter Housing: House Are you a primary care professional to a significant other at home: No Do you presently have visiting nurse or other home services: No Alcohol intake: never Patient Tobacco Use Status: Never used Tobacco Tobacco use type: Cigarette e-Cigarette/Vaping Use: Never Used Second Hand Smoke Exposure: No Advance Directives Date on File: 02/15/22 service: No Current occupational status: disabled Cognitive needs: No Hearing needs: No Vision needs: Yes Female Reproductive History Menstrual Age of Menarche: 12 Review of Systems Const Denies weakness ENT Denies dizziness Card Denies chest pain, Denies chest pain with activity, Denies syncope, Denies rapid heart rate, Denies pedal edema, Denies edema, Denies leg edema, Denies lighth eadedness, Denies palpitations, Denies dyspnea, Reports dyspnea on exertion and Denies orthopnea Resp Denies cough, Denies dyspnea and Reports dyspnea on exertion GI Denies hematochezia and Denies change in stool character Musc Denies abnormal gait, Denies muscle cramps, Denies muscle weakness, Denies numbness, Denies radiating pain into limb and Denies tingling Neuro Denies abnormal gait, Denies dizziness, Denies syncope, Denies numbness, Denies tingling and Denies weakness Endo Denies palpitations Physical Exam Vital Signs: Last Vital Signs Pulse 85 10/18/24 11:01 BP 118/68 10/18/24 11:01 BMI result Body Mass Index 28.0 Const General: comfortable and no acute distress Orientation/consciousness: patient oriented x3 HEENT Other: Unremarkable Head: Yes normal to inspection Neck Neck: Yes normal visual inspection Chest Chest palpation & inspection: normal inspection of the chest Resp Auscultation: clear to auscultation bilaterally Cardio Palpation: normal PMI Heart sounds: S1 normal heart sound present, S2 normal heart sound present, no gallops, no murmurs and no rubs GI Palpation (GI): Soft to palpation Back/Spine/Pelvis Other: unremarkable Skin General skin exam: no rashes or lesions noted Neuro General: patient oriented x3 Extrem General: Yes normal to inspection Psych Mental Status: mental status grossly normal Office Procedures EKG Details: EKG with underlying sinus rhythm at 85/Min; no ischemic changes; [place]. [id number]-[id number], Complete Assessment & Plan Assessment & Plan (1) Paroxysmal atrial fibrillation: Code(s): I48.0 - Paroxysmal atrial fibrillation Category: Medical (2) Encounter for monitoring flecainide therapy: Code(s): Z51.81 - Encounter for therapeutic drug level monitoring; Z79.899 - Other oil heaterman (current) drug therapy Category: Medical Plan Cardiac studies reviewed. Echocardiogram with LVEF of 55-60%. Severely dilated left atrium. Moderate mitral annular calcification with [id number] mitral regurgitation. Holter monitor shows underlying atrial fibrillation with an average rate of 82/Min. About 9% of the time, rate > 100/Min. Exercise stress test was negative for angina or EKG changes of ischemia at 7.6 METS workload. She is currently status post cardioversion and maintaining sinus rhythm with flecainide/metoprolol. Continue the same for now. Continue anticoagulation. We discussed about EP referral/ablation at length. She is interested and we can do referral for the same. Otherwise, follow-up in 6 months time. She will call us with any interim concerns or cardiac symptoms. Discussion Notes I discussed the option of ablation with the patient as a more permanent solution for atrial fibrillation, explaining the procedure involves accessing the heart through the groin to ablate problematic areas. I informed her that flecainide could be discontinued post-ablation. We discussed the timeline for seeing the sp ecialist and performing the procedure, which may take up to few months. I advised her to monitor for any concerning symptoms and to maintain her exercise routine. Patient was informed and verbally consented to the use of an ambient scribe for clinic note documentation during this visit. Orders: Referrals Cardiac Electrophysiology Referral I48.0 - Paroxysmal atrial fibrillation Patient Instructions: - Continue taking flecainide until after the ablation procedure. - Expect to see the specialist and have the procedure in next few months. - Monitor for chest pain, pressure, or breathing issues and contact the physic meena immediately if these occur. Coding Level of Care Code Est Pt Level 4 (35797) Complex EM visit Add On G2211 Diagnoses Paroxysmal atrial fibrillation I48.0 Encounter for monitoring flecainide therapy Z51.81; Z79.899 CPT Codes EKG - CPT: 59179-[id number], Complete ([id number])
== END 2024-10-18 11:32 | disposition home or self-care (01) ==
LOC: HO.HCS 10:44
PROVIDERS: PCP Internal Medicine; Visit Provider Internal Medicine
DX: I48.0 Paroxysmal atrial fibrillation (principal); Z51.81 Encounter for therapeutic drug level monitoring; Z79.899 Other long term (current) drug therapy
CPT/HCPCS: 93010; 99214; G2211

== ENCOUNTER → 2024-10-18 10:43 | Outpatient (BNVA) | payer MEDICARE, SELFPAY | PROVIDERS: PCP Internal Medicine; Visit Provider Internal Medicine | DX: Z00.00 Encounter for general adult medical examination without abnormal findings (principal); I48.0 Paroxysmal atrial fibrillation; E78.00 Pure hypercholesterolemia, unspecified; E21.3 Hyperparathyroidism, unspecified; M81.0 Age-related osteoporosis without current pathological fracture; E66.3 Overweight; I10 Essential (primary) hypertension; F41.1 Generalized anxiety disorder; Z85.3 Personal history of malignant neoplasm of breast; Z79.01 Long term (current) use of anticoagulants; Z79.899 Other long term (current) drug therapy; Z98.84 Bariatric surgery status; Z13.31 Encounter for screening for depression; Z13.30 Encounter for screening examination for mental health and behavioral disorders, unspecified | CPT/HCPCS: 93005; 96127; 99212; 99397 ==

== ENCOUNTER 2024-10-18 12:51 | Outpatient (AMB) | payer MEDICARE, SELFPAY ==
[2024-10-18 13:03] VITALS: BP 122/78; PULSE 96; O2SAT 95; BMI 29.5
--- NOTE | 2024-10-18 13:03 | MHC.PC.OV ---
Vital Signs 10/18/24 13:03 Height 5 ft 4 in Weight 172 lb BMI 29.5 BP 122/78 Blood Pressure Location Lt brachial Position Sitting Pulse 96 Pulse Source Pulse Oximeter Pulse Oximetry (%) 95 Oxygen Delivery Method Room Air Intake Visit Reasons: Physical Clinical Project Coordinator Required: No Accompanied by: Self / Same As Patient Allergies SAÚL Inhibitors Adverse Reaction (Intermediate, Verified 10/18/24 13:04) Cough Medication List - Last Reconciled 10/18/24 by Henrry Madden MD alendronate 70 mg PO SA apixaban (Eliquis) 5 mg PO BID calcium citrate-vitamin D3 315 mg-6.25 mcg (250 unit) 2 tabs PO DAILY cholecalciferol (vitamin D3) 50 mcg PO DAILY flecainide 100 mg PO Q12H 90 days gabapentin 300 mg PO BEDTIME 90 days melatonin 3 mg PO BEDTIME PRN metoprolol succinate ER 100 mg PO DAILY multivitamin 1 tab PO DAILY lf-wv-cr0-txz-epb-esqv-lut-kathy 250 mg (90 mg-160 mg) (Ocuvite Adult 50 Plus) 1 cap PO DAILY nystatin 1 appl topical BID PRN sertraline 25 mg PO DAILY vitamin A 1 cap PO DAILY vitamin B complex (B Complex-Vitamin B12 tablet) 1 tab PO DAILY Tobacco use date assessed: 10/18/24 Fall risk assessment: No Falls in past year Last assessed Fall Risk: 10/18/24 Dental Screening Dental Screen Date: 10/18/24 Did you have a dental visit in the last 12 months?: Yes Did you have a dental problem in the last 6 months where you did not have access to dental care?: No Was dental information given to patient?: Patient has dentist HPI Physical HPI Details laryngitis 2 week, [facility] Medical History Atrial fibrillation, new onset Cervical cancer screening Chest pain Blood pressure elevated without history of HTN Numbness and tingling of both feet Obesity (BMI 30.0-34.9) Vitamin D deficiency Menopause Stiffness of finger joint of right hand Sprain of interphalangeal joint of right middle finger Sprain of interphalangeal joint of right ring finger Finger pain, right Vitamin A deficiency Joint pain Osteopenia Metatarsal stress fracture of right foot with routine healing Obstructive sleep apnea Osteoarthritis Hyperparathyroidism Anxiety and depression Closed fibular fracture Intestinal malabsorption following gastrectomy Overweight (BMI 25.0-29.9) Morbid obesity Spinal stenosis History of right breast cancer Surgical History Hx of tubal ligation History of colonoscopy Hx of bilateral cataract extraction Hx of dilation and curettage Hx of gastric bypass (~11/19/15) Hx laparoscopic cholecystectomy (~09/10/15) History of lumpectomy of right breast (~06/2010) History of back surgery Hx of section Family History Mother History of colon cancer Other Mental health disorder Social History Household Members Other:: daughter Housing: House Are you a primary rn critical care to a significant other at home: No Do you presently have visiting nurse or other home services: No Alcohol intake: never Patient Tobacco Use Status: Never used Tobacco Tobacco use type: Cigarette e-Cigarette/Vaping Use: Never Used Second Hand Smoke Exposure: No Advance Directives Date on File: 02/15/22 service: No Current occupational status: disabled Cognitive needs: No Hearing needs: No Vision needs: Yes Female Reproductive History Menstrual Age of Menarche: 12 Questionnaire PHQ-9 Over the last 2 weeks, how often have you been bothered by any of the following problems? 1. Little interest or pleasure in doing things: several days 2. Feeling down, depressed, or hopeless: not at all 3. Trouble falling or staying asleep, or sleeping too much: not at all 4. Feeling tired or having little energy: more than half the days 5. Poor appetite or overeating: several days 6. Feeling bad about yourself - or that you are a failure or have let yourself or your family down: not at all 7. Trouble concentrating on things, such as reading the newspaper or watching television: several days 8. Moving or speaking so slowly that other people could have noticed. Or the opposite - being so fidgety or restless that you have been moving around a lot more than usual: not at all 9. Thoughts that you would be better off or of hurting yourself in some way: not at all Total score: 5 Depression Screening Interpretation: Negative Depression Screening Done: Yes 26563 - PHQ-9 Billing: Yes Source: Developed by Drs. Joseph Arana, Марина Roper, Torrey Celeste and colleagues, with an educational zoey from [employer] ([employer] Thrive Questionnaire Date Thrive assessed: 10/18/24 I am a: Patient What is your living situation today?: I have a steady place to live Within the past 12 months, did the food you bought not last and you didn't have the money to get more?: Never true Within the past 12 months, did you worry whether your food would run out before you got money to buy more?: Never true Do you have trouble paying for medicines?: Yes Do you have trouble getting transportation to medical appointments?: No Do you have trouble paying your heating and electricity bill?: No Do you have trouble taking care of your child, family member or friend?: No Do you have trouble with day-to-day activities such as bathing, preparing meals, shopping, managing finances, etc.?: No Are you currently unemployed and looking for a job?: No Are you interested in more education?: No Please select the resources that you would like help with: None Currently or been in a relationship where the following occur: No concerns reported THRIVE Score: 0 AUDIT C Alcohol Use Questionnaire (AUDIT-C) 1. How often do you have a drink containing alcohol?: Never 3. How often do you have six or more drinks on one occasion?: Never Total Score: 0 ROMINA-7 AMB Questionnaire ROMINA-7 Date ROMINA - 7 assessed: 10/18/24 Feeling nervous, anxious, or on edge: 0 = Not at all Not being able to stop or control worryin = Not at all Worrying too much about different things: 0 = Not at all Trouble relaxin = Not at all Being so restless that it is hard to sit still: 0 = Not at all Becoming easily annoyed or irritable: 0 = Not at all Feeling afraid as if something awful might happen: 0 = Not at all Total ROMINA-7 score (0-4 normal; 5-9 mild; 10-14 moderate; 15-21 severe): 0 Source: Developed by Drs. Joseph Arana, Torrey Gradyoenke and colleagues, with an educational zoey from [employer] ([employer]). ROMINA-7 Assessment Billing ROMINA-7 Assessment Tool: ROMINA-7 Assessment 59717 Review of Systems Const Denies poor appetite and Denies weakness Eyes Denies no additional complaints ENT Reports Normal hearing present, Denies dizziness, Denies nasal congestion, Denies tinnitus and Denies sore throat Card Denies chest pain, Denies syncope, Denies rapid heart rate and Denies dyspnea Resp Denies cough and Denies dyspnea GI Denies change in stool character, Reports constipation, Denies diarrhea, Denies nausea and Denies vomiting Denies urinary frequency, Denies difficulty voiding and Denies dysuria Neuro Reports Normal hearing present, Denies confusion, Denies dizziness, Denies syncope and Denies weakness Psych Denies confusion Physical exam (Primary Care) Vital Signs: Last Vital Signs Pulse 96 10/18/24 13:03 BP 122/78 10/18/24 13:03 Pulse Ox 95 10/18/24 13:03 Oxygen Delivery Method Room Air 10/18/24 13:03 BMI result Body Mass Index 29.5 Tobacco/Smoking Status: Tobacco use Status Tobacco use date assessed 10/18/24 10/18/24 13:09 Patient Tobacco Use Status Never used Tobacco 10/18/24 13:09 Tobacco use type Cigarette 10/18/24 13:09 e-Cigarette/Vaping Use Never Used 10/18/24 13:09 PHQ-9: PHQ-9 Score PHQ-9: Total score 5 10/18/24 13:48 Depression Screening Interpretation: Negative Thrive Assessment: Date of Thrive Assessment Date Thrive assessed 08/24/24 10/18/24 13:32 Currently or been in a relationship where the following occur: No concerns reported Const General: No confusion Orientation/consciousness: No confusion HENMT Head: Yes normocephalic Ears: external ears normal and TM's normal bilaterally Face and sinus: Yes normal facial exam Mouth: moist mucous membranes Throat: Yes tonsils normal Eyes Conjunctivae: conjunctivae normal Pupils: Equal, round and reactive pupils present and Pupil accommodation reflex normal Direct Ophthalmoscopy: normal light reflex Neck Neck: No lymphadenopathy Thyroid: Thyroid normal Chest Chest palpation & inspection: normal inspection of the chest Resp Effort & Inspection: normal respiratory effort and no audible wheezes Auscultation: clear to auscultation bilaterally, no crackles, no wheezes and lung sounds not diminished Cardio Rate: regular rate Rhythm: regular rhythm Peripheral pulses: radial pulses present and dorsalis pedis present GI Palpation (GI): no masses Auscultation: normal bowel sounds and normoactive bowel sounds Rectal Exam - Female: deferred Skin General skin exam: no rashes or lesions noted Rashes: no rashes Neuro General: No confusion Cranial nerves: Yes Equal, round and reactive pupils present and Yes Normal hearing present Cognition (Neuro): normal cognition Gait exam (Neuro): Normal gait present Motor exam (neuro): 5/5 motor strength present throughout Deep tendon reflexes (DTR's): Right brachioradialis reflex intensity grade: 2+, Left brachioradialis reflex intensity grade: 2+, Right patellar reflex intensity grade: 2+ and Left patellar reflex intensity grade: 2+ Extrem General: No edema Coding Level of Care Code Est Pt Prev Care >65y(96073) Diagnoses Annual physical exam Z00.00 Paroxysmal atrial fibrillation I48.0 Hypercholesterolemia E78.00 Hyperparathyroidism E21.3 Osteoporosis M81.0 Hx of gastric bypass Z98.84 Overweight (BMI 25.0-29.9) E66.3 History of right breast cancer Z85.3 Generalized anxiety disorder F41.1 Hypertension I10 Additional Codes ROMINA-7 Assessment Billing - ROMINA-7 Assessment Tool: ROMINA-7 Assessment 88077 ([id number]) PHQ-9 - 36109 - PHQ-9 Billing: Yes ([id number]) Assessment & Plan Assessment & Plan (1) Annual physical exam: Code(s): Z00.00 - Encounter for general adult medical examination without abnormal findings Category: Medical Plan: Patient is advised to eat healthy, keep well hydrated, keep active and have adequate sleep. (2) Paroxysmal atrial fibrillation: Comment: Status post cardioversion July 2024 Code(s): I48.0 - Paroxysmal atrial fibrillation Category: Medical Plan: Continue with anticoagulation and flecainide. Patient will be seeing pharmacy operations specialist (3) Hypercholesterolemia: Code(s): E78.00 - Pure hypercholesterolemia, unspecified Category: Medical Plan: Avoid fried foods, chicken skin, eggs, butter margarine, pastries and meat. Be it pork or beef they have a lot of cholesterol diet controlled (4) Hyperparathyroidism: Comment: Secondary hyperparathyroidism, endocrinology Code(s): E21.3 - Hyperparathyroidism, unspecified Category: Medical Plan: Patient follows up with endocrinology (5) Osteoporosis: Comment: June 2021, August 2023 Code(s): M81.0 - Age-related osteoporosis without current pathological fracture Category: Medical Plan: Alendronate once a week (6) Hx of gastric bypass: Onset Date: ~11/19/15 Comment: Dr. Lai and diaphragmatic hernia repair Code(s): Z98.84 - Bariatric surgery status Category: Surgical Plan: Continue to follow-up with bariatric (7) Overweight (BMI 25.0-29.9): Code(s): E66.3 - Overweight Category: Medical Plan: Diet and exercise (8) History of right breast cancer: Comment: Right, June 2010 lumpectomy negative lymph nodes, right side lymphedema status post radiation June 2022 Code(s): Z85.3 - Personal history of malignant neoplasm of breast Category: Medical Plan: Up-to-date with mammogram (9) Generalized anxiety disorder: Comment: Decline any counseling referral Code(s): F41.1 - Generalized anxiety disorder Category: Medical (10) Hypertension: Code(s): I10 - Essential (primary) hypertension Category: Medical Plan: Continue with blood pressure medication. Decrease salt intake and exercise on losartan 25 mg once a day metoprolol 100 mg once a day Plan History of Present Illness The patient is a 68-year-old female presenting for a physical exam and follow-up on multiple chronic conditions. The patient has a history of breast cancer diagnosed in 2010, with no current active treatment mentioned. She also has a history of spinal stenosis, which has been a chronic issue. The patient has been diagnosed with hyperparathyroidism and atrial fibrillation, for which she underwent cardioversion and is currently on flecainide and metoprolol. She continues anticoagulation therapy with Eliquis and has had discussions about ablation, which was performed on October 04. The patient has generalized anxiety disorder, osteoporosis, hypercholesterolemia, and hypertension. She follows up with endocrinology for osteoporosis and is on alendronate once a week. Her preventative care includes a colonoscopy in October 2023, a mammogram in July 2024, and a bone density test in August 2023. She is up-to-date with her vaccinations, including shingles, tetanus, and pneumonia shots. Health Maintenance - Colonoscopy in October 2023 - Mammogram in July 2024 - Bone density test in August 2023 - Vaccinations: Shingles, tetanus, and pneumonia shots up-to-date Social History Review of Systems - General: Reports weight gain of 9 pounds - Respiratory: Reports cough - Cardiovascular: Denies chest pain, orthopnea, or syncope Physical Exam General: Cooperative, overweight, healthy appearing, comfortable, no acute distress and well developed Orientation: Patient oriented x3 Limitations: No limitations Head: Normal to inspection Ears: Hearing grossly normal bilaterally Nose: Normal external nose present Face and sinus: Normal facial exam Eyes: Appearance normal, both eyes and all related structures Neck: Normal visual inspection and Yes full ROM Respiratory: Normal respiratory effort and able to speak in complete sentences. Clear to auscultation bilaterally Cardiovascular: Regular rate and rhythm. Normal S1 and S2 GI: Normal to inspection. Soft to palpation and nontender Skin: No rashes or lesions noted Neuro: Patient oriented x3 Extremities: Normal to inspection Results - Echocardiogram: Ejection fraction 55 to 60%, severely dilated left atrium, mild to moderate recurrence - Blood work (August 28): Normal blood count, normal electrolytes, normal renal function, normal blood sugar, elevated liver function test (41), BMP 365, LDL 99, B12, folic acid, and thyroid within normal limits - Urinalysis (August 28): Presence of white blood cells Plan The patient will continue with her current medications, including flecainide and metoprolol for atrial fibrillation, and anticoagulation therapy with Eliquis. She will follow up with cardiology and has been referred for electrophysiology studies, with a recent ablation performed on October 04. For osteoporosis, the patient will continue alendronate once a week and follow up with endocrinology. Her hypercholesterolemia is diet-controlled, and she will continue to monitor her diet and exercise. Preventative care measures include staying up-to-date with vaccinations and regular screenings such as colonoscopy, mammogram, and bone density tests. Patient was informed and verbally consented to the use of an ambient scribe for clinic note documentation during this visit. Discussion Notes I discussed with the patient the importance of continuing her current medication regimen, including flecainide, metoprolol, and Eliquis, to manage her atrial fibrillation. We reviewed her recent ablation and the need for follow-up with cardiology and electrophysiology studies. I emphasized the importance of maintaining her osteoporosis treatment with alendronate and following up with endocrinology. We also discussed her diet-controlled hypercholesterolemia and the need to continue monitoring her diet and exercise. Preventative care measures, including vaccinations and regular screenings, were reviewed to ensure she remains up-to-date. Patient Instructions - Continue taking flecainide, metoprolol, and Eliquis as prescribed. - Follow up with cardiology and electrophysiology as scheduled. - Continue alendronate once a week and follow up with endocrinology. - Maintain a healthy diet and exercise regularly to control cholesterol levels. - Stay up-to-date with vaccinations and regular screenings. Orders: Orders Comprehensive Met. Panel 6 Months I10 - Essential (primary) hypertension Lipid Panel 6 Months E78.00 - Pure hypercholesterolemia, unspecified, I10 - Essential (primary) hypertension Complete Blood Count Auto Diff 6 Months I10 - Essential (primary) hypertension Free T4 (Free Thyroxine) 6 Months I10 - Essential (primary) hypertension Thyroid Stimulating Hormone 6 Months I10 - Essential (primary) hypertension B Type Natriuretic Peptide 6 Months I10 - Essential (primary) hypertension Vitamin B12 and Folate 6 Months I10 - Essential (primary) hypertension Vitamin D 25-OH Total 6 Months I10 - Essential (primary) hypertension Hemoglobin A1c 6 Months I10 - Essential (primary) hypertension
== END 2024-10-18 13:58 | disposition home or self-care (01) ==
PROVIDERS: PCP Internal Medicine; Visit Provider Internal Medicine
DX: Z00.00 Encounter for general adult medical examination without abnormal findings (principal); I48.0 Paroxysmal atrial fibrillation; E78.00 Pure hypercholesterolemia, unspecified; E21.3 Hyperparathyroidism, unspecified; M81.0 Age-related osteoporosis without current pathological fracture; Z98.84 Bariatric surgery status; E66.3 Overweight; Z85.3 Personal history of malignant neoplasm of breast; F41.1 Generalized anxiety disorder; I10 Essential (primary) hypertension

== ENCOUNTER → 2024-11-27 07:52 | Outpatient (REF) | payer MEDICARE, SELFPAY ==
--- OUTSIDE RECORDS SUMMARY | 2024-11-27 07:55 | XMS_ITS | Encounter Summary ---
Author Organization [employer] Address [address] [facility] 7 [place] [address] Care Team Providers Care Radiology Interventional Physician Name Role Phone Unavailable Primary Care Provider [...]
--- OUTSIDE RECORDS SUMMARY | 2024-11-27 07:55 | XMS_ITS | Patient Health Record ---
Author Organization [facility] Address [address] [place] [address] Care Team Providers Care Razor Sharpener Name Role Phone Henrry Madden Primary Care Provider Unavailabl e Yesi Ortega Unavailable [phone] Allergies Allergen (clinical drug ingredient) Drug/Non Drug Allergy documented on EMR Reaction Allergy Type Onset Date Status lisinopril Lisinopril Unknown Drug Allergy Activ e Reason For Referral No Information Medications Medication SIG (Take, Route, Frequency, Duration) Notes Start Date End Date Status Calcium Citrate + D3 315-5 MG-MCG 1 tablet Orally Once a day Active Vitamin A 3 MG (42866 UT) 1 capsule Orally Once a day Active Gabapentin 300mg three times a day orally daily Active CBD Aubrey Active Citalopram & Diet Manage Prod 20mg [...] W/U Status Risk Notes Problem Plantar wart (64613382) Plantar wart (B07.0) Active confirmed Plan Of Treatment Pending Test Test Name Order Date 32948-Hqlh Destruction, 1-14 10/25/2022 Insurance Providers Payer Name Payer Address Payer Phone Subscriber Number Group Number Insured Name Patient Relationship to Insured Coverage Start Date Coverage End Date [employer] Medicare Complete [address] [address] [place] [address] [phone] [id number] Jenn Hidalgo Self - patient is the insured Medical (General) History Medical History History ICD Code Anxiety Back,Hip,and Knee pain Broken bones Cancer Cataracts covid-19 Depression High blood pressure Osteoporosis Reflux thyroid Measles Chicken pox Surgical History Surgery Date(Month/Year) back surgery 11/1990 gastric bypass 2016 09/07/83 12/07/85
--- OUTSIDE RECORDS SUMMARY | 2024-11-27 07:55 | XMS_ITS | Patient Health Record ---
Author Organization [facility] Address [address] [place] [address] Care Team Providers Care Biller Name Role Phone Po Henrry BOONE Primary Care Provider Joseph Plummer [phone] Allergies Allergen (clinical drug ingredient) Drug/Non Drug [...] for 30 Active Vitamin A 3 MG (60858 UT) TK 1 C PO QD Oral [...] Problem Screening for malignant neoplasm of colon (332889053) Encounter for screening for malignant neoplasm of colon (Z12.11) Active confirmed Problem History of adenomatous polyp of colon (079440825) History of adenomatous polyp of colon (Z86.010) Active confirmed Problem Preprocedural examination (Z01.818) Active confirmed Problem Family History of Cancer of Colon (Situation) (550733020) Family history of colon cancer (Z80.0) Active confirmed Plan Of Treatment Future Test Test Name Order Date COLONOSCOPY 10/24/2014 COLONOSCOPY 05/08/2020 Insurance Providers Payer Name Payer Address Payer Phone Subscriber Number Group Number Insured Name Patient Relationship to Insured Coverage Start Date Coverage End Date [facility] Medicare Advantage Plan [address] [address] [place] [address] [id number] GUY SINGH Self - patient is the insured Medical (General) History Medical History History ICD Code Screening Colonoscopies 1996 and 2003 were negative; in 2009 a small tubular adenoma was removed--also noted to have moderate sigmoid diverticulosis and internal hemorrhoids; neg. colonoscopy in 01/2015 Right breast cancer 06/2010--lumpectomy a nd XRT-sees Dr. Lilly HTN Depression Denies TN,DM,CVA,Lung disease,renal dise ase Spinal stenosis Surgical History Surgery Date(Month/Year) Back surgery-lower back C-sections x 2 Right breast surgery for cancer as above ---neg. lymph node 2010 Cholecystectomy 08/2015 Gastric bypass lost > 100#--Dr. Coleman los 10/2015
--- OUTSIDE RECORDS SUMMARY | 2024-11-27 07:55 | XMS_ITS ---
Author Name [facility] Organization Unknown Assessment and Plan ID Update Date Source Alert Text [place] [id number] 02/25/2021 [facility] COVID Vaccination: This patient has received the MOD, vaccination on 02/25/2021 [facility] [id number] [facility]
--- NOTE | 2024-11-27 07:58 | ECG_ITS ---
Test Reason : paf Blood Pressure : */* mmHG Vent. Rate : 93 BPM Atrial Rate : * BPM P-R Int : * ms QRS Dur : 96 ms QT Int : 390 ms P-R-T Axes : * 20 27 degrees QTcB Int : 484 ms Atrial fibrillation Abnormal ECG When compared with ECG of 04-Oct-2024 09:05, Atrial fibrillation has replaced Sinus rhythm Referred By: Henrry Madden Electronically Signed By: ARIANE RICHARD MD
== END ==
LOC: HO.CARD 07:52
PROVIDERS: PCP Internal Medicine; Visit Provider Internal Medicine
DX: I48.0 Paroxysmal atrial fibrillation (principal)
CPT/HCPCS: 93005

== ENCOUNTER → 2024-11-27 07:58 | Outpatient (BNV) | payer MEDICARE, SELFPAY | PROVIDERS: PCP Internal Medicine; Visit Provider Internal Medicine Cardiovascular Disease | DX: I48.91 Unspecified atrial fibrillation (principal) | CPT/HCPCS: 93010 ==

== ENCOUNTER 2025-01-01 11:37 | Outpatient (REF) | payer MEDICARE, SELFPAY ==
--- OUTSIDE RECORDS SUMMARY | 2025-01-01 13:11 | XMS_ITS | Clinical Summary ---
Author Organization [employer] [facility] Address [address] [place] [address] [address] [place] [address] Care Team Providers Care Natural Sciences Professor Name Role Phone Unavailable Primary Care [...] Vaccines (1 of 2) 2004 COVID-19 Vaccine (1 - 2023-2 5 season) 2024 Influenza Vaccine [...]
--- OUTSIDE RECORDS SUMMARY | 2025-01-01 13:11 | XMS_ITS | Encounter Summary ---
Author Organization [facility] [facility] Address [address] [facility] [address] [place] [address] Care Team Providers Care Paster Operator Name Role Phone Unavailable Primary Care Provider [...]
[2025-01-01 14:11] LABS: Digoxin 0.8 ng/mL (0.8-2.0)
== END 2025-01-01 11:38 | disposition home or self-care (01) ==
LOC: HO.HMGCLDS 11:37
PROVIDERS: PCP Internal Medicine; Visit Provider Internal Medicine
DX: I48.19 Other persistent atrial fibrillation (principal)
CPT/HCPCS: 36415; 80162

== ENCOUNTER 2025-02-14 08:39 | Outpatient (AMB) | payer MEDICARE, SELFPAY ==
--- NOTE | 2025-02-14 08:54 | A.OFFVIS_ITS ---
Vital Signs 02/14/25 08:55 Height 5 ft 4.41 in Weight 173 lb 1.006 oz BMI 29.3 BP 116/72 Blood Pressure Location Lt brachial Position Sitting Pulse 69 Pulse Source Pulse Oximeter Pulse Oximetry (%) 96 Oxygen Delivery Method Room Air Intake Visit Reasons: Osteoporosis Intake Note: Patient present today for Osteoporosis follow up. Supervisor Of Operations Required: No Accompanied by: Self / Same As Patient Allergies SAÚL Inhibitors Adverse Reaction (Intermediate, Verified 02/14/25 08:55) Cough Medication List - Last Reconciled 02/14/25 by Joseph Mir MD alendronate 70 mg PO SA apixaban (Eliquis) 5 mg PO BID calcium citrate-vitamin D3 315 mg-6.25 mcg (250 unit) 2 tabs PO DAILY cholecalciferol (vitamin D3) 50 mcg PO DAILY digoxin 125 mcg PO DAILY gabapentin 300 mg PO BEDTIME 90 days melatonin 3 mg PO BEDTIME PRN metoprolol succinate ER 100 mg PO DAILY multivitamin 1 tab PO DAILY ji-nf-ue3-isq-bls-izii-lut-kathy 250 mg (90 mg-160 mg) (Ocuvite Adult 50 Plus) 1 cap PO DAILY nystatin 1 appl topical BID PRN sertraline 25 mg PO DAILY vitamin A 1 cap PO DAILY vitamin B complex (B Complex-Vitamin B12 tablet) 1 tab PO DAILY HPI Comments Details: 69 YO Female with PMHx Obesity s/p Suhas En Y gastric bypass in 2015, a history of breast cancer of the R breast S/P lumpectomy and radiation therapy in 2010 as well as Osteopenia who is seen in F/U for hyperparathyroidism.. She had labs assessed 03/09/2021 with Calcium 9.6, PTH 108, Vitamin D 45.1, but no albumin was assessed. After her initial visit with me we completed a full biochemical evaluation which revealed evidence of suspected secondary hyperparathyroidism with elevated PTH, calcium low normal and Vitamin D WNL. She had a repeat DXA which revealed significant decline in her BMD in the hip into the osteoporotic range. This was thought to likely represent osteomalacia vs osteoporosis. She was asked to increase her dietary calcium, but instead decreased this of her own accord and is currently not having any dietary calcium at all. She has a history of breast cancer in 2010 and completed 10 years of tamoxifen therapy. She had routine labs completed by her bariatric team which revealed an elevated PTH level in the low 100's. She has never been treated for her Osteopenia. No history of pathologic fracture or ONJ. Currently not having any dietary calcium at all. Takes Calcium citrate 325 mg 2 tabs PO daily. Takes 1000 IU of Vitamin D daily. Has used a short course of PPI in the past, max of 2 months. Denies ever using anticoagulant, antiepileptic or glucocorticoid medication. Does no weight bearing exercise. Fracture history: Fracture of the R ankle twice, 2015 and 2017. 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 Menses were always regular. . She did not breastfeed. Menopause was age 49. She does not use HRT. Denies history of Kidney stones. Denies family history of Osteoporosis or hip fracture. Her Daughter does have recurrent nephrolithiasis. UTD on dental cleanings and sees dentist every 6 months. No planned upcoming dental work or extractions. Recent DEXA showed declining bone density in the femur. On alendronate FINDINGS: LEFT FEMUR, NECK: Current: BMD 0.417 g/cm2, Z-score -3.0, T-score -4.5, osteoporosis. Prior: BMD 0.569 g/cm2. Baseline: BMD 1.031 g/cm2. LEFT FEMUR, TOTAL: Current: BMD 0.497 g/cm2, Z-score -2.9, T-score -4.0, osteoporosis, 19.4% decrease from previous, 56.6% decrease from baseline (<5% change is not significant). Prior: BMD 0.617 g/cm2. Baseline: BMD 1.146 g/cm2. AP SPINE L1-L4: Current: BMD 1.228 g/cm2, Z-score 1.7, T-score 0.4, normal, 0.1% decrease from previous, 4.1% decrease from baseline (<5% change is not significant). Prior: BMD 1.229 g/cm2. Baseline: BMD 1.280 g/cm2. LEFT FOREARM RADIUS 33%: BMD 0.648 g/cm2, Z-score -0.9, T-score -2.6, osteoporosis, 5.3% decrease from baseline (<5% change is not significant). Baseline: BMD 0.684 g/cm2. IDENTIFIED RISK FACTORS: Menopause, hyperparathyroidism, history of fracture (adult), osteoporosis, secondary osteoporosis (partial gastrectomy). HISTORY OF FRACTURE: Other. MEDICATIONS: Calcium, vitamin D. MM/XR DEXA appendicular skeleton IMPRESSION: 1. DIAGNOSIS: Osteoporosis based on the lowest T-score value of -4.5 in the femoral neck applying World Health Organization criteria. Laboratory Tests 08/11/22 08/13/22 08/13/22 07:45 08:00 08:00 Creatinine Estimated GFR Albumin N-Telopeptide X-linked 70 25-OH Vitamin D Total TSH Free T4 PTH Intact Calcium (PTH Intact) Ur 24 Hour Volume 1525 Ur Creatinine 24 Hour 1.19 Ur Calcium 24 Hr 172 09/21/22 09/21/22 07:36 07:36 Creatinine 0.69 Estimated GFR > 60 Albumin 4.0 N-Telopeptide X-linked 25-OH Vitamin D Total 42.2 TSH 1.10 Free T4 1.14 PTH Intact 131 H Calcium (PTH Intact) 9.3 Ur 24 Hour Volume Ur Creatinine 24 Hour Ur Calcium 24 Hr Took Prolia for 1 dose in October 2023 then on alendronate . The patient is a 69-year-old female presenting with osteoporosis management. Her bone density has been declining despite being on alendronate, confirmed by urine tests showing absorption but not improvement in bone density. She has a history of taking Prolia, but discontinued due to cost concerns, having only received one dose in October of the previous year. The patient has a history of breast cancer, for which she received radiation therapy to the right breast. Due to this history, certain medications like Forteo and Tymlos are contraindicated. She is considering switching insurance plans to potentially afford Prolia, as it is considered beneficial for her condition and history of breast cancer. The patient experienced an ankle fracture approximately 7-8 years ago, but has not had any fractures since then. - Bone density test: Declining bone density despite alendronate use. - Urine test: Shows absorption of alendronate but no improvement in bone density. [facility] Medical History Atrial fibrillation, new onset Cervical cancer screening Chest pain Blood pressure elevated without history of HTN Numbness and tingling of both feet Obesity (BMI 30.0-34.9) Vitamin D deficiency Menopause Stiffness of finger joint of right hand Sprain of interphalangeal joint of right middle finger Sprain of interphalangeal joint of right ring finger Finger pain, right Vitamin A deficiency Joint pain Osteopenia Metatarsal stress fracture of right foot with routine healing Obstructive sleep apnea Osteoarthritis Hyperparathyroidism Anxiety and depression Closed fibular fracture Intestinal malabsorption following gastrectomy Overweight (BMI 25.0-29.9) Morbid obesity Spinal stenosis History of right breast cancer Surgical History Hx of tubal ligation History of colonoscopy Hx of bilateral cataract extraction Hx of dilation and curettage Hx of gastric bypass (~11/19/15) Hx laparoscopic cholecystectomy (~09/10/15) History of lumpectomy of right breast (~06/2010) History of back surgery Hx of section Family History Mother History of colon cancer Other Mental health disorder Social History Household Members Other:: daughter Housing: House Are you a primary anesthesiologist and critical care to a significant other at home: No Do you presently have visiting nurse or other home services: No Alcohol intake: never Patient Tobacco Use Status: Never used Tobacco Tobacco use type: Cigarette e-Cigarette/Vaping Use: Never Used Second Hand Smoke Exposure: No Advance Directives Date on File: 02/15/22 service: No Current occupational status: disabled Cognitive needs: No Hearing needs: No Vision needs: Yes Female Reproductive History Menstrual Age of Menarche: 12 Physical Exam Vital Signs: Last Vital Signs Pulse 69 02/14/25 08:55 BP 116/72 02/14/25 08:55 Pulse Ox 96 02/14/25 08:55 Oxygen Delivery Method Room Air 02/14/25 08:55 BMI result Body Mass Index 29.3 Assessment & Plan Assessment & Plan (1) Hyperparathyroidism: Comment: Secondary hyperparathyroidism, endocrinology Code(s): E21.3 - Hyperparathyroidism, unspecified Category: Medical Plan: This is a 67-year-old white female status post gastric bypass surgery elevated PTH suggestive secondary hyperparathyroidism due to calcium malabsorption. [facility] labs [facility] were normal. Currently on alendronate 70 mg Q weekly with recent bone density showing declines a bone density in hip. Urine NTX is suppressed 1. Osteoporosis The patient's bone density is declining despite alendronate use. Prolia is recommended due to its benefits in breast cancer patients, but cost is a barrier. The patient is advised to consider insurance changes to afford Prolia. Alendronate will be continued in the interim. 2. History of breast cancer Due to prior radiation therapy, medications like Forteo and Tymlos are contraindicated. Prolia is considered beneficial and should be pursued if financially feasible. During the discussion, I explained to the patient that her bone density is declining despite alendronate use. We discussed the benefits of Prolia, especially given her history of breast cancer, but acknowledged the cost barrier. I advised her to consider changing her insurance to potentially cover Prolia. We also reviewed the contraindications of Forteo and Tymlos due to her prior radiation therapy. I emphasized the importance of continuing alendronate until Prolia can be accessed. - Continue taking alendronate as prescribed. - Consider changing insurance to afford Prolia. - The patient had an opportunity to ask questions regarding treatment plan. The patient expressed understanding and agreement with the above treatment plan. Patient was informed and verbally consented to the use of an ambient scribe for clinic note documentation during this visit. The patient had an opportunity to ask questions regarding treatment plan. The patient expressed understanding and agreement with the above treatment plan. Patient was informed and verbally consented to the use of an ambient scribe for clinic note documentation during this visit. Coding Level of Care Code Est Pt Level 3 (94207) Diagnoses Hyperparathyroidism E21.3
[2025-02-14 08:55] VITALS: BP 116/72; PULSE 69; O2SAT 96; BMI 29.3
--- OUTSIDE RECORDS SUMMARY | 2025-02-14 09:24 | XMS_ITS | Encounter Summary ---
Author Organization [facility] Address [address] [place] [address] Care Team Providers Care Supervisor Remelt Name Role Phone Unavailable Primary Care Provider [...]
--- OUTSIDE RECORDS SUMMARY | 2025-02-14 09:24 | XMS_ITS | Clinical Summary ---
Author Organization [facility] Address [address] [place] [address] [address] [place] [address] Care Team Providers Care Dehydrogenation Operator Name Role Phone Unavailable Primary Care [...]
--- OUTSIDE RECORDS SUMMARY | 2025-02-14 09:24 | XMS_ITS | Patient Health Record ---
Author Organization [facility] Address [address] [place] [address] Care Team Providers Care Rocket [employer]ellant Plant Supervisor Name Role Phone Po Henrry BOONE Primary Care Provider Joseph Plummer [phone] Allergies Allergen (clinical drug ingredient) Drug/Non Drug Allergy documented on EMR Reaction Allergy Type Onset Date Status angiotensin-converting enzyme inhibitor (FN) Russ Inhibitors (uncoded) Unknown Allergy Active Reason For Referral No Information Medications Medication SIG (Take, Route, Frequency, Duration) Notes Start Date End Date Status Cyanocobalamin 1000 MCG/ML INJECT 1 ML O NCE A MONTH DIRECTED Injection; Duration: 90 Active Vitron-C 65-125 MG TK 1 T PO QD Oral; Duration: 90 Active Vitamin D3 25 MCG (1000 UT) TAKE 1 CAPSU LE BY MOUTH EVERY DAY Oral; Duration: 30 Active Vitamin A 3 MG (08428 UT) TK 1 C PO QD O ral; Duration: 30 Active Gabapentin 300 MG TK 1 C PO QD Oral; Duration: 90 Active Tamoxifen Citrate 20 MG TK 1 T PO QD Ora l; Duration: 90 Active Citalopram Hydrobromide 20 MG 1 tablet Orally Once a day Active VESIcare 5 MG 1 tablet Orally Once a day Active Immunizations Vaccine Route Administration Date Status Comme nts Influenza Unknown 01/31/2020 Administered Problems Problem Type SNOMED Code ICD Code Onset Dates Problem Status W/U Status Risk Notes Problem Screening for malignant neoplasm of colon (360226704) Encounter for screening for malignant neoplasm of colon (Z12.11) Active confirmed Problem History of adenomatous polyp of colon (445796119) History of adenomatous polyp of colon (Z86.010) Active confirmed Problem Preprocedural examination (544605469144485) Preprocedural examination (Z01.818) Active confirmed Problem Family History of Cancer of Colon (Situation) (335812619) Family history of colon cancer (Z80.0) Active confirmed Plan Of Treatment Future Test Test Name Order Date COLONOSCOPY 10/24/2014 COLONOSCOPY 05/08/2020 Insurance Providers Payer Name Payer Address Payer Phone Subscriber Number Group Number Insured Name Patient Relationship to Insured Coverage Start Date Coverage End Date [facility] Medicare Advantage Plan [address] [address] [place] [address] [id number] GUY SINGH Self - patient is the insured Medical (General) History Medical History History ICD Code Screening Colonoscopies 1996 and 2003 were negative; in 2009 a small tubular adenoma was removed--also noted to have moderate sigmoid diverticulosis and internal hemorrhoids; neg. colonoscopy in 01/2015 Right breast cancer 06/2010--lumpectomy a nd XRT-sees Dr. Lilly HTN Depression Denies [place],DM,CVA,Lung disease,renal dise ase Spinal stenosis Surgical History Surgery Date(Month/Year) Back surgery-lower back C-sections x 2 Right breast surgery for cancer as above ---neg. lymph node 2010 Cholecystectomy 08/2015 Gastric bypass lost > 100#--Dr. Coleman los 10/2015
--- OUTSIDE RECORDS SUMMARY | 2025-02-14 09:24 | XMS_ITS | Patient Health Record ---
Author Organization [facility] [place] Address [address] [place] [address] Care Team Providers Care Encephalographer Name Role Phone Henrry Madden Primary Care Provider Unavailabl e Yesi Ortega Unavailable [phone] Allergies Allergen (clinical drug ingredient) Drug/Non Drug Allergy documented on EMR Reaction Allergy Type Onset Date Status lisinopril Lisinopril Unknown Drug Allergy Activ e Reason For Referral No Information Medications Medication SIG (Take, Route, Frequency, Duration) Notes Start Date End Date Status Calcium Citrate + D3 315-5 MG-MCG 1 tablet Orally Once a day Active Vitamin A 3 MG (32927 UT) 1 capsule Orally Once a day Active Gabapentin 300mg three times a day orally daily Active CBD Otoe Active Citalopram & Diet Manage Prod 20mg [...] W/U Status Risk Notes Problem Plantar wart (81142580) Plantar wart (B07.0) Active confirmed Plan Of Treatment Pending Test Test Name Order Date 12498-Atmi Destruction, 1-14 10/25/2022 Insurance Providers Payer Name Payer Address Payer Phone Subscriber Number Group Number Insured Name Patient Relationship to Insured Coverage Start Date Coverage End Date [employer] Medicare Complete [address] [address] [place] [address] [phone] [id number] Jenn Hidalgo Self - patient is the insured Medical (General) History Medical History History ICD Code Anxiety Back,Hip,and Knee pain Broken bones Cancer Cataracts covid-19 Depression High blood pressure Osteoporosis Reflux thyroid Measles Chicken pox Surgical History Surgery Date(Month/Year) back surgery 11/1990 gastric bypass 2016 09/07/83 12/07/85
== END 2025-02-14 09:31 | disposition home or self-care (01) ==
LOC: HO.ENCR 08:40
PROVIDERS: PCP Internal Medicine; Visit Provider Internal Medicine Endocrinology, Diabetes & Metabolism
DX: E21.3 Hyperparathyroidism, unspecified (principal)
CPT/HCPCS: 99213

== ENCOUNTER → 2025-02-14 08:39 | Outpatient (BNVA) | payer MEDICARE, SELFPAY | PROVIDERS: PCP Internal Medicine; Visit Provider Internal Medicine Endocrinology, Diabetes & Metabolism | DX: M81.0 Age-related osteoporosis without current pathological fracture (principal); E21.3 Hyperparathyroidism, unspecified; Z85.3 Personal history of malignant neoplasm of breast; Z78.0 Asymptomatic menopausal state; Z90.3 Acquired absence of stomach [part of]; Z79.83 Long term (current) use of bisphosphonates | CPT/HCPCS: 99212 ==

== ENCOUNTER 2025-03-18 12:57 | Outpatient (AMB) | payer MEDICARE, SELFPAY ==
[2025-03-18 12:41] VITALS: BMI 28.8
--- NOTE | 2025-03-18 12:41 | A.OFFVIS_ITS ---
Vital Signs 03/18/25 12:41 03/18/25 13:42 Height 5 ft 4.41 in Weight 169 lb 12.095 oz BMI 28.8 BP 118/62 Blood Pressure Location Lt brachial Position Sitting Pulse 71 Pulse Source Pulse Oximeter Intake Visit Reasons: 6m follow up ep Allergies SAÚL Inhibitors Adverse Reaction (Intermediate, Verified 02/14/25 08:55) Cough Medication List - Last Reconciled 03/18/25 by Danny Garcia MD apixaban (Eliquis) 5 mg PO BID calcium citrate-vitamin D3 315 mg-6.25 mcg (250 unit) 2 tabs PO DAILY cholecalciferol (vitamin D3) 50 mcg PO DAILY gabapentin 300 mg PO BEDTIME 90 days melatonin 3 mg PO BEDTIME PRN metoprolol succinate ER 100 mg PO DAILY multivitamin 1 tab PO DAILY gy-iv-gh2-elh-gxq-mzlu-lut-kathy 250 mg (90 mg-160 mg) (Ocuvite Adult 50 Plus) 1 cap PO DAILY nystatin 1 appl topical BID PRN sertraline 25 mg PO DAILY vitamin A 1 cap PO DAILY vitamin B complex (B Complex-Vitamin B12 tablet) 1 tab PO DAILY HPI Comments Details: Jenn returns for follow-up. Recently seen in consultation regarding atrial fibrillation. She had various symptoms including chest tightness, shortness of breath and exertion. Subsequently, underwent cardioversion and put on flecainide. However, then reverted back to atrial fibrillation. She saw EP and underwent pulmonary vein/posterior wall isolation. She states she feels good. No cardiac symptoms. COUNTS INCLUDE 234 BEDS AT THE [facility] Medical History Atrial fibrillation, new onset Cervical cancer screening Chest pain Blood pressure elevated without history of HTN Numbness and tingling of both feet Obesity (BMI 30.0-34.9) Vitamin D deficiency Menopause Stiffness of finger joint of right hand Sprain of interphalangeal joint of right middle finger Sprain of interphalangeal joint of right ring finger Finger pain, right Vitamin A deficiency Joint pain Osteopenia Metatarsal stress fracture of right foot with routine healing Obstructive sleep apnea Osteoarthritis Hyperparathyroidism Anxiety and depression Closed fibular fracture Intestinal malabsorption following gastrectomy Overweight (BMI 25.0-29.9) Morbid obesity Spinal stenosis History of right breast cancer Surgical History Hx of tubal ligation History of colonoscopy Hx of bilateral cataract extraction Hx of dilation and curettage Hx of gastric bypass (~11/19/15) Hx laparoscopic cholecystectomy (~09/10/15) History of lumpectomy of right breast (~06/2010) History of back surgery Hx of section Family History Mother History of colon cancer Other Mental health disorder Social History Household Members Other:: daughter Housing: House Are you a primary adult caregiver to a significant other at home: No Do you presently have visiting nurse or other home services: No Alcohol intake: never Patient Tobacco Use Status: Never used Tobacco Tobacco use type: Cigarette e-Cigarette/Vaping Use: Never Used Second Hand Smoke Exposure: No Advance Directives Date on File: 02/15/22 service: No Current occupational status: disabled Cognitive needs: No Hearing needs: No Vision needs: Yes Female Reproductive History Menstrual Age of Menarche: 12 Review of Systems Const Denies chills, Denies fatigue, Denies fever(s), Denies frequent falls, Denies weakness, Denies weight gain and Denies weight loss ENT Denies dizziness Card Denies chest pain, Denies leg edema, Denies lightheadedness, Denies palpitations, Denies dyspnea, Denies dyspnea on exertion, Denies orthopnea and Denies other (loss of consciousness) Resp Denies cough, Denies dyspnea and Denies dyspnea on exertion GI Denies hematochezia and Denies change in stool character Musc Denies abnormal gait, Denies muscle weakness, Denies numbness, Denies radiating pain into limb and Denies tingling Neuro Denies abnormal gait, Denies dizziness, Denies frequent falls, Denies numbness, Denies tingling and Denies weakness Endo Denies fatigue and Denies palpitations Physical Exam Vital Signs: Last Vital Signs Pulse 71 03/18/25 13:42 BP 118/62 03/18/25 13:42 BMI result Body Mass Index 28.8 Const General: comfortable and no acute distress Orientation/consciousness: patient oriented x3 HEENT Other: Unremarkable Head: Yes normal to inspection Neck Neck: Yes normal visual inspection Chest Chest palpation & inspection: normal inspection of the chest Resp Auscultation: clear to auscultation bilaterally Cardio Palpation: normal PMI Heart sounds: S1 normal heart sound present, S2 normal heart sound present, no gallops, no murmurs and no rubs GI Palpation (GI): Soft to palpation Back/Spine/Pelvis Other: unremarkable Skin General skin exam: no rashes or lesions noted Neuro General: patient oriented x3 Extrem General: Yes normal to inspection Psych Mental Status: mental status grossly normal Office Procedures EKG Details: EKG with sinus rhythm at 71/Min; no ischemic changes; normal SD and corrected QT. P[place]. [id number], Complete Assessment & Plan Assessment & Plan (1) Paroxysmal atrial fibrillation: Comment: Status post cardioversion July 2024 Code(s): I48.0 - Paroxysmal atrial fibrillation Category: Medical (2) Coronary artery calcification seen on CT scan: Code(s): I25.10 - Atherosclerotic heart disease of [place] coronary artery without angina pectoris Category: Medical Plan Cardiac studies reviewed. Echocardiogram with LVEF of 55-60%. Severely dilated left atrium. Moderate mitral annular calcification with [id number] mitral regurgitation. Exercise stress test was negative for angina or EKG changes of ischemia at 7.6 METS workload. In the CTA performed for pulmonary vein assessment, described to have moderate coronary artery calcification but that is not unusual in her age. Overall, status post atrial fibrillation ablation and maintaining sinus rhythm. Continue metoprolol. Off digoxin. Continue anticoagulation. With regard to coronary artery calcification on CT scan, she has got no angina and a prior stress test unremarkable. Hence most likely nonobstructive disease. She can take some statins for that. She has a follow up appointment with the EP coming up as well. We will see her back in about 6 months' time. In the interim, she will call w ith any concerns. Discussion Notes During the visit, we discussed the patient's recent ablation procedure for atrial fibrillation and her recovery process. We reviewed her current medicat ions, including the discontinuation of Digoxin and continuation of Metoprolol and Eliquis. We also addressed her coronary artery disease, noting the plaque buildup and the absence of angina symptoms. The potential initiation of statin therapy was discussed to manage the plaque buildup, and the patient was open to this treatment option. Patient was informed and verbally consented to the use of an ambient scribe for clinic note documentation during this visit. Medications: New atorvastatin (Lipitor) 10 mg PO QPM 90 tabs 1RF Patient Instructions: - Continue taking Metoprolol 100 mg daily and Eliquis as prescribed. - Avoid heavy lifting and gradually resume normal activities, including walking on the treadmill. - Consider starting statin therapy to manage coronary plaque buildup. - Follow up with EP as scheduled. Coding Level of Care Code Est Pt Level 4 (39508) Complex EM visit Add On G2211 Diagnoses Paroxysmal atrial fibrillation I48.0 Coronary artery calcification seen on CT scan I25.10 CPT Codes EKG - CPT: 44112-[id number], Complete ([id number])
[2025-03-18 13:42] VITALS: BP 118/62; PULSE 71
== END 2025-03-18 13:55 | disposition home or self-care (01) ==
LOC: HO.HCS 12:58
PROVIDERS: PCP Internal Medicine; Visit Provider Internal Medicine
DX: I48.0 Paroxysmal atrial fibrillation (principal); I25.10 Atherosclerotic heart disease of native coronary artery without angina pectoris
CPT/HCPCS: 93010; 99214; G2211

== ENCOUNTER → 2025-03-18 12:57 | Outpatient (BNVA) | payer MEDICARE, SELFPAY | PROVIDERS: PCP Internal Medicine; Visit Provider Internal Medicine | DX: I48.0 Paroxysmal atrial fibrillation (principal); I25.10 Atherosclerotic heart disease of native coronary artery without angina pectoris | CPT/HCPCS: 93005; 99212 ==

== ENCOUNTER 2025-03-27 07:59 | Outpatient (AMB) | payer MEDICARE, SELFPAY ==
--- OUTSIDE RECORDS SUMMARY | 2025-03-27 08:09 | XMS_ITS | Patient Health Record ---
Author Organization [facility] mehnaz Magee Address [address] [facility] [place] [address] Care Team Providers Care Chemist Proteins Name Role Phone Henrry Madden Primary Care Provider Unavailabl e Yesi Ortega Unavailable [phone] Allergies Allergen (clinical drug ingredient) Drug/Non Drug Allergy documented on EMR Reaction Allergy Type Onset Date Status lisinopril Lisinopril Unknown Drug Allergy Activ e Reason For Referral No Information Medications Medication SIG (Take, Route, Frequency, Duration) Notes Start Date End Date Status Calcium Citrate + D3 315-5 MG-MCG 1 tablet Orally Once a day Active Vitamin A 3 MG (81629 UT) 1 capsule Orally Once a day Active Gabapentin 300mg three times a day orally daily Active CBD [place] Active Citalopram & Diet Manage Prod 20mg [...] W/U Status Risk Notes Problem Plantar wart (43092119) Plantar wart (B07.0) Active confirmed Plan Of Treatment Pending Test Test Name Order Date [id number] Destruction, 1-14 10/25/2022 Insurance Providers Payer Name Payer Address Payer Phone Subscriber Number Group Number Insured Name Patient Relationship to Insured Coverage Start Date Coverage End Date AARP Medicare Complete [address] [address] [place] [address] [id number] Jenn Hidalgo Self - patient is the insured Medical (General) History Medical History History ICD Code Anxiety Back,Hip,and Knee pain Broken bones Cancer Cataracts covid-19 Depression High blood pressure Osteoporosis Reflux thyroid Measles Chicken pox Surgical History Surgery Date(Month/Year) back surgery 11/1990 gastric bypass 2016 09/07/83 12/07/85
--- OUTSIDE RECORDS SUMMARY | 2025-03-27 08:09 | XMS_ITS | Encounter Summary ---
Author Organization [employer] Address [address] [facility] [address] [place] [address] Care Team Providers Care Kiln Charger Name Role Phone Unavailable Primary Care Provider [...]
--- OUTSIDE RECORDS SUMMARY | 2025-03-27 08:09 | XMS_ITS | Clinical Summary ---
Author Organization [employer] Address [address] [place] [address] [address] [place] [address] Care Team Providers Care Business Analytics Faculty Member Name Role Phone Unavailable Primary Care Provider [...] of 2) 2004 COVID-19 Vaccine (1 - 2024-2 6 season) 2024 Influenza Vaccine (#1) 2024 RSV [...]
--- OUTSIDE RECORDS SUMMARY | 2025-03-27 08:09 | XMS_ITS | Patient Health Record ---
Author Organization [facility] Address [address] [place] [address] Care Team Providers Care Office Admin Name Role Phone Po Henrry BOONE Primary Care Provider Joseph Plummer [phone] Allergies Allergen (clinical drug ingredient) Drug/Non Drug Allergy documented on EMR Reaction Allergy Type Onset Date Status angiotensin-converting enzyme inhibitor (FN) Russ Inhibitors (uncoded) Unknown Allergy Active Reason For Referral No Information Medications Medication SIG (Take, Route, Frequency, Duration) Notes Start Date End Date Status Cyanocobalamin 1000 MCG/ML Solution INJECT 1 ML ONCE A MONTH DIRECTED Injection; Duration: 90 Active Vitron-C 65-125 MG Tablet TK 1 T PO QD O ral; Duration: 90 Active Vitamin D3 25 MCG (1000 UT) Capsule TAKE 1 CAPSULE BY MOUTH EVERY DAY Oral; Duration: 30 Active Vitamin A 3 MG (26848 UT) Capsule TK 1 C PO QD Oral; Duration: 30 Active Gabapentin 300 MG Capsule TK 1 C PO QD O ral; Duration: 90 Active Tamoxifen Citrate 20 MG Tablet TK 1 T PO QD Oral; Duration: 90 Active Citalopram Hydrobromide 20 MG Tablet 1 tablet Orally Once a day Active VESIcare 5 MG Tablet 1 tablet Orally Onc e a day Active Immunizations Vaccine Route Administration Date Status Comme nts Influenza Unknown 01/31/2020 Administered Social History Social History Additional Details Category Social Info Options Details Miscellaneous: Marital status: Occupation: retired Section Notes: Nonsmoker; no alcohol Nonsmoker; no alcohol Problems Problem Type SNOMED Code ICD Code Onset Dates Problem Status W/U Status Risk Notes Problem Screening for malignant neoplasm of colon (440258038) Encounter for screening for malignant neoplasm of colon (Z12.11) Active confirmed Problem History of adenomatous polyp of colon (369240128) History of adenomatous polyp of colon (Z86.010) Active confirmed Problem Preprocedural examination (647895901276932) Preprocedural examination (Z01.818) Active confirmed Problem Family History of Cancer of Colon (Situation) (569402333) Family history of colon cancer (Z80.0) Active confirmed Plan Of Treatment Future Test Test Name Order Date COLONOSCOPY 10/24/2014 COLONOSCOPY 05/08/2020 Insurance Providers Payer Name Payer Address Payer Phone Subscriber Number Group Number Insured Name Patient Relationship to Insured Coverage Start Date Coverage End Date [facility] Medicare Advantage Plan [address] [address] [place] [address] [id number] GUY SINGH Self - patient is the insured Medical (General) History Medical History History ICD Code Screening Colonoscopies 1996 and 2003 were negative; in 2009 a small tubular adenoma was removed--also noted to have moderate sigmoid diverticulosis and internal hemorrhoids; neg. colonoscopy in 01/2015 Right breast cancer 06/2010--lumpectomy a nd XRT-sees Dr. Lilly HTN Depression Denies NM,DM,CVA,Lung disease,renal dise ase Spinal stenosis Surgical History Surgery Date(Month/Year) Back surgery-lower back C-sections x 2 Right breast surgery for cancer as above ---neg. lymph node 2010 Cholecystectomy 08/2015 Gastric bypass lost > 100#--Dr. Coleman los 10/2015
--- NOTE | 2025-03-27 08:16 | A.OFFVIS_ITS ---
Vital Signs 03/27/25 08:29 Height 5 ft 3 in Weight 169 lb BMI 29.9 BP 104/60 Intake Visit Reasons: Abnormal CT scan follow-up Accompanied by: Self / Same As Patient Allergies SAÚL Inhibitors Adverse Reaction (Intermediate, Verified 03/27/25 08:30) Cough HPI Comments Details: Presenting for annual exam. No complaints. Last Pap/HPV was negative in 2021 Last Mammogram was BI-RADS 2 in 08/24 Last Colonoscopy was negative in 06/22, the recommendation was to repeat in 5 years Last DEXA scan was done in 09/22 [facility] Medical History Atrial fibrillation, new onset Cervical cancer screening Chest pain Blood pressure elevated without history of HTN Numbness and tingling of both feet Obesity (BMI 30.0-34.9) Vitamin D deficiency Menopause Stiffness of finger joint of right hand Sprain of interphalangeal joint of right middle finger Sprain of interphalangeal joint of right ring finger Finger pain, right Vitamin A deficiency Joint pain Osteopenia Metatarsal stress fracture of right foot with routine healing Obstructive sleep apnea Osteoarthritis Hyperparathyroidism Anxiety and depression Closed fibular fracture Intestinal malabsorption following gastrectomy Overweight (BMI 25.0-29.9) Morbid obesity Spinal stenosis History of right breast cancer Surgical History Hx of tubal ligation History of colonoscopy Hx of bilateral cataract extraction Hx of dilation and curettage Hx of gastric bypass (~11/19/15) Hx laparoscopic cholecystectomy (~09/10/15) History of lumpectomy of right breast (~06/2010) History of back surgery Hx of section Family History Mother History of colon cancer Other Mental health disorder Social History Household Members Other:: daughter Housing: House Are you a primary long term care social worker to a significant other at home: No Do you presently have visiting nurse or other home services: No Alcohol intake: never Patient Tobacco Use Status: Never used Tobacco Tobacco use type: Cigarette e-Cigarette/Vaping Use: Never Used Second Hand Smoke Exposure: No Advance Directives Date on File: 02/15/22 service: No Current occupational status: disabled Cognitive needs: No Hearing needs: No Vision needs: Yes Female Reproductive History Menstrual Age of Menarche: 12 Review of Systems Const All systems reviewed & are unremarkable except as noted in HPI and below Card Reports as per HPI Resp Reports as per HPI GI Reports as per HPI and Reports no additional complaints Reports as per HPI Physical Exam Vital Signs: Last Vital Signs BP 104/60 03/27/25 08:29 BMI result Body Mass Index 29.9 Const General: cooperative, healthy appearing and comfortable Chest Chest palpation & inspection: normal inspection of the chest and normal palpation of entire chest wall Breast/axilla inspection: normal inspection of the breasts and normal inspection of the axillae Breast/axilla palpation: normal palpation of the breasts, normal palpation of the axillae and no axillary lymphadenopathy Resp Effort & Inspection: normal respiratory effort Auscultation: clear to auscultation bilaterally Percussion: percussion normal Cardio Palpation: normal PMI Rate: regular rate Rhythm: regular rhythm Heart sounds: no murmurs and no rubs Peripheral pulses: Peripheral pulses 2+ throughout GI Inspection: Yes normal to inspection Palpation (GI): Soft to palpation, nontender, no guarding, not rigid and No hepatosplenomegaly present Percussion: Yes normal to percussion Auscultation: normal bowel sounds Rectal Exam - Female: deferred General: Yes bladder normal to palpation External Female Exam: No lesion Speculum Exam - Vagina: normal appearance of the vagina, normal palpation, normal vaginal discharge and not erythematous Speculum Exam - Cervix: normal appearance of the cervix and normal palpation Bimanual exam- vagina & uterus: normal bimanual exam, normal palpation, uterine size normal, bladder normal to palpation, consistency normal and normal palpation Bimanual Exam- Adnexa, other: normal adnexae, no masses and no tenderness Assessment & Plan Assessment & Plan (1) Well woman exam: Code(s): Z01.419 - Encounter for gynecological examination (general) (routine) without abnormal findings Category: Medical Plan: Co testing not indicated this year Counseled the patient about the recommended dietary allowance of 1200 mg of Calcium & 800 IU of vitamin D. Instructions given the patient to schedule next screening Mammogram in 08/25. Referred her for screening colonoscopy done. The patient was instructed to perform monthly self-breast exams and to schedule an annual exam in a year; All questions answered and the patient verbalized understanding. Orders: Orders MM tomosynthesis screening BI Today Z12.31 - Encounter for screening mammogram for malignant neoplasm of breast Referrals Gastroenterology Referral Z12.11 - Encounter for screening for malignant neoplasm of colon Coding Level of Care Code Est Pt Prev Care >65y(22297) Diagnoses Well woman exam Z01.419
[2025-03-27 08:29] VITALS: BP 104/60; BMI 29.9
== END 2025-03-27 09:27 | disposition home or self-care (01) ==
LOC: HO.HWS 08:00
PROVIDERS: PCP Internal Medicine; Visit Provider Obstetrics & Gynecology
DX: Z01.419 Encounter for gynecological examination (general) (routine) without abnormal findings (principal)
CPT/HCPCS: 99397; 99459

== ENCOUNTER → 2025-03-27 07:59 | Outpatient (BNVA) | payer MEDICARE, SELFPAY | PROVIDERS: PCP Internal Medicine; Visit Provider Obstetrics & Gynecology | DX: Z01.419 Encounter for gynecological examination (general) (routine) without abnormal findings (principal); Z98.51 Tubal ligation status | CPT/HCPCS: 99397 ==

== ENCOUNTER 2025-04-17 07:56 | Outpatient (REF) | payer MEDICARE, SELFPAY ==
--- OUTSIDE RECORDS SUMMARY | 2025-04-17 07:59 | XMS_ITS | Clinical Summary ---
Author Organization [employer] Address [address] [place] [address] 7[address] [place] [address] Care Team Providers Care Manager Of School Name Role Phone Unavailable Primary Care Provider [...]
--- OUTSIDE RECORDS SUMMARY | 2025-04-17 07:59 | XMS_ITS | Patient Health Record ---
Author Organization [facility] mehnaz [place] Address [address] [place] [address] Care Team Providers Care Social Staff Worker Name Role Phone Henrry Madden Primary Care Provider Unavailabl e Yesi Ortega Unavailable [phone] Allergies Allergen (clinical drug ingredient) Drug/Non Drug Allergy documented on EMR Reaction Allergy Type Onset Date Status lisinopril Lisinopril Unknown Drug Allergy Activ e Reason For Referral No Information Medications Medication SIG (Take, Route, Frequency, Duration) Notes Start Date End Date Status Calcium Citrate + D3 315-5 MG-MCG 1 tablet Orally Once a day Active Vitamin A 3 MG (41451 UT) 1 capsule Orally Once a day Active Gabapentin 300mg three times a day orally daily Active CBD [place] Active Citalopram & Diet Manage Prod 20mg [...] W/U Status Risk Notes Problem Plantar wart (42974782) Plantar wart (B07.0) Active confirmed Plan Of Treatment Pending Test Test Name Order Date [id number] Destruction, 1-14 10/25/2022 Insurance Providers Payer Name Payer Address Payer Phone Subscriber Number Group Number Insured Name Patient Relationship to Insured Coverage Start Date Coverage End Date AARP Medicare Complete [address] [address] [place] [address] [id number] Jenn Hidalgo Self - patient is the insured Medical (General) History Medical History History ICD Code Anxiety Back,Hip,and Knee pain Broken bones Cancer Cataracts covid-19 Depression High blood pressure Osteoporosis Reflux thyroid Measles Chicken pox Surgical History Surgery Date(Month/Year) back surgery 11/1990 gastric bypass 2016 09/07/83 12/07/85
--- OUTSIDE RECORDS SUMMARY | 2025-04-17 07:59 | XMS_ITS | Patient Health Record ---
Author Organization [facility] Address [address] [place] [address] Care Team Providers Care News Producer Name Role Phone Po Henrry BOONE Primary Care Provider Joseph Plummer [phone] Allergies Allergen (clinical drug ingredient) Drug/Non Drug [...] Duration: 30 Active Vitamin A 3 MG (94123 UT) Capsule TK 1 C PO QD [...] Problem Screening for malignant neoplasm of colon (674263109) Encounter for screening for malignant neoplasm of colon (Z12.11) Active confirmed Problem History of adenomatous polyp of colon (228835179) History of adenomatous polyp of colon (Z86.010) Active confirmed Problem Preprocedural examination (150527820407223) Preprocedural examination (Z01.818) Active confirmed Problem Family History of Cancer of Colon (Situation) (851214923) Family history of colon cancer (Z80.0) Active confirmed Plan Of Treatment Future Test Test Name Order Date COLONOSCOPY 10/24/2014 COLONOSCOPY 05/08/2020 Insurance Providers Payer Name Payer Address Payer Phone Subscriber Number Group Number Insured Name Patient Relationship to Insured Coverage Start Date Coverage End Date [facility] Medicare Advantage Plan [address] [address] [place] [address] [phone] [id number] GUY SINGH Self - patient is the insured Medical (General) History Medical History History ICD Code Screening Colonoscopies 1996 and 2003 were negative; in 2009 a small tubular adenoma was removed--also noted to have moderate sigmoid diverticulosis and internal hemorrhoids; neg. colonoscopy in 01/2015 Right breast cancer 06/2010--lumpectomy a nd XRT-sees Dr. Lilly HTN Depression Denies ID,DM,CVA,Lung disease,renal dise ase Spinal stenosis Surgical History Surgery Date(Month/Year) Back surgery-lower back C-sections x 2 Right breast surgery for cancer as above ---neg. lymph node 2010 Cholecystectomy 08/2015 Gastric bypass lost > 100#--Dr. Coleman los 10/2015
--- OUTSIDE RECORDS SUMMARY | 2025-04-17 07:59 | XMS_ITS | Encounter Summary ---
Author Organization [employer] Address [address] [facility] 7 [place] [address] Care Team Providers Care Ip Litigation Paralegal Name Role Phone Unavailable Primary Care Provider [...]
[2025-04-17 10:44] LABS: MANUAL DIFF FLAG NO
[2025-04-17 10:53] LABS: Hematocrit 39.1 % (37.0-47.0); Hemoglobin 12.2 g/dl (12.0-16.0); Imm Gran Abs Auto 0.02 X10*3/uL (0.00-0.03); Imm Gran Pct Auto 0.3 % (0.0-0.4); Lymphocytes Absolute Auto 1.5 X10*3/uL (1.2-4.9); Mean Corpuscular HGB Conc 31.2 g/dl (31.0-35.0); Mean Corpuscular Hemoglobin 26.4 pg (27.0-33.0); Mean Corpuscular Volume 84.6 fL (80.0-98.0); NRBC Abs Auto 0.000 X10*3/uL (0.0-0.012); NRBC Pct Auto 0.0 /100WBC (0.0-0.2); Platelet Count 337 X10*3/uL (160-400); Red Blood Count 4.62 X10*6/uL (4.20-5.50); White Blood Count 6.6 X10*3/uL (4.8-10.8)
[2025-04-17 11:16] LABS: Alanine Aminotransferase 10 U/L (0-31); Albumin Level 4.3 g/dL (3.5-5.0); Alkaline Phosphatase 58 U/L (39-117); Anion Gap 11 (12-20); Aspartate Amino Transferase 47 U/L (5-31); Blood Urea Nitrogen 17 mg/dL (9-16); Calcium 9.1 mg/dL (8.4-10.2); Carbon Dioxide 27 mmol/L (22-29); Chloride 106 mmol/L (96-108); Cholesterol 108 mg/dL (<200); Estimated Glomerular Filt Rate > 60; HDL Cholesterol 31 mg/dL (>40); Potassium 4.4 mmol/L (3.3-5.1); Sodium 140 mmol/L (135-145); Total Protein 6.9 g/dL (6.5-8.0); Triglycerides 93 mg/dL (<150)
[2025-04-17 11:52] LABS: Folate 8.5 ng/mL (> or = 4.0); Vitamin B12 772 pg/mL (200-900)
[2025-04-17 11:55] LABS: Free T4 (Free Thyroxine) 1.19 ng/dL (0.71-1.85); Thyroid Stimulating Hormone 1.02 uIU/mL (0.32-4.0)
== END 2025-04-17 07:57 | disposition home or self-care (01) ==
LOC: HO.HMGCLDS 07:56
PROVIDERS: PCP Internal Medicine; Visit Provider Internal Medicine
DX: I10 Essential (primary) hypertension (principal); E78.00 Pure hypercholesterolemia, unspecified; Z13.1 Encounter for screening for diabetes mellitus; Z13.21 Encounter for screening for nutritional disorder
CPT/HCPCS: 36415; 80053; 80061; 82306; 82607; 82746; 83036; 84439; 84443; 85025

== ENCOUNTER 2025-04-22 09:08 | Outpatient (AMB) | payer MEDICARE, SELFPAY ==
[2025-04-22 09:12] VITALS: BP 120/72; PULSE 79; O2SAT 99; BMI 29.4
--- NOTE | 2025-04-22 09:12 | A.OFFPC_ITS ---
Vital Signs 04/22/25 09:12 Height 5 ft 3 in Weight 166 lb 2 oz BMI 29.4 BP 120/72 Blood Pressure Location Lt brachial Pulse 79 Pulse Source Pulse Oximeter Pulse Oximetry (%) 99 Oxygen Delivery Method Room Air Intake Visit Reasons: 6 month f/u Automation And Controls Manager Required: No Accompanied by: Self / Same As Patient Allergies SAÚL Inhibitors Adverse Reaction (Intermediate, Verified 04/22/25 09:13) Cough Tobacco use date assessed: 04/22/25 Fall risk assessment: No Falls in past year Last assessed Fall Risk: 04/22/25 Dental Screening Dental Screen Date: 04/22/25 Did you have a dental visit in the last 12 months?: Yes Did you have a dental problem in the last 6 months where you did not have access to dental care?: No Was dental information given to patient?: Patient has dentist HPI HPI Comments History of Present Illness Details History of Present Illness The patient is a 69-year-old female presenting for a follow-up physical examination and management of multiple chronic conditions. She has a history of paroxysmal atrial fibrillation, for which she underwent a pulmonary vein isolation after a cardioversion on flecainide was unsuccessful. A prior echocardiogram showed an ejection fraction of 55-60% with a severely dilated left atrium. She is managed on metoprolol and anticoagulation and continues to follow up with cardiology. Her history is also significant for coronary artery calcification seen on a prior CT scan, hypertension, and hypercholesterolemia managed with atorvastatin. The patient is overweight with a history of gastric bypass in 2015. Her last labs in April 2017 showed a fasting blood sugar of 102 mg/dL and a hemoglobin A1c of 5.7%, which is an increase from prior levels of 5.2-5.3%. Her LDL cholesterol was 59 mg/dL, while her HDL was low at 31 mg/dL. She has chronic, mildly elevated liver enzymes. Her history includes right breast cancer in 2010, treated with hormone-blocking medications and radiation therapy. She developed osteoporosis and secondary hyperparathyroidism, which is thought to be from calcium malabsorption, and is followed by endocrinology. She takes alendronate 70 mg weekly; however, Prolia was recommended but is cost-prohibitive, and Forteo or Tymlos are contraindicate d due to her history of radiation. She has a history of lumbar spinal stenosis and uses a cane and a rolling walker. She also has a history of generalized anxiety disorder. She complains of her right hand intermittently going completely numb and pain in her left hand. Health Maintenance The patient is in need of a handicap plate for her vehicle due to mobility issues from lumbar spinal stenosis, for which she uses a cane and rolling walker. A new referral will be sent to ENT for evaluation of her voice loss. A referral is already in place for her to follow up with gastroenterology for a co lonoscopy next year. She is to continue with her routine mammograms and follow- ups with hematology-oncology. Social History - Functional Status: The patient uses a cane and a rolling walker due to lumbar spinal stenosis. - Diet: She was advised to reduce her in take of carbohydrates, such as pasta, bread, rice, and potatoes, due to her prediabetic status. - Exercise: She was advised that exercis e can help increase her low HDL cholesterol. Results - Laboratory Studies (April 17): - CBC: Normal, no anemia. - Chemistry: Sodium and potassium are go od; kidney function is good. - Glucose: 102 mg/dL. - Hemoglobin A1c: 5.7%. - Liver Function Tests: Mildly elevated, noted to be a chronic finding. - Lipid Panel: LDL cholesterol 59 mg/dL; HDL cholesterol 31 mg/dL. - Other: Vitamin B12, vitamin D, folic a dora, and thyroid levels are all within normal limits. - Imaging and Procedures: - Past Echocardiogram: Showed an EF of 5 5-60% with a severely dilated left atrium. - Past CT Scan: Revealed coronary artery calcification. - Bone Density Scan (August 2023): Confirme d osteoporosis. [facility] Medical History Atrial fibrillation, new onset Cervical cancer screening Chest pain Blood pressure elevated without history of HTN Numbness and tingling of both feet Obesity (BMI 30.0-34.9) Vitamin D deficiency Menopause Stiffness of finger joint of right hand Sprain of interphalangeal joint of right middle finger Sprain of interphalangeal joint of right ring finger Finger pain, right Vitamin A deficiency Joint pain Osteopenia Metatarsal stress fracture of right foot with routine healing Obstructive sleep apnea Osteoarthritis Hyperparathyroidism Anxiety and depression Closed fibular fracture Intestinal malabsorption following gastrectomy Overweight (BMI 25.0-29.9) Morbid obesity Spinal stenosis History of right breast cancer Surgical History Hx of tubal ligation History of colonoscopy Hx of bilateral cataract extraction Hx of dilation and curettage Hx of gastric bypass (~11/19/15) Hx laparoscopic cholecystectomy (~09/10/15) History of lumpectomy of right breast (~06/2010) History of back surgery Hx of section Family History Mother History of colon cancer Other Mental health disorder Social History Household Members Other:: daughter Housing: House Are you a primary cna caregiver to a significant other at home: No Do you presently have visiting nurse or other home services: No Alcohol intake: never Patient Tobacco Use Status: Never used Tobacco Tobacco use type: Cigarette e-Cigarette/Vaping Use: Never Used Second Hand Smoke Exposure: No Advance Directives Date on File: 02/15/22 service: No Current occupational status: disabled Cognitive needs: No Hearing needs: No Vision needs: Yes Female Reproductive History Menstrual Age of Menarche: 12 Questionnaire PHQ-9 Over the last 2 weeks, how often have you been bothered by any of the following problems? 1. Little interest or pleasure in doing things: not at all 2. Feeling down, depressed, or hopeless: not at all 3. Trouble falling or staying asleep, or sleeping too much: not at all 4. Feeling tired or having little energy: not at all 5. Poor appetite or overeating: not at all 6. Feeling bad about yourself - or that you are a failure or have let yourself or your family down: not at all 7. Trouble concentrating on things, such as reading the newspaper or watching television: not at all 8. Moving or speaking so slowly that other people could have noticed. Or the opposite - being so fidgety or restless that you have been moving around a lot more than usual: not at all 9. Thoughts that you would be better off or of hurting yourself in some way: not at all Total score: 0 Source: Developed by Drs. Joseph Arana, Марина Roper, Torrey Celeste and colleagues, with an educational zoey from [employer]. Thrive Questionnaire Date Thrive assessed: 04/22/25 I am a: Patient What is your living situation today?: I have a steady place to live Within the past 12 months, did the food you bought not last and you didn't have the money to get more?: Never true Within the past 12 months, did you worry whether your food would run out before you got money to buy more?: Never true Do you have trouble paying for medicines?: Yes Do you have trouble getting transportation to medical appointments?: No Do you have trouble paying your heating and electricity bill?: No Do you have trouble taking care of your child, family member or friend?: No Do you have trouble with day-to-day activities such as bathing, preparing meals, shopping, managing finances, etc.?: No Are you currently unemployed and looking for a job?: No Are you interested in more education?: No Please select the resources that you would like help with: None Currently or been in a relationship where the following occur: No concerns reported THRIVE Score: 0 AUDIT C Alcohol Use Questionnaire (AUDIT-C) 1. How often do you have a drink containing alcohol?: Never 3. How often do you have six or more drinks on one occasion?: Never Total Score: 0 ROMINA-7 AMB Questionnaire ROMINA-7 Date ROMINA - 7 assessed: 04/22/25 Feeling nervous, anxious, or on edge: 0 = Not at all Not being able to stop or control worryin = Not at all Worrying too much about different things: 0 = Not at all Trouble relaxin = Not at all Being so restless that it is hard to sit still: 0 = Not at all Becoming easily annoyed or irritable: 0 = Not at all Feeling afraid as if something awful might happen: 0 = Not at all Total ROMINA-7 score (0-4 normal; 5-9 mild; 10-14 moderate; 15-21 severe): 0 Source: Developed by Drs. Joseph Arana, Марина Roper, Torrey Celeste and colleagues, with an educational zoey from [employer]. ROMINA-7 Assessment Billing ROMINA-7 Assessment Tool: ROMINA-7 Assessment 84962 Review of Systems Narrative Review of Systems - Neurological: Reports intermittent episodes of the right hand going completely numb and pain in the left hand. - Gastrointestinal: Reports normal bowel movements. - Genitourinary: Reports urination is fine. - ENT: Reports losing her voice. Physical exam (Primary Care) Vital Signs: Last Vital Signs Pulse 79 04/22/25 09:12 BP 120/72 04/22/25 09:12 Pulse Ox 99 04/22/25 09:12 Oxygen Delivery Method Room Air 04/22/25 09:12 BMI result Body Mass Index 29.4 Tobacco/Smoking Status: Tobacco use Status Tobacco use date assessed 04/22/25 04/22/25 09:18 Patient Tobacco Use Status Never used Tobacco 04/22/25 09:18 Tobacco use type Cigarette 04/22/25 09:18 e-Cigarette/Vaping Use Never Used 04/22/25 09:18 PHQ-9: PHQ-9 Score PHQ-9: Total score 0 04/22/25 09:42 Thrive Assessment: Date of Thrive Assessment Date Thrive assessed 04/22/25 04/22/25 09:18 Currently or been in a relationship where the following occur: No concerns reported Narrative Physical Exam - Cardiovascular: Heart auscultation reveals a regular rate with skipped beats. - Extremities: Peripheral pulses in hands are normal. Const General: alert; No acute distress Eyes Conjunctivae: conjunctivae normal Resp Auscultation: clear to auscultation bilaterally Cardio Rate: regular rate Rhythm: regular rhythm GI Inspection: Yes normal to inspection Extrem General: Yes normal to inspection and No edema Coding Level of Care Code Est Pt Level 4 (38972) Add On Problem Visit Only Diagnoses Hypertension I10 Coronary artery calcification seen on CT scan I25.10 Paroxysmal atrial fibrillation I48.0 Hypercholesterolemia E78.00 Hyperparathyroidism E21.3 Osteoporosis M81.0 Hx of gastric bypass Z98.84 History of right breast cancer Z85.3 Numbness of right hand R20.0 Additional Codes ROMINA-7 Assessment Billing - ROMINA-7 Assessment Tool: ROMINA-7 Assessment 89748 ([id number]) Assessment & Plan Assessment & Plan (1) Hypertension: Code(s): I10 - Essential (primary) hypertension Category: Medical Plan: Continue with blood pressure medication. Decrease salt intake and exercise on metoprolol 100 mg once a day (2) Coronary artery calcification seen on CT scan: Code(s): I25.10 - Atherosclerotic heart disease of [place] coronary artery without angina pectoris Category: Medical Plan: Control the cholesterol, weight, blood pressure, patient is on atorvastatin (3) Paroxysmal atrial fibrillation: Comment: Status post cardioversion July 2024 Code(s): I48.0 - Paroxysmal atrial fibrillation Category: Medical Plan: Continue with anticoagulation and meanwhile seeing naval architect and Cardiology (4) Hypercholesterolemia: Code(s): E78.00 - Pure hypercholesterolemia, unspecified Category: Medical Plan: Avoid fried foods, chicken skin, eggs, butter margarine, pastries and meat. Be it pork or beef they have a lot of cholesterol on atorvastatin LDL goal of less than 70 and triglyceride of less than 150 (5) Hyperparathyroidism: Comment: Secondary hyperparathyroidism, endocrinology Code(s): E21.3 - Hyperparathyroidism, unspecified Category: Medical Plan: Patient has seen endocrinology and has advised Prolia (6) Osteoporosis: Comment: June 2021, August 2023 Code(s): M81.0 - Age-related osteoporosis without current pathological fracture Category: Medical Plan: Patient has been advised to take Prolia (7) Hx of gastric bypass: Onset Date: ~11/19/15 Comment: Dr. Lai and diaphragmatic hernia repair Code(s): Z98.84 - Bariatric surgery status Category: Surgical Plan: Continue to follow-up with bariatric (8) History of right breast cancer: Comment: Right, June 2010 lumpectomy negative lymph nodes, right side lymphedema status post radiation June 2022 Code(s): Z85.3 - Personal history of malignant neoplasm of breast Category: Medical Plan: Continue with mammogram and follow-up with Hematology-Oncology (9) Numbness of right hand: Code(s): R20.0 - Anesthesia of skin Category: Medical Plan Plan Patient was informed and verbally consented to the use of an ambient scribe for clinic note documentation during this visit. 1. Paroxysmal Atrial Fibrillation The patient is status post pulmonary vein isolation, and her atrial fibrillation is reportedly stable. She will continue anticoagulation and metoprolol 100 mg daily for rate control. She will continue to follow up with her naval architect. 2. Hypercholesterolemia And Coronary Artery Disease Her LDL is well-controlled at 59 mg/dL on atorvastatin, meeting the goal of less than 70 mg/dL. She was encouraged to exercise to help raise her low HDL of 31 mg/dL. She will continue atorvastatin. 3. Osteoporosis The patient has osteoporosis, likely secondary to anti-estrogen therapy for her prior breast cancer. Prolia was advised by endocrinology but is cost-prohibitive for the patient, and medications like Forteo or Tymlos are contraindicated due to her history of radiation therapy. A prescription for alendronate 70 mg weekly will be sent. She was reminded to continue taking calcium and vitamin D. 4. Prediabetes Her hemoglobin A1c is at the borderline of 5.7%, an increase from previous values. Pharmacologic treatment is not indicated at this time. She was counseled on the importance of a low-carbohydrate diet, avoiding foods like pasta, bread, rice, and potatoes. 5. Elevated Liver Enzymes The patient has chronic, mildly elevated liver numbers, which is likely due to fatty liver. She was advised that management involves healthy eating and weight loss. 6. Numbness Of Right Hand The leading differential for her right-hand numbness is carpal tunnel syndrome. An order will be placed for a nerve conduction study of the right hand to evaluate further, and the patient has agreed to the test. Discussion Notes I reviewed the recent lab results with the patient. I explained that her hemoglobin A1c of 5.7% is at the upper limit of normal, representing a trend towards prediabetes, and I counseled her on reducing carbohydrates in her diet. We discussed her cholesterol panel, noting that her LDL of 59 is excellent on atorvastatin, but her HDL of 31 is low, and I recommended exercise to help improve this. I explained that her osteoporosis is likely exacerbated by the anti-estrogen medications she took for breast cancer, which remove bone-protective hormones. We discussed that since Prolia is too expensive and other agents are contraindicated, I will re-prescribe alendronate weekly. I stressed the importance of continuing her calcium and vitamin D supplements. Regarding her new symptom of right hand numbness, I explained that the most common cause is carpal tunnel syndrome. I recommended a nerve conduction study (EMG), explaining that if the condition is severe and untreated, the nerve damage can become permanent, and she agreed to proceed with the test. I confirmed that a referral will be placed for an ENT evaluation of her voice loss and that a referral is already in place for her gastroenterology follow-up for a colonoscopy. I also agreed to complete the paperwork for her to obtain a permanent handicap license plate due to her mobility limitations from spinal stenosis. Patient Instructions - Be careful with your diet and reduce your intake of carbohydrates like pasta, bread, rice, and potatoes, as your blood sugar is at the borderline for prediabetes. - Continue taking your metoprolol for blood pressure and atorvastatin for cholesterol as prescribed. - I am sending a new prescription for Alendronate 70 mg. Take one pill once a week. Also, continue taking your calcium and vitamin D supplements. - You will be contacted to schedule a nerve test for the numbness in your right hand. Please schedule and complete this test. - Our office will send a new referral for you to see an Ear, Nose, and Throat (ENT) doctor for your voice issues. - Follow up with the hydropulper's office to schedule your consultation and colonoscopy for next year. - It is important to stay hydrated by drinking plenty of water and to keep moving and stay active. - We are in the middle of flu season, so please be careful. Wearing a mask can help protect you. - I will see you for your next physical, but please let me know if anything comes up in the meantime. Orders: Orders NE electromyogram (EMG) Today R20.0 - Anesthesia of skin NE nerve conduction velocity Today R20.0 - Anesthesia of skin Referrals Ear/Nose/Throat Referral R49.1 - [facility] Medications: Changed From alendronate 70 mg PO SA To alendronate 70 mg PO QWEEK 12 tabs 2RF
--- OUTSIDE RECORDS SUMMARY | 2025-04-22 10:05 | XMS_ITS | Clinical Summary ---
Author Organization [employer] Address [address] [place] [address] [address] [place] [address] Care Team Providers Care Medical Officer Name Role Phone Unavailable Primary Care Provider [...]
--- OUTSIDE RECORDS SUMMARY | 2025-04-22 10:05 | XMS_ITS | Encounter Summary ---
Author Organization [employer] Address [address] [place] [address] Care Team Providers Care Ethanol Operations Manager Name Role Phone Unavailable Primary Care Provider [...]
--- OUTSIDE RECORDS SUMMARY | 2025-04-22 10:05 | XMS_ITS | Patient Health Record ---
Author Organization [facility] [place] Address [address] [place] [address] Care Team Providers Care Pump Operator Byproducts Name Role Phone Henrry Madden Primary Care Provider Unavailabl e Yesi Ortega Unavailable [phone] Allergies Allergen (clinical drug ingredient) Drug/Non Drug Allergy documented on EMR Reaction Allergy Type Onset Date Status lisinopril Lisinopril Unknown Drug Allergy Activ e Reason For Referral No Information Medications Medication SIG (Take, Route, Frequency, Duration) Notes Start Date End Date Status Calcium Citrate + D3 315-5 MG-MCG 1 tablet Orally Once a day Active Vitamin A 3 MG (28812 UT) 1 capsule Orally Once a day Active Gabapentin 300mg three times a day orally daily Active CBD Tarrant Active Citalopram & Diet Manage Prod 20mg [...] W/U Status Risk Notes Problem Plantar wart (92558528) Plantar wart (B07.0) Active confirmed Plan Of Treatment Pending Test Test Name Order Date [id number] Destruction, 1-14 10/25/2022 Insurance Providers Payer Name Payer Address Payer Phone Subscriber Number Group Number Insured Name Patient Relationship to Insured Coverage Start Date Coverage End Date A[employer] Medicare Complete [address] [address] [place] [address] [phone] [id number] Jenn Hidalgo Self - patient is the insured Medical (General) History Medical History History ICD Code Anxiety Back,Hip,and Knee pain Broken bones Cancer Cataracts covid-19 Depression High blood pressure Osteoporosis Reflux thyroid Measles Chicken pox Surgical History Surgery Date(Month/Year) back surgery 11/1990 gastric bypass 2016 09/07/83 12/07/85
--- OUTSIDE RECORDS SUMMARY | 2025-04-22 10:05 | XMS_ITS | Patient Health Record ---
Author Organization [facility] Address [address] [place] [address] Care Team Providers Care National Accounts Recruiter Name Role Phone Po Henrry BOONE Primary Care Provider Joseph Plummer [phone] Allergies Allergen (clinical drug ingredient) Drug/Non Drug [...] Duration: 30 Active Vitamin A 3 MG (06100 UT) Capsule TK 1 C PO QD [...] Problem Screening for malignant neoplasm of colon (421268096) Encounter for screening for malignant neoplasm of colon (Z12.11) Active confirmed Problem History of adenomatous polyp of colon (921471140) History of adenomatous polyp of colon (Z86.010) Active confirmed Problem Preprocedural examination (108158906818358) Preprocedural examination (Z01.818) Active confirmed Problem Family History of Cancer of Colon (Situation) (125672656) Family history of colon cancer (Z80.0) Active confirmed Plan Of Treatment Future Test Test Name Order Date COLONOSCOPY 10/24/2014 COLONOSCOPY 05/08/2020 Insurance Providers Payer Name Payer Address Payer Phone Subscriber Number Group Number Insured Name Patient Relationship to Insured Coverage Start Date Coverage End Date [employer] [facility] Medicare Advantage Plan [address] [address] [place] [address] [phone] [id number] GUY SINGH Self - patient is the insured Medical (General) History Medical History History ICD Code Screening Colonoscopies 1996 and 2003 were negative; in 2009 a small tubular adenoma was removed--also noted to have moderate sigmoid diverticulosis and internal hemorrhoids; neg. colonoscopy in 01/2015 Right breast cancer 06/2010--lumpectomy a nd XRT-sees Dr. Lilly HTN Depression Denies MO,DM,CVA,Lung disease,renal dise ase Spinal stenosis Surgical History Surgery Date(Month/Year) Back surgery-lower back C-sections x 2 Right breast surgery for cancer as above ---neg. lymph node 2010 Cholecystectomy 08/2015 Gastric bypass lost > 100#--Dr. Coleman los 10/2015
== END 2025-04-22 10:02 | disposition home or self-care (01) ==
LOC: HO.HMCH 09:09
PROVIDERS: PCP Internal Medicine; Visit Provider Internal Medicine
DX: I10 Essential (primary) hypertension (principal); I25.10 Atherosclerotic heart disease of native coronary artery without angina pectoris; I48.0 Paroxysmal atrial fibrillation; E78.00 Pure hypercholesterolemia, unspecified; E21.3 Hyperparathyroidism, unspecified; M81.0 Age-related osteoporosis without current pathological fracture; Z98.84 Bariatric surgery status; Z85.3 Personal history of malignant neoplasm of breast; R20.0 Anesthesia of skin

== ENCOUNTER → 2025-04-22 09:08 | Outpatient (BNVA) | payer MEDICARE, SELFPAY | PROVIDERS: PCP Internal Medicine; Visit Provider Internal Medicine | DX: I10 Essential (primary) hypertension (principal); I48.0 Paroxysmal atrial fibrillation; I25.10 Atherosclerotic heart disease of native coronary artery without angina pectoris; E78.00 Pure hypercholesterolemia, unspecified; E21.3 Hyperparathyroidism, unspecified; M81.0 Age-related osteoporosis without current pathological fracture; R20.0 Anesthesia of skin; Z85.3 Personal history of malignant neoplasm of breast; Z98.84 Bariatric surgery status; Z13.31 Encounter for screening for depression; Z13.39 Encounter for screening examination for other mental health and behavioral disorders | CPT/HCPCS: 96127; 99212 ==